=== PATIENT | female | born 1955 | race Caucasian/White ===

== ENCOUNTER 2016-12-11 06:13 | Day surgery (SDC) | payer MEDICARE, MEDICAID ==
[~2016-12-11 06:13] MED LIST: Buffered Lidocaine 1% SYR 3ML* 3 ML/SYR SYRINGE INTRADERM ONE; Sodium Citrate/Citric Acid* 15 ML UDC ONE; Sodium Citrate/Citric Acid* 15 ML UDC PO ONE; ceFAZolin 2 GM PREMIX (*) 2 GM/50 ML BAG IVPB ONE
[2016-12-11] MEDS ORDERED: Bupivacaine 0.25% SDV* 30 ML ONE (07:14)
[2016-12-11] MEDS ORDERED: Lidocaine 1% INJ* 10 MG/ML 30 ML SDV ONE (07:14)
[2016-12-11] MEDS ORDERED: Lidocaine 1% MPF wEPI 200,000* 30 ML SDV ONE (07:38)
[2016-12-11] MEDS ORDERED: Midazolam* 1 MG/ML 2 ML VIAL (2 MG) ONE (07:39)
[2016-12-11] MEDS ORDERED: Bupivacaine 0.5% W/EPI SDV* 30 ML VIAL ONE (07:39)
[2016-12-11] MEDS ORDERED: fentaNYL* 50 MCG/ML 2 ML VIAL (100 MCG VIAL) ONE (07:39)
[2016-12-11] MEDS ORDERED: Lidocaine 2% PF * 5 ML VIAL ONE (07:57)
[2016-12-11] MEDS ORDERED: Propofol* 10 MG/ML 20 ML BTL IV PUSH ONE (07:57)
[2016-12-11 09:12] VITALS: BP 106/77
--- NOTE | 2016-12-11 13:09 | OP ---
OPERATIVE REPORT: DATE OF OPERATION: 12/11/16 DATE OF : 57 SURGEON: Campbell Patton MD ACCOUNT SERVICE REPRESENTATIVE: MANUEL Mariano ANESTHESIOLOGIST: Michael Huggins DO. ANESTHESIA: Monitored anesthesia care, IV sedation as well as local anesthesia. PRE-OP DIAGNOSIS: Left de Quervain's tenosynovitis. POST-OP DIAGNOSIS: Left de Quervain's tenosynovitis. OPERATIVE PROCEDURE: Open left first dorsal compartment release. ANTIBIOSIS: 2 g Ancef IV. IV FLUIDS: See anesthesia note. TOURNIQUET TIME: 24 minutes, approximately at 250 mmHg. COMPLICATIONS: None. ESTIMATED BLOOD LOSS: Minimal. SPECIMENS: None. IMPLANTS: None. INDICATION: The patient is a 61-year-old woman, who I treated for left knee osteoarthritis and an M CL sprain who then complained of left wrist radial-sided pain, of long duration. Patient is right h and dominant. Patient described a long history of radial-sided pain, multiple years, it increased s omewhat with a fall in September 2016. Patient does not have children or grandchildren that she lifts often, but have a dachshund dog, that she lifts up and every time she lifts up the dog it causes si gnificant radial-sided pain. Of note, the patient is disabled secondary to lower back injury in 2002, treated at the pain clinic. Patient had a thorough examination that differentiated de Quervain's tenosynovitis from basal join t arthritis or intersection syndrome. I treated the patient with a cortisone injection, first dorsa l compartment. This helped the patient entirely, but only temporarily with her pain. I also treate d the patient with a thumb spica wrist splint and with Tylenol antiinflammatory. Patient had receive d similar treatment in the past as well. The patient had positive tenderness to palpation over the first dorsal compartment, positive Vasu test. X-rays of the wrists were negative for patholo gy. No snuffbox tenderness, basal joint tenderness and the patient's passive range of motion of the left wrist was pain free. Patient opted for surgical management. DESCRIPTION OF PROCEDURE: Preoperative written consent. Operative extremity was marked in the preo perative holding. Benefits, risks, and potential complications of procedure were discussed in madiha alvarez. Patient was taken back to the operating room, remained on stretcher. Patient was sedated with I V sedation. Hand table was applied. A mini timeout was performed. A local anesthetic, 9 cc of 1:1 ratio of lidocaine and Marcaine with epinephrine was injected in the area of the incision as well a s a superficial radial nerve block. Patient had a tourniquet placed over the left upper arm. Left upper extremity was prepped and draped. Surgical timeout was performed. Esmarch was applied and to urniquet was elevated 250 mmHg. Surgeon was sitting in the axilla of the arm. Surgical incision wa s made in the skin, transverse, 3 cm long, 1 cm proximal to the distal tip of the radial styloid, ce ntered over the first dorsal compartment as confirmed by patient's moving of thumb. Incision was ca rried just through skin. Scissor dissection was used with spreading technique to go from the skin t o the first dorsal compartment. Care was made to not injure any branches of the superficial radial nerve, which instead were spread. There is a small vessel bleeder that was ablated with bipolar lexx ctrocautery. First dorsal compartment was visualized. Proximally, mid point from volar to dorsal, slightly more dorsal, it was incised using a #15 blade followed by scissors from most proximal to mo st distal. There was an APL as well as EPB tendons present. There was also an accessory Zancolli s lip of the APL, which was in a separate compartment that was released separately. No additional com partments were visualized. When the patient moved her thumb and wrist, the tendons were stable in t he compartment. Irrigation. Closure of the subcutaneous layer with deep buried simple stitches usi ng Vicryl 3-0 suture. Closure of the skin with horizontal mattress stitches using nylon 4-0 suture. Xeroform, 4x4's, sterile Webril, Coban. Tourniquet was dropped. The patient was awakened, lighte mumtaz of sedation and brought to PACU. DISPOSITION: The patient is already on an aggressive narcotic pain medication regimen and will take that pain medication as needed. No oral antibiotics needed for home nor DVT prophylaxis. The laya ent will follow up with me in approximately 10 days in clinic. Wound care instructions provided. [id number]/[facility] #: [id number]
== END 2016-12-11 09:09 | disposition home or self-care (01) ==
LOC: OR 06:13
PROVIDERS: ATTEND Orthopaedic Surgery
PROC: 0LN60ZZ Release Left Lower Arm and Wrist Tendon, Open Approach (ICD-10-PCS; principal; 2016-12-11 07:30)
DX: M65.4 Radial styloid tenosynovitis [de Quervain] (principal)
CPT/HCPCS: A9270-GY; J0690; J2001; J2250; J2704; J3010

== ENCOUNTER 2017-06-15 13:36 | Emergency (ER) | payer MEDICARE ==
[2017-06-15] MEDS ORDERED: Aspirin Low Dose CHEW TAB* 81 MG PO ONE (14:14)
[2017-06-15 15:09] LABS: Hematocrit 38 % (35-47); Hemoglobin 12.6 g/dl (12.0-16.0); Mean Corpuscular HGB Conc 33 g/dl (31-36); Mean Corpuscular Hemoglobin 29 pg (27-31); Mean Corpuscular Volume 87 fL (80-97); Mean Platelet Volume 9 um3 (7.4-10.4); Red Blood Count 4.37 10^6/ul (4.0-5.4); Red Cell Distribution Width 14 % (10.5-15); White Blood Count 8.2 10^3/ul (3.5-10.8)
--- NOTE | 2017-06-15 15:13 | RAD ---
INDICATION: Chest pain COMPARISON: Chest x-ray dated December 11, 2015 TECHNIQUE: PA and lateral views of the chest were obtained. FINDINGS: The heart and mediastinum are normal in size and contour. The lungs are grossly clear. There is no evidence of large pleural effusion. Partially visualizes a cervical spine plain screw fixator. Degenerative changes of the thoracic spine include loss of intervertebral disc height and mild anterior marginal osteophyte formation. There is no radiographic evidence of free air beneath the diaphragm IMPRESSION: No radiographic evidence of acute cardiopulmonary disease.
[2017-06-15 15:34] LABS: BUN/Creatinine Ratio 10.8 (8-20); Calcium 9.7 mg/dL (8.6-10.3); EGFR African American 53.7 (>60); EGFR Non-African American 41.8 (>60); Globulin 3.6 g/dL (2-4); Potassium 3.9 mmol/L (3.5-5.0); Total Bilirubin 0.7 mg/dL (0.2-1.0); Total Protein 7.6 g/dL (6.4-8.9)
[2017-06-15] MEDS ORDERED: NS 0.9% 1000 ML* 1,000 ML IV ONE (15:59)
[2017-06-15] MEDS ORDERED: Morphine INJ* 4 MG/ML 1 ML CARPUJECT IV ONE (16:09)
[2017-06-15] MEDS ORDERED: Iodixanol* (CONTRAST) 320 MG/ML 100 ML SDV IV ONE (16:15)
--- NOTE | 2017-06-15 17:48 | RAD ---
INDICATION: Chest pain. COMPARISON: Comparison is made with a prior CT angiogram of the chest from December 11, 2015. TECHNIQUE: A CT angiogram of the chest was performed with intravenous following intravenous injection of 84 ml of is a PICC 320 nonionic contrast. Contiguous axial sections were obtained from the lung apices through the lung bases. Images were reconstructed in the coronal and sagittal planes. FINDINGS: There is relatively homogeneous opacification of the pulmonary arteries. No intraluminal filling defect or pulmonary embolism is seen. The heart is within normal limits in size. No pericardial effusion is present. There are coronary artery calcifications. The thoracic aorta is normal in caliber and demonstrates homogeneous contrast opacification. No significant enlarged mediastinal or hilar lymph nodes are seen. There is mild dependent bilateral lower lobe subsegmental atelectasis. There is a small nodular density present in the region of the superior segment of the left lower lobe measuring 4 mm in size possibly representing atelectasis although nonspecific. The lungs are otherwise clear. No pleural effusion is seen. Images of the upper abdomen demonstrate cholelithiasis. No significant focal osseous abnormality is seen. IMPRESSION: 1. NO EVIDENCE FOR PULMONARY EMBOLISM. 2. CORONARY ARTERY CALCIFICATIONS. 3. SMALL LEFT LOWER LOBE PULMONARY NODULE. RECOMMEND A FOLLOW-UP NONCONTRAST CT OF THE CHEST IN 6 MONTHS TIME. 4. CHOLELITHIASIS.
--- NOTE | 2017-06-15 19:17 | ED ---
Tom Varela Rebecca, scribed for Mainor Cohn MD on 06/15/17 at 1556 . HPI Chest Pain - HPI Summary HPI Summary: Pt is a 61 y/o F who presents to ED c/o midsternal CP. Pain began today at noon and s currently severe, ranked 8/10. Pain radiates into the LUE and she took 4 ASA in the waiting room of [facility] ED. Sx aggravated and alleviated by nothing. Additionally c/o SOB, chills, lightheadedness, dizziness and palpitations. Denies nausea, diaphoresis, fever, cough, calf pain and edema. Prior similar episode of pain with the cause being related to the musculature. Notes an episode of lightheadedness 3 days ago which cause the pt to suffer a mechanical fall and hit her head on a coffee table, inducing LOC. - History of Current Complaint Chief Complaint: EDChestPainROMI Time Seen by Provider: 06/15/17 15:48 Hx Obtained From: Patient Onset/Duration: Started Hours Ago, Still Present Time of Onset: 12:00 Current Severity: Severe Pain Intensity: 8 Pain Scale Used: 0-10 Numeric Chest Pain Location: Mid Sternal Chest Pain Radiates: Yes Chest Pain Radiates To:: Arm - LUE Aggravating Factor(s): Nothing Alleviating Factor(s): Nothing Associated Signs and Symptoms: Positive: Dizziness, Shortness of Breath, Chills , Lightheadedness, Palpitations. Negative: Fever, Diaphoresis, Nausea, Cough, Calf Pain/Swelling - Allergy/Home Medications Allergies/Adverse Reactions: Allergies Allergy/AdvReac Type Severity Reaction Status Date / Time No Known Allergies Allergy Verified 02/10/17 10:17 PMH/Surg Hx/FS Hx/Imm Hx Endocrine/Hematology History: Reports: Hx Anticoagulant Therapy - FOR HX OF DVT Denies: Hx Diabetes, Hx Thyroid Disease Cardiovascular History: Reports: Hx Angina, Hx Deep Vein Thrombosis, Hx Hypertension, Other Cardiovascular Problems/Disorders - "WEAK"- SEES DR. SMITH- LAST SEEN-09/2016 Denies: Hx Congestive Heart Failure, Hx Pacemaker/ICD Respiratory History: Reports: Hx Chronic Obstructive Pulmonary Disease (COPD), Hx Sleep Apnea, Other Respiratory Problems/Disorders - USES O2 AT HS Denies: Hx Asthma GI History: Denies: Hx Ulcer History: Denies: Hx Renal Disease Musculoskeletal History: Reports: Hx Arthritis - KNEES, LOWER BACK, Hx Back Problems, Hx Osteoporosis Denies: Hx Rheumatoid Arthritis Sensory History: Reports: Hx Contacts or Glasses - READING Denies: Hx Hearing Aid Opthamlomology History: Reports: Hx Contacts or Glasses - READING Neurological History: Reports: Other Neuro Impairments/Disorders - 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 ACDF C5-6 IN 2004;. C6 VERTEBRECTOMY W/ C5-C7 STRUT GRAFT FUSION IN 2004;. ACDF C4-5 IN 2006;. ACDF C3-4 IN 2007;. CRANIOTOMY (FOR AVM) IN JANUARY 2009 (THIS WAS CLEARED IN 2009 FOR MRI CSP - SEE PREVIOUS SCREENING IN PACS);. REMOVAL OF FLAP FEBRUARY 2009;. CRANIOPLASTY IN AUG 2009;. REMOVAL OF INFECTED FLAP NOVEMBER 2009 Hx Anesthesia Reactions: No Infectious Disease History: No Infectious Disease History: Reports: Hx of Known/Suspected MRSA Denies: Hx Clostridium Difficile, Hx Hepatitis, Hx Human Immunodeficiency Virus (HIV), Hx Shingles, Hx Tuberculosis, Traveled Outside the [place] in Last 30 Days - Family History Known Family History: Positive: Cardiac Disease, Hypertension - Social History Alcohol Use: None Alcohol Amount: 1 glass of wine about 1X/month Substance Use Type: Reports: None Substance Use Comment - Amount & Last Used: fentanyl and oxycodone Smoking Status (MU): Former Smoker Type: Cigarettes Amount Used/How Often: 1 PPD X 25 YEARS Length of Time of Smoking/Using Tobacco: 29 years Have You Smoked in the Last Year: No Review of Systems Positive: Chills. Negative: Fever, Skin Diaphoresis Positive: Palpitations, Chest Pain Positive: Shortness Of Breath. Negative: Cough Negative: Nausea Positive: Other - NEGATIVE: calf pain. Negative: Edema Neurological: Other - Lightheadedness, dizziness All Other Systems Reviewed And Are Negative: Yes Physical Exam Triage Information Reviewed: Yes Vital Signs On Initial Exam: Initial Vitals Temp Pulse Resp BP Pulse Ox 96 F 107 20 112/80 97 06/15/17 13:37 06/15/17 13:37 06/15/17 13:37 06/15/17 13:37 06/15/17 13:37 Vital Signs Reviewed: Yes Appearance: Positive: Well-Appearing, No Pain Distress Skin: Positive: Warm, Skin Color Reflects Adequate Perfusion Head/Face: Positive: Normal Head/Face Inspection ENT: Positive: Normal ENT inspection Neck: Positive: Supple, Nontender Respiratory/Lung Sounds: Positive: Clear to Auscultation, Breath Sounds Present , Other - the patient is very tender to palpation of the left upper anterior chest and she jumps when palpated in this area. It reproduces her chest pain very very clearly. Cardiovascular: Positive: RRR. Negative: Murmur Abdomen Description: Positive: Nontender Musculoskeletal: Positive: Other - chest wall tenderness Neurological: Positive: Sensory/Motor Intact, Alert, Oriented to Person Place, Time, CN Intact II-III Psychiatric: Positive: Normal - [place] Coma Scale Best Eye Response: 4 - Spontaneous Best Motor Response: 6 - Obeys Commands Best Verbal Response: 5 - Oriented Diagnostics - Vital Signs Vital Signs Temp Pulse Resp BP Pulse Ox 06/15/17 15:20 98.3 F 80 20 105/66 90 06/15/17 13:37 96 F 107 20 112/80 97 - Laboratory Lab Results: Lab Results 06/15/17 06/15/17 06/15/17 Range/Units 14:56 14:56 14:56 WBC 8.2 (3.5-10.8) 10^3/ul RBC 4.37 (4.0-5.4) 10^6/ul Hgb 12.6 (12.0-16.0) g/dl Hct 38 (35-47) % MCV 87 (80-97) fL MCH 29 (27-31) pg MCHC 33 (31-36) g/dl RDW 14 (10.5-15) % Plt Count 320 (150-450) 10^3/ul MPV 9 (7.4-10.4) um3 Neut % (Auto) 69.2 (38-83) % Lymph % (Auto) 21.2 L (25-47) % Bradford % (Auto) 6.0 (1-9) % Eos % (Auto) 2.3 (0-6) % Baso % (Auto) 1.3 (0-2) % Absolute Neuts (auto) 5.7 (1.5-7.7) 10^3/ul Absolute Lymphs (auto) 1.7 (1.0-4.8) 10^3/ul Absolute Monos (auto) 0.5 (0-0.8) 10^3/ul Absolute Eos (auto) 0.2 (0-0.6) 10^3/ul Absolute Basos (auto) 0.1 (0-0.2) 10^3/ul Absolute Nucleated RBC 0 10^3/ul Nucleated RBC % 0.1 D-Dimer, Quantitative (Less Than 230) ng/mL Sodium 135 (133-145) mmol/L Potassium 3.9 (3.5-5.0) mmol/L Chloride 101 (101-111) mmol/L Carbon Dioxide 27 (22-32) mmol/L Anion Gap 7 (2-11) mmol/L BUN 14 (6-24) mg/dL Creatinine 1.30 H (0.51-0.95) mg/dL Est GFR ( Amer) 53.7 (>60) Est GFR (Non-Af Amer) 41.8 (>60) BUN/Creatinine Ratio 10.8 (8-20) Glucose 94 (70-100) mg/dL Lactic Acid (0.5-2.0) mmol/L Calcium 9.7 (8.6-10.3) mg/dL Total Bilirubin 0.70 (0.2-1.0) mg/dL AST 22 (13-39) U/L ALT 16 (7-52) U/L Alkaline Phosphatase 117 H (34-104) U/L Troponin I 0.00 (<0.04) ng/mL B-Natriuretic Peptide 31 ( - 100) pg/mL Total Protein 7.6 (6.4-8.9) g/dL Albumin 4.0 (3.2-5.2) g/dL Globulin 3.6 (2-4) g/dL Albumin/Globulin Ratio 1.1 (1-3) 06/15/17 06/15/17 Range/Units 14:56 14:56 WBC (3.5-10.8) 10^3/ul RBC (4.0-5.4) 10^6/ul Hgb (12.0-16.0) g/dl Hct (35-47) % MCV (80-97) fL MCH (27-31) pg MCHC (31-36) g/dl RDW (10.5-15) % Plt Count (150-450) 10^3/ul MPV (7.4-10.4) um3 Neut % (Auto) (38-83) % Lymph % (Auto) (25-47) % Bradford % (Auto) (1-9) % Eos % (Auto) (0-6) % Baso % (Auto) (0-2) % Absolute Neuts (auto) (1.5-7.7) 10^3/ul Absolute Lymphs (auto) (1.0-4.8) 10^3/ul Absolute Monos (auto) (0-0.8) 10^3/ul Absolute Eos (auto) (0-0.6) 10^3/ul Absolute Basos (auto) (0-0.2) 10^3/ul Absolute Nucleated RBC 10^3/ul Nucleated RBC % D-Dimer, Quantitative 897 H (Less Than 230) ng/mL Sodium (133-145) mmol/L Potassium (3.5-5.0) mmol/L Chloride (101-111) mmol/L Carbon Dioxide (22-32) mmol/L Anion Gap (2-11) mmol/L BUN (6-24) mg/dL Creatinine (0.51-0.95) mg/dL Est GFR ( Amer) (>60) Est GFR (Non-Af Amer) (>60) BUN/Creatinine Ratio (8-20) Glucose (70-100) mg/dL Lactic Acid 0.8 (0.5-2.0) mmol/L Calcium (8.6-10.3) mg/dL Total Bilirubin (0.2-1.0) mg/dL AST (13-39) U/L ALT (7-52) U/L Alkaline Phosphatase (34-104) U/L Troponin I (<0.04) ng/mL B-Natriuretic Peptide ( - 100) pg/mL Total Protein (6.4-8.9) g/dL Albumin (3.2-5.2) g/dL Globulin (2-4) g/dL Albumin/Globulin Ratio (1-3) Result Diagrams: 06/15/17 14:56 06/15/17 14:56 Lab Statement: Any lab studies that have been ordered have been reviewed, and results considered in the medical decision making process. - Radiology CXR Xray Interpretation: No Acute Changes - No radiographic evidence of acute cardiopulmonary disease. ED physician reviewed radiology report and agrees. Radiology Interpretation Completed By: Radiologist - CT Chest/Thorax CTA CT Interpretation: Positive (See Comments) - 1. NO EVIDENCE FOR PULMONARY EMBOLISM. 2. CORONARY ARTERY CALCIFICATIONS. 3. SMALL LEFT LOWER LOBE PULMONARY NODULE. RECOMMEND A FOLLOW-UP NONCONTRAST CT OF THE CHEST IN 6 MONTHS TIME. 4. CHOLELITHIASIS. ED physician reviewed radiology report and agrees. CT Interpretation Completed By: Radiologist - EKG 1341 Cardiac Rate: NL - 76 bpm EKG Rhythm: Sinus Rhythm ST Segment: Non-Specific - T ave abnormalities in the anterior leads Re-Evaluation - Re-Evaluation First Eval Re-Evaluation Time: 18:02 Change: Improved Comment: Pt is feeling much more comfortable. Chest Pain Course/Dx - Course Course Of Treatment: 61 yr old with very clear reproducible chest pain. Neg troponin times two and neg ct chest. Has had a stress test in the past several months that was neg, and heart cath in 2010 with no significant CAD. DC home, FU with PMD. EKG not different than prior tracings - Diagnoses Provider Diagnoses: Chest wall pain Discharge - Discharge Plan Condition: Good Disposition: HOME Patient Education Materials: Chest Wall Pain (ED) Referrals: Janes Michele MD [Primary Care Provider] - 1 Day The documentation as recorded by the Tom borja Rebecca accurately reflects the service I personally performed and the decisions made by , Mainor Cohn MD.
[2017-06-15 19:18] VITALS: BP 98/63
== END 2017-06-15 19:35 | disposition home or self-care (01) ==
LOC: ED 13:36
DX: R07.89 Other chest pain (principal); R68.83 Chills (without fever); R00.2 Palpitations; R06.02 Shortness of breath
CPT/HCPCS: 36415; 71020; 71275; 80053; 83605; 83880; 84484; 85025; 85379; 93005; 99284; A9270-GY; J2270; Q9967

== ENCOUNTER 2017-08-04 09:45 | Emergency (ER) | payer MEDICARE, OTHER ==
[2017-08-04 10:13] VITALS: BP 121/83
--- NOTE | 2017-08-04 10:25 | UC ---
Hand/Wrist HPI - HPI Summary HPI Summary: Pt presents after a fall this morning. She was walking down a slight incline and lost her footing - landed on her left side and left dorsal hand. Did not hit her head. Had immediate hand pain and swelling soon after. She came right to and is currently icing her hand. - History Of Current Complaint Chief Complaint: UCUpperExtremity Stated Complaint: HAND INJURY Time Seen by Provider: 08/04/17 10:25 Hx Obtained From: Patient Onset/Duration: Sudden Onset Severity Initially: Moderate Severity Currently: Moderate Pain Intensity: 8 Pain Scale Used: 0-10 Numeric Character Of Pain: Sharp, Aching, Throbbing, Stiffness Aggravating Factor(s): Movement, Flexion, Extension Associated Signs And Symptoms: Positive: Swelling, Bruising - Allergies/Home Medications Allergies/Adverse Reactions: Allergies Allergy/AdvReac Type Severity Reaction Status Date / Time No Known Allergies Allergy Verified 02/10/17 10:17 PMH/Surg Hx/FS Hx/Imm Hx Previously Healthy: Yes Cardiovascular History: Cardiac Disease, Hypertension Other History Of: Anticoagulant Therapy - FOR HX OF DVT - Surgical History Surgical History: Yes Surgery Procedure, Year, and Place: L4-L5 DECOMPRESSIVE LAMINCETOMY FOLLOWED BY PEDICLE SCREW FIXATION AND FUSION IN 2003;. ACDF C5-6 IN 2004;. C6 VERTEBRECTOMY W/ C5-C7 STRUT GRAFT FUSION IN 2004;. ACDF C4-5 IN 2006;. ACDF C3-4 IN 2007;. CRANIOTOMY (FOR AVM) IN JANUARY 2009 (THIS WAS CLEARED IN 2009 FOR MRI CSP - SEE PREVIOUS SCREENING IN PACS);. REMOVAL OF FLAP FEBRUARY 2009;. CRANIOPLASTY IN AUG 2009;. REMOVAL OF INFECTED FLAP NOVEMBER 2009 - Family History Known Family History: Positive: Cardiac Disease, Hypertension - Social History Alcohol Use: None Alcohol Amount: 1 glass of wine about 1X/month Substance Use Type: None Substance Use Comment - Amount & Last Used: fentanyl and oxycodone Smoking Status (MU): Former Smoker Type: Cigarettes Amount Used/How Often: 1 PPD X 25 YEARS Length of Time of Smoking/Using Tobacco: 29 years Have You Smoked in the Last Year: No When Did the Patient Quit Smoking/Using Tobacco: 08/20/2013 - Immunization History Most Recent Influenza Vaccination: Not this season Most Recent Tetanus Shot: unknown Most Recent Pneumonia Vaccination: Never had Review of Systems Constitutional: Negative Skin: Bruising - Left hand Respiratory: Negative Cardiovascular: Negative Musculoskeletal: Decreased ROM - Left hand, Edema - Left hand Neurological: Negative Psychological: Negative All Other Systems Reviewed And Are Negative: Yes Physical Exam Triage Information Reviewed: Yes Appearance: Well-Nourished, Pain Distress Vital Signs: Initial Vital Signs Temp 97.2 F 08/04/17 10:08 Pulse 86 08/04/17 10:08 Resp 18 08/04/17 10:08 BP 121/83 08/04/17 10:08 Pulse Ox 99 08/04/17 10:08 Vital Signs Reviewed: Yes Respiratory: Positive: Chest non-tender, Lungs clear, Normal breath sounds, No respiratory distress, No accessory muscle use Cardiovascular: Positive: RRR, No Murmur, Pulses Normal Musculoskeletal: Positive: Strength Limited @ - Left hand due to pain 2/5, ROM Limited @ - 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 No snuffbox tenderness. Left wrist: FROM NTTP Neurological: Positive: Alert, Other: - Sensations intact left hand. Psychological: Positive: Age Appropriate Behavior Skin: Negative: rashes Hand/Wrist Course/Dx - Course Course Of Treatment: XR negative today. NATALIA wrap hand for comfort and added protection. Ibuprofen for pain. - Differential Dx/Diagnosis Differential Diagnosis/HQI/PQRI: Contusion, Dislocation, Fracture, Sprain, Strain Provider Diagnoses: Left hand contusion. Fall Discharge - Discharge Plan Condition: Stable Disposition: HOME Patient Education Materials: Contusion in Adults (ED) Referrals: Janes Michele MD [Primary Care Provider] - Additional Instructions: 1) Ibuprofen 400mg every 6 hours as needed for pain 2) NATALIA wrap for comfort and protection If you develop a fever, SOB, chest pain, new or worsening symptoms - please call your PCP or go to the ED.
--- NOTE | 2017-08-04 11:45 | RAD ---
INDICATION: Pain at the third metacarpal phalangeal joint after a fall COMPARISON: [facility] TECHNIQUE: 4 views of the left hand were obtained. FINDINGS: The adequately corticated bones are in normal alignment. No significant focal osseous abnormality or fracture is seen. Joint spaces appear maintained. IMPRESSION: Normal left hand radiograph. If the patient's symptoms persist, follow-up imaging is recommended.
== END 2017-08-04 12:07 | disposition home or self-care (01) ==
LOC: UCEAST 09:45
DX: Z72.89 Other problems related to lifestyle (principal); Z87.891 Personal history of nicotine dependence; S60.222A Contusion of left hand, initial encounter; W17.89XA Other fall from one level to another, initial encounter; Y93.01 Activity, walking, marching and hiking; Y92.9 Unspecified place or not applicable; Y99.9 Unspecified external cause status
CPT/HCPCS: 99212; G0463

== ENCOUNTER 2019-08-10 14:19 | Observation (INO) | payer MEDICARE, OTHER ==
--- NOTE | 2019-08-10 14:36 | ED ---
Shortness of Breath - HPI Summary HPI Summary: This patient is a 64 year old F presenting to [facility] with a chief complaint of an constant irregular heartbeat since one week ago. Pt was scheduled for lower back surgery. She was getting prepped for the surgery, when they sent her here for an irregular heart rate. The patient rates the pain 0/10 in severity. Symptoms aggravated by nothing. Symptoms alleviated by nothing. Patient reports SOB, dizziness, lightheadedness, cough, left calf swelling and pain. Pt denies any fever, chills, erythema of eyes, sore throat, CP, abdominal pain, N/V, dysuria, hematuria, myalgia, edema, rash. She has not travelled for longer than an hour. Pt had a blood clot in her lung previously. Pt does not have HLD or diabetes. - History of Current Complaint Chief Complaint: EDShortnessOfBreath Time Seen by Provider: 08/10/19 14:23 Hx Obtained From: Patient Onset/Duration: Sudden Onset, Lasting Weeks - 1, Still Present Current Severity: Mild Dyspnea At: Rest Aggravating Factors: Nothing Alleviating Factors: Nothing Associated Signs & Symptoms: Cough (Nonproductive) - Allergy/Home Medications Allergies/Adverse Reactions: Allergies Allergy/AdvReac Type Severity Reaction Status Date / Time No Known Allergies Allergy Verified 02/10/17 10:17 Home Medications: Home Medications Ca/D3/Mag Ox/Zinc/Regulator Assembler/Constantine/Bor [Calcium 600-D3 Plus Caplet] 1 tab PO DAILY 08/10 [History Confirmed 08/10/19] Clotrimazole 1% CREAM* [Clotrimazole 1%*] 1 applic TOPICAL BID PRN 08/10/19 [ History Confirmed 08/10/19] Cyclobenzaprine TAB* [Flexeril 10 MG TAB*] 10 mg PO TID PRN 08/10/19 [History Confirmed 08/10/19] DULoxetine DR CAP* [Cymbalta CAP*] 60 mg PO DAILY 08/10/19 [History Confirmed ] Gabapentin CAP(*) [Neurontin 300 CAP(*)] 300 mg PO BEDTIME 08/10/19 [History Confirmed 08/10/19] Melatonin 10 mg PO BEDTIME 08/10/19 [History Confirmed 08/10/19] traZODone TAB* [Desyrel TAB*] 50 - 100 mg PO BEDTIME 08/10/19 [History Confirmed 08/10/19] PMH/Surg Hx/FS Hx/Imm Hx Previously Healthy: Yes Endocrine/Hematology History: Reports: Hx Anticoagulant Therapy - FOR HX OF DVT Denies: Hx Diabetes, Hx Thyroid Disease Cardiovascular History: Reports: Hx Angina, Hx Deep Vein Thrombosis, Hx Hypertension, Other Cardiovascular Problems/Disorders - "WEAK"- SEES DR. SMITH- LAST SEEN-09/2016 Denies: Hx Congestive Heart Failure, Hx Pacemaker/ICD Respiratory History: Reports: Hx Chronic Obstructive Pulmonary Disease (COPD), Hx Sleep Apnea, Other Respiratory Problems/Disorders - USES O2 AT HS Denies: Hx Asthma GI History: Denies: Hx Ulcer History: Denies: Hx Renal Disease Musculoskeletal History: Reports: Hx Arthritis - KNEES, LOWER BACK, Hx Back Problems, Hx Osteoporosis Denies: Hx Rheumatoid Arthritis Sensory History: Reports: Hx Contacts or Glasses - READING Denies: Hx Hearing Aid Opthamlomology History: Reports: Hx Contacts or Glasses - READING Neurological History: Reports: Other Neuro Impairments/Disorders - 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 ANTERIOR CERVICAL DISC FUSION C5-6 IN 2004; C4-C5 2006 :C3-C4 2008. C6 VERTEBRECTOMY W/ C5-C7 STRUT GRAFT FUSION IN 2004;. ALL SPINE SURGERIES AT [facility] WITH DR SANTIAGO. CRANIOTOMY (FOR AVM) IN JANUARY 2009 (THIS WAS CLEARED IN 2009 FOR MRI CSP - SEE PREVIOUS SCREENING IN PACS) ;. REMOVAL OF FLAP FEBRUARY 2009;. CRANIOPLASTY IN AUG 2009;. REMOVAL OF INFECTED FLAP NOVEMBER 2009 Hx Anesthesia Reactions: No Infectious Disease History: No Infectious Disease History: Reports: Hx of Known/Suspected MRSA Denies: Hx Clostridium Difficile, Hx Hepatitis, Hx Human Immunodeficiency Virus (HIV), Hx Shingles, Hx Tuberculosis, Traveled Outside the [place] in Last 30 Days - Family History Known Family History: Positive: Cardiac Disease, Hypertension - Social History Alcohol Use: None Alcohol Amount: 1 glass of wine about 1X/month Substance Use Type: Reports: None Substance Use Comment - Amount & Last Used: fentanyl and oxycodone Smoking Status (MU): Former Smoker Type: Cigarettes Amount Used/How Often: 1 PPD X 25 YEARS Length of Time of Smoking/Using Tobacco: 29 years Have You Smoked in the Last Year: No Review of Systems Negative: Fever, Chills Negative: Erythema Negative: Sore Throat Cardiovascular: Other - positive - irregular heart rate Negative: Chest Pain Positive: Shortness Of Breath, Cough Negative: Abdominal Pain, Vomiting, Nausea Negative: dysuria, hematuria Musculoskeletal: Other - positive - left calf swelling and pain Negative: Myalgia, Edema Negative: Rash Neurological: Other - positive - dizziness, lightheadedness All Other Systems Reviewed And Are Negative: Yes Physical Exam - Summary Physical Exam Summary: Constitutional: Well-developed, Well-nourished, Alert. (-) Distressed Skin: Warm, Dry HENT: Normocephalic; Atraumatic Eyes: Conjunctiva normal Neck: Musculoskeletal ROM normal neck. (-) JVD, (-) Stridor, (-) Tracheal deviation Cardio: Rhythm regular, rate normal, Heart sounds normal; Intact distal pulses; The pedal pulses are 2+ and symmetric. Radial pulses are 2+ and symmetric. (-) Murmur Pulmonary/Chest wall: Effort normal. (-) Respiratory distress, (-) Wheezes, (-) Rales Abd: Soft, (-) tenderness, (-) Distension, (-) Guarding, (-) Rebound Musculoskeletal: (-) Edema Lymph: (-) Cervical adenopathy Neuro: Alert, Oriented x3 Psych: Mood and affect Normal Triage Information Reviewed: Yes Vital Signs On Initial Exam: Initial Vitals Temp Pulse Resp BP Pulse Ox 97.8 F 113 19 146/99 92 08/10/19 14:26 08/10/19 14:26 08/10/19 14:26 08/10/19 14:26 08/10/19 14:26 Vital Signs Reviewed: Yes Procedures - Sedation Patient Received Moderate/Deep Sedation with Procedure: No Diagnostics - Vital Signs Vital Signs Temp Pulse Resp BP Pulse Ox 08/10/19 14:26 97.8 F 113 19 146/99 92 - Laboratory Result Diagrams: 08/10/19 14:34 08/10/19 14:34 Lab Statement: Any lab studies that have been ordered have been reviewed, and results considered in the medical decision making process. - Radiology Chest X-ray Radiology Interpretation Completed By: Radiologist Summary of Radiographic Findings: Chest X-ray IMPRESSION: NO ACTIVE CARDIOPULMONARY DISEASE IS NOTED. Reviewed by Dr. Sigala. Venous Doppler Study Radiology Interpretation Completed By: Radiologist Summary of Radiographic Findings: Venous Doppler Study IMPRESSION: NO EVIDENCE OF DEEP VENOUS THROMBOSIS IS IDENTIFIED. Reviewed by Dr. Sigala. - CT Chest/Thorax CTA CT Interpretation Completed By: Radiologist Summary of CT Findings: Chest/Thorax CTA IMPRESSION: No pulmonary embolus is noted. Small 4 mm nodule pleural-based in the periphery of the left lower lobe. No evidence of aortic dissection. Cholelithiasis is noted. Reviewed by Dr. Sigala. - EKG 15:33 Cardiac Rate: Tachycardia - 108 BPM EKG Rhythm: Sinus Tachycardia ST Segment: Normal Ectopy: None Summary of EKG Findings: EKG at 15:21 shows 108 BPM with sinus tachycardia, no STEMI. Reviewed and interpreted by Dr. Sigala. Re-Evaluation - Re-Evaluation First Eval Re-Evaluation Time: 16:59 Change: Unchanged Comment: At 16:59, patient HR is 100 BPM, 100% oxygen saturation. Patient is feeling unchanged. Course/Dx - Course Course Of Treatment: This patient is a 64 year old F presenting to [facility] with a chief complaint of an constant irregular heartbeat since one week ago. Pt was scheduled for lower back surgery. She was getting prepped for the surgery, when they sent her here for an irregular heart rate. The patient rates the pain 0/10 in severity. Symptoms aggravated by nothing. Symptoms alleviated by nothing. Patient reports SOB, dizziness, lightheadedness, cough, left calf swelling and pain. Pt denies any fever, chills, erythema of eyes, sore throat, CP, abdominal pain, N/V, dysuria, hematuria, myalgia, edema, rash. She has not travelled for longer than an hour. Pt had a blood clot in her lung previously. Pt does not have HLD or diabetes. Physical exam shows unremarkable findings. In the ED course, patient was given albuterol 1 neb INH, aspirin 324 mg PO, iodixanol 92 ml IV, and NTG 0.4 mg SL. Laboratory abnormal findings: D-dimer 456, creatinine 1.15., glucose 103, lactic acid 2.2, alkaline phosphatase 128. Venous Doppler Study IMPRESSION: NO EVIDENCE OF DEEP VENOUS THROMBOSIS IS IDENTIFIED. Chest X-ray IMPRESSION: NO ACTIVE CARDIOPULMONARY DISEASE IS NOTED. Chest/Thorax CTA IMPRESSION: No pulmonary embolus is noted. Small 4 mm nodule pleural-based in the periphery of the left lower lobe. No evidence of aortic dissection. Cholelithiasis is noted. At 16:59, patient HR is 100 BPM, 100% oxygen saturation. Patient is feeling unchanged. At 17:55, Dr. Mery Green agrees to admit the patient to [facility] with a diagnosis of chest pain, hypoxemia, and dyspnea. Patient will be admitted to [facility] with a diagnosis of chest pain, hypoxemia, and dyspnea. - Diagnoses Provider Diagnoses: Chest pain, Hypoxemia, Dyspnea - Physician Notifications Discussed Care of Patient With: Mery Green - At 17:55, Dr. Mery Green agrees to admit the patient to [facility] with a diagnosis of chest pain, hypoxemia, and dyspnea. Time Discussed With Above Provider: 17:55 Instructed by Provider To: Admit As Observation Discharge ED - Sign-Out/Discharge Documenting (check all that apply): Patient Departure - Admit - Discharge Plan Condition: Stable Disposition: ADMITTED TO [facility] - Attestation Statements Document Initiated by Scribe: Yes Documenting Scribe: Paige Espinal Provider For Whom Heriberto is Documenting (Include Credential): Dr. Emery Sigala MD Scribe Attestation: Donavan Varela Susan Amquy, scribed for Dr. Emery Sigala MD on 08/10/19 at 1921. Status of Scribe Document: Ready
[2019-08-10 14:56] LABS: ABS Eosinophils 0.1 10^3/ul (0-0.6); ABS Lymphocytes 1.4 10^3/ul (1.0-4.8); ABS Monocytes 0.5 10^3/ul (0-0.8); ABS Neutrophils 4.2 10^3/ul (1.5-7.7); Eosinophil % 2.1 %; Hematocrit 38 % (35-47); Hemoglobin 12.9 g/dL (12.0-16.0); Mean Corpuscular HGB Conc 34 g/dL (31-36); Mean Corpuscular Hemoglobin 30 pg (27-31); Mean Corpuscular Volume 88 fL (80-97); Mean Platelet Volume 8.7 fL (7.4-10.4); Nucleated Red Blood Cells % 0.1; Platelet Count 287 10^3/uL (150-450); Red Cell Distribution Width 15 % (10-15); White Blood Count 6.3 10^3/uL (3.5-10.8)
[2019-08-10 15:03] LABS: INR 1.03 (0.82-1.09)
[2019-08-10 15:23] LABS: T4, Total 10.74 mcg/dL (6.09-12.23)
--- OUTSIDE RECORDS SUMMARY | 2019-08-10 15:23 | XMS REPORT | Continuity of Care Document ---
:1955 External Reference #:[id number] Author Name Juan Jose Alvarez MD (transmitted by agent of provider Nargis Carrillo ) Address [address] [place] [address] Care Team Providers Name Role Phone Janes Michele MD - Internal Care Team Information Administrative Officer Medicine Problems Active Problems Provider Date Electrocardiogram abnormal Joselito Ross M.D. Onset: 06/26/2011 Dyspnea Joselito Ross M.D. Onset: 06/26/2011 Pulmonary embolism Joselito Ross M.D. Onset: 06/26/2011 Morbid obesity Joselito Ross M.D. Onset: 06/26/2011 Restrictive cardiomyopathy secondary to Joselito Ross M.D. Onset: granulomas Chest pain Joselito Ross M.D. Onset: 06/30/2011 Benign essential hypertension Joselito Ross M.D. Onset: 07/13/2011 Coronary arteriosclerosis Joselito Ross M.D. Onset: 07/13/2011 Mitral valve disorder Joselito Ross M.D. Onset: 02/19/2012 Paroxysmal supraventricular tachycardia Paige Kaufman N.P. Onset: 2011 Premature beats Joselito Ross M.D. Onset: 06/28/2012 Spinal stenosis of lumbar region Kwadwo Alford M.D. Onset: 07/04/2013 Lumbar post-laminectomy syndrome Kwadwo Alford M.D. Onset: 07/04/2013 Chronic pain syndrome Kwadwo Alford M.D. Onset: 10/06/2013 Arthrodesis Status Postsurgical Kwadwo Alford M.D. Onset: 10/06/2013 Malaise and fatigue Joselito Ross M.D. Onset: 02/16/2014 Palpitations Joselito Ross M.D. Onset: 02/16/2014 Cardiomyopathy, unspecified Joselito Ross M.D. Onset: 06/18/2015 Disturbance in sleep behavior Olivia Erwin MD Onset: 09/24/2015 Ex-smoker Olivia Erwin MD Onset: 09/24/2015 Hypoxemia Olivia Erwin MD Onset: 09/24/2015 Obesity Olivia Erwin MD Onset: 09/24/2015 Obstructive sleep apnea syndrome Olivia Erwin MD Onset: 11/01/2015 Sprain of unspecified site of right Elvin Lyn M.D. Onset: 03/10/2016 knee, subsequent encounter Social History Type Date Description Comments Sex Unknown Tobacco Use Start: Unknown End: Former Cigarette Smoker Unknown Smoking Status Reviewed: 04/19/19 Former Cigarette Smoker ETOH Use Occasionally consumes 1 glass of wine alcohol weekly Tobacco Use Start: Unknown End: Patient is a former quit 2012 Unknown smoker Recreational Drug Use Denies Drug Use Exercise Type/Frequency Does not exercise Allergies, Adverse Reactions, Alerts Description No Known Drug Allergies Medications Active Medications SIG Qnty Indications Ordering Date Provider Carvedilol 1 pill by mouth 180tabs Joselito Gordon 07/11/2012 12.5mg Tablets twice per day ( Clark Ross 10-12 hours apart) Calicum daily Unknown 1500mg Tablets Cymbalta 1 po qd 90caps Unknown 60mg Caps DR Part Trazodone HCL 1 by mouth Unknown 150mg Tablets every night at bedtime Docusate Sodium 1 by mouth Unknown 100mg twice a day or Capsules as needed Cyclobenzaprine HCL take 1 tab by Unknown 10mg mouth 2-3 times Tablets a day as needed Acidophilus Probiotic daily Unknown 10mg Capsules Gabapentin 1 by mouth qhs Unknown 300mg Capsules Medications Administered in Office Medication SIG Qnty Indications Ordering Provider Date Depomedrol 40MG Campbell Patton MD 01/14/2017 Injection Dexamethasone Sodium Campbell Patton MD 10/26/2016 Phosphate, 1 MG Injection Technetium TC 99M Tetrofosmin, Ica Nuclear Schedule 10/09/2016 Per Unit Dose Up To 40 Millicuries Injection Inj, Regadenoson, 0.1 MG Kunal Sow M.D. 10/08/2016 Injection Technetium TC 99M Tetrofosmin, Kunal Sow M.D. 10/08/2016 Per Unit Dose Up To 40 Millicuries Injection Depomedrol 40MG Campbell Patton MD 08/25/2016 Injection Immunizations Description No Information Available Vital Signs Date Vital Result Comment 04/19/2019 2:36pm Height 67 inches 5'7" Weight 244.00 lb Heart Rate 84 /min BP Systolic Sitting 128 mmHg Rue BP Diastolic Sitting 84 mmHg Rue Respiratory Rate 16 /min Body Temperature 98.1 F Pain Level 9 BMI (Body Mass Index) 38.2 kg/m2 08/24/2017 9:56am Height 67 inches 5'7" Weight 222.00 lb with shoes Heart Rate 76 /min BP Systolic Sitting 110 mmHg LA reg cuff BP Diastolic Sitting 82 mmHg LA reg cuff BMI (Body Mass Index) 34.8 kg/m2 Ejection Fraction 40%-45% echo 03/04/17 Results Description No Information Available Procedures Date Code Description Status 06/20/2009 02811850 Mammogram Completed 01/19/2008 299188043 Bone Mineral Density Test Completed 08/20/2007 45364072 Colonoscopy Completed Medical Devices Description No Information Available Encounters Type Date Location Provider Dx Diagnosis Office Visit 04/19/2019 [facility] M51.36 Other intervertebral 2:[facility] Al[facility] MD disc degeneration, lumbar region M43.16 Spondylolisthesis, lumbar region M47.896 Other spondylosis, lumbar region Z98.1 Arthrodesis status M51.36 Other intervertebral disc degeneration, lumbar region Assessments Date Code Description Provider 04/19/2019 M51.36 Other intervertebral disc degeneration, Juan Jose Alvarez MD lumbar region 04/19/2019 M43.16 Spondylolisthesis, lumbar region Juan Jose Alvarez MD 04/19/2019 M47.896 Other spondylosis, lumbar region Juan Jose Alvarez MD 04/19/2019 Z98.1 Arthrodesis status Juan Jose Alvarez MD 04/19/2019 M51.36 Other intervertebral disc degeneration, Juan Jose Alvarez MD lumbar region Plan of Treatment No Information Available Functional Status Description No Information Available Mental Status Description No Information Available Referrals Description No Information Available
[2019-08-10 15:28] LABS: ALT 17 U/L (7-52); AST 20 U/L (13-39); Albumin 3.9 g/dL (3.2-5.2); Albumin/Globulin Ratio 1.1 (1-3); Alkaline Phosphatase 128 U/L (34-104); Anion Gap 8 mmol/L (2-11); BUN/Creatinine Ratio 13.9 (8-20); Blood Urea Nitrogen 16 mg/dL (6-24); CO2 Carbon Dioxide 25 mmol/L (22-32); Calcium 9.4 mg/dL (8.6-10.3); Chloride 107 mmol/L (101-111); EGFR African American 57.7 (>60); EGFR Non-African American 47.7 (>60); Globulin 3.5 g/dL (2-4); Glucose 103 mg/dL (70-100); Magnesium 1.9 mg/dL (1.9-2.7); Potassium 3.7 mmol/L (3.5-5.0); Sodium 140 mmol/L (135-145); Total Protein 7.4 g/dL (6.4-8.9)
[2019-08-10 15:29] LABS: TSH (Thyroid Stimulating Horm) 2.16 mcIU/mL (0.34-5.60)
[2019-08-10] MEDS ORDERED: Iodixanol* (CONTRAST) 320 MG/ML 100 ML SDV IV ONE (16:08)
[2019-08-10] MEDS ORDERED: Aspirin 81 mg CHEW TAB* 81 MG TAB.CHEW PO ONE (16:59)
[2019-08-10] MEDS ORDERED: Albuterol/Ipratropium NEB.SOL* Albuterol 2.5 MG/Ipratropium 0.5 MG 3 ML INH ONE (17:00)
[2019-08-10] MEDS ORDERED: NS 0.9% 1000 ML** 1,000 ML IV SCH (17:45)
[2019-08-10] MEDS ORDERED: Acetaminophen TAB* 325 MG PO PRN (17:45)
[2019-08-10] MEDS ORDERED: Cyclobenzaprine TAB* 10 MG PO PRN (17:48)
[2019-08-10 17:55] LABS: C Reactive Protein 16.87 mg/L (<8.01)
--- NOTE | 2019-08-10 18:34 | HP ---
HISTORY AND PHYSICAL: ADDENDUM: Please note that this patient's lactic acid was elevated at 2.2. The patient is not septic during my evaluation. Her tachycardia is likely due to dehydration and her lactic acid is likely elevated due to mild dehydration. Therefore, I am not going to continue repeating and checking the patient's lactic acid, but start her on gentle intravenous fluids in consideration of her decreased ejection fraction in the past. [id number]/CPS #: [id number] MTDD
[2019-08-10] MEDS: Nitroglycerin TAB 0.4 MG* 0.4 MG TAB SL ONE ×2 (18:39→18:46)
[2019-08-10] MEDS ORDERED: Nitro 2% OINT* (Nitroglycerin) 1 INCH/PAK PAK TOPICAL ONE (18:51)
[2019-08-10] MEDS ORDERED: Nitro 2% OINT* (Nitroglycerin) 1 INCH/PAK PAK ONE (18:52)
--- NOTE | 2019-08-10 19:07 | HP ---
ADDENDUM NOW INCLUDED ON THIS REPORT CC: Dr. Michele; Dr. Ross; Dr. Alvarez * HISTORY AND PHYSICAL: DATE OF ADMISSION: 08/10/19 PRIMARY CARE PROVIDER: Dr. Michele. NEUROSURGEON: Dr. Alvarez. TRAVEL REGISTERED NURSE ONCOLOGY: Dr. Ross. CHIEF COMPLAINT: Shortness of breath. HISTORY OF PRESENT ILLNESS: Quiana Smith is a 64-year-old morbidly obese female with history of chronic shortness of breath and exacerbations thereof that happened in the past who presented to the hospital complaining of dyspnea on exertion for the past 1 week. The patient stated that over the past 6 months she did gain approximately 40 pounds. Her bilateral lower extremities are always swollen and they were so recently. She came to Dr. Alvarez' office today for preoperative evaluation and she was noted to be tachycardic and weak and she was brought into the ED for evaluation. She stated that today she had several episodes of profuse diarrhea without abdominal pain or nausea and vomiting. When in the ED, she was noted to be mildly dehydrated and tachycardic. Her CT angiogram of the chest was negative for PE. She is going to be placed on overnight observation. I suspect the patient is dehydrated, but I also suspect that she may have symptoms of dyspnea on exertion that are due to her decreasing cardiac function or coronary artery disease. PAST MEDICAL HISTORY: 1. Cardiomyopathy with EF of 40% in the past. Negative cardiac stress test in 2014 for similar presentation of palpitations and shortness of breath. 2. History of chronic back pain with multiple back surgeries that include: A. Lumbar fusion in 2003. B. Anterior cervical diskectomy with fusion of C5 to C7 in 2004. C. C6 vertebrectomy and graft fusion in March 2005. D. Anterior cervical diskectomy and fusion and plate at C4-C5 level in 2006. E. Anterior cervical diskectomy and fusion in March 2008. 3. History of craniectomy in 2008 for AVM at [facility] with 3 subsequent operations for removal of infected bone flap with cranioplasty and removal of cranioplasty complicated with MRSA infection. 4. Depression. 5. DVT and PE in 2006. 6. History of mitral valve insufficiency. 7. Morbid obesity. 8. Obstructive sleep apnea, on CPAP. 9. cervical myelopathy. 10. History of frequent UTIs. 11. Hypertension. 12. History of chronic pain. CURRENT MEDICATIONS: Include: 1. Gabapentin 300 mg at bedtime. 2. Calcium with vitamin D 800 units daily. 3. Duloxetine 60 mg daily. 4. Imodium on a p.r.n. basis. 5. Coreg 12.5 mg b.i.d. 6. Trazodone 100 mg at bedtime. ALLERGIES: No known drug allergies. FAMILY HISTORY: Positive for mother who had dementia and coronary artery disease and at the age of 92 secondary to dementia. Father who of complication of coronary artery bypass grafting in his early 80s due to "blood clot." SOCIAL HISTORY: The patient has history of smoking. She smoked when she was 19 years old and she quit smoking in 2012. She has history of a pack and a half smoking during that time. She denies any alcohol or drug use. Her healthcare proxy is her son, Venkat Huggins, with a number of [phone]. REVIEW OF SYSTEMS: Please see history of present illness. Positive for shortness of breath with exertion for the past 1 week. No problems with sleeping, but the patient uses CPAP. Positive for dyspnea on exertion, but no chest pain. Positive for dry cough. This dyspnea is not positional. The patient denies any chest pain. Positive for bilateral lower extremity edema that had been worse, but it is better when she has her legs elevated and when she gets up in the morning. Positive for weight gain of approximately 40 pounds that is not intentional. All the remaining 12 systems were reviewed with the patient and were otherwise negative. Please also note that the patient is being now evaluated perioperatively for lumbar spine surgery with Dr. Alvarez at the beginning of August 2019. Please also note that the patient has not seen Dr. Ross for approximately couple of years now. She was in [place] for a year and a half. Her significant other and she moved back to [place] within the past couple of months. PHYSICAL EXAMINATION GENERAL: The patient is a pleasant 64-year-old female who is in no acute distress. Alert, awake, and oriented x3. VITAL SIGNS: Blood pressure of 130/87, heart rate of 103 and regular, respiratory rate 14, oxygen saturation 96% on room air, temperature of 97.8. HEENT: Head: Atraumatic, normocephalic. Eyes: Pupils are equal, reactive to light and accommodation. Oropharynx is clear. Mucosa moist. NECK: Supple. No JVD. No bruits bilaterally. RESPIRATORY: Clear to auscultation bilaterally. CARDIOVASCULAR: Regular rate and rhythm. No murmur. ABDOMEN: Soft, nontender. Bowel sounds are present in all 4 quadrants. EXTREMITIES: There is +1.5 pitting edema bilaterally. Pulses are +2 bilaterally. No clubbing or cyanosis. No visible venous stasis changes of bilateral lower extremities with no evidence of open wounds. NEUROLOGIC: Cranial nerves II through XII grossly intact. Motor strength is 5/ 5 bilaterally. PSYCHIATRIC: The patient is alert and oriented x3 with no evidence of anxiety or depression. DIAGNOSTIC STUDIES/LAB DATA: Laboratory Data: White blood cell count of 6.0, hemoglobin 12.9, hematocrit of 38, and platelets of 187. Sodium of 140, potassium 3.7, chloride 107, carbon dioxide 25, BUN 16, creatinine 1.15. Liver function tests unremarkable, apart from elevation of alkaline phosphatase of 128; which is chronic. Lactic acid of 2.2. Serial troponin of 16. Brain natriuretic peptide is pending at the time of dictation. CT angiogram of the chest obtained today shows "no PE is noted. A small 4 mm nodule, pleural based, in the periphery of the left lower lobe. No evidence of aortic dissection." Venous Doppler study, impression: "No evidence of DVTs identified." The patient's EKG showed sinus tachycardia with heart rate of 108 beats per minute with no significant ST changes noted. ASSESSMENT AND PLAN: 1. Dyspnea on exertion for approximately 1 week with weight gain. It is possible that the patient has symptoms of coronary artery disease versus congestive heart failure. For that, the patient is going to be observed on telemetry monitored bed with followup troponins. I will obtain a transthoracic echocardiogram and stress test in the morning. That will also be valuable for this patient who needs preoperative evaluation for her surgery in August. 2. In regards to the patient's tachycardia, I suspect the patient now is dehydrated, although I suspect before that she had symptoms of congestive heart failure. She is going to be placed on gentle intravenous hydration. We will check the patient's weight on a daily basis. Her slight increase in creatinine is also likely due to dehydration. 3. For DVT prophylaxis, the patient is going to be placed on heparin subcutaneously. 4. For venous stasis changes, I will ask nurses to Alexander wrap the patient's bilateral lower extremities. 5. The patient's code status is full. Her surrogate is her son. TIME SPENT: Approximately 65 minutes were spent on the admission of this patient. More than half that time was spent [id number] with the patient during the interview and physical exam. ADDENDUM: Please note that this patient's lactic acid was elevated at 2.2. The patient is not septic during my evaluation. Her tachycardia is likely due to dehydration and her lactic acid is likely elevated due to mild dehydration. Therefore, I am not going to continue repeating and checking the patient's lactic acid, but start her on gentle intravenous fluids in consideration of her decreased ejection fraction in the past. [id number] #: [id number] #: [id number] KYRIE
[2019-08-10] MEDS: Carvedilol TAB* 6.25 MG PO SCH (20:07)
[2019-08-10] MEDS ORDERED: traZODone TAB* 100 MG PO SCH (21:00)
[2019-08-10] MEDS ORDERED: Gabapentin CAP(*) 300 MG PO SCH (21:00)
[2019-08-10] MEDS ORDERED: Melatonin 3 MG TAB PO SCH (21:00)
[2019-08-10] MEDS: Heparin VIAL(*) 5000 UNITS/ML VIAL (FIVE THOUSAND) SUBCUT SCH (23:00)
[2019-08-11] MEDS ORDERED: Clotrimazole 1% CREAM* 30 GM TOPICAL PRN (01:55)
[2019-08-11] MEDS ORDERED: Clotrimazole 1% VAGINAL CREAM* 45 GM TOPICAL PRN (01:59)
[2019-08-11 06:09] LABS: ABS Eosinophils 0.2 10^3/ul (0-0.6); ABS Lymphocytes 1.7 10^3/ul (1.0-4.8); ABS Monocytes 0.4 10^3/ul (0-0.8); ABS Neutrophils 2.6 10^3/ul (1.5-7.7); Eosinophil % 3.3 %; Hematocrit 34 % (35-47); Hemoglobin 11.5 g/dL (12.0-16.0); Lymphocyte % 35.1 %; Mean Corpuscular HGB Conc 34 g/dL (31-36); Mean Corpuscular Hemoglobin 30 pg (27-31); Mean Corpuscular Volume 89 fL (80-97); Mean Platelet Volume 8.8 fL (7.4-10.4); Platelet Count 238 10^3/uL (150-450); Red Blood Count 3.78 10^6 /uL (3.70-4.87); Red Cell Distribution Width 14 % (10-15); White Blood Count 4.9 10^3/uL (3.5-10.8)
[2019-08-11] MEDS: Heparin VIAL(*) 5000 UNITS/ML VIAL (FIVE THOUSAND) SUBCUT SCH ×2 (06:27→14:21)
[2019-08-11 06:44] LABS: BUN/Creatinine Ratio 12.3 (8-20); Calcium 8.4 mg/dL (8.6-10.3); EGFR African American 63.4 (>60); EGFR Non-African American 52.4 (>60); Potassium 3.9 mmol/L (3.5-5.0)
[2019-08-11] MEDS ORDERED: Perflutren Lipid Microsphere* 3 ML VIAL ONE (08:17)
[2019-08-11 08:57] VITALS: BP 107/77
[2019-08-11] MEDS ORDERED: DULoxetine DR CAP* 60 MG CAP.DR PO SCH (09:00)
[2019-08-11] MEDS ORDERED: Influenza VAC *QUAD* 2019-20* 0.5 ML SYRINGE IM ONE (09:00)
[2019-08-11] MEDS: Carvedilol TAB* 6.25 MG PO SCH (09:15)
[2019-08-11] MEDS ORDERED: Regadenoson* 0.4 MG/5 ML SYRINGE ONE (11:35)
--- NOTE | 2019-08-11 11:37 | ECHO ---
*[facility]* [place] [address] Fax #: [phone] Transthoracic Echocardiogram Patient: Quiana Smith : 1955 Study Date: 08/11/2019 Age: 64 Gender: F HR: 95 bpm Height: 65 in /165.1 cm BSA: 2.34 m^2 Weight: 249 lb /113.2 kg BMI: 41.5 kg/m^2 *[employer] Technician: * Debi Dangelo RDCS RN *Referring Physician: * Mery Green *Reading Physician: * Yakov Simpson MD Indications: Congestive Heart Failure. History: PMH: Cardiomyopathy. Lower extremity edema. Chronic SOB. DVT/PE. Risk factors: Former tobacco use. Hypertension. Morbidly obese. Conclusions Summary: - Left ventricle: The cavity size is normal. Wall thickness is mildly increased. Systolic function is mildly to moderately reduced. The estimated ejection fraction is 40%, - Right ventricle: The cavity size is normal. Systolic function is low normal. - Left atrium: The atrium is normal in size. - Ascending aorta: The ascending aorta is mildly dilated - Pulmonary arteries: Systolic pressure can not be accurately estimated. - No significant valvular abnormalities noted. Recommendations: Compared to prior study from 09/2017, no clinically significant changes noted. Study data: Transthoracic echocardiogram. Procedure: Transthoracic echocardiography was performed. Image quality was fair. The study was technically limited due to body habitus and smoking history. Intravenous Definity 3 ml was administered by Eloise Dangelo RN, RDCS to enhance imaging. Complete 2D, spectral Doppler, and color flow Doppler. Location: Bedside. Patient status: Inpatient. Patient room number: 449-02. Rhythm: Normal sinus rhythm. Findings Left ventricle: The cavity size is normal. Wall thickness is mildly increased. Systolic function is mildly to moderately reduced. The estimated ejection fraction is 35-40%, appears closer to 40% Mild diffuse hypokinesis. Left ventricular diastolic function parameters are indeterminate. Right ventricle: The cavity size is normal. Systolic function is low normal. Left atrium: The atrium is normal in size. Right atrium: The atrium is normal in size. Mitral valve: The leaflets are mildly thickened. There is no evidence of stenosis. There is trace regurgitation. Aortic valve: The valve is trileaflet. The leaflets are mildly thickened. There is no evidence of stenosis. There is trace regurgitation. Tricuspid valve: The valve is structurally normal. There is no evidence of stenosis. There is trace regurgitation. Pulmonic valve: The valve is structurally normal. There is no evidence of stenosis. There is no significant regurgitation. Aorta: Aortic root: The aortic root is mildly dilated at 3.6 cm. Ascending aorta: The ascending aorta is mildly dilated Aortic arch: The aortic arch is not dilated. Pericardium: There is no significant pericardial effusion. Pulmonary arteries: The main pulmonary artery is normal-sized. Systolic pressure can not be accurately estimated. Systemic veins: Inferior vena cava: Not visualized. Measurements Left ventricle Value Ref Right atrium Value Ref ANNABELLA, LAX 4.7 cm 3.8 - 5.2 ML dim, ES, A4C 3.6 cm 2.6 - 4.4 ESD, LAX (H) 4.2 cm 2.2 - 3.5 SI dim, ES, A4C 4.4 cm 3.4 - 5.3 FS, LAX (L) 12 % 27 - 45 Estimated RAP 8 mm Hg --------- PW, ED (H) 1.1 cm 0.6 - 0.9 IVS/PW, ED 1.01 Aortic valve Value Ref E', lat hayley, TDI (L) 9.2 cm/sec >=10.0 Hayley diam, ED 2.3 cm ---- ----- E/e', lat hayley, 13 Peak v, S 1.13 m/sec ------- -- TDI VTI, S 23.0 cm --------- E', med hayley, TDI (L) 5.1 cm/sec >=7.0 Mean grad, S 3.0 mm Hg ---- ----- E/e', med hayley, 24 Peak grad, S 5.0 mm Hg ------- -- TDI LVOT/AV, VTI ratio 0.71 --------- E', avg, TDI 7.2 cm/sec E/e', avg, TDI (H) 17 <=14 Mitral valve Value Ref Peak E 1.2 m/sec --------- LVOT Value Ref Peak grad, D 5.8 mm Hg --------- Peak leticia, S 0.87 m/sec VTI, S 16.4 cm Pulmonic valve Value Ref Mean grad, S 2 mm Hg Peak v, S 0.84 m/sec --------- Peak grad, S 3.0 mm Hg --------- Ventricular septum Value Ref IVS, ED (H) 1.1 cm 0.6 - 0.9 Aortic root Value Ref Root diam 3.6 cm <4.4 Right ventricle Value Ref AW thickness, ED (H) 0.8 cm 0.1 - 0.5 Ascending aorta Value Ref ANNABELLA, LAX 3.0 cm AAo AP diam, S 4.0 cm --------- ANNABELLA minor ax, 3.1 cm 1.9 - 3.5 A4C mid Aortic arch Value Ref Arch diam 2.6 cm --------- Left atrium Value Ref AP dim, ES 3.20 cm 2.70 - Decending aorta Value Ref 3.80 Suzy peak leticia 0.51 m/sec --------- ML dim, A4C 3.8 cm SI dim, A4C 5.2 cm Vol/bsa, ES, 1-p 25 ml/m^2 11 - 40 A4C Vol/bsa, ES, A/L 23 ml/m^2 16 - 34 Legend: (L) and (H) lauren values outside specified reference range. Prepared and electronically signed by Yakov Simpson MD 08/11/2019 11:36
[2019-08-11] MEDS ORDERED: Furosemide IV* 10 MG/ML 2 ML VIAL (20 MG) IV ONE (14:11)
--- NOTE | 2019-08-11 21:46 | DS ---
CC: [facility]; Dr. Joselito Ross * DISCHARGE SUMMARY: DATE OF ADMISSION: 08/10/19 DATE OF DISCHARGE: 08/11/19 PRIMARY CARE PHYSICIAN: None. ATTENDING PHYSICIAN: Dr. Mery Green.* (DIICTATED BY JOE TIJERINA NP) PRIMARY DIAGNOSIS: 1. Mild acute on chronic systolic congestive heart failure. SECONDARY DIAGNOSES: 1. Chronic back pain. 2. Depression. 3. History of venous thromboembolism. STUDIES WHILE IN THE HOSPITAL: 1. Chest x-rays on 08/10/19 reads as no active cardiopulmonary disease. 2. EKG on 08/10/19 shows sinus tachycardia with a rate of 108. Flattened T- waves in III and aVF, which was consistent with previous EKG. No ST elevation or depression. 3. Chest thorax CTA on 08/10/19 reads as no pulmonary embolus is noted. Small 4 mm nodule pleural based in the periphery of the left lower lobe. No evidence of aortic dissection. Cholelithiasis was noted. 4. Left lower extremity venous Doppler study on 08/10/19 reads as no evidence of deep vein thrombosis. 5. Transthoracic echocardiogram on 08/11/19 reads as the left ventricular cavity size is normal. Wall thickness is mildly increased. Systolic function is mildly to moderately reduced. The estimated ejection fraction is 40%. The right ventricular cavity size is normal. Systolic function is normal. The left atrium is normal in size. The ascending aorta is mildly dilated. Systolic pressure in the pulmonary arteries cannot be accurately estimated. No significant valvular abnormalities noted. Compared to the prior study from September 2017, no clinically significant changes noted. 6. Nuclear cardiac stress test on 08/11/19 reads as no fixed or reversible perfusion defect is identified. Assessment is low risk. HISTORY OF PRESENT ILLNESS AND HOSPITAL COURSE: Ms. Smith is a 64-year-old female with a past medical history of cardiomyopathy of unknown etiology, chronic back pain with multiple back surgeries, craniotomy, depression, DVT/PE, morbid obesity, obstructive sleep apnea, and hypertension, who presented to the emergency room on 08/10/19 with complaints of shortness of breath. Please see the history and physical by Dr. Green for complete summary of the events leading up to this hospitalization. In short, the patient does have a history of some chronic shortness of breath, though over the past week noted worsening dyspnea on exertion. She reported a 40-pound weight gain over the last 6 months. She is scheduled for surgery with Dr. Alvarez in the near future and had an appointment with him yesterday. At that point, he sent her to the emergency room for evaluation. In the emergency room, she was noted to be mildly dehydrated and tachycardiac. She had imaging as noted above. Because of her history of cardiomyopathy, it was felt as though a stress test was warranted and so the patient was admitted by the hospitalist service. The patient had an uneventful night with no significant abnormalities noted on telemetry. She did not experience any chest pain. Lab work this morning was noted to be normal. Lactic acid on admission was noted to be 2.2. This was secondary to dehydration and resolved with IV fluids. There were 3 negative troponins of 0.00 and BNP of 34. She had an echo and stress test today with results noted above. Stress test was noted to be negative. It was unlikely that the dyspnea on exertion is secondary to her coronary artery disease, but more likely represent a mild CHF exacerbation. The patient's ejection fraction was noted to be stable from 2018 though she has not been on any diuretics and has not followed up with a rock lather. She does feel significantly better this morning and is agreeable to starting daily diuretics. She offers no complaints and would like to return home. She was alert and oriented x4 and has no neurological deficits. Heart has a regular rate and rhythm with no murmurs, rubs or gallops. Lungs are clear to auscultation without rhonchi, wheezes or rubs. There is +1 to +2 pitting edema in the bilateral lower extremities. Ms. Smith is stable for discharge today. Most recent vitals are as follows: Temperature 97.7, heart rate 99, respiratory rate 16, oxygen saturation 99%, blood pressure 107/77. DISCHARGE MEDICATIONS: New medications: 1. Furosemide 20 mg p.o. daily. Continued medications: 1. Calcium 600 plus D 1 tablet p.o. daily. 2. Carvedilol 12.5 mg p.o. b.i.d. 3. Clotrimazole 1% one application topically b.i.d. p.r.n. itching. 4. Flexeril 10 mg p.o. t.i.d. p.r.n. muscle spasm. 5. Duloxetine 50 mg p.o. daily. 6. Gabapentin 300 mg p.o. at bedtime. 7. Melatonin 10 mg p.o. at bedtime. 8. Trazodone 50 to 100 mg p.o. at bedtime. DISCHARGE PLAN: Ms. Smith will be discharged home. ACTIVITY: Will be as tolerated. DIET: Heart healthy. Medications are unchanged except for the addition of furosemide. She has been given her first dose here in the hospital. I have strongly recommended that she follow up with her rock lather, Dr. Ross, whom she has not seen since early last year. She is agreeable to this. She also recently moved back to the [facility] and so does not have a primary care physician and is agreeable to following up with [facility]. I have advised her that she should see a provider there ideally within the next 4 to 7 days. She should return to the emergency room or nearest hospital for any worsening symptoms, shortness of breath, lightheadedness, dizziness, chest discomfort, high fevers, chills, night sweats, loss of consciousness, or any other worrisome signs or symptoms. DISCHARGE CONDITION: Stable. DISCHARGE DISPOSITION: Home. This is a summarized report of a complex medical history and hospital stay. For further details, please see the entire medical record. TIME SPENT: Approximately 45 minutes were spent on this discharge. JOE TIJERINA, JOHNATHAN [id number]/CPS #: [id number] KYRIE
== END 2019-08-11 15:10 | disposition home or self-care (01) ==
LOC: ED 14:19 → MEDTELE 17:45
PROVIDERS: ADMIT Internal Medicine; ATTEND Internal Medicine
DX: I50.23 Acute on chronic systolic (congestive) heart failure (principal); R05 Cough; I10 Essential (primary) hypertension; J44.9 Chronic obstructive pulmonary disease, unspecified; F41.9 Anxiety disorder, unspecified; F32.9 Major depressive disorder, single episode, unspecified; R06.02 Shortness of breath; Z86.14 Personal history of Methicillin resistant Staphylococcus aureus infection; R07.9 Chest pain, unspecified; R94.31 Abnormal electrocardiogram [ECG] [EKG]; Z86.718 Personal history of other venous thrombosis and embolism; Z87.891 Personal history of nicotine dependence; Z79.01 Long term (current) use of anticoagulants; Z79.899 Other long term (current) drug therapy
CPT/HCPCS: 36415; 71045; 71275; 78452; 80048; 80053; 83605; 83735; 83880; 84436; 84443; 84484; 85025; 85379; 85610; 86140; 87641; 90471; 90686; 93005; 93017; 93306; 96372; 96374; 99285; A9270-GY; A9502; C8929; G0008; G0378; J1644; J1940; J2785; Q9967

== ENCOUNTER 2019-08-23 11:48 | Inpatient (IN) | payer MEDICARE, OTHER ==
[2019-08-23] MEDS ORDERED: NS 0.9% 1000 ML** 1,000 ML IV ONE (11:59)
[2019-08-23] MEDS ORDERED: Ondansetron INJ* 2 MG/ML VIAL IV ONE (11:59)
--- NOTE | 2019-08-23 12:05 | ED ---
Abdominal Pain/Female - HPI Summary HPI Summary: The patient is a 64 y/o F arriving by ambulance to [facility] with a chief complaint of abdominal pain and chest pain onset this morning at 0530. She reports that the pains woke up her up and have persisted. In the ambulance, she was administered Nitroglycerin, Aspirin, and Zofran, which helped to relieve the diffuse chest pain. She is now nauseous and still experiencing diffuse abdominal pain. She rates her pain 5/10 in severity. PMHx: angina, DVT, HTN, COPD, sleep apnea, arthritis, laminectomy, anxiety, depression, MRSA. FHx: cardiac disease, HTN. Former smoker, rare EtOH, no substance use. Medications reviewed. Allergies noted. - History of Current Complaint Stated Complaint: CHEST PAIN/GENERAL ILLNESS PER EMS Hx Obtained From: Patient Onset/Duration: Sudden Onset, Lasting Hours - since 0530, Still Present Timing: Hours Severity Initially: Severe Severity Currently: Moderate Pain Intensity: 5 Pain Scale Used: 0-10 Numeric Location: Diffuse Radiates: No Character: Sharp Aggravating Factor(s): Nothing Alleviating Factor(s): Nothing Associated Signs and Symptoms: Positive: Chest Pain - diffuse, Nausea Allergies/Adverse Reactions: Allergies Allergy/AdvReac Type Severity Reaction Status Date / Time No Known Allergies Allergy Verified 08/24/19 01:06 Home Medications: Home Medications ARIPiprazole TAB* [Abilify TAB*] 5 mg PO DAILY 08/23/19 [History Confirmed 02/05] Calcium Carbonate/Vitamin D3 [Calcium 500-Vit D3 400 Chew Tb] 1 each PO DAILY [History Confirmed 08/24/19] Spironolactone/HCTZ 25-25 MG* [Aldactazide 25-25*] 0.5 tab PO DAILY 08/23/19 [ History Confirmed 08/24/19] PMH/Surg Hx/FS Hx/Imm Hx Endocrine/Hematology History: Reports: Hx Anticoagulant Therapy - FOR HX OF DVT Denies: Hx Diabetes, Hx Thyroid Disease Cardiovascular History: Reports: Hx Angina, Hx Deep Vein Thrombosis, Hx Hypertension, Other Cardiovascular Problems/Disorders - "WEAK"- SEES DR. SMITH- LAST SEEN-09/2016 Denies: Hx Congestive Heart Failure, Hx Hypercholesterolemia, Hx Pacemaker/ ICD Respiratory History: Reports: Hx Chronic Obstructive Pulmonary Disease (COPD), Hx Sleep Apnea, Other Respiratory Problems/Disorders - USES O2 AT HS Denies: Hx Asthma GI History: Denies: Hx Ulcer History: Denies: Hx Renal Disease Musculoskeletal History: Reports: Hx Arthritis - KNEES, LOWER BACK, Hx Back Problems, Hx Osteoporosis Denies: Hx Rheumatoid Arthritis Sensory History: Reports: Hx Contacts or Glasses - READING Denies: Hx Hearing Aid Opthamlomology History: Reports: Hx Contacts or Glasses - READING Neurological History: Reports: Other Neuro Impairments/Disorders - 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 ANTERIOR CERVICAL DISC FUSION C5-6 IN 2004; C4-C5 2006 :C3-C4 2008. C6 VERTEBRECTOMY W/ C5-C7 STRUT GRAFT FUSION IN 2004;. ALL SPINE SURGERIES AT [facility] [place] WITH DR SANTIAGO. CRANIOTOMY (FOR AVM) IN JANUARY 2009 (THIS WAS CLEARED IN 2009 FOR MRI CSP - SEE PREVIOUS SCREENING IN PACS) ;. REMOVAL OF FLAP FEBRUARY 2009;. CRANIOPLASTY IN AUG 2009;. REMOVAL OF INFECTED FLAP NOVEMBER 2009 Hx Anesthesia Reactions: No Infectious Disease History: Reports: Hx of Known/Suspected MRSA Denies: Hx Clostridium Difficile, Hx Hepatitis, Hx Human Immunodeficiency Virus (HIV), Hx Shingles, Hx Tuberculosis - Family History Known Family History: Positive: Cardiac Disease, Hypertension - Social History Alcohol Use: Rare Alcohol Amount: 1 glass of wine about 1X/month Hx Substance Use: No Substance Use Type: Reports: None Hx Tobacco Use: Yes Smoking Status (MU): Former Smoker Type: Cigarettes Amount Used/How Often: 1 PPD X 25 YEARS Length of Time of Smoking/Using Tobacco: 29 years Have You Smoked in the Last Year: No Review of Systems Positive: Chest Pain - diffuse (resolved) Positive: Abdominal Pain - diffuse, Nausea All Other Systems Reviewed And Are Negative: Yes Physical Exam - Summary Physical Exam Summary: VITAL SIGNS: Reviewed. GENERAL: Patient is a well-developed and obese elderly female who is lying comfortable in the stretcher. Patient is not in any acute respiratory distress. HEAD AND FACE: No signs of trauma. No ecchymosis, hematomas or skull depressions. No sinus tenderness. EYES: PERRLA, EOMI x 2, No injected conjunctiva, no nystagmus. EARS: Hearing grossly intact. Ear canals and tympanic membranes are within normal limits. MOUTH: Oropharynx within normal limits. NECK: Supple, trachea is midline, no adenopathy, no JVD, no carotid bruit, no c- spine tenderness, neck with full ROM. CHEST: Symmetric, no tenderness at palpation. LUNGS: Clear to auscultation bilaterally. No wheezing or crackles. CVS: Regular rate and rhythm, S1 and S2 present, no murmurs or gallops appreciated. ABDOMEN: Soft, diffuse abdominal tenderness. No signs of distention. No rebound , no guarding, and no masses palpated. Bowel sounds are normal. EXTREMITIES: FROM in all major joints, no edema, no cyanosis or clubbing. NEURO: Alert and oriented x 3. No acute neurological deficits. Speech is normal and follows commands. SKIN: Dry and warm. Triage Information Reviewed: Yes Vital Signs Reviewed: Yes Procedures - Sedation Patient Received Moderate/Deep Sedation with Procedure: No Diagnostics - Laboratory Result Diagrams: 08/25/19 06:23 08/25/19 06:23 Lab Statement: Any lab studies that have been ordered have been reviewed, and results considered in the medical decision making process. - Radiology Chest X-Ray Radiology Interpretation Completed By: Radiologist Summary of Radiographic Findings: Impression: No acute cardiopulmonary process by radiograph. ED physician has reviewed this report. - CT Abdomen Pelvic CT CT Interpretation Completed By: Radiologist Summary of CT Findings: Impression: 1. Acute appendicitis. There is a small amount of local extraluminal gas at the base of the appendix consistent with perforation. There is no loculated fluid collection to suggest abscess. 2. Cholelithiasis. 3. Fatty infiltration of the liver. 4. Preliminary findings were discussed with dr. Gamez at approximately 3:08 pm on August 23, 2019. ED physician has reviewed this report. - EKG 1345 Cardiac Rate: NL - 95 BPM EKG Rhythm: Sinus Rhythm EKG Comparison: No Significant Change - Similar to previous EKG taken on . Summary of EKG Findings: EKG at 1345 reveals normal sinus rhythm at 95 BPM. T wave inversions in V2 and V3. No ST elevations. ED physician has reviewed and interpreted this EKG. Abdominal Pain Fem Course/Dx - Course Course Of Treatment: The patient is a 64 y/o F arriving by ambulance to [facility] with a chief complaint of abdominal pain and chest pain onset this morning at 0530. She reports that the pain woke her up and has persisted. In the ambulance , she was administered Nitroglycerin, Aspirin, and Zofran, which helped to relieve the diffuse chest pain. She is now nauseous and still experiencing diffuse abdominal pain. She rates her pain 5/10 in severity. PMHx: angina, DVT, HTN, COPD, sleep apnea, arthritis, laminectomy, anxiety, depression, MRSA. FHx: cardiac disease, HTN. Former smoker, rare EtOH, no substance use. Medications reviewed. Allergies noted. Blood test results without any significant abnormality except for the WBCs of 11.7, carbon dioxide of 21, anion gap of 12, BUN of 14, creatinine of 1.04, glucose of 117, magnesium of 1.7, and CRP of 20.07. Urinalysis is negative for UTI. Chest x-ray impression: No acute cardiopulmonary process. Abdominal and pelvic CT Impression: 1. Acute appendicitis. There is a small amount of local extraluminal gas at the base of the appendix consistent with perforation. There is no loculated fluid collection to suggest abscess. 2. Cholelithiasis. 3. Fatty infiltration of the liver. Patient was given Zofran, ZOsyn and IV fluids. At this time, I discussed my physical exam and findings with Dr. Alcazar who came and examined the patient, and he accepted the patient for admission. - Diagnoses Differential Diagnosis: Positive: Appendicitis, Bowel Obstruction, Constipation , Diverticulitis, Pancreatitis, Urinary Tract Infection Provider Diagnoses: Acute appendicitis - Provider Notifications Discussed Care Of Patient With: Arsenio Alcazar - surgery Time Discussed With Above Provider: 16:00 Instructed by Provider To: Other - I discussed the patient's case with Qing, who is the OR nurse for Dr. Alcazar. She states that Dr. Alcazar will come see the patient in the ED. He accepts the patient for admission. Discharge ED - Sign-Out/Discharge Documenting (check all that apply): Patient Departure - Patient accepted for admission to OR by Dr. Alcazar. - Discharge Plan Condition: Stable Disposition: ADMITTED TO [facility] - Billing Disposition and Condition Condition: STABLE Disposition: Admitted to [facility] - Attestation Statements Document Initiated by Maxibsarbjit: Yes Documenting Scribe: Shanta Saleem Provider For Whom Heriberto is Documenting (Include Credential): Dr. Mainor Trinidad MD Scribe Attestation: Shanta Varela, scribed for Dr. Mainor Trinidad MD on 08/25/19 at 0753. Scribe Documentation Reviewed: Yes Provider Attestation: The documentation as recorded by the Shanta borja accurately reflects the service I personally performed and the decisions made by me, Dr. Mainor Trinidad MD Status of Scribe Document: Viewed
[2019-08-23 12:48] LABS: ABS Lymphocytes 0.7 10^3/ul (1.0-4.8); ABS Monocytes 0.3 10^3/ul (0-0.8); ABS Neutrophils 10.7 10^3/ul (1.5-7.7); Eosinophil % 0.1 %; Hematocrit 39 % (35-47); Lymphocyte % 5.9 %; Mean Corpuscular HGB Conc 33 g/dL (31-36); Mean Corpuscular Hemoglobin 30 pg (27-31); Mean Corpuscular Volume 89 fL (80-97); Mean Platelet Volume 8.5 fL (7.4-10.4); Platelet Count 304 10^3/uL (150-450); Red Blood Count 4.41 10^6 /uL (3.70-4.87); Red Cell Distribution Width 15 % (10-15); White Blood Count 11.7 10^3/uL (3.5-10.8)
[2019-08-23 12:58] LABS: Activated Partial Thrombo Time 31.7 seconds (26.0-38.0); INR 1.02 (0.82-1.09)
[2019-08-23 13:09] LABS: Albumin 4.2 g/dL (3.2-5.2); Albumin/Globulin Ratio 1.3 (1-3); BUN/Creatinine Ratio 13.5 (8-20); C Reactive Protein 20.07 mg/L (<8.01); Calcium 9.5 mg/dL (8.6-10.3); EGFR African American 64.8 (>60); EGFR Non-African American 53.5 (>60); Globulin 3.2 g/dL (2-4); Magnesium 1.7 mg/dL (1.9-2.7); Potassium 3.8 mmol/L (3.5-5.0); Total Bilirubin 0.7 mg/dL (0.2-1.0); Total Protein 7.4 g/dL (6.4-8.9)
[2019-08-23] MEDS ORDERED: Iodixanol* (CONTRAST) 320 MG/ML 100 ML SDV IV ONE (14:04)
[2019-08-23 15:00] LABS: Urine Appearance Cloudy; Urine Bilirubin Negative (Negative); Urine Blood 1+ (Negative); Urine Color Yellow; Urine Glucose Negative (Negative); Urine Ketones 1+ (Negative); Urine Nitrite Negative (Negative); Urine Protein Negative (Negative); Urine Specific Gravity 1.009 (1.010-1.030); Urine Urobilinogen Negative (Negative)
[2019-08-23] MEDS ORDERED: Piperacillin/Tazobac ADVAN(*) 3.375 GM in NS 0.9% 100 ML* 100 ML IVPB ONE (15:11)
[2019-08-23 15:15] LABS: Urine Bacteria Absent (Absent); Urine Red Blood Cell 3+(>10/hpf) (Absent); Urine Squamous Epithelial Cell Present (Absent); Urine White Blood Cell 3+(>20/hpf) (Absent)
[2019-08-23] MEDS ORDERED: HYDROmorphone INJ* 0.5 MG/0.5 ML SYRINGE IV SLOW PU PRN (16:55)
[2019-08-23] MEDS: NS 0.9% 1000 ML** 1,000 ML IV SCH (17:55)
[2019-08-23] MEDS: Acetaminophen TAB* 325 MG PO PRN ×2 (18:06→22:48)
[2019-08-23] MEDS ORDERED: Magnesium Sulfate 2 GM IV* 2 GM/50 ML BAG IVPB ONE (19:01)
[2019-08-23] MEDS ORDERED: Metoprolol Tartrate IV* 1 MG/ML 5 ML VIAL IV PRN ×2 (19:15→21:08)
--- NOTE | 2019-08-23 19:37 | HP ---
CC: [facility]; Dr. Alvarez; Dr. Ross * ADMISSION HISTORY AND PHYSICAL: DATE OF ADMISSION: 08/23/19 REPORTING PROVIDER: Dr. Trinidad from the emergency room. REASON FOR ADMISSION: Acute appendicitis with right lower quadrant abdominal pain. HISTORY OF PRESENT ILLNESS: Ms. Quiana Smith is a 64-year-old woman who presented to the emergency room after she was woken suddenly about 5 o'clock this morning with generalized abdominal pain. This became more progressively severe and localized in the right lower quadrant. She has some nausea without significant vomiting. She had no diarrhea. While being seen in the emergency room, she was noted to be afebrile. There was slight elevation in her heart rate in the 90s to low 100 with a blood pressure of 143/99. Laboratory workup included a white blood cell count of 11,000 with a hemoglobin of 13. Electrolytes were within normal limits; however, she did have a carbon dioxide of 21. BUN and creatinine were 14 and 1.04, which is her baseline. Lactic acid of 1.9. C-reactive protein was 20. Due to the severity of her abdominal discomfort, she underwent a CT scan of the abdomen and pelvis. I did review these images. This showed findings of acute appendicitis with a thickened indurated appendix with periappendiceal inflammation with a small amount of extraluminal gas at the base in the mesoappendix. Appendix was dilated about 0.8 cm. There was no evidence of loculated fluid to suggest abscess. Cholelithiasis was also noted. Surgical consultation from the emergency room was obtained. Of note, the patient was recently admitted several weeks here to the hospital with shortness of breath. She underwent extensive cardiopulmonary evaluation. She had a venous Doppler study, which was unremarkable. A chest/thorax CTA showed no evidence of pulmonary embolism. She has a history of congestive heart failure and had a nuclear medicine scan that showed no fixed or reversible perfusion defect and an assessment of that was that of low risk. She had a transthoracic echocardiogram, showed a normal left ventricular cavity size with ejection fraction of approximately 40%. The right ventricle was normal with systolic function in the right ventricle low to normal. This showed no significant change from the study done in September of 2017. The patient is being admitted to the surgical service with initiation of IV antibiotics and plan for laparoscopic appendectomy. Hospitalist consult has been obtained as well. PAST MEDICAL HISTORY: 1. Cardiomyopathy with ejection fraction of 40%. Negative cardiac stress test as per above. 2. History of chronic back pain with multiple back surgeries. PAST SURGICAL HISTORY: 1. Lumbar fusion in 2003. 2. Anterior cervical diskectomy with fusion of C5-C7 in 2004. 3. C6 vertebrectomy with graft fusion in 2004. 4. Anterior cervical diskectomy and fusion. 5. History of craniotomy in [address] at [facility] with subsequent removal and revision. 6. Depression. 7. History of DVT and PE in 2006. MEDICATIONS: Include: 1. Melatonin. 2. Spironolactone/HCTZ 25/25, 0.5 tabs daily. 3. Trazodone 50 mg at bedtime p.r.n. 4. Carvedilol 12.5 mg b.i.d. 5. Abilify 5 mg daily. 6. Lasix 20 mg daily. 7. Cymbalta 30 mg daily. ALLERGIES: She has no known drug allergies. SOCIAL HISTORY: She lives alone. She does not use tobacco or alcohol. She quit smoking in 2011. REVIEW OF SYSTEMS: Otherwise per above. PHYSICAL EXAMINATION GENERAL: She is an obese woman who appears to be in no apparent distress. She is awake, alert, and conversive. She appears to have a dry cough. VITAL SIGNS: She is afebrile, pulse rate 98, blood pressure 142/99. LUNGS: Clear to auscultation with normal respiratory effort. HEART: Regular rate and rhythm without murmurs, rubs, or gallops. ABDOMEN: Soft, but nondistended. No prior surgical incisions. I appreciate no hernias. She had diminished bowel sounds throughout. She has tenderness with rebound and guarding in the right lower quadrant with some voluntary guarding. She has no generalized peritoneal irritation. EXTREMITIES: Show no cyanosis or edema. IMPRESSION: 1. Acute appendicitis of a rather sudden onset with possible concern for a small perforation into the mesoappendix area with extraluminal air. No evidence of abscess or other acute findings on the CT scan. 2. Congestive history of cardiomyopathy as per above with recent negative workup. Of note, the patient has been scheduled with back surgery by Dr. Alvarez later this month. Has undergone the recent evaluation and is felt an acceptable candidate. 3. History of deep venous thrombosis. 4. Chronic low back and neck discomfort with surgeries as per above. PLAN/RECOMMENDATIONS: 1. The patient will be admitted to the surgical service and started on IV antibiotics. The plan will be for laparoscopic appendectomy. 2. Medical consultation has been obtained. I reviewed her care with Dr. Clement Manjarrez, the hospitalist here in the emergency room. He felt that she is an acceptable candidate for surgery and is optimized. They will see her in formal consultation this evening. 3. She will be started on IV Zosyn and IV fluids and kept n.p.o. 4. Plan: Laparoscopic appendectomy. 5. Procedure was discussed with the patient and her son, and the risks of, but not limited to, bleeding, infection, intraabdominal abscess formation, injury to peritoneal and retroperitoneal structures, possibility of an open procedure, possibility of abscess, and the risks of anesthesia in light of a cardiac history, and blood clots were all explained. [id number]/CPS #: [id number] MTDD
[2019-08-23] MEDS: Piperacillin/Tazobactam VIAL*) 3.375 GM in NS 0.9% 100 ML* 100 ML IVPB SCH (20:45)
[2019-08-23] MEDS: Carvedilol TAB* 6.25 MG PO SCH (20:45)
[2019-08-23] MEDS ORDERED: Metoprolol Tartrate IV* 1 MG/ML 5 ML VIAL IV ONE (20:47)
--- NOTE | 2019-08-23 22:34 | CONS ---
CONSULTATION REPORT: DATE OF CONSULT: 08/23/19 REQUESTING PROVIDER: Dr. Arsenio Alcazar. REASON FOR CONSULT: Comanagement of chronic medical conditions. HISTORY OF PRESENT ILLNESS: Quiana Smith is a 64-year-old white female with past medical history significant for restrictive cardiomyopathy with EF of 40%, HEENA, CPAP, chronic back pain, paroxysmal SVT, history of DVT and PE and history of AVM, status post craniectomy in the past, who presented with right lower quadrant abdominal pain to the emergency department today. She has mild leukocytosis and has since developed a fever of 100.4 degrees Fahrenheit. She has been found to have an acute appendicitis with perforation. She is planned to go to surgery this evening with Dr. Alcazar and hospitalists have been asked to evaluate the patient in consultation for management of her chronic medical conditions. At the time of evaluation, the patient is on surgical floor. She was resting and wakes easily. She feels her pain is much more well controlled, though still present. She tells me she does not have chills, but does feel "the room is warm." She has trace nausea, but it has greatly improved since she has been in the hospital. She has not vomited yet today. She did not have hemoptysis leading up to her hospital admission. She denies dizziness, lightheadedness, chest pain, difficulty breathing. She states that she sometimes gets short of breath when walking and this is her baseline today. PAST MEDICAL HISTORY: 1. Restrictive cardiomyopathy with EF 40%. 2. AVM, status post craniectomy. 3. Depression. 4. DVT and PE in 2006. 5. Mitral valve insufficiency. 6. HEENA, on CPAP. 7. Hypertension. 8. UTIs. 9. Chronic back pain. 10. Cervical myelopathy. 11. History of paroxysmal SVT. PAST SURGICAL HISTORY: 1. Multiple back surgeries including lumbar fusion, multiple cervical diskectomies, C6 vertebrectomy and graft fusion. 2. Cranioplasty due to complications of infection after craniectomy for her AVM. 2. Carpal tunnel release. HOME MEDICATIONS: 1. Melatonin 10 mg p.o. at bedtime p.r.n. 2. Calcium with vitamin D tablet 1 tab p.o. daily. 3. Spironolactone 25 mg/hydrochlorothiazide 25 mg, half a tablet p.o. daily. 4. Trazodone 50 to 100 mg p.o. at bedtime p.r.n. insomnia. 5. Carvedilol 12.5 mg p.o. b.i.d. 6. Abilify 5 mg p.o. daily. 7. Furosemide 20 mg p.o. daily. 8. Cymbalta 30 mg p.o. daily. ALLERGIES: No known drug allergies. FAMILY HISTORY: Parents with coronary artery disease. SOCIAL HISTORY: The patient is a former smoker. She lives alone. She does not currently use tobacco or alcohol. She quit smoking in 2011. PHYSICAL EXAM: General: Obese white female, lying in hospital bed, appearing comfortable, in no acute distress. Eyes: PERRL. Sclerae anicteric. ENT: Mucous membranes moist. Lungs: Clear to auscultation throughout. Cardio: Tachycardiac rate approximately 120 beats per minute, rhythm appears regular. No appreciable murmurs, rubs, or gallops. Abdomen: Tenderness to palpation in the right lower quadrant. Otherwise, abdomen is nondistended. Extremities: Trace non-pitting edema pedally bilaterally. No cyanosis or clubbing. Neuro: The patient is alert and oriented x3. No focal deficits. Able to move all extremities. No tremors. Awakens easily from sleep to voice. DIAGNOSTIC STUDIES/LAB DATA: CT abdomen and pelvis: Acute appendicitis with small amount of local extraluminal gas with perforation. No loculated fluid collection. Chest x-ray: No acute cardiopulmonary process by radiograph. EKG: From 13:45 p.m. today. Normal sinus rhythm, rate 95 beats per minute. There is some T-wave inversion in V1 through V3 and this is overall consistent with previous EKG. EKG performed at 20:29 p.m. with atrial fibrillation with rate of 146 beats per minute, no ST depressions or elevations, T-waves in anterior leads remain inverted as previously mentioned. Significant labs: White blood cells count 11.7, creatinine 1.04, magnesium 1.7 , alk phos 136. ASSESSMENT AND PLAN: Quiana Smith is a 64-year-old white female with a past medical history significant for cardiomyopathy with an EF of 40%; obstructive sleep apnea, on CPAP; depression; chronic pain; deep vein thrombosis ; pulmonary embolus, who presents to the emergency department for abdominal pain and found to have appendicitis with perforation. She is planned to go to the OR today for appendectomy and hospital medicine has been consulted for medical comanagement. 1. Tachycardia. The patient has been tachycardiac and it does appear that she is in atrial fibrillation. She does have a history of paroxysmal supraventricular tachycardia. Most recent blood pressure was 118/65. I am going to increase the rate of her fluids, as I believe a component of this is related to her source of infection and I will give 1 dose of IV metoprolol 5 mg. We will continue to monitor this. I am going to be cautious with fluids given her restrictive cardiomyopathy. 2. Restrictive cardiomyopathy. Continue the patient's home Lasix, carvedilol, spironolactone, hydrochlorothiazide. Her carvedilol, spironolactone and hydrochlorothiazide should be held if she has hypotension related to sepsis. 3. Depression. Continue Abilify and duloxetine. 4. Chronic back pain. The patient should continue duloxetine. 5. Obstructive sleep apnea. I have ordered CPAP from hospital today. 6. Hypertension. The patient is on hydrochlorothiazide. We will continue this as well as Carvedilol. I believe this patient is medically optimized. Obviously the source of infection is contributing to her tachycardia and it will be in the patient's best interest to indeed proceed with surgery at this time and we will continue to monitor her for any heart failure decompensation or ensuing arrhythmias. I have ordered the patient to be on telemetry. Thank you for allowing to participate in the care of this patient. We will follow during this admission. DISPOSITION: Per general surgery team. MANUEL HALL [id number]/[facility] #: [id number] KYRIE
[2019-08-24] MEDS ORDERED: Metoprolol Tartrate IV* 1 MG/ML 5 ML VIAL IV PRN (00:19)
[2019-08-24] MEDS ORDERED: Etomidate* 2 MG/ML 10 ML VIAL ONE (00:42)
[2019-08-24] MEDS ORDERED: Rocuronium* 10 MG/ML VIAL ONE ×2 (00:42→03:31)
[2019-08-24] MEDS ORDERED: fentaNYL* 50 MCG/ML 2 ML VIAL (100 MCG VIAL) ONE (00:43)
[2019-08-24] MEDS ORDERED: Midazolam* 1 MG/ML 2 ML VIAL (2 MG) ONE (00:43)
[2019-08-24] MEDS ORDERED: Naloxone* 0.4 MG/ML 1 ML VIAL IV PRN (00:53)
[2019-08-24] MEDS ORDERED: Acetaminophen TAB* 325 MG PO PRN (00:53)
[2019-08-24] MEDS ORDERED: fentaNYL* 50 MCG/ML 2 ML VIAL (100 MCG VIAL) IV PRN (00:53)
[2019-08-24] MEDS ORDERED: DiMENhydriNATE IV* 50 MG/ML VIAL IV PUSH PRN (00:53)
[2019-08-24] MEDS ORDERED: oxyCODONE TAB* 5 MG TAB PO PRN (00:53)
[2019-08-24] MEDS ORDERED: Phenylephrine 10 MG/ML VIAL* 1 ML VIAL ONE (01:14)
[2019-08-24] MEDS ORDERED: Bupivacaine 0.25% EPI 200,000* 30 ML SDV ONE (01:47)
[2019-08-24] MEDS ORDERED: Succinylcholine* 20 MG/ML 10 ML VIAL ONE (01:56)
[2019-08-24] MEDS ORDERED: Metoclopramide IV* 5 MG/ML 2 ML VIAL ONE (03:21)
[2019-08-24] MEDS ORDERED: Dexamethasone IV* 4 MG/ML 1 ML (4 MG) ONE (03:21)
[2019-08-24] MEDS ORDERED: Ondansetron INJ* 2 MG/ML VIAL ONE (03:21)
[2019-08-24] MEDS ORDERED: Ketorolac INJ* 30 MG/ML 1 ML VIAL ONE (03:21)
[2019-08-24] MEDS: Piperacillin/Tazobactam VIAL*) 3.375 GM in NS 0.9% 100 ML* 100 ML IVPB SCH ×3 (04:00→19:57)
[2019-08-24] MEDS ORDERED: Sugammadex * 500 MG/5 ML VIAL IV PUSH ONE (04:16)
--- NOTE | 2019-08-24 04:43 | OP ---
Operative Report - Blank - Operative Report Date of Operation: 08/24/19 Note: OPERATIVE REPORT Pre-op: Acute appendicitis Post-Op: Acute gangrenous appendicitis with perforation,localized peritonitis Procedure:Laparoscopic appendectomy Surgeon: MD Inge Asst: none Anes: general with local , Dr. Albert IVF:1 liter of crystalloid EBL:min Specimen: Appendix Drain: #10 SANDY drain Wound: 4 To PACU
--- NOTE | 2019-08-24 08:16 | OP ---
DATE OF OPERATION: 08/24/19 - ROOM #349 DATE OF : 57 SURGEON: Arsenio Alcazar MD CODING MANAGER: None. ANESTHESIOLOGIST: Dr. Albert ANESTHESIA: General with local PRE-OP DIAGNOSIS: Acute appendicitis. POST-OP DIAGNOSIS: Acute gangrenous perforated appendicitis with localized peritonitis. OPERATIVE PROCEDURE: Laparoscopic appendectomy. ESTIMATED BLOOD LOSS: Minimal. IV FLUIDS: 1 L of crystalloid. SPECIMENS: Appendix. DRAINS: #10 SANDY drain. COMPLICATIONS: None. FINDINGS: The patient had perforated gangrenous appendicitis near the base of the appendix with several fecaliths that were exposed. There was purulent peritonitis in the right lower quadrant and pelvis. The cecum and terminal ileum appeared to be unremarkable. DESCRIPTION OF PROCEDURE: Written informed consent was obtained, the abdomen was marked with indelible ink, and preoperative antibiotics were administered. The patient was taken to the operating room, placed in the supine position. Sequential compression devices were placed in the lower extremity. Warming blanket was applied. General anesthesia was administered and a Arellano catheter was inserted. The abdomen was prepped and draped in the usual sterile fashion. Time-out verification was completed. Initially, a small transverse incision was made just above the umbilicus. The peritoneal cavity was entered under direct vision and a 12 mm blunt port was inserted and the abdomen was insufflated to 15 mmHg. Under direct vision, a 5 mm port was placed in the left lower abdominal wall and a second 5 mm port was placed in the suprapubic position. Upon visualizing the right lower quadrant, the cecum was visible that was unremarkable. However, there was purulent peritonitis with small bowel quite adherent to the cecum and lateral abdominal wall with a fibrinous exudate with purulent fluid in the pelvis as well. The patient placed in Trendelenburg, able to break up the fibrinous adhesions between the loops of terminal ileum to the cecum. There was identified an appendix, which in mid and proximal portion was gangrenous with obvious drainage of feculent material and a large appendicolith had exposed from the lumen of the appendix. There were significant number of peritoneal attachments laterally and the appendix traversed laterally and somewhat alarmed and then more superiorly, which was quite adherent due to the significant amount of inflammation of the fat and peritoneum. Once I was able to identify the anatomy, the appendix was delivered up into view after dividing the lateral peritoneal attachment sharply and dividing the mesoappendix of the cecum. I was able to dissect beyond proximally from the perforation and several fecaliths were identified and I grasped them and brought them out through the 12 mm port and no fecaliths were left behind intraabdominally. With care, I was able to dissect the proximal 2 to 3 cm of appendix, which were more viable and the cecum was viable and thus I then proceeded to pass an Endo- RIGOBERTO 45 mm purple load stapler to divide the appendix at the base with good result. The appendix was removed in an EndoCatch bag through the umbilicus. I did oversaw the suture line with 2 separate 2-0 Lembert silk sutures using laparoscopic technique to invert the staple line. I then irrigated the right lower quadrant and pelvis with 2 to 3 L of saline. A #10 SANDY drain was placed in the right lower quadrant extending down into the pelvis and brought out through a separate stab wound to the right lower abdominal wall. This was sutured to the skin with several 3-0 Prolene suture. All ports removed under direct vision of the camera. The umbilical fascia was closed with an interrupted 0 Vicryl suture. The skin at all 3 incisions was approximated with subcuticular 4-0 Vicryl suture. Steri-Strips were applied. The patient tolerated the procedure well and was taken to the recovery room in stable condition. [id number]/[facility] #: [id number] KYRIE
[2019-08-24] MEDS ORDERED: NS 0.9% 500 ML* 500 ML IV ONE (08:46)
[2019-08-24] MEDS ORDERED: Spironolactone/HCTZ 25-25 MG* 1 TAB PO SCH (09:00)
[2019-08-24] MEDS: Carvedilol TAB* 6.25 MG PO SCH ×2 (09:03→21:45)
[2019-08-24 09:13] LABS: ABS Lymphocytes 0.7 10^3/ul (1.0-4.8); ABS Monocytes 0.4 10^3/ul (0-0.8); ABS Neutrophils 15.6 10^3/ul (1.5-7.7); Hematocrit 34 % (35-47); Hemoglobin 11.4 g/dL (12.0-16.0); Lymphocyte % 3.9 %; Mean Corpuscular HGB Conc 34 g/dL (31-36); Mean Corpuscular Hemoglobin 30 pg (27-31); Mean Corpuscular Volume 88 fL (80-97); Mean Platelet Volume 8.5 fL (7.4-10.4); Platelet Count 250 10^3/uL (150-450); Red Blood Count 3.78 10^6 /uL (3.70-4.87); Red Cell Distribution Width 15 % (10-15); White Blood Count 16.7 10^3/uL (3.5-10.8)
[2019-08-24 09:25] LABS: BUN/Creatinine Ratio 13.6 (8-20); Calcium 8.1 mg/dL (8.6-10.3); EGFR African American 49.2 (>60); EGFR Non-African American 40.6 (>60); Magnesium 2.4 mg/dL (1.9-2.7)
[2019-08-24] MEDS: Furosemide TAB* 20 MG PO SCH (09:45)
[2019-08-24] MEDS: ARIPiprazole TAB* 5 MG PO SCH (09:50)
[2019-08-24] MEDS: DULoxetine DR CAP* 30 MG CAP.DR PO SCH (09:50)
--- NOTE | 2019-08-24 10:44 | PN ---
Progress Note - Progress Note Date of Service: 08/24/19 SOAP: Subjective: Feels much better this AM, incisional pain controlled No CP or SOB Objective: Temp Pulse Resp BP Pulse Ox 97.5 F 88 16 104/60 94 08/24/19 10:33 08/24/19 10:33 08/24/19 10:33 08/24/19 10:33 08/24/19 10:33 Intake & Output 08/22/19 08/23/19 08/24/19 08/25/19 06:59 06:59 06:59 06:59 Intake Total 1039.1 500 Output Total 500 40 Balance 539.1 460 Weight 239 lb 13.807 oz Intake: IV Fluids 1039.1 ABX - PIPERACILLIN 98.1 NS (0.9%) 141 lr 800 IVPB 500 NS (0.9%) 500 Oral 0 Output: SANDY #1 150 40 Urine 200 Arellano 150 PEX: Comfortable-awake and alert Lungs clear with decreased breath sounds at the bases. Cor irregular Abd is soft and slightly distended. Decreased bowel sounds. Incisions CDI. SANDY with serosanguinous fluid in bulb. Laboratory Results - last 24 hr 08/23/19 08/23/19 08/23/19 12:39 12:39 12:39 WBC 11.7 H RBC 4.41 Hgb 13.0 Hct 39 MCV 89 MCH 30 MCHC 33 RDW 15 Plt Count 304 MPV 8.5 Neut % (Auto) 90.8 Lymph % (Auto) 5.9 [place] % (Auto) 2.9 Eos % (Auto) 0.1 Baso % (Auto) 0.3 Absolute Neuts (auto) 10.7 H Absolute Lymphs (auto) 0.7 L Absolute Monos (auto) 0.3 Absolute Eos (auto) 0.0 Absolute Basos (auto) 0.0 Absolute Nucleated RBC 0.0 Nucleated RBC % 0.0 INR (Anticoag Therapy) APTT Sodium 138 Potassium 3.8 Chloride 105 Carbon Dioxide 21 L Anion Gap 12 H BUN 14 Creatinine 1.04 H Est GFR ( Amer) 64.8 Est GFR (Non-Af Amer) 53.5 BUN/Creatinine Ratio 13.5 Glucose 117 H Lactic Acid 1.9 Calcium 9.5 Magnesium 1.7 L Total Bilirubin 0.70 AST 19 ALT 17 Alkaline Phosphatase 136 H Troponin I 0.00 C-Reactive Protein 20.07 H B-Natriuretic Peptide Total Protein 7.4 Albumin 4.2 Globulin 3.2 Albumin/Globulin Ratio 1.3 Lipase 18 Urine Color Urine Appearance Urine pH Ur Specific [place] Urine Protein Urine Ketones Urine Blood Urine Nitrate Urine Bilirubin Urine Urobilinogen Ur Leukocyte Esterase Urine WBC (Auto) Urine RBC (Auto) Ur Squamous Epith Cells Urine Bacteria Urine Glucose 08/23/19 08/23/19 08/23/19 12:39 12:39 14:34 WBC RBC Hgb Hct MCV MCH MCHC RDW Plt Count MPV Neut % (Auto) Lymph % (Auto) [place] % (Auto) Eos % (Auto) Baso % (Auto) Absolute Neuts (auto) Absolute Lymphs (auto) Absolute Monos (auto) Absolute Eos (auto) Absolute Basos (auto) Absolute Nucleated RBC Nucleated RBC % INR (Anticoag Therapy) 1.02 APTT 31.7 Sodium Potassium Chloride Carbon Dioxide Anion Gap BUN Creatinine Est GFR ( Amer) Est GFR (Non-Af Amer) BUN/Creatinine Ratio Glucose Lactic Acid Calcium Magnesium Total Bilirubin AST ALT Alkaline Phosphatase Troponin I C-Reactive Protein B-Natriuretic Peptide 45 Total Protein Albumin Globulin Albumin/Globulin Ratio Lipase Urine Color Yellow Urine Appearance Cloudy Urine pH 7.0 Ur Specific [place] 1.009 L Urine Protein Negative Urine Ketones 1+ A Urine Blood 1+ A Urine Nitrate Negative Urine Bilirubin Negative Urine Urobilinogen Negative Ur Leukocyte Esterase 3+ A Urine WBC (Auto) 3+(>20/hpf) A Urine RBC (Auto) 3+(>10/hpf) A Ur Squamous Epith Cells Present A Urine Bacteria Absent Urine Glucose Negative 08/24/19 08/24/19 08:53 08:53 WBC 16.7 H RBC 3.78 Hgb 11.4 L Hct 34 L MCV 88 MCH 30 MCHC 34 RDW 15 Plt Count 250 MPV 8.5 Neut % (Auto) 93.4 Lymph % (Auto) 3.9 [place] % (Auto) 2.6 Eos % (Auto) 0.0 Baso % (Auto) 0.1 Absolute Neuts (auto) 15.6 H Absolute Lymphs (auto) 0.7 L Absolute Monos (auto) 0.4 Absolute Eos (auto) 0.0 Absolute Basos (auto) 0.0 Absolute Nucleated RBC 0.0 Nucleated RBC % 0.0 INR (Anticoag Therapy) APTT Sodium 138 Potassium 4.0 Chloride 110 Carbon Dioxide 22 Anion Gap 6 BUN 18 Creatinine 1.32 H Est GFR ( Amer) 49.2 Est GFR (Non-Af Amer) 40.6 BUN/Creatinine Ratio 13.6 Glucose 128 H Lactic Acid Calcium 8.1 L Magnesium 2.4 Total Bilirubin AST ALT Alkaline Phosphatase Troponin I C-Reactive Protein B-Natriuretic Peptide Total Protein Albumin Globulin Albumin/Globulin Ratio Lipase Urine Color Urine Appearance Urine pH Ur Specific [place] Urine Protein Urine Ketones Urine Blood Urine Nitrate Urine Bilirubin Urine Urobilinogen Ur Leukocyte Esterase Urine WBC (Auto) Urine RBC (Auto) Ur Squamous Epith Cells Urine Bacteria Urine Glucose Assessment: S/P lap appy for perforated appendicitis with localized peritonitis Sepsis Afib CHF Plan: IV abx IV fluids-give small bolus, appears hypovolemic Increase activity Pulmonary toilet Follow heart rate Medical consult Arellano to monitor urine output Recheck labs in AM PPI/Subq heparin
[2019-08-24] MEDS: Famotidine IV* 10 MG/ML 2 ML (20 mg) IV SLOW PU SCH ×2 (11:37→21:44)
[2019-08-24] MEDS: Heparin VIAL(*) 5000 UNITS/ML VIAL (FIVE THOUSAND) SUBCUT SCH ×2 (14:03→21:45)
[2019-08-24] MEDS ORDERED: NS 0.9% 1000 ML** 1,000 ML IV ONE (15:15)
--- NOTE | 2019-08-24 18:18 | PN ---
Subjective Date of Service: 08/24/19 Interval History: Ms. Smith states n/v is resolved. She has abd pain with movement only; pain is in RLQ. Last BM was Mon. She is on sips of clears currently, and is tolerating this well. She has decreased urine output. She has no other complaints today. Objective Active Medications: Acetaminophen (Tylenol Tab*) 650 mg PO Q4H PRN PRN Reason: TEMPERATURE > 100.4 Last Admin: 08/23/19 22:48 Dose: 650 mg Aripiprazole (Abilify Tab*) 5 mg PO DAILY [facility] Last Admin: 08/24/19 09:50 Dose: 5 mg Carvedilol (Coreg Tab*) 12.5 mg PO BID [facility] Duloxetine HCl (Cymbalta Cap*) 30 mg PO DAILY [facility] Last Admin: 08/24/19 09:50 Dose: 30 mg Famotidine (Pepcid Iv*) 20 mg IV SLOW PU BID [facility] Last Admin: 08/24/19 11:37 Dose: 20 mg Furosemide (Lasix Tab*) 20 mg PO DAILY [facility] Last Admin: 08/24/19 09:45 Dose: Not Given HCTZ/Spironolactone (Aldactazide 25-25*) 0.5 tab PO DAILY [facility] Last Admin: 08/24/19 09:03 Dose: Not Given Heparin Sodium (Porcine) (Heparin Vial(*)) 5,000 units SUBCUT Q8HR [facility] Last Admin: 08/24/19 14:03 Dose: 5,000 units Hydromorphone HCl (Dilaudid Inj*) 0.5 mg IV SLOW PU Q1H PRN PRN Reason: PAIN - SEVERE Last Admin: 08/23/19 18:05 Dose: 0.5 mg Sodium Chloride (Ns 0.9% 1000 Ml) 1,000 mls @ 75 mls/hr IV PER RATE [facility] Last Admin: 08/23/19 17:55 Dose: 75 mls/hr Piperacillin Sod/Tazobactam (Sod 3.375 gm/ Sodium Chloride) 100 mls @ 25 mls/ hr IVPB Q8H [facility] Last Admin: 08/24/19 12:14 Dose: 25 mls/hr Metoprolol Tartrate (Lopressor Iv*) 5 mg IV ONCE PRN PRN Reason: tachycardia HR >120 Last Admin: 08/23/19 21:28 Dose: 5 mg Metoprolol Tartrate (Lopressor Iv*) 5 mg IV Q4H PRN PRN Reason: HEART RATE GREATER THAN:130 Vital Signs: Temp Pulse Resp BP Pulse Ox 98.0 F 91 14 102/57 93 08/24/19 15:00 08/24/19 15:00 08/24/19 15:00 08/24/19 15:00 08/24/19 15:00 Oxygen Devices in Use Now: None Appearance: Ms. Smith is an obese middle-aged white female who is laying in bed with HOB elevated. She appears somewhat groggy, but in no acute distress. Eyes: No Scleral Icterus, PERRLA Ears/Nose/Mouth/Throat: NL Teeth, Lips, Gums, Clear Oropharnyx, Mucous Membranes Moist Neck: NL Appearance and Movements; NL JVP, Trachea Midline Respiratory: Symmetrical Chest Expansion and Respiratory Effort, Clear to Auscultation Cardiovascular: NL Sounds; No Murmurs; No JVD, RRR, No Edema Abdominal: - - Mild abd distention. TTP at RLQ. SANDY in place with bloody serosang fluid in bulb. Steristrips in place to 3 altagracia umbilical surgical sites without drainage noted. Extremities: No Edema, No Clubbing, Cyanosis Neurological: Alert and Oriented x 3 Result Diagrams: 08/24/19 08:53 08/24/19 08:53 Microbiology and Other Data: Microbiology 08/23/19 14:34 Urine Culture - Final Urine No Growth (<1,000 CFU/mL) Assess/Plan/Problems-Billing Assessment: 64 PMHx CM with EF 40%, h/o DVT/PE, HTN, HEENA on CPAP, h/o SVT presents with appendicitis with perforation. - Patient Problems (1) Appendicitis Comment: -s/p appendectomy for appendicitis with localized peritonitis -management per surgical team (2) Decreased urine output Comment: -decreased UOP -gao in place -trial 500 cc fluid bolus and monitor output (3) Tachycardia Comment: -rate is controlled at this time -continue tele -continue home carvedilol -prn metoprolol (4) Restrictive cardiomyopathy Comment: -EF 40% -carvedilol with hold parameters -continue furosemide -monitor for fluid overload (5) Hypertension Comment: -SBP 100's -carvedilol with hold parameters -continue furosemide (6) Chronic pain Comment: -duloxetine (7) Depression Comment: -duloxetine, aripirazole (8) HEENA (obstructive sleep apnea) Comment: -hospital CPAP at night/while sleeping (9) DVT prophylaxis Comment: -per surgery -recommend chemoprophylaxis d/t h/o DVT/PE (10) Full code status Status and Disposition: Inpatient. Discharge per surgery.
[2019-08-24] MEDS: NS 0.9% 1000 ML** 1,000 ML IV SCH (20:02)
[2019-08-24] MEDS: Acetaminophen TAB* 325 MG PO PRN (21:59)
[2019-08-25] MEDS: Ketorolac INJ* 15 MG/ML 1 ML VIAL IV PUSH SCH ×4 (01:03→17:51)
[2019-08-25] MEDS: Piperacillin/Tazobactam VIAL*) 3.375 GM in NS 0.9% 100 ML* 100 ML IVPB SCH ×3 (04:06→20:13)
[2019-08-25] MEDS: Heparin VIAL(*) 5000 UNITS/ML VIAL (FIVE THOUSAND) SUBCUT SCH ×3 (06:30→21:33)
[2019-08-25 06:35] LABS: ABS Lymphocytes 1.1 10^3/ul (1.0-4.8); ABS Monocytes 0.5 10^3/ul (0-0.8); ABS Neutrophils 11.3 10^3/ul (1.5-7.7); Eosinophil % 0.1 %; Hematocrit 28 % (35-47); Hemoglobin 9.5 g/dL (12.0-16.0); Lymphocyte % 8.5 %; Mean Corpuscular HGB Conc 34 g/dL (31-36); Mean Corpuscular Hemoglobin 30 pg (27-31); Mean Corpuscular Volume 90 fL (80-97); Mean Platelet Volume 8.1 fL (7.4-10.4); Platelet Count 199 10^3/uL (150-450); Red Blood Count 3.16 10^6 /uL (3.70-4.87); Red Cell Distribution Width 15 % (10-15); White Blood Count 12.9 10^3/uL (3.5-10.8)
[2019-08-25 06:53] LABS: Albumin/Globulin Ratio 1.1 (1-3); BUN/Creatinine Ratio 18.5 (8-20); Calcium 7.8 mg/dL (8.6-10.3); EGFR Non-African American 51.2 (>60); Globulin 2.7 g/dL (2-4); Magnesium 2.4 mg/dL (1.9-2.7); Potassium 3.7 mmol/L (3.5-5.0); Total Bilirubin 0.6 mg/dL (0.2-1.0); Total Protein 5.7 g/dL (6.4-8.9)
[2019-08-25] MEDS: DULoxetine DR CAP* 30 MG CAP.DR PO SCH (08:38)
[2019-08-25] MEDS: Carvedilol TAB* 6.25 MG PO SCH ×2 (08:38→21:33)
[2019-08-25] MEDS: Famotidine IV* 10 MG/ML 2 ML (20 mg) IV SLOW PU SCH ×2 (08:38→21:33)
[2019-08-25] MEDS: Furosemide TAB* 20 MG PO SCH (08:38)
[2019-08-25] MEDS: ARIPiprazole TAB* 5 MG PO SCH (08:38)
[2019-08-25] MEDS: NS 0.9% 1000 ML** 1,000 ML IV SCH (08:43)
--- NOTE | 2019-08-25 15:42 | PN ---
Progress Note - Progress Note Date of Service: 08/25/19 SOAP: Subjective: Feels much better Incisional pain minimal Tolerating liquids and would like more to eat Had several loose BM's this morning Ambulating in halls Objective: Temp Pulse Resp BP Pulse Ox 97.9 F 82 16 112/67 93 08/25/19 12:02 08/25/19 12:02 08/25/19 12:02 08/25/19 12:02 08/25/19 12:02 Intake & Output 08/23/19 08/24/19 08/25/19 08/26/19 06:59 06:59 06:59 06:59 Intake Total 1039.1 2550 1425 Output Total 500 640 220 Balance 539.1 1910 1205 Weight 239 lb 13.807 oz Intake: IV Fluids 1039.1 1570 ABX - PIPERACILLIN 98.1 215 NS (0.9%) 141 1355 lr 800 IVPB 500 1425 ABX - PIPERACILLIN 150 NS (0.9%) 500 1275 Oral 0 480 0 Output: SANDY #1 150 90 20 Urine 200 Gao 150 550 200 Other: Date of Last Bowel 08/25/19 Movement # Bowel Movements 1 1 Estimated Stool Amount Large Large PEX: Comfortable Lungs are clear Abd is soft and slightly distended. Few bowel sounds present. Incision CDI. SANDY with small amount of serous fluid in bulb Ext mild edema Laboratory Results - last 24 hr 08/25/19 08/25/19 08/25/19 06:23 06:23 06:23 WBC 12.9 H RBC 3.16 L Hgb 9.5 L Hct 28 L MCV 90 MCH 30 MCHC 34 RDW 15 Plt Count 199 MPV 8.1 Neut % (Auto) 87.6 Lymph % (Auto) 8.5 Kershaw % (Auto) 3.7 Eos % (Auto) 0.1 Baso % (Auto) 0.1 Absolute Neuts (auto) 11.3 H Absolute Lymphs (auto) 1.1 Absolute Monos (auto) 0.5 Absolute Eos (auto) 0.0 Absolute Basos (auto) 0.0 Absolute Nucleated RBC 0.0 Nucleated RBC % 0.0 Sodium 139 Potassium 3.7 Chloride 112 H Carbon Dioxide 23 Anion Gap 4 BUN 20 Creatinine 1.08 H Est GFR ( Amer) 62.0 Est GFR (Non-Af Amer) 51.2 BUN/Creatinine Ratio 18.5 Glucose 95 Lactic Acid 0.7 Calcium 7.8 L Magnesium 2.4 Total Bilirubin 0.60 AST 11 L ALT 10 Alkaline Phosphatase 90 Total Protein 5.7 L Albumin 3.0 L Globulin 2.7 Albumin/Globulin Ratio 1.1 Assessment: POD#2 s/p lap appy for acute perforated appendicitis AFIB Cardiomyopathy Plan: Advance diet-fulls D/C gao IV abx Increase activity H2 jalyn, subq heparin D/C next 24-48 hours on oral antibiotics if OK with medicine-most likely will be able to remove drain on discharge All discussed with patient SACMA to cover for me until 08/28
[2019-08-26] MEDS: Ketorolac INJ* 15 MG/ML 1 ML VIAL IV PUSH SCH ×3 (00:09→12:45)
[2019-08-26] MEDS: Piperacillin/Tazobactam VIAL*) 3.375 GM in NS 0.9% 100 ML* 100 ML IVPB SCH ×2 (03:58→12:45)
[2019-08-26] MEDS: Heparin VIAL(*) 5000 UNITS/ML VIAL (FIVE THOUSAND) SUBCUT SCH (05:43)
[2019-08-26 06:21] LABS: ABS Eosinophils 0.1 10^3/ul (0-0.6); ABS Lymphocytes 1.3 10^3/ul (1.0-4.8); ABS Monocytes 0.4 10^3/ul (0-0.8); ABS Neutrophils 4.7 10^3/ul (1.5-7.7); Eosinophil % 1.1 %; Hematocrit 27 % (35-47); Hemoglobin 9.2 g/dL (12.0-16.0); Lymphocyte % 19.6 %; Mean Corpuscular HGB Conc 34 g/dL (31-36); Mean Corpuscular Hemoglobin 30 pg (27-31); Mean Corpuscular Volume 89 fL (80-97); Mean Platelet Volume 8.4 fL (7.4-10.4); Platelet Count 196 10^3/uL (150-450); Red Blood Count 3.04 10^6 /uL (3.70-4.87); Red Cell Distribution Width 15 % (10-15); White Blood Count 6.5 10^3/uL (3.5-10.8)
[2019-08-26 06:38] LABS: BUN/Creatinine Ratio 19.6 (8-20); Calcium 7.9 mg/dL (8.6-10.3); EGFR African American 62.7 (>60); EGFR Non-African American 51.8 (>60); Magnesium 2.3 mg/dL (1.9-2.7); Potassium 3.5 mmol/L (3.5-5.0)
[2019-08-26] MEDS: Carvedilol TAB* 6.25 MG PO SCH (09:52)
[2019-08-26] MEDS: ARIPiprazole TAB* 5 MG PO SCH (09:52)
[2019-08-26] MEDS: DULoxetine DR CAP* 30 MG CAP.DR PO SCH (09:52)
[2019-08-26] MEDS: Furosemide TAB* 20 MG PO SCH (09:52)
[2019-08-26] MEDS: Famotidine IV* 10 MG/ML 2 ML (20 mg) IV SLOW PU SCH (09:53)
--- NOTE | 2019-08-26 10:11 | PN ---
Progress Note - Progress Note Date of Service: 08/26/19 SOAP: Subjective: Pt seen and examined. Feeling well . NO complaints. wants to go home Objective: Temp Pulse Resp BP Pulse Ox 97.7 F 79 20 140/77 94 08/26/19 08:39 08/26/19 08:39 08/26/19 08:39 08/26/19 08:39 08/26/19 08:39 Intake & Output 08/25/19 08/26/19 08/26/19 22:59 06:59 14:59 Intake Total 673 1105 300 Output Total 25 5 Balance 648 1100 300 a and o x3, nad lungs clear abdo: soft/ ND/ NT, obese SANDY serous - removed today ext wnl Path reviewed Assessment: POD 2 lap cassidy, MONI stable Plan: d/c home on 1 week abx f/u in office
[2019-08-26 12:55] VITALS: BP 127/74
--- NOTE | 2019-09-04 11:48 | DS ---
CC: Dr. Michele * DISCHARGE SUMMARY: DATE OF ADMISSION: 08/24/19 DATE OF DISCHARGE: 08/26/19 PRINCIPAL DIAGNOSES: 1. Acute appendicitis with perforation and peritonitis. 2. Sepsis. SECONDARY DIAGNOSES: 1. Chronic low back discomfort. 2. Cardiomyopathy. 3. History of deep vein thrombosis and pulmonary embolism. 4. History of depression. CONDITION ON DISCHARGE: Good. DISPOSITION: To home. MEDICATIONS ON DISCHARGE: Include: 1. Amoxicillin 875 mg p.o. b.i.d. for 10 days. 2. Percocet 5/325 one p.o. q.4 hours p.r.n. for severe pain. 3. Carvedilol 12.5 mg b.i.d. 4. Trazodone 50 mg at bedtime. 5. Melatonin 10 mg p.r.n. FOLLOWUP: Visiting nurses were arranged for followup care. The drain had been removed on discharge. Followup in the surgical office in 7 to 10 days was also to be made for surgical care. Wound instruction and postoperative care instruction sheets were given. HISTORY OF PRESENT ILLNESS/HOSPITAL COURSE: Ms. Quiana Smith is a 64-year- old woman with a history of restrictive cardiomyopathy with ejection fraction of 40%, chronic back pain, and history of paroxysmal SVT who presented to the emergency room with abdominal discomfort and noted to have a mild leukocytosis and fever. She underwent a CT scan of the abdomen and pelvis, which showed findings consistent with acute appendicitis. She was seen in medical consultation and felt to be an acceptable candidate for surgery. She was started on broad-spectrum IV antibiotics. On the day of admission, she underwent a laparoscopic appendectomy for acute gangrenous perforated appendicitis with localized peritonitis. A Darrell-Hopson drain was placed at surgery. Postoperatively, she required some intravenous fluids for blood pressure maintenance and maintained on IV antibiotics. Over the course of the next several days, her sepsis resolved. Her condition improved and her bilious resolved. Her diet was started as tolerated. She was maintained on IV antibiotics. SANDY drain had minimal output and it was discontinued on postoperative day #4. On postop day #4, she was ambulating. She had normal GI function, tolerating oral liquids, and her pain was adequately controlled with oral analgesia and she was discharged home. [id number]/[facility] #: [id number] [facility]
== END 2019-08-26 13:50 | disposition home or self-care (01) | DRG 853 ==
LOC: ED 11:48 → SSU 16:56 → OBSVTOIN 08-24 11:00
PROVIDERS: ADMIT Surgery; ATTEND Surgery
PROC: 0DTJ4ZZ Resection of Appendix, Percutaneous Endoscopic Approach (ICD-10-PCS; principal; 2019-08-24)
PROC: 5A09357 Assistance with Respiratory Ventilation, Less than 24 Consecutive Hours, Continuous Positive Airway Pressure (ICD-10-PCS; 2019-08-25)
DX: A41.9 Sepsis, unspecified organism (principal); K35.32 Acute appendicitis with perforation, localized peritonitis, and gangrene, without abscess; I42.5 Other restrictive cardiomyopathy; J44.9 Chronic obstructive pulmonary disease, unspecified; F41.9 Anxiety disorder, unspecified; F32.9 Major depressive disorder, single episode, unspecified; M81.0 Age-related osteoporosis without current pathological fracture; K80.20 Calculus of gallbladder without cholecystitis without obstruction; K76.0 Fatty (change of) liver, not elsewhere classified; E66.9 Obesity, unspecified; I11.0 Hypertensive heart disease with heart failure; M17.0 Bilateral primary osteoarthritis of knee; I50.9 Heart failure, unspecified; G47.33 Obstructive sleep apnea (adult) (pediatric); G89.29 Other chronic pain; I48.91 Unspecified atrial fibrillation; I25.10 Atherosclerotic heart disease of native coronary artery without angina pectoris; M54.9 Dorsalgia, unspecified; Z86.14 Personal history of Methicillin resistant Staphylococcus aureus infection; Z87.891 Personal history of nicotine dependence; Z72.89 Other problems related to lifestyle; Z86.718 Personal history of other venous thrombosis and embolism; Z98.1 Arthrodesis status; Z86.711 Personal history of pulmonary embolism; Z99.89 Dependence on other enabling machines and devices; Z68.39 Body mass index [BMI] 39.0-39.9, adult
CPT/HCPCS: 36415; 71045; 74177; 80048; 80053; 81003; 81015; 83605; 83690; 83735; 83880; 84484; 85025; 85610; 85730; 86140; 87086; 88304; 93005; 94660; 96374; 96375; 99284; A9270-GY; C1776; G0378; J0330; J1100; J1170; J1644; J1885; J2250; J2405; J2543; J2765; J3010; J3475; J3490; Q9967

== ENCOUNTER 2019-10-25 17:05 | Inpatient (IN) | payer MEDICARE, OTHER ==
--- OUTSIDE RECORDS SUMMARY | 2019-10-25 17:22 | XMS REPORT | Continuity of Care Document ---
:1955 External Reference #:[id number] Author Name Arsenio Alcazar MD (transmitted by agent of provider Houston Reyes) Address [address] [place] [address] [address] [place] [address] Care Team Providers Name Role Phone Ilan Lowe MD - Hospitalist Care Team Information Manager Technical Support [phone] Problems Active Problems Provider Date Electrocardiogram abnormal Joselito Ross M.D. Onset: 06/26/2011 Dyspnea Joselito Ross M.D. Onset: 06/26/2011 Pulmonary embolism Joselito Ross M.D. Onset: 06/26/2011 Morbid obesity Joselito Ross M.D. Onset: 06/26/2011 Restrictive cardiomyopathy secondary to Joselito Ross M.D. Onset: granulomas Chest pain Joselito Ross M.D. Onset: 06/30/2011 Benign essential hypertension Joseilto Ross M.D. Onset: 07/13/2011 Coronary arteriosclerosis Joselito Ross M.D. Onset: 07/13/2011 Mitral valve disorder Joselito Ross M.D. Onset: 02/19/2012 Paroxysmal supraventricular tachycardia Paige Kaufman N.P. Onset: 2011 Premature beats Joselito Ross M.D. Onset: 06/28/2012 Spinal stenosis of lumbar region wKadwo Alford M.D. Onset: 07/04/2013 Lumbar post-laminectomy syndrome [...] Former Cigarette Smoker Unknown Smoking Status Reviewed: 09/08/19 Former Cigarette Smoker ETOH Use Occasionally consumes 1 glass of wine alcohol weekly Tobacco Use Start: Unknown End: Patient is a former quit 2012 Unknown smoker Recreational Drug Use Denies Drug Use Exercise Type/Frequency Does not exercise Allergies, Adverse Reactions, Alerts Description No Known Drug Allergies Medications Active Medications SIG Qnty Indications Ordering Provider Date Clotrimazole Twice Daily Unknown 08/10/2019 Anti-Fungal 1% Cream Duloxetine HCL Every Day Unknown 08/10/[address] Thang Melatonin Bedtime Unknown 08/10/2019 5mg Capsules Tlso Brace When out of bed M48.062 [facility]assilios 08/07/2019 , after surgery MD Kim Tlso Brace When out of bed [facility]os 08/07/2019 , after surgery MD Kim Carvedilol 1 pill by mouth 180tabs Ilan Lowe MD 07/11/2012 12.5mg twice per day ( Tablets 10-12 hours apart) Calicum daily Unknown 1500mg Tablets Cymbalta 1 by mouth every 90caps Ilan Lowe MD 60mg Caps DR day Part Trazodone HCL 1 by mouth every 30tabs Ilan Lowe MD 150mg night at bedtime Tablets Docusate Sodium 1 by mouth twice Unknown 100mg a day or as Capsules needed Acidophilus Probiotic daily Unknown 10mg Capsules Gabapentin 1 by mouth every 30caps Ilan Lowe MD 300mg night at bedtime Capsules Amoxicillin/Clavulana take one tablet Unknown te Potassium q12 hours for 10 875-125mg days Tablets Medications Administered in Office Medication SIG Qnty [...] Available Vital Signs Date Vital Result Comment 09/08/2019 9:31am Height 65 inches 5'5" Weight 248.00 lb Heart Rate 72 /min BP Systolic Sitting 108 mmHg BP Diastolic Sitting 70 mmHg Respiratory Rate 16 /min Body Temperature 97.3 F BMI (Body Mass Index) 41.3 kg/m2 08/28/2019 4:10pm Height 67 inches 5'7" Weight 248.00 lb Heart Rate 83 /min BP Systolic 124 mmHg BP Diastolic 78 mmHg Body Temperature 99.1 F O2 % BldC Oximetry 96 % BMI (Body Mass Index) 38.8 kg/m2 Results Test Acquired Date Facility Test Result H/L Range Note CBC Auto 09/04/2019 [facility] White Blood 8.8 10^3/uL Normal 3.5-10.[address] Count [place], [place] [id number] [phone] Red Blood Count 4.29 10^6/uL Normal 3.70-4.87 Hemoglobin 12.7 g/dL Normal 12.0-16.0 Hematocrit 38 % Normal 35-47 Mean Corpuscular Volume 89 fL Normal 80-97 Mean Corpuscular Hemoglobin 30 pg Normal 27-31 Mean Corpuscular HGB Conc 33 g/dL Normal 31-36 Red Cell Distribution Width 14 % Normal 10-15 Platelet Count 338 10^3/uL Normal 150-450 Mean Platelet Volume 9.1 fL Normal 7.4-10.4 Abs Neutrophils 6.5 10^3/uL Normal 1.5-7.7 Abs Lymphocytes 1.6 10^3/uL Normal 1.0-4.8 Abs Monocytes 0.5 10^3/uL Normal 0-0.8 Abs Eosinophils 0.1 10^3/uL Normal 0-0.6 Abs Basophils 0.0 10^3/uL Normal 0-0.2 Abs Nucleated RBC 0.0 10^3/uL Granulocyte % 74.0 % Lymphocyte % 18.8 % Monocyte % 5.2 % Eosinophil % 1.4 % Basophil % 0.6 % Nucleated Red Blood Cells % 0.0 Laboratory test 09/04/2019 [facility] C Reactive 8.95 mg/L High <8.[address] [place] [address] [phone] Surgical 08/24/2019 [facility] Surgical SEE RESULT [address] [place] [address] [phone] PDFReport SEE IMAGE 1 SEE RESULT BELOW Name: QUIANA SMITH : [address]: Arsenio Alcazar MD Acct: [id number] Unit: [id number] AGE: 64 Location: [facility] [place] 349-01 Re08/24/19 SEX: F Status: ADM IN SPEC: [id number] MICKIE: 08/24/190330 [facility] DR: Arsenio Alcazar MD REQ: [id number] RECD: 08/24/19 STATUS: SOUT _ ORDERED: LEVEL 3 FINAL DIAGNOSIS Appendix, appendectomy: -- Acute appendicitis and altagracia-appendicitis. PRE-OPERATIVE DIAGNOSIS Appendicitis GROSS DESCRIPTION The specimen is received in formalin labeled, Appendix, and consists of a 6.6 cm appendix with a small amount of attached mesoappendix. The external diameter ranges from 0.5 cm in the distal tip to 1.0 cm in the mid specimen. There is a shaggy transmural perforation, 1.8 cm from the proximal margin. The remaining serosa is predominantly shaggy patel-peralta with multiple adhesions, adherent soft tissue and a small amount of fibropurulent exudate. The intact lumen measures up to 0.4 cm and contains hemorrhagic debris and fecal material. The mucosa is dusky patel-red with focal necrosis and hemorrhage and the wall thickness averages 0.1 cm. Larriman sections, one cassette. Signed by and Reported on: Leisa Goode MD 08/25/19 1558 END OF REPORT DEPARTMENT OF PATHOLOGY, [address] [place] [address] Nima Rivera M.D. Director [facility] # [id number] Procedures Date Code Description Status 08/24/2019 15452 Laparoscopy, Surgical, Appendectomy Completed 08/23/2019 64175 EKG, Interpretation Only Completed 08/11/2019 92170 ECHO Transthorasic Realtime 2D W Doppler & Color Flow Completed Hosp 08/11/2019 15510 Treadmill Interp/Report Only Completed 08/11/2019 21592 Stress Test Supervsn W/Out I/R Completed 06/20/2009 78078251 Mammogram Completed 01/19/2008 938019740 Bone Mineral Density Test Completed 08/20/2007 93332484 Colonoscopy Completed Medical Devices Description No Information Available Encounters Type Date Location Provider Dx Diagnosis Office Visit 08/[facility] Arsenio Gordon K35.32 Acute appendicitis 7:00a Of [place] Alcazar MD with perf and loc peritonitis, w/o abscs Office Visit 08/11/2019 [facility] Isabelle Mcdonough NP I50.23 Acute on chronic 11:27a Assoc,pc systolic Hospitalists (congestive) heart failure Office Visit 08/10/2019 [facility] Mery Norma, R06.00 Dyspnea, 11:27a Assoc,pc M.D. unspecified Hospitalists R00.0 Tachycardia, unspecified Office Visit 06/22/2019 [facility] M48.062 Spinal stenosis, 3:00p Services Of [place] Alvarez MD lumbar region with neurogenic claudication M47.12 Other spondylosis with myelopathy, cervical region M47.896 Other spondylosis, lumbar region M47.26 Other spondylosis with radiculopathy, lumbar region M48.062 Spinal stenosis, lumbar region with neurogenic claudication Office 04/19/2019 [facility] M51.36 Other Visit 2:30p [facility] Alvarez MD intervertebral disc degeneration, lumbar region M43.16 Spondylolisthesis, lumbar region M47.896 Other spondylosis, lumbar region Z98.1 Arthrodesis status M51.36 Other intervertebral disc degeneration, lumbar region Assessments Date Code Description Provider 09/08/2019 K35.32 Acute appendicitis with perforation Arsenio Alcazar MD and localized peritonitis, without abscess 08/28/2019 K35.32 Acute appendicitis with perforation Ilan Lowe MD and localized peritonitis, without abscess 08/28/2019 R06.02 Shortness of breath Ilan Lowe MD 08/28/2019 G47.33 Obstructive sleep apnea (adult) Ilan Lowe MD (pediatric) 08/28/2019 I42.9 Cardiomyopathy, unspecified Ilan Lowe MD 08/28/2019 R68.83 Chills (without fever) Ilan Lowe MD 08/26/2019 K35.32 Acute appendicitis with perforation Yakov Marcos MD, FACS and localized peritonitis, without abscess 08/25/2019 K35.32 Acute appendicitis with perforation Arsenio Alcazar MD and localized peritonitis, without abscess 08/24/2019 R34 Anuria and oliguria MANUEL Brewer 08/24/2019 K35.32 Acute appendicitis with perforation Arsenio Alcazar MD and localized peritonitis, without abscess 08/24/2019 I42.5 Other restrictive cardiomyopathy MANUEL Brewer 08/24/2019 K35.32 Acute appendicitis with perforation Arsenio Alcazar MD and localized peritonitis, without abscess 08/24/2019 I10 Essential (primary) hypertension MANUEL Brewer 08/24/2019 G47.33 Obstructive sleep apnea (adult) MANUEL Brewer (pediatric) 08/24/2019 G89.29 Other chronic pain MANUEL Brewer 08/23/2019 R94.31 Abnormal electrocardiogram [ECG] Félix Obrien M.D., FAC, [EKG] [facility] 08/23/2019 R00.0 Tachycardia, unspecified SIMONE QuijanoC 08/23/2019 K35.32 Acute appendicitis with perforation Arsenio Alcazar MD and localized peritonitis, without abscess 08/23/2019 I42.5 Other restrictive cardiomyopathy SIMONE QuijanoC 08/23/2019 I10 Essential (primary) hypertension MANUEL Quijano-C 08/23/2019 M54.9 Dorsalgia, unspecified Adele Carmine'edis, PA-C 08/23/2019 G47.33 Obstructive sleep apnea (adult) SIMONE QuijanoC (pediatric) 08/23/2019 F32.9 Major depressive disorder, single Adele GIANNI Yarbrough episode, unspecified 08/11/2019 I50.23 Acute on chronic systolic Isabelle Ceasar, EM[employer] SERVICE [employer]ER (congestive) heart failure 08/11/2019 R07.9 Chest pain, unspecified Nato Gonzalez MD, [facility], FSCAI 08/11/2019 I50.9 Heart failure, unspecified Yakov Simpson, DO [facility] 08/10/2019 R06.00 Dyspnea, unspecified Mery Green M.D. 08/10/2019 R00.0 Tachycardia, unspecified Mery Green M.D. 08/04/2019 M48.062 Spinal stenosis, lumbar region with Juan Jose Alvarez MD neurogenic claudication 06/22/2019 M48.062 Spinal stenosis, lumbar region with Juan Jose Alvarez MD neurogenic claudication 06/22/2019 M47.12 Other spondylosis with myelopathy, Juan Jose Alvarez MD cervical region 06/22/2019 M47.896 Other spondylosis, lumbar region Juan Jose Alvarez MD 06/22/2019 M47.26 Other spondylosis with radiculopathy, Juan Jose Alvarez MD lumbar region 06/22/2019 M48.062 Spinal stenosis, lumbar region with Juan Jose Alvarez MD neurogenic claudication 04/19/2019 M51.36 Other intervertebral disc Juan Jose Alvarez MD degeneration, lumbar region 04/19/2019 M43.16 Spondylolisthesis, lumbar region Juan Jose Alvarez MD 04/19/2019 M47.896 Other spondylosis, lumbar region Juan Jose Alvarez MD 04/19/2019 Z98.1 Arthrodesis status Juan Jose Alvarez MD 04/19/2019 M51.36 Other intervertebral disc Juan Jose Alvarez MD degeneration, lumbar region Plan of Treatment Future Appointment(s):12/08/2019 10:30 am - Juan [facility] Alvarez MD [facility]10/11/2019 11:30 am - Juan Jose Alvarez MD at [facility]09/15/2019 2:00 pm - Juan Jose Alvarez MD at [facility]09/08/2019 - Arsenio Alcazar MDK35.32 Acute appendicitis with perforation and localized peritonitis, without abscessFollow up:None needed Functional Status Description No Information Available Mental Status Description No Information Available Referrals Refer to Reason for Referral Status Appt Date Olivia Erwin MD HEENA on CPAP, PFTs (SOB with 40 pack years) Sent [address] [place] [id number] [phone]
--- OUTSIDE RECORDS SUMMARY | 2019-10-25 17:22 | XMS REPORT ---
:1955 Author Organization [facility] Care Team Providers Name Role Phone Unavailable Unavailable Unavailable Problems This patient has no known problems. Allergies, Adverse Reactions, Alerts Allergy Allergy Status Severity Reaction(s) Onset Inactive Treating Comments Name Type Date Date Clinician Uncoded Unknown Active Unknown Reaction 2019-08 Interface free-text Unknown -05 allergy Medications Ordered Filled Start Stop Current Ordering Indication Dosage Frequency Signature Comments Components Medication Medication Date Date Medication? Clinician (SIG) Name Name carvedilol carvedilol No Unknown Unknown Unknown 6.25 mg 6.25 mg 2-27 tablet tablet melatonin 5 melatonin 5 2018-09 Yes Unknown Unknown Unknown mg capsule mg capsule 10-10 Duloxetine Duloxetine 2018-09 Yes Unknown Unknown Unknown Dr Alcocer* Dr Alcocer* 10-10 Procedures This patient has no known procedures. Results This patient has no known results.
--- OUTSIDE RECORDS SUMMARY | 2019-10-25 17:22 | XMS REPORT | Continuity of Care Document ---
:1955 External Reference #:[id number] Author Name Juan Jose Alvarez MD (transmitted by agent of provider Shantelle Lloyd ) Address [address] [place] [address] Care Team Providers Name Role Phone Ilan Lowe MD - Hospitalist Care Team Information Veneer Repairer Machine [phone] Problems Active Problems Provider Date Electrocardiogram abnormal [...] Former Cigarette Smoker Unknown Smoking Status Reviewed: 10/11/19 Former Cigarette Smoker ETOH Use Occasionally consumes [...] Lowe MD 300mg night at bedtime Capsules Medications Administered in Office Medication SIG [...] Available Vital Signs Date Vital Result Comment 10/11/2019 11:42am Height 65 inches 5'5" Weight 249.00 lb Heart Rate 64 /min Pain Level 10 BMI (Body Mass Index) 41.4 kg/m2 09/08/2019 9:31am Height 65 inches 5'5" Weight 248.00 lb Heart Rate 72 /min BP Systolic Sitting 108 mmHg BP Diastolic Sitting 70 mmHg Respiratory Rate 16 /min Body Temperature 97.3 F BMI (Body Mass Index) 41.3 kg/m2 Results Test Acquired Date Facility Test Result H/L Range Note CBC Auto 09/04/2019 [facility] White Blood 8.8 10^3/uL Normal 3.5-10.[address] [place] [address] [phone] Red Blood Count 4.29 10^6/uL Normal 3.70-4.87 [...] Blood Cells % 0.0 Laboratory test 09/04/2019 [facility] C Reactive 8.95 mg/L High <8.[address] [place] [address] [phone] Surgical 08/24/2019 [facility] Surgical SEE RESULT [address] [place] [address] [phone] PDFReport SEE IMAGE 1 SEE RESULT BELOW Name: QUIANA SMITH : [address]: Arsenio Alcazar MD Acct: [id number] Unit: [id number] AGE: 64 Location: [place] [address] Re08/24/19 SEX: F Status: ADM IN SPEC: [id number] MICKIE: 08/24/190330 SUBM DR: Arsenio Alcazar MD REQ: [id number] RECD: 08/24/19 STATUS: SOUT _ ORDERED: LEVEL [...] and the wall thickness averages 0.1 cm. Square Cutter sections, one cassette. Signed by and Reported on: Leisa Goode MD 08/25/19 1558 END OF REPORT DEPARTMENT OF PATHOLOGY, [address] [place] [address] Nima Rivera M.D. Director [facility] # [id number] Procedures Date Code Description Status 08/24/2019 68445 Laparoscopy, Surgical, Appendectomy Completed 08/23/2019 30571 EKG, Interpretation Only Completed 08/11/2019 62259 ECHO Transthorasic Realtime 2D W Doppler & Color Flow Completed Hosp 08/11/2019 09465 Treadmill Interp/Report Only Completed 08/11/2019 20975 Stress Test Supervsn W/Out I/R Completed 06/20/2009 36910226 Mammogram Completed 01/19/2008 612715882 Bone Mineral Density Test Completed 08/20/2007 32627699 Colonoscopy Completed Medical Devices Description No Information Available Encounters Type Date Location Provider Dx Diagnosis Office Visit 08/24/2019 [facility] Sally R34 Anuria and 11:11a Assoc,pc Hospitalists MANUEL Mayer oliguria I42.5 Other restrictive cardiomyopathy I10 Essential (primary) hypertension G47.33 Obstructive sleep apnea (adult) (pediatric) G89.29 Other chronic pain Office Visit 08/23/2019 [facility] Arsenio S. K35.32 Acute 7:00a [facility] Alcazar MD appendicitis with perf and loc peritonitis, w/o abscs Office Visit 08/23/2019 [facility] Adele R00.0 Tachycardia, 11:11a Assoc,pc GIANNI Yarbrough unspecified Hospitalists I42.5 Other restrictive cardiomyopathy I10 Essential (primary) hypertension M54.9 Dorsalgia, unspecified G47.33 Obstructive sleep apnea (adult) (pediatric) F32.9 Major depressive disorder, single episode, unspecified Office Visit 08/11/2019 [facility] Isabelle Ceasar, I50.23 Acute on chronic 11:27a Assoc,pc INVESTIGATOR CASH SHORTAGE systolic Hospitalists (congestive) heart failure Office Visit 08/10/2019 [facility] Mery Green, R06.00 Dyspnea, 11:27a Assoc,pc M.DKenya unspecified Hospitalists R00.0 Tachycardia, unspecified Office Visit [...] lumbar region Assessments Date Code Description Provider 10/11/2019 M48.062 Spinal stenosis, lumbar region with Juan Jose Alvarez MD neurogenic claudication 10/11/2019 M51.36 Other intervertebral disc Juan Jose Alvarez MD degeneration, lumbar region 09/08/2019 K35.32 Acute appendicitis with perforation Arsenio Alcazar MD and localized peritonitis, without abscess 08/28/2019 K35.32 Acute appendicitis with perforation Ilan Lowe MD and localized peritonitis, without abscess 08/28/2019 R06.02 Shortness of breath Ilan Lwoe MD 08/28/2019 G47.33 Obstructive sleep apnea (adult) [...] R94.31 Abnormal electrocardiogram [ECG] Félix Obrien M.D., FACC, [EKG] FASNC 08/23/2019 R00.0 Tachycardia, unspecified Adele Yarbrough PA-C 08/23/2019 K35.32 Acute appendicitis with perforation Arsenio Alcazar MD and localized peritonitis, without abscess 08/23/2019 I42.5 Other restrictive cardiomyopathy Adele Yarbrough PA-C 08/23/2019 I10 Essential (primary) hypertension Adele Yarbrough PA-C 08/23/2019 M54.9 Dorsalgia, unspecified Adele Yarbrough PA-C 08/23/2019 G47.33 Obstructive sleep apnea (adult) Adele Yarbrough PA-C (pediatric) 08/23/2019 F32.9 Major depressive disorder, single Adele Yarbrough PA-C episode, unspecified 08/11/2019 I50.23 Acute on chronic systolic Isabelle Ceasar, INVESTIGATOR CASH SHORTAGE (congestive) heart failure 08/11/2019 R07.9 Chest pain, unspecified Nato Gonzalez MD, FAC, FSCAI 08/11/2019 I50.9 Heart failure, unspecified Yakov Simpson, FACC 08/10/2019 R06.00 Dyspnea, unspecified Mery Green M.D. [...] degeneration, lumbar region Plan of Treatment Future Appointment(s):11/13/2019 11:00 am - Olivia Erwin MD [facility]10/11/2019 - Juan Jose Alvarez MDM48.062 Spinal stenosis, lumbar region with neurogenic claudicationFollow up:RV one week, one month, three months postop. Please obtain operative report from previous lumbar surgery. Please obtain clearance from Dr Alcazar prior to surgery.M51.36 Other intervertebral disc degeneration, lumbar region Functional Status Description No Information Available Mental Status Description No Information Available Referrals Refer to Reason for Referral Status Appt Date Olivia Erwin MD HEENA on CPAP, PFTs (SOB with 40 pack years) Sent [address] [place] [phone]
--- OUTSIDE RECORDS SUMMARY | 2019-10-25 17:22 | XMS REPORT | Continuity of Care Document ---
:1955 External Reference #:[id number] Author Name Ilan Lowe MD (transmitted by agent of provider Marina Willingham) Address [address] [place] [id number] Care Team Providers Name Role Phone Ilan Lowe MD - Hospitalist Care Team Information Configuration Consultant [phone] Problems Active Problems Provider Date Electrocardiogram abnormal [...] Former Cigarette Smoker Unknown Smoking Status Reviewed: 08/28/19 Former Cigarette Smoker ETOH Use Occasionally consumes [...] Every Day Unknown 08/10/[address] Part Melatonin Bedtime Unknown 08/10/2019 5mg Capsules Tlso [...] Lowe MD 300mg night at bedtime Capsules Oxycodone-Acetaminoph 1 tabs by mouth Unknown en every 4-6 hours 5-325mg Tablets as needed for pain Amoxicillin/Clavulana take one tablet Unknown te Potassium q12 hours for 10 875-125mg days Tablets Medications Administered in Office Medication SIG Qnty Indications Ordering Provider Date Depomedrol 40MG Campbell Patton MD 01/14/2017 Injection Dexamethasone Sodium Campbell Patton MD 10/26/2016 Phosphate, 1 MG Injection Technetium TC 99M Tetrofosmin, [facility] Nuclear Schedule 10/09/2016 Per Unit Dose Up To 40 Millicuries Injection Inj, Regadenoson, 0.1 MG Kunal Sow M.D. 10/08/2016 Injection Technetium TC 99M Tetrofosmin, Kunal Sow M.D. 10/08/2016 Per Unit Dose Up To 40 Millicuries Injection Depomedrol 40MG Campbell Patton MD 08/25/2016 Injection Immunizations Description No Information Available Vital Signs Date Vital Result Comment 08/28/2019 4:10pm Height 67 inches 5'7" Weight 248.00 lb Heart Rate 83 /min BP Systolic 124 mmHg BP Diastolic 78 mmHg Body Temperature 99.1 F O2 % BldC Oximetry 96 % BMI (Body Mass Index) 38.8 kg/m2 04/19/2019 2:36pm Height 67 inches 5'7" Weight 244.00 lb Heart Rate 84 /min BP Systolic Sitting 128 mmHg Rue BP Diastolic Sitting 84 mmHg Rue Respiratory Rate 16 /min Body Temperature 98.1 F Pain Level 9 BMI (Body Mass Index) 38.2 kg/m2 Results Test Acquired Date Facility Test Result H/L Range Note Surgical 08/24/2019 [facility] Surgical SEE RESULT [address] [place] [address] [phone] PDFReport SEE IMAGE 1 SEE RESULT BELOW Name: QUIANA SMITH : [address]: Arsenio Alcazar MD Acct: [id number] Unit: [id number] AGE: 64 Location: [place] [address] Re08/24/19 SEX: F Status: ADM IN SPEC: [id number] MICKIE: 08/24/[address]: Arsenio Alcazar MD REQ: [id number] RECD: 08/24/19 STATUS: SOUT _ ORDERED: LEVEL [...] and the wall thickness averages 0.1 cm. Photo Mask Inspector sections, one cassette. Signed by and Reported on: Leisa Goode MD 08/25/19 1558 END OF REPORT DEPARTMENT OF PATHOLOGY, [address] [place] [address] Nima Rivera M.D. Director [facility] # [id number] Procedures Date Code Description Status 08/11/2019 75801 ECHO Transthorasic Realtime 2D W Doppler & Color Flow Completed Hosp 08/11/2019 42583 Treadmill Interp/Report Only Completed 08/11/2019 16645 Stress Test Supervsn W/Out I/R Completed 06/20/2009 85697344 Mammogram Completed 01/19/2008 905462388 Bone Mineral Density Test Completed 08/20/2007 76292697 Colonoscopy Completed Medical Devices Description No Information Available Encounters Type Date Location Provider Dx Diagnosis Office Visit 08/11/2019 [facility] Isabelle Mcdonough NP I50.23 Acute on chronic 11:27a daylin Carlson systolic Hospitalists (congestive) heart failure Office Visit 08/10/2019 [facility] Mery Norma, R06.00 Dyspnea, 11:27a daylin Carlson M.D. unspecified Hospitalists R00.0 Tachycardia, unspecified Office [...] lumbar region Assessments Date Code Description Provider 08/28/2019 K35.32 Acute appendicitis with perforation Ilan Lowe MD and localized peritonitis, without abscess 08/28/2019 R06.02 Shortness of breath Ilan Lowe MD 08/28/2019 G47.33 Obstructive sleep apnea (adult) Ilan Lowe MD (pediatric) 08/28/2019 I42.9 Cardiomyopathy, unspecified Ilan Lowe MD 08/28/2019 R68.83 Chills (without fever) Ilan Lowe MD 08/11/2019 I50.23 Acute on chronic systolic Isabelle Ceasar, SHIFT LEADER (congestive) heart failure 08/11/2019 R07.9 Chest pain, unspecified Nato Gonzalez MD, FACC, [facility] 08/11/2019 I50.9 Heart failure, unspecified Yakov Simpson, [...] Alvarez MD 06/22/2019 M47.26 Other spondylosis with Juan Jose Alvarez MD radiculopathy, lumbar region 06/22/2019 M48.062 Spinal stenosis, lumbar [...] degeneration, lumbar region Plan of Treatment Future Appointment(s):09/06/2019 1:30 pm - Arsenio Alcazar MD at [facility]12/08/2019 10:30 am - Juan Jose Alvarez MD at [facility]10/11/2019 11:30 am - Juan Jose Alvarez MD at [facility]09/15/2019 2:00 pm - Juan Jose Alvarez MD at [facility]08/28/2019 - Ilan Lowe MDK35.32 Acute appendicitis with perforation and localized peritonitis, without qmatqeuB91.02 Shortness of breathNew Orders:PFTW/Spirometry Vol Pre/Post Bronchdilat Dlco Complete, Ordered : 08/28/19Comments:Will get pulmonary function tests to rule out COPD given your long smoking history (former).Referral:Olivia Erwin MD, Pulmonary IfgmufpqK50.33 Obstructive sleep apnea (adult) (pediatric)I42.9 Cardiomyopathy, ujbtfkuwgblS61.83 Chills (without fever)Comments:Get the labs either Wednesday or next Wednesday. Follow-up with Dr. Alcazar next week. If develop feversor abdominal pain please call our office. Functional Status Description No Information Available Mental Status Description No Information Available Referrals Refer to Dr Reason for Referral Status Appt Date Olivia Erwin MD HEENA on CPAP, PFTs (SOB with 40 pack years) Created [address] [place] [phone]
--- OUTSIDE RECORDS SUMMARY | 2019-10-25 17:22 | XMS REPORT ---
:1955 Author Organization [facility] Care Team Providers Name Role Phone Unavailable Unavailable Unavailable Problems Condition Condition Condition Status Onset Resolution Last Treating Comments Name Details Category Date Date Treatment Clinician Date Unspecified Unspecified Diagnosis Active 2018-09 Jacklyn appendiciti appendiciti 2-06 Wendela s s Allergies, Adverse Reactions, Alerts Allergy Allergy Status [...] Unknown Unknown Unknown mg capsule mg capsule - Duloxetine Duloxetine 2018-09 Yes Unknown Unknown Unknown Dr Alcocer* Dr Alcocer* 10-10 Procedures This patient has no known procedures. Results This patient has no known results.
--- OUTSIDE RECORDS SUMMARY | 2019-10-25 17:22 | XMS REPORT ---
:1955 Author Organization [facility] Care Team Providers Name Role Phone Unavailable [...]
--- NOTE | 2019-10-25 21:48 | ED ---
Back Pain - HPI Summary HPI Summary: 64-year-old female presents with increasing back pain for the past 4 days. She states increasing numbness and tingling to her legs for past 3 days. She also states that she's had some numbness in her anal region for the past 3 days. She have a bowel movement three days ago. She denies any urinary symptoms. no loss of bowel or bladder. She states she is scheduled for spine surgery in a couple weeks. States having increasing difficulty walking. has history of htn and cardiomegaly. has history of neuropathy at baseline. - History of Current Complaint Chief Complaint: EDGeneral Stated Complaint: NUMBNESS IN LT LEG PER PT Time Seen by Provider: 10/25/19 21:33 Pain Intensity: 0 - Allergies/Home Medications Allergies/Adverse Reactions: Allergies Allergy/AdvReac Type Severity Reaction Status Date / Time No Known Allergies Allergy Verified 10/25/19 17:12 PMH/Surg Hx/FS Hx/Imm Hx Endocrine/Hematology History: Reports: Hx Anticoagulant Therapy - FOR HX OF DVT Denies: Hx Diabetes, Hx Thyroid Disease Cardiovascular History: Reports: Hx Angina, Hx Deep Vein Thrombosis, Hx Hypertension, Other Cardiovascular Problems/Disorders - "WEAK"- SEES DR. SMITH- LAST SEEN-09/2016 Denies: Hx Congestive Heart Failure, Hx Hypercholesterolemia, Hx Pacemaker/ ICD Respiratory History: Reports: Hx Chronic Obstructive Pulmonary Disease (COPD), Hx Sleep Apnea, Other Respiratory Problems/Disorders - USES O2 AT HS Denies: Hx Asthma GI History: Denies: Hx Ulcer History: Denies: Hx Renal Disease Musculoskeletal History: Reports: Hx Arthritis - KNEES, LOWER BACK, Hx Back Problems, Hx Osteoporosis Denies: Hx Rheumatoid Arthritis Sensory History: Reports: Hx Contacts or Glasses - READING Denies: Hx Hearing Aid Opthamlomology History: Reports: Hx Contacts or Glasses - READING Neurological History: Reports: Other Neuro Impairments/Disorders - 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 ANTERIOR CERVICAL DISC FUSION C5-6 IN 2004; C4-C5 2007 :C3-C4 2008. C6 VERTEBRECTOMY W/ C5-C7 STRUT GRAFT FUSION IN 2004;. [place] [facility] [place]ANIOTOMY (FOR AVM) IN JANUARY 2009 (THIS WAS CLEARED IN 2009 FOR MRI CSP - SEE PREVIOUS SCREENING IN PACS) ;. REMOVAL OF FLAP FEBRUARY 2009;. CRANIOPLASTY IN AUG 2009;. REMOVAL OF INFECTED FLAP NOVEMBER 2009 Hx Anesthesia Reactions: No Infectious Disease History: No Infectious Disease History: Reports: Hx of Known/Suspected MRSA Denies: Hx Clostridium Difficile, Hx Hepatitis, Hx Human Immunodeficiency Virus (HIV), Hx Shingles, Hx Tuberculosis, Traveled Outside the [place] in Last 30 Days - Family History Known Family History: Positive: Cardiac Disease, Hypertension - Social History Alcohol Use: Rare Alcohol Amount: 1 glass of wine about 1X/month Hx Substance Use: No Substance Use Type: Reports: None Substance Use Comment - Amount & Last Used: fentanyl and oxycodone Hx Tobacco Use: Yes Smoking Status (MU): Former Smoker Type: Cigarettes Amount Used/How Often: 1 PPD X 25 YEARS Length of Time of Smoking/Using Tobacco: 29 years Have You Smoked in the Last Year: No Review of Systems Negative: Fever Negative: Chest Pain Negative: Shortness Of Breath Positive: Myalgia - back pain Positive: Weakness, Paresthesia, Numbness All Other Systems Reviewed And Are Negative: Yes Physical Exam Triage Information Reviewed: Yes Vital Signs On Initial Exam: Initial Vitals Temp Pulse Resp BP Pulse Ox 97.3 F 99 16 102/77 94 10/25/19 17:09 10/25/19 17:09 10/25/19 17:09 10/25/19 17:09 10/25/19 17:09 Vital Signs Reviewed: Yes Appearance: Positive: Well-Appearing Skin: Positive: Warm, Dry Head/Face: Positive: Normal Head/Face Inspection Eyes: Positive: Normal, Conjunctiva Clear ENT: Positive: Pharynx normal Respiratory/Lung Sounds: Positive: Clear to Auscultation, Breath Sounds Present Cardiovascular: Positive: Normal, RRR Abdomen Description: Positive: Nontender, Soft, Other: - no sensation rectal exam, decreased rectal tone Bowel Sounds: Positive: Present Musculoskeletal: Positive: Other - tenderness lower back Neurological: Positive: Sensory/Motor Intact - legs, Abnormal Reflex @ - patella not intact, Babinski Bilateral - normal Psychiatric: Positive: Normal Procedures - Sedation Patient Received Moderate/Deep Sedation with Procedure: No Diagnostics - Vital Signs Vital Signs Temp Pulse Resp BP Pulse Ox 10/25/19 19:09 98.1 F 87 17 106/72 92 10/25/19 17:09 97.3 F 99 16 102/77 94 - Laboratory Result Diagrams: 10/25/19 22:30 10/25/19 22:30 Lab Statement: Any lab studies that have been ordered have been reviewed, and results considered in the medical decision making process. - CT lumbar CT Interpretation Completed By: Radiologist Summary of CT Findings: IMPRESSION: 1. Moderate multilevel lumbar spondylopathy post L4-L5 discectomy and posterior fusion with unchanged moderate L3-L4 canal stenosis and relatively unchanged likely compression of the bilateral L2-L4 nerve roots. 2. Bosniak type I renal cyst. No followup indicated. Re-Evaluation - Re-Evaluation First Eval Re-Evaluation Time: 01:35 Comment: pain manageable per patient Back Pain Course/Dx - Course Course Of Treatment: 64-year-old female presents with increasing back pain for the past 4 days. She states increasing numbness and tingling to her legs for past 3 days. She also states that she's had some numbness in her anal region for the past 3 days. She have a bowel movement three days ago. She denies any urinary symptoms. no loss of bowel or bladder. She states she is scheduled for spine surgery in a couple weeks. States having increasing difficulty walking. has history of htn and cardiomegaly. On exam sensation grossly intact. Tenderness of lower back. Normal Babinskis. unable to get patella reflex. no sensation of the rectum on exam and has decreased rectal tone but is still present. Discussed with Dr. huang. We'll get an MRI. MRI shows no cauda equina. no urinary retention on post void. discussed with dr huang and due to decrease in rectal sensation suggests admission for reevulation and potential further mri of thoracic spine. discussed with dr abreu who agrees to admit. - Diagnoses Differential Diagnosis/HQI/PQRI: Positive: Cauda Equina Syndrome, Compressive Cord Syndrome, Herniated Disc Provider Diagnoses: Back pain, Leg paresthesia Discharge ED - Sign-Out/Discharge Documenting (check all that apply): Patient Departure - Discharge Plan Condition: Stable Disposition: ADMITTED TO [facility] Referrals: Ilan Lowe MD [Primary Care Provider] - - Billing Disposition and Condition Condition: STABLE Disposition: Admitted to [facility]
[2019-10-25 22:35] LABS: ABS Eosinophils 0.1 10^3/ul (0-0.6); ABS Lymphocytes 1.8 10^3/ul (1.0-4.8); ABS Monocytes 0.4 10^3/ul (0-0.8); ABS Neutrophils 3.4 10^3/ul (1.5-7.7); Eosinophil % 2.2 %; Hematocrit 37 % (35-47); Hemoglobin 12.4 g/dL (12.0-16.0); Lymphocyte % 30.7 %; Mean Corpuscular HGB Conc 34 g/dL (31-36); Mean Corpuscular Hemoglobin 30 pg (27-31); Mean Corpuscular Volume 88 fL (80-97); Mean Platelet Volume 8.2 fL (7.4-10.4); Platelet Count 269 10^3/uL (150-450); Red Blood Count 4.22 10^6 /uL (3.70-4.87); Red Cell Distribution Width 14 % (10-15); White Blood Count 5.8 10^3/uL (3.5-10.8)
[2019-10-25 22:52] LABS: Albumin 3.8 g/dL (3.2-5.2); Albumin/Globulin Ratio 1.2 (1-3); BUN/Creatinine Ratio 13.9 (8-20); C Reactive Protein 9.44 mg/L (<8.01); Calcium 8.7 mg/dL (8.6-10.3); EGFR African American 57.7 (>60); EGFR Non-African American 47.7 (>60); Globulin 3.2 g/dL (2-4); Potassium 4.1 mmol/L (3.5-5.0); Total Bilirubin 0.4 mg/dL (0.2-1.0)
[2019-10-26 00:29] LABS: INR 0.95 (0.82-1.09)
--- NOTE | 2019-10-26 01:15 | CONS ---
CONSULTATION REPORT: DATE OF CONSULT: 10/25/19 HISTORY OF PRESENT ILLNESS: The patient is a very pleasant 64-year-old, right- handed female who has a history of embolization for AVM in [place]. She had cranioplasty on 07/23/11 and history of L4-5 decompression laminectomy with pedicle screw fixation and fusion on 01/29/[address] Alford. The patient had returned to our office with complaint of worsening of right hip pain and back pain. The patient had MRI findings consistent with postoperative changes at L4- 5 with severe stenosis of the L3-4 and extensive degenerative disease. The patient was found to be a candidate for an extensive arthrodesis. The patient' s surgical intervention was postponed because the patient had been diagnosed with acute appendicitis and peritonitis and underwent surgery by Dr. Alcazar on 08/24/19. The patient recovered from the procedure well and she was scheduled for the extension of her lumbar arthrodesis after recovering from her recent abdominal surgery. The patient has history of total of [address] Alford in the past. The patient, at baseline, has difficulty with ambulation with significant weakness in both lower extremities, right worse than the left and numbness and tingling in both feet. The patient called our office and reported that she had weakness in both lower extremities with decreased sensation in both lower extremities and loss of sensation at the anal area over the last 2 days. For this reason, she was advised to come to the emergency room, requested to see the patient by the emergency room team because of the patient's above complaints. The patient reports that she has back pain without recent exacerbation. She denies any fevers. She reports she does have weakness in both lower extremities with decreased sensation in both lower extremities in a nondermatomal distribution. She also denies any urinary or GI incontinence and she reports that the perianal sensation was intact with the exception of decreased sensation into the anal canal while she is having a bowel movement. 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 She has been on disability because of back problems since 2002. She is single, lives alone, and has 2 children. 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 PAST SURGICAL HISTORY: Craniotomy for left frontal arteriovenous malformation; lumbar decompression and fusion in 2003 on L4-5; arthrodesis; cervical disk procedures in 2005, 2006, and 2007; carpal tunnel release; appendectomy. MEDICATIONS: The patient's home medications according to our office records are : 1. Clotrimazole. 2. Duloxetine. 3. Melatonin. 4. Carvedilol. 5. Calcium. 6. Cymbalta. 7. Trazodone. 8. Docusate. 9. Gabapentin. ALLERGIES: No known drug allergies. FAMILY HISTORY: History of coronary artery disease in father. SOCIAL HISTORY: Tobacco, negative. The patient quit smoking in 2012. Alcohol , occasionally, 1 glass of wine per week. Recreational drug use, negative. PHYSICAL EXAM: The patient is not in acute distress. She is awake, alert, oriented x3. Her pupils are equal and reactive. Cranial nerves II through XII are grossly intact. Motor: 4-5/5 in all extremities with the exception of the right hip flexion, there is 3-4/5 and this is her baseline. No pronator drift. Sensory is grossly intact to light touch with the exception of decreased sensation bellow thigh level in both LEs which is increased compared with the baseline decreased sensation at the right L5-S1 distribution, . Deep tendon reflexes +1 bilaterally. No clonus, no Babinski. Riley's positive bilaterally. The patient has negative straight leg raising test in the supine position. The patient has no tenderness to palpation in the cervical, thoracic , or lumbar spine. She has free range of motion of the cervical spine as expected from the previous surgery. Previous lumbar wound is soft, clean and dry, healed very well. ASSESSMENT: The patient is a very pleasant 64-year-old right-handed female with history of L4-5 lumbar decompression and fusion by Dr. Alford on 01/29/04 with adjacent level disease with stenosis at L3-4 with history of cervical myelopathy with extensive surgical history with recent complaints of weakness of both lower extremities with decreased sensation and loss of sensation in the anal canal. PLAN: The patient at this point has been evaluated in the emergency room. The patient had a rectal exam that, according to the emergency room PA, revealed that the patient has decreased rectal tone but present. The patient was examined in the MRI suite. The patient is scheduled for an MRI of her lumbar spine. We recommend to obtain plain x-rays of her lumbar spine as well as CT scan of the lumbar spine and obtain postvoid residual. The patient may be admitted for observation with n.p.o. status and review imaging as well as results of postvoid residual and finalize the plan. Thank you very much for allowing us to participate in the care of this patient. Please do not hesitate to contact our office in case you have any further questions or concerns regarding the care of this patient. [id number]/CPS #: [id number] KYRIE
[2019-10-26 01:30] LABS: Urine Appearance Cloudy; Urine Bilirubin Negative (Negative); Urine Blood Negative (Negative); Urine Color Yellow; Urine Glucose 1+(50 mg/dL) (Negative); Urine Ketones Trace (Negative); Urine Nitrite Negative (Negative); Urine Protein Negative (Negative); Urine Specific Gravity 1.023 (1.010-1.030); Urine Urobilinogen Negative (Negative)
[2019-10-26 01:31] LABS: Urine Bacteria Absent (Absent); Urine Red Blood Cell Absent (Absent); Urine Squamous Epithelial Cell Present (Absent); Urine White Blood Cell 3+(>20/hpf) (Absent)
[2019-10-26] MEDS ORDERED: Acetaminophen TAB* 325 MG PO PRN (02:18)
[2019-10-26 02:40] LABS: Activated Partial Thrombo Time 32.1 seconds (26.0-38.0)
[2019-10-26 03:03] LABS: TSH (Thyroid Stimulating Horm) 2.01 mcIU/mL (0.34-5.60)
--- NOTE | 2019-10-26 04:05 | HP ---
CC: Dr. Lowe; Dr. Alvarez * HISTORY AND PHYSICAL: DATE OF ADMISSION: 10/26/19 PRIMARY CARE PROVIDER: Dr. Lowe. ATTENDING PHYSICIAN WHILE IN THE HOSPITAL: Dr. Deepa Vargas * (report dictated by Arun Concepcion NP). CONSULTING NEUROSURGEON: Dr. Alvarez. CHIEF COMPLAINT: 1. Numbness and tingling. 2. Back pain. 3. Decreased anal sensation. HISTORY OF PRESENTING ILLNESS: Ms. Smith is a 64-year-old female patient with a well-documented history of back problems and neck problems. She has had multiple surgeries to her neck and lumbar spine, who has been following with Dr. Alvarez and was scheduled for a spinal surgery this past August but unfortunately had come down with acute appendicitis that was complicated with perforation and sepsis. Unfortunately, the surgery was canceled. Today, she called Dr. Alvarez' office stating that she noted an onset about 4 days ago of numbness starting in the right hip and noted the numbness and tingling going down the leg bilaterally, worse on the right than on the left. She noted that she was having low back pain as well that would radiate over to the right hip and down. She states that what was concerning is that she had a bowel movement 4 days ago and noted that she had decreased sensation in the anal area. The patient was concerned because things were not getting better. She denied any bowel or bladder incontinence and denied saddle paresthesia. She called Dr. Alvarez' office today to inform him what was going on and she was directed to the ER for further evaluation. She says that both legs feel weaker. She says that the right does feel worse than the left and she denies having any weakness in the upper extremities or any numbness or tingling in the upper extremities at this point. She also does state that she has a history of neuropathy of unclear etiology. She states that she just was not feeling any better, the pain was getting worse and came in for evaluation. She denies any recent illness. Denies having any chest pain. Denies any shortness of breath. Denies having any abdominal pain. There has been no reports of nausea or vomiting. No recent fevers or URI-type symptoms. Due to the progression of her numbness and tingling and the pain, we were asked to evaluate for admission. She has been seen by Dr. Alvarez in the ER. PAST MEDICAL HISTORY: 1. Significant for restrictive cardiomyopathy, last known EF around 40%. 2. AVM. 3. Depression. 4. DVT. 5. PE. 6. Mitral valve insufficiency. 7. HEENA, on CPAP. 8. Hypertension. 9. UTI. 10. Chronic back pain. 11. Cervical myelopathy. 12. SVT. PAST SURGICAL HISTORY: 1. She has had a craniotomy. 2. Cranioplasty. 3. Lumbar fusion. 4. Cervical diskectomies. 5. Carpal tunnel release. 6. Most recently appendectomy. HOME MEDICATIONS: These were confirmed with the patient include: 1. Carvedilol 12.5 mg p.o. twice a day. 2. Trazodone 50 to 100 mg at bedtime as needed. 3. Spironolactone/hydrochlorothiazide half a tablet p.o. daily. 4. Melatonin 10 mg at bedtime as needed. 5. Lasix 20 mg daily. 6. Cymbalta 30 mg daily. 7. Calcium carbonate with vitamin D3 one tablet daily. ALLERGIES: To medications include no known drug allergies. FAMILY HISTORY: Her mother had CAD. She also had dementia. Father had a history of heart disease and a blood clot. SOCIAL HISTORY: She is a former smoker. She does not drink alcohol. Surrogate decision maker is her son. REVIEW OF SYSTEMS: There is no documented fever. She denied having any significant weight change. There is no double vision. She denied having any ear discharge. There is no rhinorrhea. No sore throat. No thyroid enlargement. Again, denies having any chest pain. No orthopnea. No nocturnal dyspnea. There is no abdominal pain. No nausea, no vomiting, no dysuria, no frequency, no seizure, no loss of consciousness. No pruritus and no skin lesions. Review of 14 systems completed. All others are negative. PHYSICAL EXAMINATION GENERAL: At this time, Ms. Smith is a 64-year-old female patient. She is sitting in the ED stretcher. She does not appear to be in any acute distress. VITAL SIGNS: Blood pressure 130/83, pulse 75, respirations 16, O2 sat 96%, temperature 98.1. HEENT: Head: Atraumatic, normocephalic. Eyes: EOMs are intact. Sclerae anicteric and not pale. Throat: Oral mucosa appears to be moist. No oropharyngeal erythema. NECK: Supple. LUNGS: Clear to auscultation bilaterally. There are no wheezes, rales, or rhonchi. HEART: Heart sounds S1, S2. Regular rate and rhythm. No murmurs, rubs, or gallops. ABDOMEN: Soft. It is flat, nontender. Bowel sounds are present. EXTREMITIES: She had 5/5 strength in the upper extremities distally and proximally. Lower extremities, she did have some give way strength to the right hip flexor due to pain. She had 5/5 with knee flexion and extension, 5/5 with plantar flexion. The right hip was about 4/5 to the right hip flexor. NEUROLOGICAL: She is awake, alert, and oriented x3. Cranial nerves II through XII are intact. Speech is clear. Tongue midline. No facial drooping. She had loss of vibration to the great toes bilaterally. Loss of proprioception. Pinprick was decreased to the right leg in a stocking glove distribution up to her thigh. This was similar to her left leg with the exception the sensation is gained in the left leg just above the knee in again a stocking glove distribution, nondermatomal at this point. She had a negative straight-leg raise test at this point. She had negative Babinski's noted, no clonus was noted or myoclonus in addition of this. Her reflexes were absent at the patella bilaterally. SKIN: Grossly intact. DIAGNOSTIC STUDIES/LAB DATA: Labs today revealed WBC of 5.8, RBC of 4.22, hemoglobin 12.4, hematocrit 37, platelet count of 269,000. INR was 0.95. Sodium was 138, potassium was 4.1, chloride of 104, bicarbonate 28, BUN 16, creatinine 1.15, glucose 96, AST 23, ALT 18, alkaline phosphatase 127, CRP 9.4, albumin 3.8. Urine showed trace ketones, 1+ leukocyte esterase, 3+ wbc, absent bacteria, 1+ glucose. She had imaging in the ED starting out with the lumbar spine which showed, impression: Moderate multilevel lumbar spondylopathy post L4-5 diskectomy and posterior fusion was unchanged. Moderate L3-4 canal stenosis relatively unchanged, likely compression of the bilateral L2 through 4 nerve roots. Bosniak type 1 renal cyst. No followup indicated. She had a lumbar spine CT which showed, impression: No lumbar spine traumatic abnormalities. Moderate multilevel lumbar spondylopathy including unchanged moderate L3-4 canal stenosis and likely compression of the bilateral L2 through 4 nerve roots. Old medical records were reviewed. ASSESSMENT AND PLAN: Ms. Smith is a 64-year-old female patient, coming into the ED today with complaints of worsening of back pain and having numbness and tingling, worse on the right leg that is downward ascending that has been going on for the last 4 days. In addition to this, she is having decreased anal sensation. She will be admitted under observation status for: 1. Back pain with now new onset worsening numbness and tingling in the right leg versus the left leg and decreased anal sensation. At this point, Neurosurgery has evaluated the patient. They will be following her tomorrow. The plan would be to continue with pain management. I ordered some physical therapy. At this point, we may want to consider thoracic and lumbar spine MRI, and possibly an MRI of the brain. I did get B12 and TSH as well. I think also it will be beneficial to get neurology input as well given her description and the fact that it is not ascending upwards from the leg, so I think Guillain- [place] syndrome is less likely, but we will certainly continue to monitor. Again , she does have significant pain which will not fit with the Guillain-[place] syndrome picture. Again, for now, continue supportive care for her back pain We will get Neurosurgery involved and Neurology. 2. Cardiomyopathy. Continue meds as described. 3. History of arteriovenous malformation. At this point, again not an active issue. Continue to follow. 4. Depression. Continue with supportive care. 5. History of deep vein thrombosis and pulmonary embolism. She will be on heparin subcu for prophylaxis purposes. 6. Obstructive sleep apnea. Ordered CPAP. 7. Hypertension. Continue meds as prescribed. 8. History of chronic back pain and cervical myelopathy. Again, Dr. Alvarez has been consulted. 9. DVT prophylaxis: She is high risk. She will be placed on heparin subcu. 10. Code status: Full code. 11. Fluids, electrolytes, and nutrition: She will have a heart healthy diet. TIME SPENT: On the admission is 60 minutes, greater than half the time spent face- to-face with the patient obtaining my history and physical, other half time spent going over the plan of care with the patient and implementing my plan of care. I did discuss the plan of care with my attending Dr. Vargas, she is in agreement. ARUN CONCEPCION NP [id number]/CPS #: [id number] MTDLiana
[2019-10-26] MEDS ORDERED: Heparin VIAL(*) 5000 UNITS/ML VIAL (FIVE THOUSAND) SUBCUT SCH (06:00)
[2019-10-26] MEDS: HYDROcodone/ACETAMIN 5-325 MG* 1 TAB PO PRN (06:15)
[2019-10-26 06:29] LABS: ABS Eosinophils 0.1 10^3/ul (0-0.6); ABS Lymphocytes 1.9 10^3/ul (1.0-4.8); ABS Monocytes 0.4 10^3/ul (0-0.8); ABS Neutrophils 3.3 10^3/ul (1.5-7.7); Eosinophil % 2.1 %; Hematocrit 35 % (35-47); Hemoglobin 11.9 g/dL (12.0-16.0); Lymphocyte % 32.6 %; Mean Corpuscular HGB Conc 34 g/dL (31-36); Mean Corpuscular Hemoglobin 30 pg (27-31); Mean Corpuscular Volume 88 fL (80-97); Mean Platelet Volume 8.3 fL (7.4-10.4); Platelet Count 242 10^3/uL (150-450); Red Blood Count 3.95 10^6 /uL (3.70-4.87); Red Cell Distribution Width 14 % (10-15); White Blood Count 5.8 10^3/uL (3.5-10.8)
[2019-10-26 06:33] LABS: INR 1.04 (0.82-1.09)
[2019-10-26 06:44] LABS: BUN/Creatinine Ratio 13.7 (8-20); Calcium 8.6 mg/dL (8.6-10.3); EGFR African American 66.2 (>60); EGFR Non-African American 54.7 (>60); Potassium 3.8 mmol/L (3.5-5.0)
--- NOTE | 2019-10-26 10:30 | PN ---
Subjective Date of Service: 10/26/19 Interval History: Patient still had right lower leg weakness, numbness, decreased anal sensation and muscle tone. Talked to Dr. Alvarez, he has a plan to do urgent lumbar spine surgery today in view of her anal symptoms. Patient had no complains other than symptoms listed above, no chest pain, no SOB , no light headedness. She is able to walk short distances as her baseline, restricted movement due to her back and neck problems. She has history of restrictive cardiomyopathy with EF 40% in Jul, for which she is on diuretics. She has no swelling, SOB, orthopnea now. She had her stress test recently before her appendectomy in Aug 16 which is also negative. She had her appendectomy uneventfully in Aug. She also had history of DVT and PE in 2003, no more recurrence, currently not on anticoagulant. She has no calf pain, asymptomatic leg swelling, SOB, tachycardia now. Her blood pressure is well controlled since admission. She has no acute infection of concern. Objective Active Medications: Acetaminophen (Tylenol Tab*) 650 mg PO Q6H PRN PRN Reason: FEVER/PAIN Hydrocodone Bitart/Acetaminophen (Clements 5-325 Tab*) 1 tab PO Q4H PRN PRN Reason: PAIN - MODERATE Last Admin: 10/26/19 06:15 Dose: 1 tab Carvedilol (Coreg Tab*) 12.5 mg PO BID DICK Duloxetine HCl (Cymbalta Cap*) 30 mg PO DAILY DICK Enoxaparin Sodium (Lovenox(*)) 40 mg SUBCUT BEDTIME DICK Furosemide (Lasix Tab*) 20 mg PO DAILY DICK Hydrochlorothiazide (Hydrodiuril Tab*) 12.5 mg PO DAILY DICK Lidocaine (Lidoderm 5% Patch*) 1 patch TRANSDERM DAILY DICK Melatonin (Melatonin) 9 mg PO BEDTIME PRN PRN Reason: SLEEP Ondansetron HCl (Zofran Inj*) 4 mg IV Q6H PRN PRN Reason: NAUSEA Pharmacy Profile Note (Lidocaine Patch Remove*) 1 note N/A 2100 DICK Spironolactone (Aldactone Tab*) 12.5 mg PO DAILY DICK Vital Signs - 8 hr 10/26/19 10/26/19 10/26/19 03:13 03:15 03:20 Temperature 97.9 F Pulse Rate 72 75 Respiratory 17 16 Rate Blood Pressure 115/75 (mmHg) O2 Sat by Pulse 95 93 Oximetry 10/26/19 10/26/19 10/26/19 03:21 03:32 03:51 Temperature 97.9 F Pulse Rate 76 74 75 Respiratory 17 Rate Blood Pressure 115/75 (mmHg) O2 Sat by Pulse 94 Oximetry 10/26/19 10/26/19 10/26/19 04:00 04:21 04:51 Temperature Pulse Rate 73 72 74 Respiratory Rate Blood Pressure (mmHg) O2 Sat by Pulse 90 Oximetry 10/26/19 10/26/19 10/26/19 05:00 05:21 06:02 Temperature 98.2 F Pulse Rate 75 82 73 Respiratory 20 Rate Blood Pressure 122/80 (mmHg) O2 Sat by Pulse 96 Oximetry 10/26/19 06:15 Temperature Pulse Rate Respiratory 16 Rate Blood Pressure (mmHg) O2 Sat by Pulse Oximetry Oxygen Devices in Use Now: None Exam: Appearance: age appropriate appearance, alert and interactive, NAD, able to lie flat Ears/Nose/Mouth/Throat: Clear Oropharnyx, Mucous Membranes Moist Respiratory: Symmetrical Chest Expansion and Respiratory Effort, clear lung on auscultation Cardiovascular: NL Sounds; No Murmurs; No JVD, RRR Abdominal: NL Sounds; No Tenderness; No Distention, No Hepatosplenomegaly Extremities: No Edema, no cyanosis Neurological: Alert and Oriented x 3 right hip flexion 4, otherwise normal Sensation: decreased in L4-S1 distribution Result Diagrams: 10/26/19 06:13 10/26/19 06:13 Assess/Plan/Problems-Billing Assessment: Quiana Smith is a 64 y/o female with history of restrictive cardiomyopathy with EF 40%, distant DVT and PE history, hypertension, cervical myelopathy, chronic back pain s/p lumbar decompression and fusion surgery, presented with right leg weakness and numbness with anal function impairment, concerning for conus Equina due to spinal spondylosis and stenosis. - Patient Problems (1) Pre-operative cardiovascular examination Current Visit: Yes Status: Acute Code(s): Z01.810 - ENCOUNTER FOR PREPROCEDURAL CARDIOVASCULAR EXAMINATION SNOMED Code(s): 823578983 Comment: - Patient is going to have a lumbar spine surgery which is urgent today - Patient currently has no cardiovasculars symptoms, no recent history of any cardiovascular events. She does have restrictive cardiomyopathy with EF 40%, it was well managed, stable from her last echo, also her stress test in Nov is also normal. She just had appendectomy under [place] in Dec noneventfully which is reassuring. Her EKG since admission is normal, lab normal. - According to NSQIP surgical risk calculator, her risk of getting serious complication is slightly above average at 3.8%, risk of cardiac complcication is 0.2% which again slightly above average. (detailed sheet placed in chart) - we will serve her Coreg morning dose and keep her NPO. Will continue to optimize her medically perioperative periods. - She needs to have EKG done today - She can go ahead for her spine surgery today (2) Hypertension Current Visit: No Status: Acute Code(s): I10 - ESSENTIAL (PRIMARY) HYPERTENSION SNOMED Code(s): 13373915 Comment: -BP well controlled -continue to watch (3) Restrictive cardiomyopathy Current Visit: No Status: Acute Code(s): I42.5 - OTHER RESTRICTIVE CARDIOMYOPATHY SNOMED Code(s): 561298208 Comment: -EF 40%, no valve abnormality -carvedilol today -hold off diuretics since she is fasting for surgery, watch fluid status (4) HEENA (obstructive sleep apnea) Current Visit: No Status: Acute Code(s): G47.33 - OBSTRUCTIVE SLEEP APNEA ( ADULT) (PEDIATRIC) SNOMED Code(s): 63309725 Comment: -hospital CPAP at night/while sleeping (5) Depression Current Visit: No Status: Acute Code(s): F32.9 - MAJOR DEPRESSIVE DISORDER, SINGLE EPISODE, UNSPECIFIED SNOMED Code(s): 65093986 Comment: Continue dulextetine after surgery (6) Full code status Current Visit: No Status: Acute Code(s): Z78.9 - OTHER SPECIFIED HEALTH STATUS SNOMED Code(s): 380186190 Status and Disposition: Inpatient Medicine. Attestation Documenting Resident: Anitra Kearns Supervising Physician: Es Bailey Attestation: This service has been performed in part by a resident under the direction of a teaching physician.I, Es Bailey, performed the service, or was physically present during the critical, or gaines portions of the service, furnished by the resident. I participated in the management of the patient.
[2019-10-26] MEDS: Carvedilol TAB* 6.25 MG PO SCH ×2 (10:40→23:17)
[2019-10-26] MEDS: Furosemide TAB* 20 MG PO SCH (10:54)
[2019-10-26] MEDS: DULoxetine DR CAP* 30 MG CAP.DR PO SCH (10:54)
[2019-10-26] MEDS: Hydrochlorothiazide TAB* 25 MG PO SCH (10:55)
[2019-10-26] MEDS: Spironolactone TAB* 25 MG PO SCH (10:55)
[2019-10-26] MEDS: Lidocaine PATCH 5%* 1 PATCH TRANSDERM SCH (10:55)
[2019-10-26] MEDS ORDERED: Bupivacaine 0.5% W/EPI SDV* 10 ML VIAL INJ ONE (14:55)
[2019-10-26] MEDS ORDERED: Bacitracin INJECTION* 50,000 UNITS ONE ×2 (14:55→23:58)
[2019-10-26] MEDS ORDERED: ceFAZolin 2 GM PREMIX in ORs 2 GM/50 ML BAG ONE ×2 (15:06→21:13)
--- NOTE | 2019-10-26 15:22 | PN ---
Progress Note - Progress Note Date of Service: 10/26/19 Note: Patient was seen earlier today. No events ON. NPO AAOx3 BOB, CN II-XII grossly intact Motor 4-5/5 UEs, 4- 4/5 LEs except HF 3- 4-/5 Sensory grossly intact to light touch except bilateral LEs bellow groin level. DTR +1 bilaterally UEs, trace LEs Rectal exam was repeated: perineal sensation present, decreased rectal tone, patient not able to do voluntary constriction. MRI L spine reveals postop changes at L4-5, with L3-4 stenosis, L2-3 stenosis, spondylolisthesis and multilevel DDD CT lumbar spine with similar finding, No fracture MRI T spine: no cord compression Patient is 64 yof with partial cauda equina severe axial back pain and Right more than left radiculopathy of LEs. Discussed treatment options and possible prognosis. Patient was offered the option of emergency surgical intervention for decompression and arthrodesis. After explaining in details indications, expectations, limitations and possible complications, with complications including but not limited to bleeding, infection, risk of injury to adjacent structures, coma, paralysis, , stroke , blindness, cancer, instability, adjacent level disease, pseudoarthrosis, hardware malfunction, misplacement, need for additional procedures, spinal fluid leak, loss of bladder or bowel control, anesthesia risks, need for tracheostomy, gastrostomy, prolonged ICU stay, prolonged rehabilitation and hospitalization, patient and her son were agreeable to proceed with surgery and IC was obtained. Patient understood that her condition may not improve and in fact may get worse after surgery and that she may need additional procedures in the future. She understood that operative plan may be modified according to intraoperative findings and conditions, and that the procedure may be done in more than one stages. She also understood that she may require prolonged hospitalization, ICU stay, need for tracheostomy and gastrostomy. Will proceed with surgical intervention. IM team kindly provided medical clearance. Appreciate IM care. Marko Alvarez MD
[2019-10-26] MEDS ORDERED: Midazolam* 1 MG/ML 5 ML VIAL (5 MG) ONE (15:50)
[2019-10-26] MEDS ORDERED: fentaNYL* 50 MCG/ML 2 ML VIAL (100 MCG VIAL) ONE ×3 (16:58→19:38)
[2019-10-26] MEDS ORDERED: KETAMINE HCL* 50 MG/ML 10 ML VIAL ONE (17:18)
[2019-10-26] MEDS ORDERED: fentaNYL* 50 MCG/ML 5 ML VIAL (250 MCG VIAL) ONE (17:43)
[2019-10-26] MEDS ORDERED: Rocuronium* 10 MG/ML VIAL ONE ×2 (17:53→19:04)
[2019-10-26] MEDS ORDERED: Propofol* 1,000 MG/100 ML BTL ONE ×2 (18:30→21:11)
[2019-10-26] MEDS ORDERED: Succinylcholine* 20 MG/ML 10 ML VIAL ONE (18:38)
[2019-10-26] MEDS ORDERED: Dexamethasone IV* 4 MG/ML 1 ML (4 MG) ONE (18:38)
[2019-10-26] MEDS ORDERED: Propofol* 10 MG/ML 20 ML BTL ONE ×3 (18:38→22:36)
[2019-10-26] MEDS ORDERED: Lidocaine 2% PF * 5 ML VIAL ONE (18:38)
[2019-10-26] MEDS ORDERED: Ondansetron INJ* 2 MG/ML VIAL ONE (18:39)
[2019-10-26] MEDS ORDERED: Enoxaparin(*) 40 MG/0.4 ML SYR SUBCUT SCH (21:00)
[2019-10-26] MEDS: Lidocaine Patch REMOVE* 1 NOTE MISC SCH (23:18)
[2019-10-26 23:28] LABS: Hematocrit 33 % (35-47); Hemoglobin 11.2 g/dL (12.0-16.0)
[2019-10-26] MEDS ORDERED: Gelfoam 12-7 ADSORBABL SPONGE* 1 EA SPONGE ONE (23:32)
[2019-10-26] MEDS ORDERED: Gelfoam Sponge SIZE 100* SPONGE ONE (23:32)
[2019-10-26] MEDS ORDERED: Thrombin 5,000 UNITS* 1 APPLIC KIT - topical use - TOPICAL ONE (23:32)
[2019-10-27] MEDS ORDERED: Propofol* 10 MG/ML 20 ML BTL ONE ×3 (00:16→04:14)
[2019-10-27] MEDS ORDERED: fentaNYL* 50 MCG/ML 2 ML VIAL (100 MCG VIAL) ONE (00:24)
[2019-10-27] MEDS ORDERED: ceFAZolin 2 GM PREMIX in ORs 2 GM/50 ML BAG ONE (01:14)
[2019-10-27] MEDS ORDERED: Propofol* 500 MG/50 ML BTL ONE (01:17)
[2019-10-27] MEDS ORDERED: Bacitracin INJECTION* 50,000 UNITS ONE (02:32)
[2019-10-27] MEDS: HYDROmorphone INJ1* 1 MG/ML SYRINGE IV PRN ×2 (05:00→05:59)
[2019-10-27] MEDS ORDERED: HYDROmorphone INJ1* 1 MG/ML SYRINGE ONE (05:03)
[2019-10-27] MEDS ORDERED: Acetaminophen IV 1GM/100ML * 1,000 MG/100 ML VIAL IVPB ONE (05:06)
[2019-10-27] MEDS ORDERED: Naloxone* 0.4 MG/ML 1 ML VIAL IV PRN (05:06)
[2019-10-27] MEDS ORDERED: DiMENhydriNATE IV* 50 MG/ML VIAL IV PUSH PRN (05:06)
[2019-10-27] MEDS ORDERED: Acetaminophen IV 1GM/100ML * 100 ML ONE (05:08)
[2019-10-27] MEDS ORDERED: HYDROmorphone INJ1* 1 MG/ML SYRINGE IV PRN (08:07)
[2019-10-27] MEDS ORDERED: NS 0.9% 1000 ML** 1,000 ML IV SCH ×2 (08:15→13:00)
[2019-10-27] MEDS: Polyethylene Glycol 3350* 17 GM PACKET PO SCH (09:44)
[2019-10-27] MEDS: Lidocaine PATCH 5%* 1 PATCH TRANSDERM SCH (09:44)
[2019-10-27 10:13] LABS: ABS Lymphocytes 0.8 10^3/ul (1.0-4.8); ABS Monocytes 0.7 10^3/ul (0-0.8); ABS Neutrophils 12.8 10^3/ul (1.5-7.7); Hematocrit 33 % (35-47); Hemoglobin 10.8 g/dL (12.0-16.0); Lymphocyte % 5.3 %; Mean Corpuscular HGB Conc 33 g/dL (31-36); Mean Corpuscular Hemoglobin 29 pg (27-31); Mean Corpuscular Volume 88 fL (80-97); Mean Platelet Volume 8.4 fL (7.4-10.4); Platelet Count 253 10^3/uL (150-450); Red Blood Count 3.69 10^6 /uL (3.70-4.87); Red Cell Distribution Width 14 % (10-15); White Blood Count 14.3 10^3/uL (3.5-10.8)
[2019-10-27 10:33] LABS: BUN/Creatinine Ratio 9.7 (8-20); Calcium 8.1 mg/dL (8.6-10.3); EGFR African American 65.5 (>60); EGFR Non-African American 54.1 (>60); Potassium 4.3 mmol/L (3.5-5.0)
[2019-10-27] MEDS: Hydrochlorothiazide TAB* 25 MG PO SCH (11:15)
[2019-10-27] MEDS: Carvedilol TAB* 6.25 MG PO SCH ×2 (11:16→21:01)
[2019-10-27] MEDS: Furosemide TAB* 20 MG PO SCH (11:16)
[2019-10-27] MEDS: Spironolactone TAB* 25 MG PO SCH (11:16)
[2019-10-27] MEDS: DULoxetine DR CAP* 30 MG CAP.DR PO SCH (11:16)
[2019-10-27] MEDS ORDERED: NS 0.9% 500 ML* 500 ML IV ONE (12:51)
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
[2019-10-27] MEDS: Acetaminophen IV 1GM/100ML * 100 ML IVPB SCH ×2 (13:18→21:50)
[2019-10-27] MEDS ORDERED: ceFAZolin 1 GM ADVAN(*) 1 GM ADDV.VIAL IVPB SCH (14:00)
[2019-10-27] MEDS: ceFAZolin 1 GM* X 3 DOSES POST-OP Q8H (AddVan) IVPB SCH ×4 (14:52→22:41)
[2019-10-27] MEDS: Albumin Human 5%* 12.5 GM/250 ML BTL IV SCH ×2 (16:59→17:29)
[2019-10-27] MEDS ORDERED: Norepinephrine 16MCG/ML IVPRE* 4,000 MCG/250 ML BAG IV SCH (18:00)
[2019-10-27] MEDS: Lidocaine Patch REMOVE* 1 NOTE MISC SCH (21:01)
[2019-10-27] MEDS: Famotidine IV* 10 MG/ML 2 ML (20 mg) IV SLOW PU SCH (21:49)
--- NOTE | 2019-10-28 00:01 | PN ---
Progress Note - Progress Note Date of Service: 10/27/19 SOAP: Subjective: []No events during the day. Patient tolerated procedure well. Had episode of MARS that resolved after restarting IV fluids and holding LD drainage. Feels much better after surgery. Preop LE weakness and paresthesias resolved. Perineal sensation is intact per patient. She reports that she feels that she has voluntary control of anal sphincter. Objective: []VSS, Afebtile. Wound s,c,d SANDY drain, LD drain in place, output noted. AAOx3 BOB, CN II-XII grossly intact, Motor 5/5 all extremities Sensory grossly intact to light touch. Assessment: [] 64 yo f POD#0 L2-5 arthrodesis with L2-3 TLIF , revision of previous instrumented fusion, L 2-3, L3-4 decompression, durotomy repair. Plan: []Monitor VS, Neurochecks Maintain SBP< 140 Advance diet as tolerated Would recommend nutrition consult. Flat bed rest Monitor drain output. Restart LD at 5 cc per hour. Appreciate ICU, IM care. Marko Alvarez MD
--- NOTE | 2019-10-28 00:07 | OP ---
OPERATIVE REPORT: DATE OF OPERATION: 10/27/19 DATE OF : 57 SURGEON: Juan Jose Alvarez MD ANESTHESIA: General. PRE-OP DIAGNOSES: 1. Partial cauda equina. 2. Degenerative disk disease. 3. Spondylolisthesis at L3-4, L2-3 with stenosis at L3-4 and L2-3 adjacent level disease. POST-OP DIAGNOSES: 1. Partial cauda equina. 2. Degenerative disk disease. 3. Spondylolisthesis at L3-4, L2-3 with stenosis at L3-4 and L2-3 adjacent level disease. OPERATIVE PROCEDURE: The patient underwent posterolateral arthrodesis L2 through L5 with placement of right L2-3 TLIF with decompressive laminectomies L2 -3 and L3-4. Revision of previous instrumentation at L4 and L5 with placement of bilateral pedicle screws L3-L2 with use of DBX, locally harvested bone graft , repair of incidental durotomy, placement of lumbar drain with intraoperative navigation and intraoperative monitoring. ESTIMATED BLOOD LOSS: 300 cc. COMPLICATIONS: None. SUMMARY: The patient is a very pleasant 64-year-old female with a history of multiple spine surgeries. She had multiple cervical spine operations and she had a previous lumbar decompression and fusion with TLIF at L4-5. The patient presented to our office with adjacent level disease at L3-4 and was scheduled for surgical intervention. The patient was diagnosed with peritonitis and underwent appendectomy by Dr. Alcazar and surgery was postponed while waiting for rescheduling the surgery and recovering from her abdominal surgery. The patient presented to the emergency room with complaints of perianal sensation loss and loss of control of anal sphincter. The patient had repeat imaging that confirmed significant stenosis of L3-4 and to lesser degree at L2-3 with spondylolisthesis and severe degenerative disk disease. She was offered the option of surgical intervention. After explaining the expectations, limitations , and possible complications of the procedure to the patient and her son with complications including but not limited to bleeding, infection, risk of injury to adjacent structures,coma, paralysis, , need for additional procedure, anesthesia risk, stroke, blindness, cancer, instability, hardware failure, adjacent level disease, pseudoarthrosis, proximal and distal junctional kyphosis , heart failure, need for additional procedures, loss of bladder or bowel control, spinal fluid leak, development of postoperative hematoma, need for prolonged ICU stay, prolonged hospitalization, prolonged rehabilitation, need for tracheostomy and gastrotomy, anesthesia risks, the patient was agreeable to proceed with surgery and informed consent was obtained. The patient understood that her condition may not improve but in fact may get worse after surgery and that she may need to have additional procedures in the future. She also understood that operative plan may be modified according to intraoperative findings and conditions and that the procedure may be abandoned or done in more than 1 stages. She also understood that she may require prolonged ICU stay, prolonged hospitalization, and placement of a lumbar drain. DESCRIPTION OF PROCEDURE: The patient was brought to the operating room and was placed under general anesthesia by the anesthesia team. She was carefully positioned prone on the Darrell table and all bony prominences were meticulously padded. Her skin was prepped and draped in the standard fashion. After appropriate surgical pause and patient identification, the previous midline incision was identified and extended cephalad. After surgical incision was made with a #10 surgical blade, the skin and incision was infiltrated with local anesthetic. The incision was advanced through the subcutaneous tissue with Bovie cautery and self-retaining retractors were introduced to the field. Dorsal fascia was divided on both sides of midline with Bovie cautery and the paraspinal musculature was elevated into the subperiosteal fascia. Of note, a significant amount of scar tissue was encountered in the previous surgical site. The exposure was extended laterally to the transverse processes of L2-L3 , previous fusion bone mass and instrumentation of L4 and L5 were identified. The previous pedicle screws were then removed after removing the nuts and the rods as well as the connectors with removal of the screw shaft. With the same trajectories, Medtronic Solera pedicle screws were inserted at L4 and L5. Then , attention was brought to secure a navigation star in the S1 spinous process and intraoperative O-arm imaging was obtained. This confirmed excellent placement of the screws at L4 and L5 and the patient's imaging data were transferred to the navigation platform. Under stereotactic navigation, the pedicles of L3 and L2 were cannulated and pedicle screws were inserted in both levels. Attention was then brought to perform a ipsilateral contralateral laminectomy at L2-L3 with medial facetectomy and resection of the pars. This was performed with high-speed drill and Kerrison punches. The theca sac was found to be under significant compression. The thecal sac and the nerve root were gently retracted medially and after incising the annulus fibrosus with #15 surgical blade. After performing a small posterior osteotomy with high-speed drill, the disk preparation was performed followed by insertion of L2-3 PEEK interbody cage from expandable Elevate cage from [employer]. Prior to insertion of the cage, locally harvested bone graft of the laminectomy part as well as DBX was inserted into the space and the same graft mixture was inserted into the PEEK interbody cage. Then, attention was brought to perform a laminectomy at L3-4. Significant amount of ankylosis as well as severe stenosis with significant angulation of the thecal sac was encountered as expected from preoperative imaging and the history of a previous surgical intervention. Incidental durotomy was identified during the decompression phase of the procedure. This was easily identified and repaired primarily with 4-0 Nurolon sutures. Upon further exposure, it was noted that the dura was extremely thin and a second durotomy site was identified. Due to laterality of the position of the durotomy as well as the extremely thin substance of the thecal sac possibly related to her previous surgical intervention and the tension of the thecal sac and patient's age, primary closure was not possible. It was elected to repair the durotomy site with DuraGen graft and Tisseel. This was performed without difficulty in a watertight fashion. Then, attention was brought to obtain an O-arm imaging in order to confirm the accurate placement of all hardware. O-arm imaging was obtained and confirmed excellent placement of all hardware. Then, 2 cobalt chrome rods were contoured and placed in the incision in order to secure the screw heads with the screw head caps. On the left, lateral connectors were used for the L5 and L4 pedicle screws as the previous pedicle screw insertion site was extremely lateral while the orientation of the pedicles of L3 and L2 with a much more horizontal angle would not allow for a very lateral starting point. On the right side, lateral connector was used for the L4 pedicle screw. Then high-speed drill was used to decorticate all bony surfaces including the transverse processes of L2 and L3 and locally harvested bone graft mixed with DBX and was placed in order to perform a posterolateral arthrodesis between L2 through L5. Then, the self- retaining retractors were removed as well as the navigation star and the wound was copiously irrigated and after confirmation of meticulous hemostasis and meticulous inspection, a Valeriy drain was placed in the epidural space. Because of presence of the incidental durotomy, it was elected to insert a lumbar drain at approximately the L2-3 disk space and the distal part of the lumbar drain was tunneled through a separate stab wound incision. The wound was then closed by layers with interrupted 0-Vicryl sutures for the dorsal fascia while a second layer of closure with continuous running #1 Vicryl suture was performed. Then after copious irrigation and meticulous hemostasis confirmation and meticulous inspection, the subcutaneous tissue was approximated with interrupted 0-Vicryl sutures and 2-0 Vicryl sutures, while the skin was approximated with #1 Prolene sutures in a running interrupted fashion. At the end of the procedure, all counts were reported to be correct and the patient remained hemodynamically stable throughout the case. Intraoperative monitoring was stable throughout the case and the patient was then turned supine, was extubated, and was transferred to the Recovery in excellent condition. [id number] #: [id number] MTDD
[2019-10-28] MEDS ORDERED: Norepinephrine 16MCG/ML IVPRE* 4,000 MCG/250 ML BAG IV SCH (02:10)
[2019-10-28] MEDS: ceFAZolin 1 GM* X 3 DOSES POST-OP Q8H (AddVan) IVPB SCH ×2 (06:09)
[2019-10-28] MEDS: Polyethylene Glycol 3350* 17 GM PACKET PO SCH (08:41)
[2019-10-28] MEDS: Lidocaine PATCH 5%* 1 PATCH TRANSDERM SCH (08:41)
[2019-10-28] MEDS: Spironolactone TAB* 25 MG PO SCH (09:11)
[2019-10-28] MEDS: DULoxetine DR CAP* 30 MG CAP.DR PO SCH (09:11)
[2019-10-28] MEDS: Carvedilol TAB* 6.25 MG PO SCH ×2 (09:11→21:46)
[2019-10-28] MEDS: Famotidine IV* 10 MG/ML 2 ML (20 mg) IV SLOW PU SCH ×2 (09:12→21:49)
[2019-10-28] MEDS: Hydrochlorothiazide TAB* 25 MG PO SCH (09:12)
[2019-10-28] MEDS ORDERED: Digoxin IV* 0.5 MG/2 ML AMP (0.25 MG/ML) IV SLOW PU STA (10:04)
[2019-10-28] MEDS ORDERED: Acetaminophen IV 1GM/100ML * 100 ML IVPB ONE ×2 (10:07→19:22)
[2019-10-28] MEDS ORDERED: Albumin Human 5%* 25 GM/500 ML BTL IV ONE (10:30)
[2019-10-28] MEDS: NS 0.9% 1000 ML** 1,000 ML IV SCH (10:52)
[2019-10-28] MEDS ORDERED: Lidocaine 1% INJ* 10 MG/ML 30 ML SDV ONE (12:14)
--- NOTE | 2019-10-28 12:47 | PN ---
Progress Note - Progress Note Date of Service: 10/28/19 SOAP: Subjective: []No events ON. One episode of MARS resolved. Feels well. Incision pain very well controlled. Has voluntary control of anal sphincter. Perineal sensation intact. Arellano. Objective: []VSS, Afebtile. Wound s,c,d Valeriy drain, LD drain in place, output noted. Under sterile technique and local anesthesia Valeriy drain was removed.Surgical pause and patient identification was performed. Catheter appeared to be intact. O silk suture placed. No complications. Patient tolerated procedure well. AAOx3 BOB, CN II-XII grossly intact, Motor 5/5 all extremities Sensory grossly intact to light touch. Assessment: []64 yo f POD#1 L2-5 arthrodesis with L2-3 TLIF , revision of previous instrumented fusion, L 2-3, L3-4 decompression, durotomy repair. Plan: []Monitor VS, Neurochecks Maintain SBP< 140 Advance diet as tolerated Nutrition consult. Flat bed rest Monitor drain output. Restart LD at 10 cc per hour. Start SQ heparin in am. Appreciate ICU, IM care. Marko Alvarez MD
[2019-10-28] MEDS: Digoxin IV* 0.5 MG/2 ML AMP (0.25 MG/ML) IV SLOW PU SCH ×2 (13:37→17:53)
[2019-10-28] MEDS: Docusate CAP* 100 MG PO SCH ×2 (13:37→21:46)
--- NOTE | 2019-10-28 15:30 | PN ---
Progress Note - Progress Note Date of Service: 10/28/19 Note: Progress Note -- Critical Care 24 hour events/significant events: - Levo able to be weaned off but BP continues to be slightly soft - MARS seems improved - There was a rhythm change to afib in the 130's. Loaded and started on digoxin ROS: negative except for pertinent positives mentioned above Tele: afib with RVR Vitals: Vital Signs 10/27/19 10/27/19 10/27/19 15:31 15:32 15:37 Temperature Pulse Rate 112 115 114 Respiratory 16 5 14 Rate Blood Pressure 79/48 68/54 82/57 (mmHg) O2 Sat by Pulse 95 94 93 Oximetry 10/27/19 10/27/19 10/27/19 15:41 15:46 15:47 Temperature 98.7 F Pulse Rate 113 114 Respiratory 18 16 Rate Blood Pressure 69/59 67/46 (mmHg) O2 Sat by Pulse 93 93 Oximetry 10/27/19 10/27/19 10/27/19 15:54 16:00 16:15 Temperature Pulse Rate 110 113 110 Respiratory 4 18 6 Rate Blood Pressure 75/51 75/49 81/54 (mmHg) O2 Sat by Pulse 90 96 97 Oximetry 10/27/19 10/27/19 10/27/19 16:30 16:37 16:45 Temperature Pulse Rate 108 106 105 Respiratory 4 3 4 Rate Blood Pressure 67/48 80/48 72/48 (mmHg) O2 Sat by Pulse 97 94 94 Oximetry 10/27/19 10/27/19 10/27/19 17:00 17:15 17:30 Temperature Pulse Rate 104 106 102 Respiratory 7 4 7 Rate Blood Pressure 67/49 77/51 66/50 (mmHg) O2 Sat by Pulse 95 96 95 Oximetry 10/27/19 10/27/19 10/27/19 17:45 18:00 18:15 Temperature Pulse Rate 101 98 72 Respiratory 13 14 6 Rate Blood Pressure 75/45 79/59 115/60 (mmHg) O2 Sat by Pulse 95 95 100 Oximetry 10/27/19 10/27/19 10/27/19 18:30 18:45 19:00 Temperature 99.1 F Pulse Rate 74 84 95 Respiratory 18 16 15 Rate Blood Pressure 107/62 111/70 (mmHg) O2 Sat by Pulse 99 99 99 Oximetry 10/27/19 10/27/19 10/27/19 19:01 19:16 19:30 Temperature Pulse Rate 96 79 83 Respiratory 15 15 Rate Blood Pressure 81/53 121/63 121/67 (mmHg) O2 Sat by Pulse 100 99 98 Oximetry 10/27/19 10/27/19 10/27/19 19:45 20:00 20:15 Temperature Pulse Rate 121 89 87 Respiratory 15 Rate Blood Pressure 121/65 107/78 122/76 (mmHg) O2 Sat by Pulse 97 97 99 Oximetry 10/27/19 10/27/19 10/27/19 20:23 20:30 20:45 Temperature 99.1 F Pulse Rate 90 94 Respiratory Rate Blood Pressure 105/71 130/63 (mmHg) O2 Sat by Pulse 97 98 Oximetry 10/27/19 10/27/19 10/27/19 21:00 21:16 21:30 Temperature Pulse Rate 102 98 77 Respiratory 19 15 Rate Blood Pressure 131/69 112/100 115/80 (mmHg) O2 Sat by Pulse 99 100 100 Oximetry 10/27/19 10/27/19 10/27/19 21:45 22:00 22:15 Temperature Pulse Rate 90 83 82 Respiratory 12 12 16 Rate Blood Pressure 106/70 110/67 118/66 (mmHg) O2 Sat by Pulse 100 100 99 Oximetry 10/27/19 10/27/19 10/27/19 22:30 22:45 23:00 Temperature 99.0 F Pulse Rate 84 91 90 Respiratory 13 10 16 Rate Blood Pressure 111/60 122/66 125/82 (mmHg) O2 Sat by Pulse 96 94 95 Oximetry 10/27/19 10/27/19 10/27/19 23:15 23:31 23:45 Temperature Pulse Rate 92 101 87 Respiratory 23 14 Rate Blood Pressure 119/74 120/63 129/68 (mmHg) O2 Sat by Pulse 97 94 97 Oximetry 10/28/19 10/28/19 10/28/19 00:00 00:15 00:30 Temperature 99.0 F Pulse Rate 85 88 90 Respiratory 12 14 Rate Blood Pressure 123/77 104/82 120/73 (mmHg) O2 Sat by Pulse 97 96 97 Oximetry 10/28/19 10/28/19 10/28/19 00:45 01:00 01:15 Temperature Pulse Rate 92 87 83 Respiratory 12 13 Rate Blood Pressure 114/63 129/70 117/61 (mmHg) O2 Sat by Pulse 97 96 95 Oximetry 10/28/19 10/28/19 10/28/19 01:30 01:45 02:00 Temperature Pulse Rate 93 83 76 Respiratory 21 16 16 Rate Blood Pressure 116/87 119/67 120/63 (mmHg) O2 Sat by Pulse 99 99 99 Oximetry 10/28/19 10/28/19 10/28/19 02:15 02:30 02:45 Temperature Pulse Rate 88 80 91 Respiratory 17 17 18 Rate Blood Pressure 95/62 106/56 102/61 (mmHg) O2 Sat by Pulse 99 99 99 Oximetry 10/28/19 10/28/19 10/28/19 03:00 03:15 03:30 Temperature 98.1 F Pulse Rate 79 86 88 Respiratory 15 16 16 Rate Blood Pressure 116/58 87/58 110/60 (mmHg) O2 Sat by Pulse 100 98 99 Oximetry 10/28/19 10/28/19 10/28/19 03:45 04:00 04:15 Temperature 98.1 F Pulse Rate 77 85 78 Respiratory 17 17 15 Rate Blood Pressure 106/60 118/61 121/62 (mmHg) O2 Sat by Pulse 99 99 99 Oximetry 10/28/19 10/28/19 10/28/19 04:31 04:45 05:00 Temperature Pulse Rate 84 88 80 Respiratory 18 17 18 Rate Blood Pressure 108/67 116/56 117/62 (mmHg) O2 Sat by Pulse 98 98 98 Oximetry 10/28/19 10/28/19 10/28/19 05:15 05:30 05:45 Temperature Pulse Rate 87 86 96 Respiratory 11 18 18 Rate Blood Pressure 115/56 109/57 109/59 (mmHg) O2 Sat by Pulse 98 98 98 Oximetry 10/28/19 10/28/19 10/28/19 06:00 06:15 06:30 Temperature Pulse Rate 82 88 105 Respiratory 14 15 20 Rate Blood Pressure 102/59 98/58 107/55 (mmHg) O2 Sat by Pulse 98 90 92 Oximetry 10/28/19 10/28/19 10/28/19 06:45 07:00 08:00 Temperature 99 F Pulse Rate 89 89 91 Respiratory 19 21 16 Rate Blood Pressure 117/60 (mmHg) O2 Sat by Pulse 90 97 96 Oximetry 10/28/19 10/28/19 10/28/19 08:01 09:00 09:01 Temperature Pulse Rate 87 84 78 Respiratory 17 13 17 Rate Blood Pressure 103/49 104/57 (mmHg) O2 Sat by Pulse 97 97 96 Oximetry 10/28/19 10/28/19 10/28/19 10:00 10:01 10:28 Temperature Pulse Rate 140 122 145 Respiratory 15 24 Rate Blood Pressure 80/61 (mmHg) O2 Sat by Pulse 97 97 Oximetry 10/28/19 10/28/19 10/28/19 10:36 10:57 11:00 Temperature Pulse Rate 123 121 125 Respiratory 18 22 24 Rate Blood Pressure 100/56 100/56 (mmHg) O2 Sat by Pulse 95 94 Oximetry 10/28/19 10/28/19 10/28/19 11:01 12:00 12:51 Temperature 97.8 F Pulse Rate 139 126 76 Respiratory 20 15 16 Rate Blood Pressure 119/60 88/68 89/44 (mmHg) O2 Sat by Pulse 93 93 92 Oximetry 10/28/19 10/28/19 10/28/19 13:00 13:37 14:00 Temperature Pulse Rate 79 81 80 Respiratory 12 19 Rate Blood Pressure 99/45 (mmHg) O2 Sat by Pulse 92 91 Oximetry 10/28/19 10/28/19 10/28/19 14:01 14:27 14:29 Temperature Pulse Rate 79 78 77 Respiratory 14 10 0 Rate Blood Pressure 87/45 69/56 84/47 (mmHg) O2 Sat by Pulse 91 91 90 Oximetry 10/28/19 10/28/19 14:30 15:00 Temperature Pulse Rate 76 76 Respiratory 15 19 Rate Blood Pressure 103/57 117/63 (mmHg) O2 Sat by Pulse 90 92 Oximetry Intake and Output Last 24 Hours 10/26/19 10/27/19 10/28/19 10/29/19 06:59 06:59 06:59 06:59 Intake Total 4800 3452 642 Output Total 1850 2988 1790 Balance 2950 464 -1148 Weight 242 lb 14.4 oz 235 lb 7.259 oz Intake: IV Fluids 4800 2645 107 ABX - CEFTRIAXONE 70 LR 4800 NS (0.9%) 2575 107 IVPB 220 ABX - CEFTRIAXONE 120 Acetaminophen 100 Medicated IV 187 505 Levophed 187 albumin 505 Oral 0 400 30 Output: SANDY #1 358 25 Cranial Drain 20 Urine 250 Gao 1600 2220 1730 Estimated Blood Loss 250 Other 160 15 Other: Estimated Void Medium Date of Last Bowel unknown Movement # Bowel Movements 0 Other Amount Description Lumbar drain Lumbar drain # Voids 1 O2: NC Infusions: KVO Medications: Hydrocodone Bitart/Acetaminophen ([place] 5-325 Tab*) 1 tab PO Q4H PRN PRN Reason: PAIN - MODERATE Last Admin: 10/26/19 06:15 Dose: 1 tab Carvedilol (Coreg Tab*) 12.5 mg PO BID [facility] Last Admin: 10/28/19 09:11 Dose: 12.5 mg Digoxin (Digoxin Iv*) 0.25 mg IV SLOW PU Q4HR [facility] Stop: 10/28/19 18:01 Last Admin: 10/28/19 13:37 Dose: 0.25 mg Digoxin (Lanoxin Tab*) 0.125 mg PO 1700 [facility] Docusate Sodium (Colace Cap*) 100 mg PO BID [facility] Last Admin: 10/28/19 13:37 Dose: 100 mg Duloxetine HCl (Cymbalta Cap*) 30 mg PO DAILY [facility] Last Admin: 10/28/19 09:11 Dose: 30 mg Famotidine (Pepcid Iv*) 20 mg IV SLOW PU BID [facility] Last Admin: 10/28/19 09:12 Dose: 20 mg Hydrochlorothiazide (Hydrodiuril Tab*) 12.5 mg PO DAILY [facility] Last Admin: 10/28/19 09:12 Dose: 12.5 mg Hydromorphone HCl (Dilaudid Inj1s*) 1 mg IV Q3H PRN PRN Reason: PAIN - SEVERE Last Admin: 10/27/19 12:25 Dose: 1 mg Sodium Chloride (Ns 0.9% 1000 Ml) 1,000 mls @ 25 mls/hr IV PER RATE [facility] Last Admin: 10/28/19 10:52 Dose: 25 mls/hr Norepinephrine Bitartrate (Levophed 16 Mcg/Ml Premix*) 4,000 mcg in 250 mls @ 18.75 mls/hr IV PER RATE [facility]; Protocol Lidocaine (Lidoderm 5% Patch*) 1 patch TRANSDERM DAILY [facility] Last Admin: 10/28/19 08:41 Dose: Not Given Melatonin (Melatonin) 9 mg PO BEDTIME PRN PRN Reason: SLEEP Ondansetron HCl (Zofran Inj*) 4 mg IV Q6H PRN PRN Reason: NAUSEA Pharmacy Profile Note (Lidocaine Patch Remove*) 1 note N/A 2100 [facility] Last Admin: 10/27/19 21:01 Dose: Not Given Polyethylene Glycol/Electrolytes (Miralax (17 Gm Dose Jovani)) 17 gm PO DAILY [facility] Last Admin: 10/28/19 08:41 Dose: Not Given Spironolactone (Aldactone Tab*) 12.5 mg PO DAILY [facility] Last Admin: 10/28/19 09:11 Dose: 12.5 mg Physical Exam: Constitutional: sleeping but arouses easily, no distress, no diaphoresis Head: normocephalic, atraumatic Eyes: no pallor, no icterus ENT: moist mucous membranes Neck: soft, supple CVS: irregular rate, S1S2, no obvious murmur Chest/Resp: bilateral air entry, no rhales, no wheeze, no rhonchi, no acc muscle use Abdomen/GI: obese, soft, nontender, nondistended, BS+ Ext/Msk: warm, pulses+, no edema Skin: intact, warm, surgical dressing intact Neuro: sleeping but arouses easily, alert, orientedx3, moving all extremities, no gross focal deficit. Strength 5/5 all extremities, sensation intact to all extremities. Psych: normal affect Labs: Laboratory Results - last 24 hr 10/26/19 00:08 Crossmatch See Detail Imaging: CT lumbar spine 10/25: moderate multilevel lumbar spondylopathy including unchanged moderate L3-L4 Thoracic spine MRI 10/26: degenerative disc disease and osteoarthritis EKG 10/26: sinus rhythm, qtc 471 Assessment: 64F with known medical history of restrictive cardiomyopathy with EF 40%, distant DVT/PE history, HTN, cervical myelopathy, chronic back pain s/p lumbar decompression/fusion, presented on 10/26/19 with right leg weakness, numbness, bowel dysfunction, decreased anal sensation, and back pain, concerning for cauda equina syndrome. S/p Decompression and arthrodesis L2-L5 with TLIF and durotomy. - Partial cauda syndrome - Post op hypotension - Restrictive cardiomyopathy - Afib RVR Plan: Neuro- - POD 1, Neurosurgery primary. SANDY has been removed - Continue lumbar drain and drain per neurosurgery's recommendations - Continue neuro checks -Delirium prec; avoid BDZ CVS- - Post op hypotension: resolving. BP slightly soft this AM but has improved with 5% albumin 25G x 1 dose - Afib with RVR: new onset. Loaded and started on digoxin. HR has improved significantly -Maintain MAP>65 Resp- -Wean Fio2 to keep sat>92% -Aspiration prec, Pulmonary Toilet, IS ID- - No active issues - Tmax <38.5 GI- -Nutrition: regular diet. nutrition consult for poor appetite -GI prophylaxis: famotidine Renal- -strict I/O, replete to keep K>4, Mg>2 -gao while on strict bedrest Heme- - No active issues. Will check CBC in AM Endo-Maintain BG<200, insulin protocol as needed Musculsk- pressure ulcer prophylaxis. Bedrest. Wounds- none Nutrition- regular diet DVT prophylaxis: SCds GI prophylaxis: famotidine Gao Catheter: continue while on strict bedrest Disposition: Patient requires Critical Care/ICU for lumbar drain management, hypotension, afib with rvr Patient clinical status: critical Code Status: full Total Critical Care time is 30minutes
[2019-10-28] MEDS: Lidocaine Patch REMOVE* 1 NOTE MISC SCH (21:50)
[2019-10-29 05:33] LABS: ABS Lymphocytes 0.9 10^3/ul (1.0-4.8); ABS Monocytes 0.7 10^3/ul (0-0.8); ABS Neutrophils 8.5 10^3/ul (1.5-7.7); Eosinophil % 0.2 %; Hematocrit 25 % (35-47); Hemoglobin 8.5 g/dL (12.0-16.0); Lymphocyte % 8.8 %; Mean Corpuscular HGB Conc 34 g/dL (31-36); Mean Corpuscular Hemoglobin 30 pg (27-31); Mean Corpuscular Volume 89 fL (80-97); Mean Platelet Volume 8.3 fL (7.4-10.4); Platelet Count 180 10^3/uL (150-450); Red Blood Count 2.82 10^6 /uL (3.70-4.87); Red Cell Distribution Width 14 % (10-15); White Blood Count 10.2 10^3/uL (3.5-10.8)
[2019-10-29] MEDS: DULoxetine DR CAP* 30 MG CAP.DR PO SCH (09:23)
[2019-10-29] MEDS: Hydrochlorothiazide TAB* 25 MG PO SCH (09:23)
[2019-10-29] MEDS: Carvedilol TAB* 6.25 MG PO SCH ×2 (09:24→20:45)
[2019-10-29] MEDS: Spironolactone TAB* 25 MG PO SCH (09:24)
[2019-10-29] MEDS: Famotidine IV* 10 MG/ML 2 ML (20 mg) IV SLOW PU SCH ×2 (09:24→20:45)
[2019-10-29] MEDS: Docusate CAP* 100 MG PO SCH ×2 (09:24→20:45)
[2019-10-29] MEDS: Lidocaine PATCH 5%* 1 PATCH TRANSDERM SCH (09:30)
[2019-10-29] MEDS: Polyethylene Glycol 3350* 17 GM PACKET PO SCH (09:30)
[2019-10-29] MEDS: HYDROcodone/ACETAMIN 5-325 MG* 1 TAB PO PRN ×2 (10:10→20:45)
--- NOTE | 2019-10-29 11:02 | PN ---
Progress Note - Progress Note Date of Service: 10/29/19 Note: Progress Note -- Critical Care 24 hour events/significant events: - Denies MARS - BP has remained stable - Patient offers no complaints ROS: negative except for pertinent positives mentioned above Tele: afib controlled rate Vitals: Vital Signs 10/28/19 10/28/19 10/28/19 11:01 12:00 12:51 Temperature 97.8 F Pulse Rate 139 126 76 Respiratory 20 15 16 Rate Blood Pressure 119/60 88/68 89/44 (mmHg) O2 Sat by Pulse 93 93 92 Oximetry 10/28/19 10/28/19 10/28/19 13:00 13:37 14:00 Temperature Pulse Rate 79 81 80 Respiratory 12 19 Rate Blood Pressure 99/45 (mmHg) O2 Sat by Pulse 92 91 Oximetry 10/28/19 10/28/19 10/28/19 14:01 14:27 14:29 Temperature Pulse Rate 79 78 77 Respiratory 14 10 0 Rate Blood Pressure 87/45 69/56 84/47 (mmHg) O2 Sat by Pulse 91 91 90 Oximetry 10/28/19 10/28/19 10/28/19 14:30 15:00 16:00 Temperature 98.2 F Pulse Rate 76 76 82 Respiratory 15 19 13 Rate Blood Pressure 103/57 117/63 (mmHg) O2 Sat by Pulse 90 92 91 Oximetry 10/28/19 10/28/19 10/28/19 16:01 17:00 17:01 Temperature Pulse Rate 83 91 79 Respiratory 10 8 14 Rate Blood Pressure 121/58 124/66 (mmHg) O2 Sat by Pulse 92 92 94 Oximetry 10/28/19 10/28/19 10/28/19 17:53 17:57 18:00 Temperature Pulse Rate 89 79 Respiratory 20 20 Rate Blood Pressure (mmHg) O2 Sat by Pulse 96 Oximetry 10/28/19 10/28/19 10/28/19 18:01 19:00 19:01 Temperature Pulse Rate 79 80 79 Respiratory 16 19 21 Rate Blood Pressure 112/62 129/60 (mmHg) O2 Sat by Pulse 96 95 94 Oximetry 10/28/19 10/28/19 10/28/19 20:00 20:01 20:18 Temperature 100.0 F Pulse Rate 79 80 Respiratory 12 16 Rate Blood Pressure 116/68 (mmHg) O2 Sat by Pulse 88 92 Oximetry 10/28/19 10/28/19 10/28/19 21:00 21:01 22:00 Temperature Pulse Rate 78 78 80 Respiratory 18 10 29 Rate Blood Pressure 127/64 (mmHg) O2 Sat by Pulse 90 92 93 Oximetry 10/28/19 10/28/19 10/28/19 22:01 23:00 23:01 Temperature Pulse Rate 78 72 71 Respiratory 16 18 18 Rate Blood Pressure 110/61 134/66 (mmHg) O2 Sat by Pulse 91 96 96 Oximetry 10/28/19 10/29/19 10/29/19 23:25 00:00 00:01 Temperature Pulse Rate 70 73 71 Respiratory 18 17 15 Rate Blood Pressure 126/68 (mmHg) O2 Sat by Pulse 97 96 96 Oximetry 10/29/19 10/29/19 10/29/19 00:26 00:28 01:00 Temperature 98.9 F Pulse Rate 76 Respiratory 16 18 Rate Blood Pressure (mmHg) O2 Sat by Pulse 91 Oximetry 10/29/19 10/29/19 10/29/19 01:01 02:00 02:01 Temperature Pulse Rate 75 72 75 Respiratory 17 12 22 Rate Blood Pressure 94/64 141/76 (mmHg) O2 Sat by Pulse 93 97 98 Oximetry 10/29/19 10/29/19 10/29/19 02:30 03:00 03:01 Temperature Pulse Rate 75 75 Respiratory 13 20 17 Rate Blood Pressure 121/80 (mmHg) O2 Sat by Pulse 93 93 Oximetry 10/29/19 10/29/19 10/29/19 03:18 04:00 04:01 Temperature Pulse Rate 70 75 Respiratory 20 16 14 Rate Blood Pressure 142/71 (mmHg) O2 Sat by Pulse 95 95 Oximetry 10/29/19 10/29/19 10/29/19 04:16 04:44 04:56 Temperature 97.6 F Pulse Rate Respiratory 12 Rate Blood Pressure (mmHg) O2 Sat by Pulse 95 Oximetry 10/29/19 10/29/19 10/29/19 05:00 05:01 05:26 Temperature Pulse Rate 71 70 Respiratory 15 17 16 Rate Blood Pressure 137/76 (mmHg) O2 Sat by Pulse 93 94 Oximetry 10/29/19 10/29/19 10/29/19 06:00 06:01 06:33 Temperature Pulse Rate 72 72 Respiratory 20 18 18 Rate Blood Pressure 131/66 (mmHg) O2 Sat by Pulse 94 94 Oximetry 10/29/19 10/29/19 10/29/19 07:00 07:01 07:02 Temperature Pulse Rate 71 70 71 Respiratory 13 17 19 Rate Blood Pressure 139/77 139/77 (mmHg) O2 Sat by Pulse 94 94 93 Oximetry 10/29/19 10/29/19 10/29/19 07:53 08:00 08:01 Temperature 98.2 F Pulse Rate 67 67 Respiratory 16 16 Rate Blood Pressure 144/83 (mmHg) O2 Sat by Pulse 95 94 Oximetry 10/29/19 10/29/19 10/29/19 09:00 09:01 10:00 Temperature Pulse Rate 68 72 Respiratory 20 21 16 Rate Blood Pressure 126/68 (mmHg) O2 Sat by Pulse 96 94 Oximetry 10/29/19 10:01 Temperature Pulse Rate 70 Respiratory 18 Rate Blood Pressure 134/70 (mmHg) O2 Sat by Pulse 95 Oximetry Intake and Output Last 24 Hours 10/27/19 10/28/19 10/29/19 10/30/19 06:59 06:59 06:59 06:59 Intake Total 4800 3452 2669 Output Total 1850 2988 5477 231 Balance 2950 464 -2808 -231 Weight 235 lb 7.259 oz 234 lb 12.677 oz Intake: IV Fluids 4800 2645 1697 ABX - CEFTRIAXONE 70 Acetaminophen 200 LR 4800 NS (0.9%) 2575 1497 IVPB 220 ABX - CEFTRIAXONE 120 Acetaminophen 100 Medicated IV 187 505 Levophed 187 albumin 505 Oral 0 400 467 Output: SANDY #1 358 25 Cranial Drain 127 21 Urine 250 Gao 1600 2220 5055 210 Estimated Blood Loss 250 250 Other 160 20 Other: Estimated Void Medium Date of Last Bowel unknown 10/27/19 Movement # Bowel Movements 0 2 Other Amount Description Lumbar drain Lumbar drain # Voids 1 O2: RA Infusions: NS @ 25 Medications: Hydrocodone Bitart/Acetaminophen ([place] 5-325 Tab*) 1 tab PO Q4H PRN PRN Reason: PAIN - MODERATE Last Admin: 10/29/19 10:10 Dose: 1 tab Carvedilol (Coreg Tab*) 12.5 mg PO BID DICK Last Admin: 10/29/19 09:24 Dose: 12.5 mg Digoxin (Lanoxin Tab*) 0.125 mg PO 1700 DICK Docusate Sodium (Colace Cap*) 100 mg PO BID [facility] Last Admin: 10/29/19 09:24 Dose: 100 mg Duloxetine HCl (Cymbalta Cap*) 30 mg PO DAILY [facility] Last Admin: 10/29/19 09:23 Dose: 30 mg Famotidine (Pepcid Iv*) 20 mg IV SLOW PU BID [facility] Last Admin: 10/29/19 09:24 Dose: 20 mg Hydrochlorothiazide (Hydrodiuril Tab*) 12.5 mg PO DAILY [facility] Last Admin: 10/29/19 09:23 Dose: 12.5 mg Hydromorphone HCl (Dilaudid Inj1s*) 1 mg IV Q3H PRN PRN Reason: PAIN - SEVERE Last Admin: 10/27/19 12:25 Dose: 1 mg Sodium Chloride (Ns 0.9% 1000 Ml) 1,000 mls @ 25 mls/hr IV PER RATE [facility] Last Admin: 10/28/19 10:52 Dose: 25 mls/hr Lidocaine (Lidoderm 5% Patch*) 1 patch TRANSDERM DAILY [facility] Last Admin: 10/29/19 09:30 Dose: 1 patch Melatonin (Melatonin) 9 mg PO BEDTIME PRN PRN Reason: SLEEP Ondansetron HCl (Zofran Inj*) 4 mg IV Q6H PRN PRN Reason: NAUSEA Pharmacy Profile Note (Lidocaine Patch Remove*) 1 note N/A 2100 [facility] Last Admin: 10/28/19 21:50 Dose: Not Given Polyethylene Glycol/Electrolytes (Miralax (17 Gm Dose Jovani)) 17 gm PO DAILY [facility] Last Admin: 10/29/19 09:30 Dose: Not Given Spironolactone (Aldactone Tab*) 12.5 mg PO DAILY [facility] Last Admin: 10/29/19 09:24 Dose: 12.5 mg Physical Exam: Constitutional: sleeping but arouses easily, no distress, no diaphoresis Head: normocephalic, atraumatic Eyes: no pallor, no icterus ENT: moist mucous membranes Neck: soft, supple CVS: irregular rate, S1S2, no obvious murmur Chest/Resp: bilateral air entry, diminished in bases Abdomen/GI: obese, soft, nontender, nondistended, BS+ Ext/Msk: warm, pulses+, no edema Skin: intact, warm, surgical dressing intact Neuro: sleeping but arouses easily, alert, orientedx3, moving all extremities, no gross focal deficit. Strength 5/5 all extremities, sensation intact to all extremities. Psych: normal affect Labs: Laboratory Results - last 24 hr 10/29/19 05:21 WBC 10.2 RBC 2.82 L Hgb 8.5 L Hct 25 L MCV 89 MCH 30 MCHC 34 RDW 14 Plt Count 180 MPV 8.3 Neut % (Auto) 83.5 Lymph % (Auto) 8.8 Graves % (Auto) 7.1 Eos % (Auto) 0.2 Baso % (Auto) 0.4 Absolute Neuts (auto) 8.5 H Absolute Lymphs (auto) 0.9 L Absolute Monos (auto) 0.7 Absolute Eos (auto) 0.0 Absolute Basos (auto) 0.0 Absolute Nucleated RBC 0.0 Nucleated RBC % 0.0 Imaging: CT lumbar spine 10/25: moderate multilevel lumbar spondylopathy including unchanged moderate L3-L4 Thoracic spine MRI 10/26: degenerative disc disease and osteoarthritis EKG 10/26: sinus rhythm, qtc 471 Assessment: 64F with known medical history of restrictive cardiomyopathy with EF 40%, distant DVT/PE history, HTN, cervical myelopathy, chronic back pain s/p lumbar decompression/fusion, presented on 10/26/19 with right leg weakness, numbness, bowel dysfunction, decreased anal sensation, and back pain, concerning for cauda equina syndrome. S/p Decompression and arthrodesis L2-L5 with TLIF and durotomy. - Partial cauda syndrome - Restrictive cardiomyopathy - Afib Plan: Neuro- - POD 2, Neurosurgery primary. - Continue lumbar drain and drain per neurosurgery's recommendations - Continue neuro checks -Delirium prec; avoid BDZ CVS- - BP has been WNL - Afib: new onset. Appears controlled on digoxin -Maintain MAP>65 Resp- -Wean Fio2 to keep sat>92% -Aspiration prec, Pulmonary Toilet, IS ID- - No active issues - Goal temp <38.5 GI- -Nutrition: regular diet. nutrition consult for poor appetite -GI prophylaxis: famotidine Renal- -strict I/O, replete to keep K>4, Mg>2 -gao while on strict bedrest - Net negative 2.8L Heme- - No active issues. - Hgb slowly trending down but is asymptomatic. Will continue to monitor Endo-Maintain BG<200, insulin protocol as needed Musculsk- pressure ulcer prophylaxis. Bedrest. Wounds- none Nutrition- regular diet DVT prophylaxis: SCds GI prophylaxis: famotidine Gao Catheter: continue while on strict bedrest Disposition: Patient requires Critical Care/ICU for lumbar drain management Patient clinical status: stable Code Status: full Total Critical Care time is 30 minutes
--- NOTE | 2019-10-29 17:32 | PN ---
Progress Note - Progress Note Date of Service: 10/29/19 SOAP: Subjective: []No events ON. One episode of MARS resolved after decreasing LD output to 7 cc per hour. Feels well. Tolerates PO well, Arellano. Objective: []VSS, Afebtile. Wound s,c,d LD drain in place, output noted. AAOx3 BOB, CN II-XII grossly intact, Motor 5/5 all extremities Sensory grossly intact to light touch. Assessment: []64 yo f POD#2 L2-5 arthrodesis with L2-3 TLIF , revision of previous instrumented fusion, L 2-3, L3-4 decompression, durotomy repair. Plan: [] Monitor VS, Neurochecks Maintain SBP< 140 Advance diet as tolerated Nutrition consult. Flat bed rest Monitor drain output. Restart LD at 10 cc per hour. Will continue to adjust rate to optimize CSF drainage. Start SQ heparin in am. Appreciate ICU, IM care. Marko Alvarez MD
[2019-10-29] MEDS: Digoxin TAB* 0.125 MG PO SCH (17:40)
[2019-10-29] MEDS: Lidocaine Patch REMOVE* 1 NOTE MISC SCH (21:14)
[2019-10-30] MEDS: Carvedilol TAB* 6.25 MG PO SCH ×2 (09:31→21:44)
[2019-10-30] MEDS: DULoxetine DR CAP* 30 MG CAP.DR PO SCH (09:31)
[2019-10-30] MEDS: Docusate CAP* 100 MG PO SCH ×2 (09:31→21:44)
[2019-10-30] MEDS: Heparin VIAL(*) 5000 UNITS/ML VIAL (FIVE THOUSAND) SUBCUT SCH ×3 (09:32→21:44)
[2019-10-30] MEDS: Lidocaine PATCH 5%* 1 PATCH TRANSDERM SCH (09:32)
[2019-10-30] MEDS: Famotidine IV* 10 MG/ML 2 ML (20 mg) IV SLOW PU SCH ×2 (09:32→21:44)
[2019-10-30] MEDS: Spironolactone TAB* 25 MG PO SCH (09:33)
[2019-10-30] MEDS: Hydrochlorothiazide TAB* 25 MG PO SCH (09:34)
[2019-10-30] MEDS: Polyethylene Glycol 3350* 17 GM PACKET PO SCH (09:36)
--- NOTE | 2019-10-30 10:00 | PN ---
Progress Note - Progress Note Date of Service: 10/30/19 Note: Progress Note -- Critical Care 24 hour events/significant events: - Denies MARS - BP has remained stable - Patient offers no complaints - Started subq heparin this AM ROS: negative except for pertinent positives mentioned above Tele: afib controlled rate Vitals: Vital Signs 10/29/19 10/29/19 10/29/19 13:00 13:01 14:00 Temperature Pulse Rate 66 65 70 Respiratory 15 19 19 Rate Blood Pressure 121/60 (mmHg) O2 Sat by Pulse 94 93 92 Oximetry 10/29/19 10/29/19 10/29/19 14:01 15:00 15:01 Temperature Pulse Rate 72 68 68 Respiratory 19 19 20 Rate Blood Pressure 94/61 110/62 (mmHg) O2 Sat by Pulse 91 98 97 Oximetry 10/29/19 10/29/19 10/29/19 16:00 16:01 17:00 Temperature 97.4 F Pulse Rate 69 69 69 Respiratory 19 22 17 Rate Blood Pressure 105/63 (mmHg) O2 Sat by Pulse 98 98 95 Oximetry 10/29/19 10/29/19 10/29/19 17:01 17:40 18:00 Temperature Pulse Rate 69 67 71 Respiratory 16 14 Rate Blood Pressure 122/65 (mmHg) O2 Sat by Pulse 94 96 Oximetry 10/29/19 10/29/19 10/29/19 18:01 19:00 19:01 Temperature Pulse Rate 70 69 70 Respiratory 18 20 16 Rate Blood Pressure 117/60 125/62 (mmHg) O2 Sat by Pulse 96 96 96 Oximetry 10/29/19 10/29/19 10/29/19 20:00 20:01 21:00 Temperature 97.0 F Pulse Rate 70 73 71 Respiratory 20 19 17 Rate Blood Pressure 122/64 (mmHg) O2 Sat by Pulse 95 95 92 Oximetry 10/29/19 10/29/19 10/29/19 21:01 22:00 22:01 Temperature Pulse Rate 75 78 78 Respiratory 17 28 32 Rate Blood Pressure 120/76 119/59 (mmHg) O2 Sat by Pulse 92 90 90 Oximetry 10/29/19 10/29/19 10/29/19 23:00 23:01 23:12 Temperature Pulse Rate 75 75 75 Respiratory 19 20 20 Rate Blood Pressure 98/62 (mmHg) O2 Sat by Pulse 92 92 92 Oximetry 10/30/19 10/30/19 10/30/19 00:00 01:00 02:00 Temperature 98.1 F Pulse Rate 74 71 67 Respiratory 31 32 21 Rate Blood Pressure 103/57 111/68 112/64 (mmHg) O2 Sat by Pulse 93 92 93 Oximetry 10/30/19 10/30/19 10/30/19 03:00 03:01 04:00 Temperature Pulse Rate 85 75 66 Respiratory 23 25 21 Rate Blood Pressure 117/68 (mmHg) O2 Sat by Pulse 89 90 92 Oximetry 10/30/19 10/30/19 10/30/19 04:01 05:00 05:01 Temperature Pulse Rate 68 69 69 Respiratory 19 27 24 Rate Blood Pressure 110/61 113/67 (mmHg) O2 Sat by Pulse 91 92 92 Oximetry 10/30/19 10/30/19 10/30/19 06:00 06:01 06:22 Temperature Pulse Rate 69 69 Respiratory 24 17 Rate Blood Pressure 126/66 (mmHg) O2 Sat by Pulse 92 92 92 Oximetry 10/30/19 10/30/19 10/30/19 07:00 07:01 07:11 Temperature 99.3 F Pulse Rate 75 71 Respiratory 15 15 Rate Blood Pressure 111/68 (mmHg) O2 Sat by Pulse 96 91 Oximetry 10/30/19 10/30/19 10/30/19 08:00 08:01 08:40 Temperature 100.6 F Pulse Rate 67 68 Respiratory 15 16 Rate Blood Pressure 144/66 (mmHg) O2 Sat by Pulse 92 91 Oximetry 10/30/19 10/30/19 10/30/19 09:00 09:07 10:00 Temperature Pulse Rate 67 67 69 Respiratory 17 14 17 Rate Blood Pressure 118/65 (mmHg) O2 Sat by Pulse 94 94 93 Oximetry 10/30/19 10/30/19 10/30/19 10:02 11:00 11:01 Temperature Pulse Rate 71 68 67 Respiratory 17 16 20 Rate Blood Pressure 111/51 119/50 (mmHg) O2 Sat by Pulse 94 95 94 Oximetry 10/30/19 10/30/19 12:00 12:01 Temperature Pulse Rate 68 68 Respiratory 20 20 Rate Blood Pressure 105/72 (mmHg) O2 Sat by Pulse 94 91 Oximetry Intake and Output Last 24 Hours 10/28/19 10/29/19 10/30/19 10/31/19 06:59 06:59 06:59 06:59 Intake Total 3452 2669 593 125 Output Total 2988 5477 2473 630 Balance 464 -2127 -3190 -412 Weight 235 lb 7.259 oz 234 lb 12.677 oz Intake: IV Fluids 2645 1697 593 ABX - CEFTRIAXONE 70 Acetaminophen 200 NS (0.9%) 2575 1497 593 IVPB 220 ABX - CEFTRIAXONE 120 Acetaminophen 100 Medicated IV 187 505 Levophed 187 albumin 505 Oral 400 467 0 125 Output: SANDY #1 358 25 Cranial Drain 127 173 35 Urine 250 Gao 2220 5055 2300 595 Estimated Blood Loss 250 Other 160 20 Other: Date of Last Bowel 10/27/19 Movement # Bowel Movements 2 Other Amount Description Lumbar drain Lumbar drain O2: RA Infusions: NS @ 25 Medications: Hydrocodone Bitart/Acetaminophen ([place] 5-325 Tab*) 1 tab PO Q4H PRN PRN Reason: PAIN - MODERATE Last Admin: 10/29/19 20:45 Dose: 1 tab Carvedilol (Coreg Tab*) 12.5 mg PO BID [facility] Last Admin: 10/30/19 09:31 Dose: 12.5 mg Digoxin (Lanoxin Tab*) 0.125 mg PO 1700 [facility] Last Admin: 10/29/19 17:40 Dose: 0.125 mg Docusate Sodium (Colace Cap*) 100 mg PO BID [facility] Last Admin: 10/30/19 09:31 Dose: 100 mg Duloxetine HCl (Cymbalta Cap*) 30 mg PO DAILY [facility] Last Admin: 10/30/19 09:31 Dose: 30 mg Famotidine (Pepcid Iv*) 20 mg IV SLOW PU BID [facility] Last Admin: 10/30/19 09:32 Dose: 20 mg Heparin Sodium (Porcine) (Heparin Vial(*)) 5,000 units SUBCUT Q8HR [facility] Last Admin: 10/30/19 09:32 Dose: 5,000 units Hydrochlorothiazide (Hydrodiuril Tab*) 12.5 mg PO DAILY [facility] Last Admin: 10/30/19 09:34 Dose: 12.5 mg Hydromorphone HCl (Dilaudid Inj1s*) 1 mg IV Q3H PRN PRN Reason: PAIN - SEVERE Last Admin: 10/27/19 12:25 Dose: 1 mg Sodium Chloride (Ns 0.9% 1000 Ml) 1,000 mls @ 25 mls/hr IV PER RATE [facility] Last Admin: 10/28/19 10:52 Dose: 25 mls/hr Lidocaine (Lidoderm 5% Patch*) 1 patch TRANSDERM DAILY [facility] Last Admin: 10/30/19 09:32 Dose: 1 patch Melatonin (Melatonin) 9 mg PO BEDTIME PRN PRN Reason: SLEEP Ondansetron HCl (Zofran Inj*) 4 mg IV Q6H PRN PRN Reason: NAUSEA Pharmacy Profile Note (Lidocaine Patch Remove*) 1 note N/A 2100 [facility] Last Admin: 10/29/19 21:14 Dose: 1 note Polyethylene Glycol/Electrolytes (Miralax (17 Gm Dose Joavni)) 17 gm PO DAILY [facility] Last Admin: 10/30/19 09:36 Dose: Not Given Spironolactone (Aldactone Tab*) 12.5 mg PO DAILY [facility] Last Admin: 10/30/19 09:33 Dose: 12.5 mg Physical Exam: Constitutional: awake, alert, oriented x 3, no distress, no diaphoresis Head: normocephalic, atraumatic Eyes: no pallor, no icterus ENT: moist mucous membranes Neck: soft, supple CVS: irregular rate, S1S2, no obvious murmur Chest/Resp: bilateral air entry, diminished in bases Abdomen/GI: obese, soft, nontender, nondistended, BS+ Ext/Msk: warm, pulses+, no edema Skin: intact, warm, surgical dressing intact Neuro: awake, alert, oriented x3. Moving all extremities, no gross focal deficit. Strength 5/5 all extremities, sensation intact to all extremities. Psych: flat affect Labs: NA Imaging: CT lumbar spine 10/25: moderate multilevel lumbar spondylopathy including unchanged moderate L3-L4 Thoracic spine MRI 10/26: degenerative disc disease and osteoarthritis EKG 10/26: sinus rhythm, qtc 471 Assessment: 64F with known medical history of restrictive cardiomyopathy with EF 40%, depression, distant DVT/PE history, HTN, cervical myelopathy, chronic back pain s/p lumbar decompression/fusion, presented on 10/26/19 with right leg weakness, numbness, bowel dysfunction, decreased anal sensation, and back pain, concerning for cauda equina syndrome. S/p L2-5 arthrodesis with L2-3 TLIF , revision of previous instrumented fusion, L 2-3, L3-4 decompression, durotomy repair - Partial cauda syndrome - Restrictive cardiomyopathy - Afib Plan: Neuro- - POD 3, Neurosurgery primary. - Continue lumbar drain and drain per neurosurgery's recommendations - Continue neuro checks -Delirium prec; avoid BDZ CVS- - BP has been WNL - Afib: new onset. Appears controlled on digoxin -Maintain MAP>65 Resp- -Wean Fio2 to keep sat>92% -Aspiration prec, Pulmonary Toilet, IS ID- - No active issues - Goal temp <38.5 GI- -Nutrition: regular diet. nutrition consult for poor appetite, encourage ensure -GI prophylaxis: famotidine Renal- -strict I/O, replete to keep K>4, Mg>2 -gao while on strict bedrest - Net negative 1.8L Heme- - No active issues. - Started subq heparin this AM for DVT prophylaxis Endo-Maintain BG<200, insulin protocol as needed Musculsk- pressure ulcer prophylaxis. Bedrest. Wounds- none Nutrition- regular diet DVT prophylaxis: SCds, subq heparin GI prophylaxis: famotidine Gao Catheter: continue while on strict bedrest Disposition: Patient requires Critical Care/ICU for lumbar drain management Patient clinical status: stable Code Status: full Total Critical Care time is 30 minutes
[2019-10-30] MEDS: Digoxin TAB* 0.125 MG PO SCH (17:39)
--- NOTE | 2019-10-30 20:27 | PN ---
Progress Note - Progress Note Date of Service: 10/30/19 SOAP: Subjective: []No events ON. LD output to 7 cc per hour. Feels well. Tolerates PO well, Arellano. Objective: []VSS, Afebtile. Wound s,c,d LD drain in place, output noted. AAOx3 BOB, CN II-XII grossly intact, Motor 5/5 all extremities Sensory grossly intact to light touch. Assessment: []64 yo f POD#4 L2-5 arthrodesis with L2-3 TLIF , revision of previous instrumented fusion, L 2-3, L3-4 decompression, durotomy repair. Plan: []Monitor VS, Neurochecks Maintain SBP< 140 Advance diet as tolerated Nutrition consult. Flat bed rest Monitor drain output. Restart LD at 10 cc per hour. On SQ heparin . Appreciate ICU, IM care. Marko Alvarez MD
[2019-10-30] MEDS: HYDROcodone/ACETAMIN 5-325 MG* 1 TAB PO PRN (21:44)
[2019-10-30] MEDS: Lidocaine Patch REMOVE* 1 NOTE MISC SCH (21:45)
[2019-10-31] MEDS: NS 0.9% 1000 ML** 1,000 ML IV SCH (04:55)
[2019-10-31] MEDS: Heparin VIAL(*) 5000 UNITS/ML VIAL (FIVE THOUSAND) SUBCUT SCH ×3 (05:21→20:56)
[2019-10-31] MEDS: Docusate CAP* 100 MG PO SCH (09:40)
[2019-10-31] MEDS: Spironolactone TAB* 25 MG PO SCH (09:40)
[2019-10-31] MEDS: Famotidine IV* 10 MG/ML 2 ML (20 mg) IV SLOW PU SCH ×2 (09:40→20:47)
[2019-10-31] MEDS: Carvedilol TAB* 6.25 MG PO SCH ×2 (09:40→20:47)
[2019-10-31] MEDS: Lidocaine PATCH 5%* 1 PATCH TRANSDERM SCH (09:40)
[2019-10-31] MEDS: Polyethylene Glycol 3350* 17 GM PACKET PO SCH (09:41)
[2019-10-31] MEDS: Hydrochlorothiazide TAB* 25 MG PO SCH (09:41)
[2019-10-31] MEDS: DULoxetine DR CAP* 30 MG CAP.DR PO SCH (09:41)
[2019-10-31 10:16] LABS: ABS Basophils 0.1 10^3/ul (0-0.2); ABS Eosinophils 0.1 10^3/ul (0-0.6); ABS Lymphocytes 0.8 10^3/ul (1.0-4.8); ABS Monocytes 0.8 10^3/ul (0-0.8); ABS Neutrophils 9.8 10^3/ul (1.5-7.7); Eosinophil % 0.5 %; Hematocrit 28 % (35-47); Hemoglobin 9.6 g/dL (12.0-16.0); Lymphocyte % 7.3 %; Mean Corpuscular HGB Conc 34 g/dL (31-36); Mean Corpuscular Hemoglobin 30 pg (27-31); Mean Corpuscular Volume 87 fL (80-97); Mean Platelet Volume 8.3 fL (7.4-10.4); Platelet Count 309 10^3/uL (150-450); Red Blood Count 3.25 10^6 /uL (3.70-4.87); Red Cell Distribution Width 14 % (10-15); White Blood Count 11.6 10^3/uL (3.5-10.8)
[2019-10-31 10:32] LABS: BUN/Creatinine Ratio 17.1 (8-20); Calcium 8.3 mg/dL (8.6-10.3); EGFR African American 85.2 (>60); EGFR Non-African American 70.4 (>60)
[2019-10-31 10:50] LABS: Potassium 3.4 mmol/L (3.5-5.0)
[2019-10-31] MEDS ORDERED: Potassium Chlor TAB* 20 MEQ TAB.ER PO ONE (11:03)
[2019-10-31] MEDS: Ondansetron INJ* 2 MG/ML VIAL IV PRN (12:56)
--- NOTE | 2019-10-31 13:38 | PN ---
<Risa Quintana - Last Filed: 10/31/19 13:30> Progress Note - Progress Note Date of Service: 10/31/19 Note: Progress Note -- Critical Care 24 hour events/significant events: - Denies MARS - BP has remained stable - Patient offers no complaints - Started subq heparin this AM ROS: negative except for pertinent positives mentioned above Tele: afib controlled rate Vitals: Vital Signs 10/29/19 10/29/19 10/29/19 13:00 13:01 14:00 Temperature Pulse Rate 66 65 70 Respiratory 15 19 19 Rate Blood Pressure 121/60 (mmHg) O2 Sat by Pulse 94 93 92 Oximetry 10/29/19 10/29/19 10/29/19 14:01 15:00 15:01 Temperature Pulse Rate 72 68 68 Respiratory 19 19 20 Rate Blood Pressure 94/61 110/62 (mmHg) O2 Sat by Pulse 91 98 97 Oximetry 10/29/19 10/29/19 10/29/19 16:00 16:01 17:00 Temperature 97.4 F Pulse Rate 69 69 69 Respiratory 19 22 17 Rate Blood Pressure 105/63 (mmHg) O2 Sat by Pulse 98 98 95 Oximetry 10/29/19 10/29/19 10/29/19 17:01 17:40 18:00 Temperature Pulse Rate 69 67 71 Respiratory 16 14 Rate Blood Pressure 122/65 (mmHg) O2 Sat by Pulse 94 96 Oximetry 10/29/19 10/29/19 10/29/19 18:01 19:00 19:01 Temperature Pulse Rate 70 69 70 Respiratory 18 20 16 Rate Blood Pressure 117/60 125/62 (mmHg) O2 Sat by Pulse 96 96 96 Oximetry 10/29/19 10/29/19 10/29/19 20:00 20:01 21:00 Temperature 97.0 F Pulse Rate 70 73 71 Respiratory 20 19 17 Rate Blood Pressure 122/64 (mmHg) O2 Sat by Pulse 95 95 92 Oximetry 10/29/19 10/29/19 10/29/19 21:01 22:00 22:01 Temperature Pulse Rate 75 78 78 Respiratory 17 28 32 Rate Blood Pressure 120/76 119/59 (mmHg) O2 Sat by Pulse 92 90 90 Oximetry 10/29/19 10/29/19 10/29/19 23:00 23:01 23:12 Temperature Pulse Rate 75 75 75 Respiratory 19 20 20 Rate Blood Pressure 98/62 (mmHg) O2 Sat by Pulse 92 92 92 Oximetry 10/30/19 10/30/19 10/30/19 00:00 01:00 02:00 Temperature 98.1 F Pulse Rate 74 71 67 Respiratory 31 32 21 Rate Blood Pressure 103/57 111/68 112/64 (mmHg) O2 Sat by Pulse 93 92 93 Oximetry 10/30/19 10/30/19 10/30/19 03:00 03:01 04:00 Temperature Pulse Rate 85 75 66 Respiratory 23 25 21 Rate Blood Pressure 117/68 (mmHg) O2 Sat by Pulse 89 90 92 Oximetry 10/30/19 10/30/19 10/30/19 04:01 05:00 05:01 Temperature Pulse Rate 68 69 69 Respiratory 19 27 24 Rate Blood Pressure 110/61 113/67 (mmHg) O2 Sat by Pulse 91 92 92 Oximetry 10/30/19 10/30/19 10/30/19 06:00 06:01 06:22 Temperature Pulse Rate 69 69 Respiratory 24 17 Rate Blood Pressure 126/66 (mmHg) O2 Sat by Pulse 92 92 92 Oximetry 10/30/19 10/30/19 10/30/19 07:00 07:01 07:11 Temperature 99.3 F Pulse Rate 75 71 Respiratory 15 15 Rate Blood Pressure 111/68 (mmHg) O2 Sat by Pulse 96 91 Oximetry 10/30/19 10/30/19 10/30/19 08:00 08:01 08:40 Temperature 100.6 F Pulse Rate 67 68 Respiratory 15 16 Rate Blood Pressure 144/66 (mmHg) O2 Sat by Pulse 92 91 Oximetry 10/30/19 10/30/19 10/30/19 09:00 09:07 10:00 Temperature Pulse Rate 67 67 69 Respiratory 17 14 17 Rate Blood Pressure 118/65 (mmHg) O2 Sat by Pulse 94 94 93 Oximetry 10/30/19 10/30/19 10/30/19 10:02 11:00 11:01 Temperature Pulse Rate 71 68 67 Respiratory 17 16 20 Rate Blood Pressure 111/51 119/50 (mmHg) O2 Sat by Pulse 94 95 94 Oximetry 10/30/19 10/30/19 12:00 12:01 Temperature Pulse Rate 68 68 Respiratory 20 20 Rate Blood Pressure 105/72 (mmHg) O2 Sat by Pulse 94 91 Oximetry Intake and Output Last 24 Hours 10/28/19 10/29/19 10/30/19 10/31/19 06:59 06:59 06:59 06:59 Intake Total 3452 2669 593 125 Output Total 2988 5477 2473 630 Balance 524 -7817 -7940 -505 Weight 235 lb 7.259 oz 234 lb 12.677 oz Intake: IV Fluids 2645 1697 593 ABX - CEFTRIAXONE 70 Acetaminophen 200 NS (0.9%) 2575 1497 593 IVPB 220 ABX - CEFTRIAXONE 120 Acetaminophen 100 Medicated IV 187 505 Levophed 187 albumin 505 Oral 400 467 0 125 Output: SANDY #1 358 25 Cranial Drain 127 173 35 Urine 250 Gao 2220 5055 2300 595 Estimated Blood Loss 250 Other 160 20 Other: Date of Last Bowel 10/27/19 Movement # Bowel Movements 2 Other Amount Description Lumbar drain Lumbar drain O2: RA Infusions: NS @ 25 Medications: Hydrocodone Bitart/Acetaminophen ([place] 5-325 Tab*) 1 tab PO Q4H PRN PRN Reason: PAIN - MODERATE Last Admin: 10/29/19 20:45 Dose: 1 tab Carvedilol (Coreg Tab*) 12.5 mg PO BID [facility] Last Admin: 10/30/19 09:31 Dose: 12.5 mg Digoxin (Lanoxin Tab*) 0.125 mg PO 1700 [facility] Last Admin: 10/29/19 17:40 Dose: 0.125 mg Docusate Sodium (Colace Cap*) 100 mg PO BID [facility] Last Admin: 10/30/19 09:31 Dose: 100 mg Duloxetine HCl (Cymbalta Cap*) 30 mg PO DAILY [facility] Last Admin: 10/30/19 09:31 Dose: 30 mg Famotidine (Pepcid Iv*) 20 mg IV SLOW PU BID [facility] Last Admin: 10/30/19 09:32 Dose: 20 mg Heparin Sodium (Porcine) (Heparin Vial(*)) 5,000 units SUBCUT Q8HR [facility] Last Admin: 10/30/19 09:32 Dose: 5,000 units Hydrochlorothiazide (Hydrodiuril Tab*) 12.5 mg PO DAILY [facility] Last Admin: 10/30/19 09:34 Dose: 12.5 mg Hydromorphone HCl (Dilaudid Inj1s*) 1 mg IV Q3H PRN PRN Reason: PAIN - SEVERE Last Admin: 10/27/19 12:25 Dose: 1 mg Sodium Chloride (Ns 0.9% 1000 Ml) 1,000 mls @ 25 mls/hr IV PER RATE [facility] Last Admin: 10/28/19 10:52 Dose: 25 mls/hr Lidocaine (Lidoderm 5% Patch*) 1 patch TRANSDERM DAILY [facility] Last Admin: 10/30/19 09:32 Dose: 1 patch Melatonin (Melatonin) 9 mg PO BEDTIME PRN PRN Reason: SLEEP Ondansetron HCl (Zofran Inj*) 4 mg IV Q6H PRN PRN Reason: NAUSEA Pharmacy Profile Note (Lidocaine Patch Remove*) 1 note N/A 2100 [facility] Last Admin: 10/29/19 21:14 Dose: 1 note Polyethylene Glycol/Electrolytes (Miralax (17 Gm Dose Jvoani)) 17 gm PO DAILY [facility] Last Admin: 10/30/19 09:36 Dose: Not Given Spironolactone (Aldactone Tab*) 12.5 mg PO DAILY [facility] Last Admin: 10/30/19 09:33 Dose: 12.5 mg Physical Exam: Constitutional: awake, alert, oriented x 3, mild distress, states shes in pain. Head: normocephalic, atraumatic Eyes: no pallor, no icterus ENT: moist mucous membranes Neck: soft, supple CVS: irregular rate, S1S2, no obvious murmur Chest/Resp: bilateral air entry, diminished in bases Abdomen/GI: obese, soft, nontender, nondistended, BS+ Ext/Msk: warm, pulses+, no edema Skin: intact, warm, surgical dressing intact Neuro: awake, alert, oriented x3. Moving all extremities, no gross focal deficit. Strength 5/5 all extremities, sensation intact to all extremities. Psych: flat affect Labs: Laboratory Results - last 24 hr 10/31/19 10/31/19 10:05 10:05 WBC 11.6 H RBC 3.25 L Hgb 9.6 L Hct 28 L MCV 87 MCH 30 MCHC 34 RDW 14 Plt Count 309 MPV 8.3 Neut % (Auto) 84.7 Lymph % (Auto) 7.3 [place] % (Auto) 7.0 Eos % (Auto) 0.5 Baso % (Auto) 0.5 Absolute Neuts (auto) 9.8 H Absolute Lymphs (auto) 0.8 L Absolute Monos (auto) 0.8 Absolute Eos (auto) 0.1 Absolute Basos (auto) 0.1 Absolute Nucleated RBC 0.0 Nucleated RBC % 0.0 Sodium 134 L Potassium 3.4 L Chloride 101 Carbon Dioxide 26 Anion Gap 7 BUN 14 Creatinine 0.82 Est GFR ( Amer) 85.2 Est GFR (Non-Af Amer) 70.4 BUN/Creatinine Ratio 17.1 Glucose 118 H Calcium 8.3 L Imaging: CT lumbar spine 10/25: moderate multilevel lumbar spondylopathy including unchanged moderate L3-L4 Thoracic spine MRI 10/26: degenerative disc disease and osteoarthritis EKG 10/26: sinus rhythm, qtc 471 Assessment: 64F with known medical history of restrictive cardiomyopathy with EF 40%, depression, distant DVT/PE history, HTN, cervical myelopathy, chronic back pain s/p lumbar decompression/fusion, presented on 10/26/19 with right leg weakness, numbness, bowel dysfunction, decreased anal sensation, and back pain, concerning for cauda equina syndrome. S/p L2-5 arthrodesis with L2-3 TLIF , revision of previous instrumented fusion, L 2-3, L3-4 decompression, durotomy repair - Partial cauda syndrome - Restrictive cardiomyopathy - Afib Plan: Neuro- - POD 4, Neurosurgery primary. - Continue lumbar drain and drain per neurosurgery's recommendations - Continue neuro checks -Delirium prec; avoid BDZ CVS- - BP has been WNL - Afib: new onset. Appears controlled on digoxin -Maintain MAP>65 Resp- -Wean Fio2 to keep sat>92% -Aspiration prec, Pulmonary Toilet, IS ID- - No active issues - Goal temp <38.5 GI- -Nutrition: regular diet. nutrition consult for poor appetite, encourage ensure clears -GI prophylaxis: famotidine Renal- -strict I/O, replete to keep K>4, Mg>2 -gao while on strict bedrest - Net negative 1.3L Heme- - No active issues. - Continue subq heparin this AM for DVT prophylaxis Endo-Maintain BG<200, insulin protocol as needed Musculsk- pressure ulcer prophylaxis. Bedrest. Wounds- none Nutrition- regular diet DVT prophylaxis: SCds, subq heparin GI prophylaxis: famotidine Gao Catheter: continue while on strict bedrest Disposition: Patient requires Critical Care/ICU for lumbar drain management Patient clinical status: stable Code Status: full <SlyFernando trinidad - Last Filed: 10/31/19 14:34> Progress Note - Progress Note Note: I saw and examined the patient. I agree with the findings and care plan as described above in JOHNATHAN Quintana's note. HI
[2019-10-31] MEDS: Digoxin TAB* 0.125 MG PO SCH (18:22)
[2019-10-31] MEDS: Lidocaine Patch REMOVE* 1 NOTE MISC SCH (20:47)
[2019-10-31] MEDS: Gabapentin CAP(*) 300 MG PO SCH (20:47)
[2019-10-31] MEDS: HYDROcodone/ACETAMIN 5-325 MG* 1 TAB PO PRN (20:56)
--- NOTE | 2019-10-31 21:49 | PN ---
Progress Note - Progress Note Date of Service: 10/31/19 SOAP: Subjective: []No events ON. LD output to 10 cc per hour. Feels well. Tolerates PO well, Arellano. No MARS. Objective: [] ]VSS, Afebtile. Wound s,c,d LD drain in place, output noted. AAOx3 BOB, CN II-XII grossly intact, Motor 5/5 all extremities Sensory grossly intact to light touch. Assessment: []64 yo f POD#5 L2-5 arthrodesis with L2-3 TLIF , revision of previous instrumented fusion, L 2-3, L3-4 decompression, durotomy repair. Plan: [] Monitor VS, Neurochecks Maintain SBP< 140 Diet as tolerated Nutrition consult. Flat bed rest Monitor drain output. Continue LD at 10 cc per hour. On SQ heparin . Appreciate ICU, IM care. Marko Alvarez MD
[2019-11-01] MEDS: Heparin VIAL(*) 5000 UNITS/ML VIAL (FIVE THOUSAND) SUBCUT SCH ×3 (05:05→22:12)
[2019-11-01 05:08] LABS: Hematocrit 27 % (35-47); Hemoglobin 9.4 g/dL (12.0-16.0); Mean Corpuscular HGB Conc 34 g/dL (31-36); Mean Corpuscular Hemoglobin 30 pg (27-31); Mean Corpuscular Volume 87 fL (80-97); Mean Platelet Volume 7.8 fL (7.4-10.4); Platelet Count 346 10^3/uL (150-450); Red Blood Count 3.13 10^6 /uL (3.70-4.87); Red Cell Distribution Width 14 % (10-15); White Blood Count 20.5 10^3/uL (3.5-10.8)
[2019-11-01 05:27] LABS: BUN/Creatinine Ratio 15.2 (8-20); Calcium 8.2 mg/dL (8.6-10.3); EGFR African American 74.6 (>60); EGFR Non-African American 61.7 (>60)
[2019-11-01 05:56] LABS: Potassium 4.4 mmol/L (3.5-5.0)
[2019-11-01] MEDS: Lidocaine PATCH 5%* 1 PATCH TRANSDERM SCH (08:41)
[2019-11-01] MEDS: Spironolactone TAB* 25 MG PO SCH (08:41)
[2019-11-01] MEDS: Psyllium PAK PO SCH (08:41)
[2019-11-01] MEDS: DULoxetine DR CAP* 30 MG CAP.DR PO SCH (08:42)
[2019-11-01] MEDS: HYDROcodone/ACETAMIN 5-325 MG* 1 TAB PO PRN ×2 (08:42→22:12)
[2019-11-01] MEDS: Famotidine IV* 10 MG/ML 2 ML (20 mg) IV SLOW PU SCH ×2 (08:42→22:12)
[2019-11-01] MEDS: Carvedilol TAB* 6.25 MG PO SCH ×2 (08:42→22:12)
[2019-11-01] MEDS: Ondansetron INJ* 2 MG/ML VIAL IV PRN (09:06)
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
[2019-11-01] MEDS: acetaZOLAMIDE TAB* 250 MG PO SCH ×2 (11:37→22:12)
[2019-11-01] MEDS: Hydrochlorothiazide TAB* 25 MG PO SCH (11:38)
[2019-11-01] MEDS: Digoxin TAB* 0.125 MG PO SCH (17:43)
--- NOTE | 2019-11-01 20:17 | PN ---
Progress Note - Progress Note Date of Service: 11/01/19 SOAP: Subjective: []No events ON. LD output to 7 cc per hour. Feels well. Tolerates PO well, Arellano removed because of increase in WBC. No MARS. Objective: []VSS, Afebtile. Wound s,c,d, Dressing changed LD drain in place, output noted. AAOx3 BOB, CN II-XII grossly intact, Motor 5/5 all extremities Sensory grossly intact to light touch. No neck stiffness. Assessment: []64 yo f POD#6 L2-5 arthrodesis with L2-3 TLIF , revision of previous instrumented fusion, L 2-3, L3-4 decompression, durotomy repair. Plan: [] Monitor VS, Neurochecks Maintain SBP< 140 Diet as tolerated Nutrition consult. Flat bed rest Monitor drain output. Continue LD at 7 cc per hour. Change to 5 cc in am and possible clamp later in the day. On SQ heparin . Appreciate ICU, IM care. Marko Alvarez MD
[2019-11-01] MEDS: Gabapentin CAP(*) 300 MG PO SCH (22:12)
[2019-11-01] MEDS: Lidocaine Patch REMOVE* 1 NOTE MISC SCH (22:13)
[2019-11-01] MEDS ORDERED: NS 0.9% 1000 ML** 1,000 ML IV ONE (23:21)
[2019-11-01 23:55] LABS: Hematocrit 30 % (35-47); Hemoglobin 9.7 g/dL (12.0-16.0); Mean Corpuscular HGB Conc 33 g/dL (31-36); Mean Corpuscular Hemoglobin 29 pg (27-31); Mean Corpuscular Volume 89 fL (80-97); Mean Platelet Volume 8.3 fL (7.4-10.4); Platelet Count 426 10^3/uL (150-450); Red Blood Count 3.35 10^6 /uL (3.70-4.87); Red Cell Distribution Width 14 % (10-15); White Blood Count 26.2 10^3/uL (3.5-10.8)
[2019-11-02 00:11] LABS: Albumin 3.1 g/dL (3.2-5.2); Albumin/Globulin Ratio 0.8 (1-3); Calcium 8.8 mg/dL (8.6-10.3); EGFR Non-African American 52.9 (>60); Globulin 3.7 g/dL (2-4); Potassium 3.5 mmol/L (3.5-5.0); Total Bilirubin 0.7 mg/dL (0.2-1.0); Total Protein 6.8 g/dL (6.4-8.9)
[2019-11-02 00:22] LABS: ABS Lymphocytes 1.1 10^3/ul (1.0-4.8); ABS Neutrophils 23.1 10^3/ul (1.5-7.7); Eosinophil % 0.1 %
[2019-11-02 00:37] LABS: Urine Appearance Clear; Urine Bilirubin Negative (Negative); Urine Blood Negative (Negative); Urine Color Yellow; Urine Glucose Negative (Negative); Urine Ketones Trace (Negative); Urine Nitrite Negative (Negative); Urine Protein 1+(30 mg/dL) (Negative); Urine Urobilinogen Positive (Negative)
[2019-11-02 00:40] LABS: Urine Bacteria 1+ (Absent); Urine Red Blood Cell Absent (Absent); Urine Squamous Epithelial Cell Present (Absent); Urine White Blood Cell Trace(0-5/hpf) (Absent)
[2019-11-02] MEDS ORDERED: NS 0.9% 1000 ML/HR X 1 BAG (TOTAL 1000 ML) IV ONE (02:45)
[2019-11-02] MEDS ORDERED: Zosyn per Pharmacy* NOTE FOLLOW UP SCH (03:00)
[2019-11-02] MEDS ORDERED: Vancomycin per Pharmacy* NOTE FOLLOW UP SCH (03:00)
[2019-11-02] MEDS: Norepinephrine 16MCG/ML IVPRE* 4,000 MCG/250 ML BAG IV SCH ×2 (03:01→11:43)
[2019-11-02] MEDS ORDERED: Piperacillin/Tazobac ADVAN(*) 3.375 GM in NS 0.9% 100 ML* 100 ML IVPB ONE (03:30)
[2019-11-02] MEDS ORDERED: Vancomycin(*) 1,500 MG in NS 0.9% 250 ML* 250 ML IVPB ONE (04:00)
[2019-11-02] MEDS: Heparin VIAL(*) 5000 UNITS/ML VIAL (FIVE THOUSAND) SUBCUT SCH ×3 (05:01→21:53)
[2019-11-02] MEDS: ZOSYN 3.375 GM Q8H per EXTENDED INFUSION IVPB SCH ×4 (08:35→17:35)
[2019-11-02] MEDS: Carvedilol TAB* 6.25 MG PO SCH ×2 (08:57→20:25)
[2019-11-02] MEDS: Hydrochlorothiazide TAB* 25 MG PO SCH (08:57)
[2019-11-02] MEDS: Psyllium PAK PO SCH (08:58)
[2019-11-02] MEDS: Spironolactone TAB* 25 MG PO SCH (08:58)
[2019-11-02] MEDS: acetaZOLAMIDE TAB* 250 MG PO SCH ×2 (09:48→20:29)
[2019-11-02] MEDS: DULoxetine DR CAP* 30 MG CAP.DR PO SCH (09:48)
[2019-11-02] MEDS: Lidocaine PATCH 5%* 1 PATCH TRANSDERM SCH (09:49)
[2019-11-02] MEDS: Famotidine IV* 10 MG/ML 2 ML (20 mg) IV SLOW PU SCH ×2 (09:49→20:29)
[2019-11-02] MEDS ORDERED: Lidocaine 1% INJ* 10 MG/ML 30 ML SDV ONE (11:40)
[2019-11-02] MEDS ORDERED: Morphine INJ* 2 MG/ML 1 ML SYRINGE (TWO MG - NEW SYRINGE VERSION) ONE (13:24)
[2019-11-02] MEDS ORDERED: Morphine INJ* 2 MG/ML 1 ML SYRINGE (TWO MG - NEW SYRINGE VERSION) IV ONE (13:25)
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
[2019-11-02] MEDS: Vancomycin(*) 1,250 MG in NS 0.9% 250 ML* 250 ML IVPB SCH ×2 (13:33→23:30)
[2019-11-02] MEDS: Digoxin TAB* 0.125 MG PO SCH (16:48)
[2019-11-02 18:53] LABS: Body Fluid Source Cerebral Spinal
--- NOTE | 2019-11-02 19:05 | PN ---
Progress Note - Progress Note Date of Service: 11/02/19 SOAP: Subjective: []No events ON. LD output to 5 cc per hour in am , then clamped. Tolerated clamping very well. Feels well. Tolerates PO well, Arellano. No MARS. On empiric Abx for increased WBC. Objective: []VSS, Afebtile. Wound s,c,d, Dressing changed LD output noted. CSF sent for labs, clt. After patient identification and under sterile technique and local anesthetic use, LD was removed. Catheter appeared to be intact. 2.0 silk suture placed on wound. Patient tolerated procedure well. AAOx3 BOB, CN II-XII grossly intact, Motor 5/5 all extremities Sensory grossly intact to light touch. No neck stiffness. Assessment: [] 64 yo f POD#7 L2-5 arthrodesis with L2-3 TLIF , revision of previous instrumented fusion, L 2-3, L3-4 decompression, durotomy repair. Plan: []Monitor VS, Neurochecks Diet as tolerated Nutrition consult. Gradual elevation of Head out of bed (10' per h as tolerated) OOB in a chair in am as tolerated. Follow cultures, CSF results On SQ heparin . TLSO brace when OOB. PT DC planning Discussed with patient regarding plan, discussed with patient's son over the phone. Patient and family understand that I will be off this weekend. Appreciate ICU, IM care. Marko Alvarez MD
[2019-11-02] MEDS: Lidocaine Patch REMOVE* 1 NOTE MISC SCH (19:09)
[2019-11-02 19:15] LABS: CSF Glucose 69 mg/dL (40-70)
[2019-11-02 20:20] LABS: Body Fluid Mono 48 %
[2019-11-02] MEDS: Gabapentin CAP(*) 300 MG PO SCH (20:29)
[2019-11-03] MEDS: ZOSYN 3.375 GM Q8H per EXTENDED INFUSION IVPB SCH ×8 (01:18→23:53)
[2019-11-03 03:35] LABS: Hematocrit 28 % (35-47); Hemoglobin 8.9 g/dL (12.0-16.0); Mean Corpuscular HGB Conc 32 g/dL (31-36); Mean Corpuscular Hemoglobin 29 pg (27-31); Mean Corpuscular Volume 90 fL (80-97); Mean Platelet Volume 7.9 fL (7.4-10.4); Platelet Count 451 10^3/uL (150-450); Red Blood Count 3.05 10^6 /uL (3.70-4.87); Red Cell Distribution Width 14 % (10-15); White Blood Count 25.8 10^3/uL (3.5-10.8)
[2019-11-03 03:48] LABS: BUN/Creatinine Ratio 18.5 (8-20); Calcium 7.8 mg/dL (8.6-10.3); EGFR African American 74.6 (>60); EGFR Non-African American 61.7 (>60); Potassium 3.2 mmol/L (3.5-5.0)
[2019-11-03 04:06] LABS: Polychromasia 1+
[2019-11-03 04:07] LABS: Platelet Morphology Large
[2019-11-03 04:08] LABS: ABS Basophils 0.1 10^3/ul (0-0.2); ABS Eosinophils 0.1 10^3/ul (0-0.6); ABS Lymphocytes 1.2 10^3/ul (1.0-4.8); ABS Monocytes 1.8 10^3/ul (0-0.8); ABS Neutrophils 22.7 10^3/ul (1.5-7.7); Eosinophil % 0.5 %; Lymphocyte % 4.5 %
[2019-11-03] MEDS: KCL 20 MEQ/100 ML IVPREMIX* 20 MEQ/100 ML BAG IV SCH ×2 (05:02→08:07)
[2019-11-03] MEDS: Heparin VIAL(*) 5000 UNITS/ML VIAL (FIVE THOUSAND) SUBCUT SCH ×3 (05:02→21:18)
[2019-11-03] MEDS ORDERED: Magnesium Sulfate 1 GM IV* 1 GM/100 ML BAG IV ONE (07:41)
[2019-11-03] MEDS: acetaZOLAMIDE TAB* 250 MG PO SCH (08:20)
[2019-11-03] MEDS: DULoxetine DR CAP* 30 MG CAP.DR PO SCH (08:20)
[2019-11-03] MEDS: Famotidine IV* 10 MG/ML 2 ML (20 mg) IV SLOW PU SCH ×2 (08:22→21:18)
[2019-11-03] MEDS: Lidocaine PATCH 5%* 1 PATCH TRANSDERM SCH (08:26)
[2019-11-03] MEDS: Hydrochlorothiazide TAB* 25 MG PO SCH (09:14)
[2019-11-03] MEDS: Carvedilol TAB* 6.25 MG PO SCH ×2 (09:14→21:18)
[2019-11-03] MEDS: Spironolactone TAB* 25 MG PO SCH (09:14)
[2019-11-03] MEDS: Psyllium PAK PO SCH (09:14)
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
[2019-11-03] MEDS: KCL 10 MEQ/50 ML IVPREMIX* 10 MEQ/50 ML BAG IV SCH ×2 (10:19→11:44)
[2019-11-03] MEDS ORDERED: Vancomycin Trough Check NOTE FOLLOW UP ONE (12:00)
[2019-11-03] MEDS: Vancomycin(*) 1,250 MG in NS 0.9% 250 ML* 250 ML IVPB SCH (12:44)
--- NOTE | 2019-11-03 15:33 | PN ---
Progress Note - Progress Note Date of Service: 11/03/19 SOAP: Subjective: []No events ON. LD discontinued yesterday, Feels well. Tolerates PO well, Arellano. No MARS. On empiric Abx for increased WBC. Objective: []VSS, Afebtile. Wound s,c,d. AAOx3 BOB, CN II-XII grossly intact, Motor 5/5 all extremities Sensory grossly intact to light touch. No neck stiffness. Assessment: []64 yo f POD#8 L2-5 arthrodesis with L2-3 TLIF , revision of previous instrumented fusion, L 2-3, L3-4 decompression, durotomy repair. Plan: [] Monitor VS, Neurochecks Diet as tolerated Nutrition consult. OOB in a chair as tolerated. Follow culture CSF. No growth. No evidence of infection. On SQ heparin . TLSO brace when OOB. PT DC planning Discussed with patient regarding plan. Appreciate ICU, IM care. Marko Alvarez MD
[2019-11-03] MEDS: Digoxin TAB* 0.125 MG PO SCH (16:09)
[2019-11-03] MEDS: HYDROcodone/ACETAMIN 5-325 MG* 1 TAB PO PRN ×2 (17:07→21:18)
[2019-11-03] MEDS: Gabapentin CAP(*) 300 MG PO SCH (21:18)
[2019-11-03] MEDS: Melatonin 3 MG TAB PO PRN (21:18)
[2019-11-03] MEDS: Lidocaine Patch REMOVE* 1 NOTE MISC SCH (21:19)
[2019-11-04] MEDS: HYDROcodone/ACETAMIN 5-325 MG* 1 TAB PO PRN ×2 (04:21→21:32)
[2019-11-04 04:54] LABS: Hematocrit 26 % (35-47); Hemoglobin 8.4 g/dL (12.0-16.0); Mean Corpuscular HGB Conc 33 g/dL (31-36); Mean Corpuscular Hemoglobin 29 pg (27-31); Mean Corpuscular Volume 89 fL (80-97); Platelet Count 471 10^3/uL (150-450); Red Blood Count 2.88 10^6 /uL (3.70-4.87); Red Cell Distribution Width 14 % (10-15); White Blood Count 21.4 10^3/uL (3.5-10.8)
[2019-11-04 05:09] LABS: BUN/Creatinine Ratio 19.8 (8-20); Calcium 7.8 mg/dL (8.6-10.3); EGFR African American 75.5 (>60); EGFR Non-African American 62.4 (>60); Magnesium 2.1 mg/dL (1.9-2.7); Phosphorus 2.3 mg/dL (2.5-5.0)
[2019-11-04] MEDS ORDERED: Potassium Chlor TAB* 20 MEQ TAB.ER PO ONE (05:19)
[2019-11-04] MEDS ORDERED: Potassium Phosphate IV* 15 MMOLE in NS 0.9% 250 ML* 250 ML IVPB ONE (05:19)
[2019-11-04] MEDS: Heparin VIAL(*) 5000 UNITS/ML VIAL (FIVE THOUSAND) SUBCUT SCH ×3 (05:53→21:31)
[2019-11-04 07:15] LABS: ABS Basophils 0.1 10^3/ul (0-0.2); ABS Eosinophils 0.3 10^3/ul (0-0.6); ABS Lymphocytes 1.4 10^3/ul (1.0-4.8); ABS Monocytes 1.1 10^3/ul (0-0.8); ABS Neutrophils 18.5 10^3/ul (1.5-7.7); Eosinophil % 1.3 %; Lymphocyte % 6.7 %
[2019-11-04] MEDS: Carvedilol TAB* 6.25 MG PO SCH ×2 (08:33→21:15)
[2019-11-04] MEDS: ZOSYN 3.375 GM Q8H per EXTENDED INFUSION IVPB SCH ×2 (09:04)
[2019-11-04] MEDS: Famotidine IV* 10 MG/ML 2 ML (20 mg) IV SLOW PU SCH ×2 (09:05→21:31)
[2019-11-04] MEDS: Lidocaine PATCH 5%* 1 PATCH TRANSDERM SCH (09:05)
[2019-11-04] MEDS: DULoxetine DR CAP* 30 MG CAP.DR PO SCH (09:05)
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
[2019-11-04] MEDS ORDERED: KCL 10 MEQ/50 ML IVPREMIX* 10 MEQ/50 ML BAG IV ONE (11:00)
[2019-11-04] MEDS: cefTRIAXone(*) 1 GM in NS 0.9% 50 ML* 50 ML IVPB SCH (11:01)
[2019-11-04] MEDS: Vancomycin CAP* 125 MG CAP PO SCH ×4 (12:19→21:31)
[2019-11-04 15:01] LABS: Calcium 7.9 mg/dL (8.6-10.3); Magnesium 2.1 mg/dL (1.9-2.7); Potassium 3.6 mmol/L (3.5-5.0)
[2019-11-04 15:07] LABS: BUN/Creatinine Ratio 19.5 (8-20); EGFR African American 79.6 (>60); EGFR Non-African American 65.8 (>60)
[2019-11-04] MEDS: Digoxin TAB* 0.125 MG PO SCH (17:37)
[2019-11-04] MEDS: Gabapentin CAP(*) 300 MG PO SCH (21:31)
[2019-11-04] MEDS: Lidocaine Patch REMOVE* 1 NOTE MISC SCH (21:38)
[2019-11-05] MEDS: Heparin VIAL(*) 5000 UNITS/ML VIAL (FIVE THOUSAND) SUBCUT SCH ×3 (05:16→21:49)
[2019-11-05 05:46] LABS: Hematocrit 26 % (35-47); Hemoglobin 8.6 g/dL (12.0-16.0); Mean Corpuscular HGB Conc 33 g/dL (31-36); Mean Corpuscular Hemoglobin 29 pg (27-31); Mean Corpuscular Volume 88 fL (80-97); Mean Platelet Volume 7.7 fL (7.4-10.4); Platelet Count 535 10^3/uL (150-450); Red Blood Count 2.95 10^6 /uL (3.70-4.87); Red Cell Distribution Width 14 % (10-15); White Blood Count 15.2 10^3/uL (3.5-10.8)
[2019-11-05 05:53] LABS: Calcium 8.1 mg/dL (8.6-10.3); Potassium 3.1 mmol/L (3.5-5.0)
[2019-11-05 05:59] LABS: BUN/Creatinine Ratio 19.5 (8-20); EGFR African American 85.2 (>60); EGFR Non-African American 70.4 (>60)
--- NOTE | 2019-11-05 08:33 | PN ---
Subjective Date of Service: 11/05/19 Interval History: Ms. Smith denies pain in the low back, numbness, tingling. She states she has been up to chair. She has a rectal tube in place, and therefore is unaware of number or consistency of bowel movements. She denies abdominal pain, fever. No other complaints today. She is agreeable to discharge to [facility]. Objective Active Medications: Hydrocodone Bitart/Acetaminophen ([place] 5-325 Tab*) 1 tab PO Q4H PRN PRN Reason: PAIN - MODERATE Last Admin: 11/04/19 21:32 Dose: 1 tab Carvedilol (Coreg Tab*) 12.5 mg PO BID [facility] Last Admin: 11/04/19 21:15 Dose: Not Given Digoxin (Lanoxin Tab*) 0.125 mg PO 1700 [facility] Last Admin: 11/04/19 17:37 Dose: 0.125 mg Duloxetine HCl (Cymbalta Cap*) 30 mg PO DAILY [facility] Last Admin: 11/04/19 09:05 Dose: 30 mg Famotidine (Pepcid Iv*) 20 mg IV SLOW PU BID [facility] Last Admin: 11/04/19 21:31 Dose: 20 mg Gabapentin (Neurontin Cap(*)) 300 mg PO BEDTIME [facility] Last Admin: 11/04/19 21:31 Dose: 300 mg Heparin Sodium (Porcine) (Heparin Vial(*)) 5,000 units SUBCUT Q8HR [facility] Last Admin: 11/05/19 05:16 Dose: 5,000 units Heparin Sodium (Porcine) (Heparin Flush Picc/Ml/Cvc(*)) 1 - 3 ml FLUSH 0600, 1800 [facility]; Protocol Last Admin: 11/05/19 05:05 Dose: 2 ml Ceftriaxone Sodium 1 gm/ (Sodium Chloride) 50 mls @ 100 mls/hr IVPB Q24H [facility] Last Admin: 11/04/19 11:01 Dose: 100 mls/hr Lidocaine (Lidoderm 5% Patch*) 1 patch TRANSDERM DAILY [facility] Last Admin: 11/04/19 09:05 Dose: 1 patch Melatonin (Melatonin) 9 mg PO BEDTIME PRN PRN Reason: SLEEP Last Admin: 11/03/19 21:18 Dose: 9 mg Ondansetron HCl (Zofran Inj*) 4 mg IV Q6H PRN PRN Reason: NAUSEA Last Admin: 11/01/19 09:06 Dose: 4 mg Pharmacy Profile Note (Lidocaine Patch Remove*) 1 note N/A 2100 [facility] Last Admin: 11/04/19 21:38 Dose: 1 note Potassium Chloride (Klor Con Er Tab*) 40 meq PO Q2H [facility] Stop: 11/05/19 10:01 Vancomycin HCl (Vancomycin Cap*) 125 mg PO QID [facility] Last Admin: 11/04/19 21:31 Dose: 125 mg Vital Signs: Temp Pulse Resp BP Pulse Ox 98.3 F 82 16 125/60 99 11/05/19 03:12 11/05/19 03:12 11/05/19 03:12 11/05/19 03:12 11/05/19 03:12 Oxygen Devices in Use Now: None Appearance: Ms. Smith is laying on R side sleeping. She wakes easily, appears to be in no acute distress. CPAP in place. Neck: NL Appearance and Movements; NL JVP, Trachea Midline Respiratory: Symmetrical Chest Expansion and Respiratory Effort, Clear to Auscultation Cardiovascular: NL Sounds; No Murmurs; No JVD, RRR, No Edema Abdominal: NL Sounds; No Tenderness; No Distention, No Hepatosplenomegaly, - - Rectal tube in place with liquid stool in bag; gao in place Extremities: No Edema, No Clubbing, Cyanosis Skin: - - CDI dressing in place to lumbar area; no surrounding erythema Neurological: Alert and Oriented x 3 Result Diagrams: 11/05/19 05:12 11/05/19 05:12 Microbiology and Other Data: Microbiology 11/01/19 23:35 Aerobic Blood Culture - Preliminary Blood Venous No Growth Day 3 Anaerobic Blood Culture - Preliminary No Growth Day 3 11/01/19 23:43 Aerobic Blood Culture - Preliminary Blood Venous No Growth Day 3 Anaerobic Blood Culture - Preliminary No Growth Day 3 11/04/19 10:23 Stool Gross Appearance - Final Stool C. difficile DNA Amplification - Final 027 Presumptive NEGATIVE Toxigenic C.diff POSITIVE 11/02/19 18:30 CSF Gram Stain (Tube 3) - Final Cerebral Spinal Fluid CSF Culture - Preliminary No Growth Day 2 11/02/19 00:25 Urine Culture - Final Urine Citrobacter Braakii 10/26/19 01:29 Urine Culture - Final Urine Assess/Plan/Problems-Billing Assessment: Quiana Smith is a 64 y/o female with history of restrictive cardiomyopathy with EF 40%, distant DVT and PE history, hypertension, cervical myelopathy, chronic back pain s/p lumbar decompression and fusion surgery, that presented with right leg weakness, numbness, bowel dysfunction and high concern for cauda equina syndrome who subsequently had decompressive surgery on 10/27/2019. Hospital course complicated by UTI, C. diff, episode of AF, hypotension. - Patient Problems (1) Cauda equina syndrome Comment: -presented with RLE weakness, paresthesias, bowel dysfxn concerning for cauda equina -neurosurgery following; thank you for recommendations -pt is post-op decompression and fusion -drain removed 11/02 -OOB to chair only; awaiting TLSO brace prior to attempts at ambulation -planning for JOSETTE at d/c (2) Urinary tract infection Comment: -UC with citrobacter braakii -received 2d zosyn -narrowed to ceftriaxone; continue antibiotics (day 4) (3) C. difficile diarrhea Comment: -liquid stool noted, C. diff + 11/04 -pt continues to have liquid stool -continue PO vanc -flexiseal in place (4) Acute urinary retention Comment: -gao catheter in place (5) Transient atrial fibrillation Comment: -episode of post-op transient atrial fib -placed on digoxin -continue home carvedilol -continue telemetry -may need AC in outpatient setting after neurosurgery clearance (6) Hypotension Comment: -requiring levophed in ICU -currently, SBP well controlled at 100-120's -holding home furosemide, spironolactone at this time (7) Restrictive cardiomyopathy Comment: -EF 40%, no valve abnormality -continue carvedilolcarvedilol -diuretics on hold as pt recovers from hypotension; currently SBP well controlled (8) HEENA (obstructive sleep apnea) Comment: -hospital CPAP at night/while sleeping (9) DVT prophylaxis Comment: -per neurosurgery: HSQ (10) Full code status Status and Disposition: Inpatient Medicine. Discharge when stable. Plan for JOSETTE.
[2019-11-05] MEDS: Potassium Chlor TAB* 20 MEQ TAB.ER PO SCH ×2 (08:38→10:44)
[2019-11-05] MEDS: DULoxetine DR CAP* 30 MG CAP.DR PO SCH (08:38)
[2019-11-05] MEDS: Vancomycin CAP* 125 MG CAP PO SCH ×4 (08:38→21:49)
[2019-11-05] MEDS: Famotidine IV* 10 MG/ML 2 ML (20 mg) IV SLOW PU SCH ×2 (08:39→21:50)
[2019-11-05] MEDS: Lidocaine PATCH 5%* 1 PATCH TRANSDERM SCH (08:39)
[2019-11-05] MEDS: Carvedilol TAB* 6.25 MG PO SCH ×2 (09:26→21:50)
[2019-11-05] MEDS: cefTRIAXone(*) 1 GM in NS 0.9% 50 ML* 50 ML IVPB SCH (10:44)
[2019-11-05] MEDS: Digoxin TAB* 0.125 MG PO SCH (16:49)
[2019-11-05] MEDS: HYDROcodone/ACETAMIN 5-325 MG* 1 TAB PO PRN (19:56)
[2019-11-05] MEDS: Melatonin 3 MG TAB PO PRN (21:49)
[2019-11-05] MEDS: Gabapentin CAP(*) 300 MG PO SCH (21:50)
[2019-11-05] MEDS: Lidocaine Patch REMOVE* 1 NOTE MISC SCH (21:57)
[2019-11-06] MEDS: Heparin VIAL(*) 5000 UNITS/ML VIAL (FIVE THOUSAND) SUBCUT SCH ×3 (05:53→21:31)
[2019-11-06 06:25] LABS: Hematocrit 25 % (35-47); Hemoglobin 8.4 g/dL (12.0-16.0); Mean Corpuscular HGB Conc 34 g/dL (31-36); Mean Corpuscular Hemoglobin 30 pg (27-31); Mean Corpuscular Volume 87 fL (80-97); Mean Platelet Volume 7.6 fL (7.4-10.4); Platelet Count 489 10^3/uL (150-450); Red Blood Count 2.84 10^6 /uL (3.70-4.87); Red Cell Distribution Width 15 % (10-15)
[2019-11-06 06:46] LABS: BUN/Creatinine Ratio 18.4 (8-20); Calcium 8.1 mg/dL (8.6-10.3); EGFR Non-African American 76.9 (>60); Potassium 3.3 mmol/L (3.5-5.0)
[2019-11-06] MEDS: DULoxetine DR CAP* 30 MG CAP.DR PO SCH (09:35)
[2019-11-06] MEDS: Vancomycin CAP* 125 MG CAP PO SCH ×4 (09:35→21:32)
[2019-11-06] MEDS: HYDROcodone/ACETAMIN 5-325 MG* 1 TAB PO PRN ×3 (09:35→21:31)
[2019-11-06] MEDS: cefTRIAXone(*) 1 GM in NS 0.9% 50 ML* 50 ML IVPB SCH (09:36)
[2019-11-06] MEDS: Lidocaine PATCH 5%* 1 PATCH TRANSDERM SCH (09:36)
[2019-11-06] MEDS: Carvedilol TAB* 6.25 MG PO SCH ×2 (09:36→21:32)
[2019-11-06] MEDS: Famotidine IV* 10 MG/ML 2 ML (20 mg) IV SLOW PU SCH ×2 (09:37→21:30)
--- NOTE | 2019-11-06 10:45 | PN ---
Subjective Date of Service: 11/06/19 Interval History: Reports ongoing diarrhea loose 8-9 times a day. No pain on urination. Objective Active Medications: Hydrocodone Bitart/Acetaminophen ([place] 5-325 Tab*) 1 tab PO Q4H PRN PRN Reason: PAIN - MODERATE Last Admin: 11/06/19 09:35 Dose: 1 tab Carvedilol (Coreg Tab*) 12.5 mg PO BID [facility] Last Admin: 11/06/19 09:36 Dose: 12.5 mg Digoxin (Lanoxin Tab*) 0.125 mg PO 1700 [facility] Last Admin: 11/05/19 16:49 Dose: 0.125 mg Duloxetine HCl (Cymbalta Cap*) 30 mg PO DAILY [facility] Last Admin: 11/06/19 09:35 Dose: 30 mg Famotidine (Pepcid Iv*) 20 mg IV SLOW PU BID [facility] Last Admin: 11/06/19 09:37 Dose: 20 mg Gabapentin (Neurontin Cap(*)) 300 mg PO BEDTIME [facility] Last Admin: 11/05/19 21:50 Dose: 300 mg Heparin Sodium (Porcine) (Heparin Vial(*)) 5,000 units SUBCUT Q8HR [facility] Last Admin: 11/06/19 05:53 Dose: 5,000 units Heparin Sodium (Porcine) (Heparin Flush Picc/Ml/Cvc(*)) 1 - 3 ml FLUSH 0600, 1800 [facility]; Protocol Last Admin: 11/06/19 05:52 Dose: 2 ml Lidocaine (Lidoderm 5% Patch*) 1 patch TRANSDERM DAILY [facility] Last Admin: 11/06/19 09:36 Dose: 1 patch Melatonin (Melatonin) 9 mg PO BEDTIME PRN PRN Reason: SLEEP Last Admin: 11/05/19 21:49 Dose: 9 mg Ondansetron HCl (Zofran Inj*) 4 mg IV Q6H PRN PRN Reason: NAUSEA Last Admin: 11/01/19 09:06 Dose: 4 mg Pharmacy Profile Note (Lidocaine Patch Remove*) 1 note N/A 2100 [facility] Last Admin: 11/05/19 21:57 Dose: 1 note Vancomycin HCl (Vancomycin Cap*) 125 mg PO QID [facility] Last Admin: 11/06/19 09:35 Dose: 125 mg Vital Signs - 8 hr 11/06/19 11/06/19 11/06/19 03:54 05:53 07:48 Temperature 98.2 F 97.4 F Pulse Rate 80 70 Respiratory 17 17 17 Rate Blood Pressure 116/74 110/70 (mmHg) O2 Sat by Pulse 99 97 Oximetry 11/06/19 09:35 Temperature Pulse Rate Respiratory 16 Rate Blood Pressure (mmHg) O2 Sat by Pulse Oximetry Oxygen Devices in Use Now: None Eyes: No Scleral Icterus Ears/Nose/Mouth/Throat: NL Teeth, Lips, Gums Neck: NL Appearance and Movements; NL JVP Respiratory: Symmetrical Chest Expansion and Respiratory Effort Cardiovascular: RRR Abdominal: NL Sounds; No Tenderness; No Distention Neurological: Alert and Oriented x 3, - - Gait not tested Result Diagrams: 11/06/19 05:40 11/06/19 05:40 Microbiology and Other Data: Microbiology 11/01/19 23:35 Aerobic Blood Culture - Preliminary Blood Venous No Growth Day 3 Anaerobic Blood Culture - Preliminary No Growth Day 3 11/01/19 23:43 Aerobic Blood Culture - Preliminary Blood Venous No Growth Day 3 Anaerobic Blood Culture - Preliminary No Growth Day 3 11/04/19 10:23 Stool Gross Appearance - Final Stool C. difficile DNA Amplification - Final 027 Presumptive NEGATIVE Toxigenic C.diff POSITIVE 11/02/19 18:30 CSF Gram Stain (Tube 3) - Final Cerebral Spinal Fluid CSF Culture - Preliminary No Growth Day 2 11/02/19 00:25 Urine Culture - Final Urine Citrobacter Braakii 10/26/19 01:29 Urine Culture - Final Urine Assess/Plan/Problems-Billing Assessment: Quiana Smith is a 64 y/o female with history of restrictive cardiomyopathy with EF 40%, distant DVT and PE history, hypertension, cervical myelopathy, chronic back pain s/p lumbar decompression and fusion surgery, that presented with right leg weakness, numbness, bowel dysfunction and high concern for cauda equina syndrome who subsequently had decompressive surgery on 10/27/2019. Hospital course complicated by UTI, C. diff, episode of AF, hypotension. - Patient Problems (1) Cauda equina syndrome Current Visit: Yes Status: Acute Code(s): G83.4 - CAUDA EQUINA SYNDROME SNOMED Code(s): 562665507 Comment: -presented with RLE weakness, paresthesias, bowel dysfxn concerning for cauda equina -neurosurgery following; thank you for recommendations -pt is post-op decompression and fusion -drain removed 11/02 -OOB to chair only; awaiting TLSO brace prior to attempts at ambulation -planning for JOSETTE at d/c (2) Acute urinary retention Current Visit: Yes Status: Acute Code(s): R33.8 - OTHER RETENTION OF URINE SNOMED Code(s): 643437616 Comment: -gao catheter in place (3) C. difficile diarrhea Current Visit: Yes Status: Acute Code(s): A04.72 - ENTEROCOLITIS D/T CLOSTRIDIUM DIFFICILE, NOT SPCF RECUR SNOMED Code(s): 4078692083600 Comment: -liquid stool noted, C. diff + 11/04 -pt continues to have liquid stool -continue PO vanc -flexiseal in place (4) Hypotension Current Visit: Yes Status: Acute Comment: -requiring levophed in ICU -currently, SBP well controlled at 100-120's -holding home furosemide, spironolactone at this time -Can restart tomorrow (5) Transient atrial fibrillation Current Visit: Yes Status: Acute Code(s): I48.91 - UNSPECIFIED ATRIAL FIBRILLATION SNOMED Code(s): 00286195 Comment: -episode of post-op transient atrial fib -placed on digoxin -continue home carvedilol -continue telemetry -may need AC in outpatient setting after neurosurgery clearance (6) Urinary tract infection Current Visit: Yes Status: Acute Comment: -UC with citrobacter braakii -received 2d zosyn -narrowed to ceftriaxone; continue antibiotics (day 5) total, D/C ceftriaxone today (7) DVT prophylaxis Current Visit: No Status: Acute Code(s): Z29.9 - ENCOUNTER FOR PROPHYLACTIC MEASURES, UNSPECIFIED SNOMED Code(s): 460449378 Comment: -per neurosurgery: HSQ Status and Disposition: Inpatient Medicine. Discharge when stable in likely 2-3 days. Plan for JOSETTE.
[2019-11-06] MEDS: Digoxin TAB* 0.125 MG PO SCH (17:22)
[2019-11-06] MEDS: Melatonin 3 MG TAB PO PRN (21:31)
[2019-11-06] MEDS: Gabapentin CAP(*) 300 MG PO SCH (21:34)
[2019-11-06] MEDS: Lidocaine Patch REMOVE* 1 NOTE MISC SCH (21:46)
[2019-11-07] MEDS: Heparin VIAL(*) 5000 UNITS/ML VIAL (FIVE THOUSAND) SUBCUT SCH ×3 (05:37→22:09)
[2019-11-07 05:59] LABS: Hematocrit 26 % (35-47); Hemoglobin 8.9 g/dL (12.0-16.0); Mean Corpuscular HGB Conc 34 g/dL (31-36); Mean Corpuscular Hemoglobin 30 pg (27-31); Mean Corpuscular Volume 87 fL (80-97); Mean Platelet Volume 7.4 fL (7.4-10.4); Platelet Count 494 10^3/uL (150-450); Red Blood Count 3.02 10^6 /uL (3.70-4.87); Red Cell Distribution Width 14 % (10-15); White Blood Count 13.1 10^3/uL (3.5-10.8)
[2019-11-07 06:14] LABS: Calcium 8.1 mg/dL (8.6-10.3); Potassium 3.3 mmol/L (3.5-5.0)
[2019-11-07 06:20] LABS: BUN/Creatinine Ratio 14.3 (8-20); EGFR African American 91.6 (>60); EGFR Non-African American 75.7 (>60)
[2019-11-07 07:40] LABS: ABS Basophils 0.1 10^3/ul (0-0.2); ABS Eosinophils 0.2 10^3/ul (0-0.6); ABS Lymphocytes 2.1 10^3/ul (1.0-4.8); ABS Monocytes 1.1 10^3/ul (0-0.8); ABS Neutrophils 9.6 10^3/ul (1.5-7.7); Eosinophil % 1.6 %; Lymphocyte % 16.1 %; Nucleated Red Blood Cells % 0.1; Polychromasia 1+
[2019-11-07] MEDS: DULoxetine DR CAP* 30 MG CAP.DR PO SCH (09:15)
[2019-11-07] MEDS: Vancomycin CAP* 125 MG CAP PO SCH ×4 (09:15→19:52)
[2019-11-07] MEDS: HYDROcodone/ACETAMIN 5-325 MG* 1 TAB PO PRN ×2 (09:15→14:17)
[2019-11-07] MEDS: Lidocaine PATCH 5%* 1 PATCH TRANSDERM SCH (09:15)
[2019-11-07] MEDS: Famotidine IV* 10 MG/ML 2 ML (20 mg) IV SLOW PU SCH ×2 (09:15→19:53)
[2019-11-07] MEDS: Carvedilol TAB* 6.25 MG PO SCH ×2 (09:45→19:51)
--- NOTE | 2019-11-07 09:55 | PN ---
Subjective Date of Service: 11/07/19 Interval History: Ongoing diarrhea. Flexiseal in place. Working with PT. Able to do a little more with [facility] Objective Active Medications: Hydrocodone Bitart/Acetaminophen ([place] 5-325 Tab*) 1 tab PO Q4H PRN PRN Reason: PAIN - MODERATE Last Admin: 11/06/19 21:31 Dose: 1 tab Carvedilol (Coreg Tab*) 12.5 mg PO BID [facility] Last Admin: 11/07/19 09:45 Dose: Not Given Digoxin (Lanoxin Tab*) 0.125 mg PO 1700 [facility] Last Admin: 11/06/19 17:22 Dose: 0.125 mg Duloxetine HCl (Cymbalta Cap*) 30 mg PO DAILY [facility] Last Admin: 11/07/19 09:45 Dose: 30 mg Famotidine (Pepcid Iv*) 20 mg IV SLOW PU BID [facility] Last Admin: 11/07/19 09:45 Dose: 20 mg Gabapentin (Neurontin Cap(*)) 300 mg PO BEDTIME [facility] Last Admin: 11/06/19 21:34 Dose: 300 mg Heparin Sodium (Porcine) (Heparin Vial(*)) 5,000 units SUBCUT Q8HR [facility] Last Admin: 11/07/19 05:37 Dose: 5,000 units Heparin Sodium (Porcine) (Heparin Flush Picc/Ml/Cvc(*)) 1 - 3 ml FLUSH 0600, 1800 [facility]; Protocol Last Admin: 11/07/19 05:37 Dose: 2 ml Lidocaine (Lidoderm 5% Patch*) 1 patch TRANSDERM DAILY [facility] Last Admin: 11/07/19 09:45 Dose: 1 patch Melatonin (Melatonin) 9 mg PO BEDTIME PRN PRN Reason: SLEEP Last Admin: 11/06/19 21:31 Dose: 9 mg Ondansetron HCl (Zofran Inj*) 4 mg IV Q6H PRN PRN Reason: NAUSEA Last Admin: 11/01/19 09:06 Dose: 4 mg Pharmacy Profile Note (Lidocaine Patch Remove*) 1 note N/A 2100 [facility] Last Admin: 11/06/19 21:46 Dose: 1 note Potassium Chloride (Klor Con Er Tab*) 20 meq PO BID [facility] Vancomycin HCl (Vancomycin Cap*) 125 mg PO QID [facility] Last Admin: 11/07/19 09:45 Dose: 125 mg Vital Signs - 8 hr 02/18/20 02/18/20 02/18/20 03:44 05:50 07:40 Temperature 99.5 F 97.1 F Pulse Rate 77 79 Respiratory 17 19 17 Rate Blood Pressure 121/68 108/79 (mmHg) O2 Sat by Pulse 97 97 Oximetry Oxygen Devices in Use Now: None Eyes: No Scleral Icterus Ears/Nose/Mouth/Throat: NL Teeth, Lips, Gums Neck: NL Appearance and Movements; NL JVP Respiratory: Symmetrical Chest Expansion and Respiratory Effort Cardiovascular: NL Sounds; No Murmurs; No JVD Abdominal: - - abd distention,no rebounc no guarding Extremities: - - edema Neurological: Alert and Oriented x 3 Result Diagrams: 11/07/19 05:50 11/07/19 05:50 Microbiology and Other Data: Microbiology 11/01/19 23:35 Aerobic Blood Culture - Preliminary Blood Venous No Growth Day 3 Anaerobic Blood Culture - Preliminary No Growth Day 3 11/01/19 23:43 Aerobic Blood Culture - Preliminary Blood Venous No Growth Day 3 Anaerobic Blood Culture - Preliminary No Growth Day 3 11/04/19 10:23 Stool Gross Appearance - Final Stool C. difficile DNA Amplification - Final 027 Presumptive NEGATIVE Toxigenic C.diff POSITIVE 11/02/19 18:30 CSF Gram Stain (Tube 3) - Final Cerebral Spinal Fluid CSF Culture - Preliminary No Growth Day 2 11/02/19 00:25 Urine Culture - Final Urine Citrobacter Braakii 10/26/19 01:29 Urine Culture - Final Urine Assess/Plan/Problems-Billing Assessment: Quiana Smith is a 64 y/o female with history of restrictive cardiomyopathy with EF 40%, distant DVT and PE history, hypertension, cervical myelopathy, chronic back pain s/p lumbar decompression and fusion surgery, that presented with right leg weakness, numbness, bowel dysfunction and high concern for cauda equina syndrome who subsequently had decompressive surgery on 10/27/2019. Hospital course complicated by UTI, C. diff, episode of AF, hypotension. - Patient Problems (1) Cauda equina syndrome Current Visit: Yes Status: Acute Code(s): G83.4 - CAUDA EQUINA SYNDROME SNOMED Code(s): 389525596 Comment: -presented with RLE weakness, paresthesias, bowel dysfxn concerning for cauda equina -neurosurgery following; thank you for recommendations -pt is post-op decompression and fusion -drain removed 11/02 -OOB to chair only; awaiting TLSO brace prior to attempts at ambulation -planning for JOSETTE at d/c (2) Acute urinary retention Current Visit: Yes Status: Acute Code(s): R33.8 - OTHER RETENTION OF URINE SNOMED Code(s): 549206629 Comment: -gao catheter in place (3) C. difficile diarrhea Current Visit: Yes Status: Acute Code(s): A04.72 - ENTEROCOLITIS D/T CLOSTRIDIUM DIFFICILE, NOT SPCF RECUR SNOMED Code(s): 5656791191742 Comment: -liquid stool noted, C. diff + 11/04 -pt continues to have liquid stool -continue PO vanc -flexiseal in place -can likely attempt removing flexiseal tomorrow based on progress (4) Hypotension Current Visit: Yes Status: Acute Comment: -requiring levophed in ICU -currently, SBP well controlled at 100-120's -holding home furosemide, spironolactone at this time -Can restart today (5) Transient atrial fibrillation Current Visit: Yes Status: Acute Code(s): I48.91 - UNSPECIFIED ATRIAL FIBRILLATION SNOMED Code(s): 27652571 Comment: -episode of post-op transient atrial fib -placed on digoxin -continue home carvedilol -continue telemetry -may need AC in outpatient setting after neurosurgery clearance (6) Urinary tract infection Current Visit: Yes Status: Acute Comment: -UC with citrobacter braakii -received 2d zosyn -narrowed to ceftriaxone; continue antibiotics (day 5) total, D/C ceftriaxone yesterday -completed course (7) DVT prophylaxis Current Visit: No Status: Acute Code(s): Z29.9 - ENCOUNTER FOR PROPHYLACTIC MEASURES, UNSPECIFIED SNOMED Code(s): 058255386 Comment: -per neurosurgery: HSQ Status and Disposition: Inpatient Medicine. Discharge when stable in likely 2-3 days. Plan for JOSETTE.
[2019-11-07] MEDS: Potassium Chlor TAB* 20 MEQ TAB.ER PO SCH ×2 (10:26→19:52)
--- NOTE | 2019-11-07 17:00 | PN ---
Progress Note - Progress Note Date of Service: 11/07/19 SOAP: Subjective: []No events ON. On regular floor. Feels well. Tolerates PO well, Arellano. No MARS. Ambulated to door. On Abx for UTI, C Diff. Perineal sensation intact. Patient reports good voluntary control of anal sphincter. Objective: [] VSS, Afebtile. Wound s,c,d. AAOx3 BOB, CN II-XII grossly intact, Motor 5/5 all extremities Sensory grossly intact to light touch. No neck stiffness. Assessment: []64 yo f POD#12 L2-5 arthrodesis with L2-3 TLIF , revision of previous instrumented fusion, L 2-3, L3-4 decompression, durotomy repair. Plan: [] Monitor VS, Neurochecks Diet as tolerated Nutrition consult. OOB in a chair as tolerated. Ambulate with assistance CSF culture: No growth. On SQ heparin . TLSO brace when OOB. PT DC planning L spine XR in am upright in brace. Discussed with patient regarding plan. Appreciate IM care. Marko Alvarez MD
[2019-11-07] MEDS: Digoxin TAB* 0.125 MG PO SCH (17:11)
[2019-11-07] MEDS: Gabapentin CAP(*) 300 MG PO SCH (19:51)
[2019-11-07] MEDS: Lidocaine Patch REMOVE* 1 NOTE MISC SCH (19:53)
[2019-11-08] MEDS: Heparin VIAL(*) 5000 UNITS/ML VIAL (FIVE THOUSAND) SUBCUT SCH ×4 (05:38→21:33)
[2019-11-08 05:48] LABS: Hematocrit 26 % (35-47); Hemoglobin 8.7 g/dL (12.0-16.0); Mean Corpuscular HGB Conc 34 g/dL (31-36); Mean Corpuscular Hemoglobin 30 pg (27-31); Mean Corpuscular Volume 87 fL (80-97); Mean Platelet Volume 7.5 fL (7.4-10.4); Platelet Count 462 10^3/uL (150-450); Red Blood Count 2.93 10^6 /uL (3.70-4.87); Red Cell Distribution Width 15 % (10-15); White Blood Count 10.3 10^3/uL (3.5-10.8)
[2019-11-08 05:59] LABS: Calcium 7.8 mg/dL (8.6-10.3); EGFR African American 91.6 (>60); EGFR Non-African American 75.7 (>60); Potassium 3.4 mmol/L (3.5-5.0)
[2019-11-08 07:05] LABS: ABS Basophils 0.1 10^3/ul (0-0.2); ABS Eosinophils 0.2 10^3/ul (0-0.6); ABS Lymphocytes 1.9 10^3/ul (1.0-4.8); ABS Monocytes 0.8 10^3/ul (0-0.8); ABS Neutrophils 7.3 10^3/ul (1.5-7.7); Eosinophil % 2.2 %; Lymphocyte % 18.4 %
[2019-11-08] MEDS: Famotidine IV* 10 MG/ML 2 ML (20 mg) IV SLOW PU SCH ×2 (08:47→21:33)
[2019-11-08] MEDS: Vancomycin CAP* 125 MG CAP PO SCH ×4 (08:47→21:31)
[2019-11-08] MEDS: DULoxetine DR CAP* 30 MG CAP.DR PO SCH (08:47)
[2019-11-08] MEDS: Carvedilol TAB* 6.25 MG PO SCH ×2 (08:48→21:31)
[2019-11-08] MEDS: Potassium Chlor TAB* 20 MEQ TAB.ER PO SCH ×2 (08:48→21:32)
[2019-11-08] MEDS: Lidocaine PATCH 5%* 1 PATCH TRANSDERM SCH (08:49)
[2019-11-08] MEDS: HYDROcodone/ACETAMIN 5-325 MG* 1 TAB PO PRN (10:09)
--- NOTE | 2019-11-08 13:06 | PN ---
Subjective Date of Service: 11/08/19 Interval History: Doing better. Walking more with TLSO brace.Diarrhea improving Family History: Unchanged from Admission Social History: Unchanged from Admission Past Medical History: Unchanged from Admission Objective Active Medications: Hydrocodone Bitart/Acetaminophen ([place] 5-325 Tab*) 1 tab PO Q4H PRN PRN Reason: PAIN - MODERATE Last Admin: 11/08/19 10:09 Dose: 1 tab Carvedilol (Coreg Tab*) 12.5 mg PO BID [facility] Last Admin: 11/08/19 08:48 Dose: 12.5 mg Digoxin (Lanoxin Tab*) 0.125 mg PO 1700 [facility] Last Admin: 11/07/19 17:11 Dose: 0.125 mg Duloxetine HCl (Cymbalta Cap*) 30 mg PO DAILY [facility] Last Admin: 11/08/19 08:47 Dose: 30 mg Famotidine (Pepcid Iv*) 20 mg IV SLOW PU BID [facility] Last Admin: 11/08/19 08:47 Dose: 20 mg Gabapentin (Neurontin Cap(*)) 300 mg PO BEDTIME [facility] Last Admin: 11/07/19 19:51 Dose: 300 mg Heparin Sodium (Porcine) (Heparin Vial(*)) 5,000 units SUBCUT Q8HR [facility] Last Admin: 11/08/19 05:38 Dose: 5,000 units Heparin Sodium (Porcine) (Heparin Flush Picc/Ml/Cvc(*)) 1 - 3 ml FLUSH 0600, 1800 [facility]; Protocol Last Admin: 11/08/19 05:38 Dose: 2 ml Lidocaine (Lidoderm 5% Patch*) 1 patch TRANSDERM DAILY [facility] Last Admin: 11/08/19 08:49 Dose: 1 patch Melatonin (Melatonin) 9 mg PO BEDTIME PRN PRN Reason: SLEEP Last Admin: 11/06/19 21:31 Dose: 9 mg Ondansetron HCl (Zofran Inj*) 4 mg IV Q6H PRN PRN Reason: NAUSEA Last Admin: 11/01/19 09:06 Dose: 4 mg Pharmacy Profile Note (Lidocaine Patch Remove*) 1 note N/A 2100 [facility] Last Admin: 11/07/19 19:53 Dose: 1 note Potassium Chloride (Klor Con Er Tab*) 20 meq PO BID [facility] Last Admin: 11/08/19 08:48 Dose: 20 meq Vancomycin HCl (Vancomycin Cap*) 125 mg PO QID [facility] Last Admin: 11/08/19 08:47 Dose: 125 mg Vital Signs - 8 hr 11/08/19 11/08/19 11/08/19 07:59 08:00 10:09 Temperature 98.0 F 97.8 F Pulse Rate 85 82 Respiratory 16 18 18 Rate Blood Pressure 113/63 113/63 (mmHg) O2 Sat by Pulse 98 99 Oximetry 11/08/19 11/08/19 11:50 12:58 Temperature 97.3 F Pulse Rate 83 Respiratory 16 18 Rate Blood Pressure 120/66 (mmHg) O2 Sat by Pulse 95 Oximetry Oxygen Devices in Use Now: CPAP Eyes: No Scleral Icterus Neck: NL Appearance and Movements; NL JVP Respiratory: Symmetrical Chest Expansion and Respiratory Effort Cardiovascular: NL Sounds; No Murmurs; No JVD Abdominal: NL Sounds; No Tenderness; No Distention Extremities: - - edema Result Diagrams: 11/08/19 05:30 11/08/19 05:30 Microbiology and Other Data: Microbiology 11/01/19 23:35 Aerobic Blood Culture - Preliminary Blood Venous No Growth Day 3 Anaerobic Blood Culture - Preliminary No Growth Day 3 11/01/19 23:43 Aerobic Blood Culture - Preliminary Blood Venous No Growth Day 3 Anaerobic Blood Culture - Preliminary No Growth Day 3 11/04/19 10:23 Stool Gross Appearance - Final Stool C. difficile DNA Amplification - Final 027 Presumptive NEGATIVE Toxigenic C.diff POSITIVE 11/02/19 18:30 CSF Gram Stain (Tube 3) - Final Cerebral Spinal Fluid CSF Culture - Preliminary No Growth Day 2 11/02/19 00:25 Urine Culture - Final Urine Citrobacter Braakii 10/26/19 01:29 Urine Culture - Final Urine Assess/Plan/Problems-Billing Assessment: Quiana Simth is a 64 y/o female with history of restrictive cardiomyopathy with EF 40%, distant DVT and PE history, hypertension, cervical myelopathy, chronic back pain s/p lumbar decompression and fusion surgery, that presented with right leg weakness, numbness, bowel dysfunction and high concern for cauda equina syndrome who subsequently had decompressive surgery on 10/27/2019. Hospital course complicated by UTI, C. diff, episode of AF, hypotension. - Patient Problems (1) Cauda equina syndrome Current Visit: Yes Status: Acute Code(s): G83.4 - CAUDA EQUINA SYNDROME SNOMED Code(s): 740022589 Comment: -presented with RLE weakness, paresthesias, bowel dysfxn concerning for cauda equina -neurosurgery following; thank you for recommendations -pt is post-op decompression and fusion -drain removed 11/02 -OOB to chair only; awaiting TLSO brace prior to attempts at ambulation -planning for JOSETTE at d/c (2) Acute urinary retention Current Visit: Yes Status: Acute Code(s): R33.8 - OTHER RETENTION OF URINE SNOMED Code(s): 995755640 Comment: -gao catheter in place (3) C. difficile diarrhea Current Visit: Yes Status: Acute Code(s): A04.72 - ENTEROCOLITIS D/T CLOSTRIDIUM DIFFICILE, NOT SPCF RECUR SNOMED Code(s): 8377697439574 Comment: -liquid stool noted, C. diff + 11/04 -pt continues to have liquid stool -continue PO vanc -flexiseal in place -remove flexiseal today -can likely attempt removing flexiseal tomorrow based on progress (4) Hypotension Current Visit: Yes Status: Acute Comment: -requiring levophed in ICU -currently, SBP well controlled at 100-120's -holding home furosemide, spironolactone at this time -Can restart today (5) Transient atrial fibrillation Current Visit: Yes Status: Acute Code(s): I48.91 - UNSPECIFIED ATRIAL FIBRILLATION SNOMED Code(s): 54597921 Comment: -episode of post-op transient atrial fib -placed on digoxin -continue home carvedilol -continue telemetry -may need AC in outpatient setting after neurosurgery clearance (6) Urinary tract infection Current Visit: Yes Status: Acute Comment: -UC with citrobacter braakii -received 2d zosyn -narrowed to ceftriaxone; continue antibiotics (day 5) total, -completed course (7) DVT prophylaxis Current Visit: No Status: Acute Code(s): Z29.9 - ENCOUNTER FOR PROPHYLACTIC MEASURES, UNSPECIFIED SNOMED Code(s): 823071836 Comment: -per neurosurgery: HSQ Status and Disposition: Inpatient Medicine. Discharge when stable in likely 2-3 days. Plan for JOSETTE.
[2019-11-08] MEDS: Furosemide TAB* 20 MG PO SCH (14:46)
[2019-11-08] MEDS: Digoxin TAB* 0.125 MG PO SCH (19:05)
[2019-11-08] MEDS: Gabapentin CAP(*) 300 MG PO SCH (21:31)
[2019-11-08] MEDS: Melatonin 3 MG TAB PO PRN (21:32)
[2019-11-08] MEDS: Lidocaine Patch REMOVE* 1 NOTE MISC SCH (21:34)
[2019-11-09] MEDS: Heparin VIAL(*) 5000 UNITS/ML VIAL (FIVE THOUSAND) SUBCUT SCH ×3 (05:45→20:34)
[2019-11-09] MEDS ORDERED: Alteplase (CATHFLO)* 2 MG VIAL IV ONE (05:50)
[2019-11-09 07:37] LABS: Hematocrit 26 % (35-47); Hemoglobin 8.6 g/dL (12.0-16.0); Mean Corpuscular HGB Conc 34 g/dL (31-36); Mean Corpuscular Hemoglobin 29 pg (27-31); Mean Corpuscular Volume 87 fL (80-97); Mean Platelet Volume 7.8 fL (7.4-10.4); Platelet Count 385 10^3/uL (150-450); Red Blood Count 2.94 10^6 /uL (3.70-4.87); Red Cell Distribution Width 15 % (10-15); White Blood Count 8.2 10^3/uL (3.5-10.8)
[2019-11-09 07:57] LABS: BUN/Creatinine Ratio 10.4 (8-20); EGFR African American 91.6 (>60); EGFR Non-African American 75.7 (>60); Potassium 3.4 mmol/L (3.5-5.0)
[2019-11-09 08:18] LABS: ABS Eosinophils 0.2 10^3/ul (0-0.6); ABS Lymphocytes 1.5 10^3/ul (1.0-4.8); ABS Monocytes 0.7 10^3/ul (0-0.8); ABS Neutrophils 5.8 10^3/ul (1.5-7.7); Eosinophil % 2.1 %; Lymphocyte % 18.7 %
--- NOTE | 2019-11-09 09:29 | PN ---
Subjective Date of Service: 11/09/19 Interval History: Improving slowly everyday.Flexiseal removed. Bladder training ongoing. Family History: Unchanged from Admission Social History: Unchanged from Admission Past Medical History: Unchanged from Admission Objective Active Medications: Hydrocodone Bitart/Acetaminophen ([place] 5-325 Tab*) 1 tab PO Q4H PRN PRN Reason: PAIN - MODERATE Last Admin: 11/08/19 10:09 Dose: 1 tab Carvedilol (Coreg Tab*) 12.5 mg PO BID [facility] Last Admin: 11/08/19 21:31 Dose: 12.5 mg Digoxin (Lanoxin Tab*) 0.125 mg PO 1700 [facility] Last Admin: 11/08/19 19:05 Dose: 0.125 mg Duloxetine HCl (Cymbalta Cap*) 30 mg PO DAILY [facility] Last Admin: 11/08/19 08:47 Dose: 30 mg Famotidine (Pepcid Iv*) 20 mg IV SLOW PU BID [facility] Last Admin: 11/08/19 21:33 Dose: 20 mg Furosemide (Lasix Tab*) 20 mg PO DAILY [facility] Last Admin: 11/08/19 14:46 Dose: 20 mg Gabapentin (Neurontin Cap(*)) 300 mg PO BEDTIME [facility] Last Admin: 11/08/19 21:31 Dose: 300 mg Heparin Sodium (Porcine) (Heparin Vial(*)) 5,000 units SUBCUT Q8HR [facility] Last Admin: 11/09/19 05:45 Dose: 5,000 units Heparin Sodium (Porcine) (Heparin Flush Picc/Ml/Cvc(*)) 1 - 3 ml FLUSH 0600, 1800 [facility]; Protocol Last Admin: 11/09/19 05:45 Dose: 2 ml Lidocaine (Lidoderm 5% Patch*) 1 patch TRANSDERM DAILY [facility] Last Admin: 11/08/19 08:49 Dose: 1 patch Melatonin (Melatonin) 9 mg PO BEDTIME PRN PRN Reason: SLEEP Last Admin: 11/08/19 21:32 Dose: 9 mg Ondansetron HCl (Zofran Inj*) 4 mg IV Q6H PRN PRN Reason: NAUSEA Last Admin: 11/01/19 09:06 Dose: 4 mg Pharmacy Profile Note (Lidocaine Patch Remove*) 1 note N/A 2100 [facility] Last Admin: 11/08/19 21:34 Dose: 1 note Potassium Chloride (Klor Con Er Tab*) 20 meq PO BID [facility] Last Admin: 11/08/19 21:32 Dose: 20 meq Vancomycin HCl (Vancomycin Cap*) 125 mg PO QID [facility] Last Admin: 11/08/19 21:31 Dose: 125 mg Vital Signs - 8 hr 11/09/19 11/09/19 11/09/19 03:41 08:24 08:28 Temperature 97.4 F 97.9 F Pulse Rate 80 82 Respiratory 16 18 Rate Blood Pressure 118/68 110/68 102/68 (mmHg) O2 Sat by Pulse 98 99 Oximetry Oxygen Devices in Use Now: CPAP Eyes: No Scleral Icterus Ears/Nose/Mouth/Throat: NL Teeth, Lips, Gums Neck: NL Appearance and Movements; NL JVP Respiratory: Symmetrical Chest Expansion and Respiratory Effort Cardiovascular: NL Sounds; No Murmurs; No JVD Extremities: No Edema Neurological: Alert and Oriented x 3 Result Diagrams: 11/09/19 07:21 11/09/19 07:21 Microbiology and Other Data: Microbiology 11/01/19 23:35 Aerobic Blood Culture - Preliminary Blood Venous No Growth Day 3 Anaerobic Blood Culture - Preliminary No Growth Day 3 11/01/19 23:43 Aerobic Blood Culture - Preliminary Blood Venous No Growth Day 3 Anaerobic Blood Culture - Preliminary No Growth Day 3 11/04/19 10:23 Stool Gross Appearance - Final Stool C. difficile DNA Amplification - Final 027 Presumptive NEGATIVE Toxigenic C.diff POSITIVE 11/02/19 18:30 CSF Gram Stain (Tube 3) - Final Cerebral Spinal Fluid CSF Culture - Preliminary No Growth Day 2 11/02/19 00:25 Urine Culture - Final Urine Citrobacter Braakii 10/26/19 01:29 Urine Culture - Final Urine Assess/Plan/Problems-Billing Assessment: Quiana Smith is a 64 y/o female with history of restrictive cardiomyopathy with EF 40%, distant DVT and PE history, hypertension, cervical myelopathy, chronic back pain s/p lumbar decompression and fusion surgery, that presented with right leg weakness, numbness, bowel dysfunction and high concern for cauda equina syndrome who subsequently had decompressive surgery on 10/27/2019. Hospital course complicated by UTI, C. diff, episode of AF, hypotension. - Patient Problems (1) Cauda equina syndrome Current Visit: Yes Status: Acute Code(s): G83.4 - CAUDA EQUINA SYNDROME SNOMED Code(s): 434966489 Comment: -presented with RLE weakness, paresthesias, bowel dysfxn concerning for cauda equina -neurosurgery following; thank you for recommendations -pt is post-op decompression and fusion -drain removed 11/02 -OOB to chair only; awaiting TLSO brace prior to attempts at ambulation -planning for JOSETTE at d/c (2) Acute urinary retention Current Visit: Yes Status: Acute Code(s): R33.8 - OTHER RETENTION OF URINE SNOMED Code(s): 524406791 Comment: -gao catheter in place -remove today and evaluate (3) C. difficile diarrhea Current Visit: Yes Status: Acute Code(s): A04.72 - ENTEROCOLITIS D/T CLOSTRIDIUM DIFFICILE, NOT SPCF RECUR SNOMED Code(s): 0826173955050 Comment: -liquid stool noted, C. diff + 11/04 -pt continues to have liquid stool -continue PO vanc -flexiseal in place -removed flexiseal 11/08 (4) Hypotension Current Visit: Yes Status: Acute Comment: -requiring levophed in ICU -currently, SBP well controlled at 100-120's -holding home furosemide, spironolactone at this time -Restarted lasix first. If ok can consider restarting spironolactone if warranted tomorrow (5) Transient atrial fibrillation Current Visit: Yes Status: Acute Code(s): I48.91 - UNSPECIFIED ATRIAL FIBRILLATION SNOMED Code(s): 82891753 Comment: -episode of post-op transient atrial fib -placed on digoxin -continue home carvedilol -continue telemetry -may need AC in outpatient setting after neurosurgery clearance (6) Urinary tract infection Current Visit: Yes Status: Acute Comment: -UC with citrobacter braakii -received 2d zosyn -narrowed to ceftriaxone; continue antibiotics (day 5) total, -completed course (7) DVT prophylaxis Current Visit: No Status: Acute Code(s): Z29.9 - ENCOUNTER FOR PROPHYLACTIC MEASURES, UNSPECIFIED SNOMED Code(s): 664611529 Comment: -per neurosurgery: HSQ Status and Disposition: Inpatient Medicine. Plan for JOSETTE.
[2019-11-09] MEDS: Famotidine IV* 10 MG/ML 2 ML (20 mg) IV SLOW PU SCH ×2 (09:39→20:34)
[2019-11-09] MEDS: DULoxetine DR CAP* 30 MG CAP.DR PO SCH ×2 (09:45→09:58)
[2019-11-09] MEDS: Carvedilol TAB* 6.25 MG PO SCH ×2 (09:45→20:33)
[2019-11-09] MEDS: Lidocaine PATCH 5%* 1 PATCH TRANSDERM SCH (09:45)
[2019-11-09] MEDS: Furosemide TAB* 20 MG PO SCH ×2 (09:46→09:51)
[2019-11-09] MEDS: Potassium Chlor TAB* 20 MEQ TAB.ER PO SCH ×2 (09:46→20:33)
[2019-11-09] MEDS: Vancomycin CAP* 125 MG CAP PO SCH ×4 (09:46→20:33)
[2019-11-09] MEDS: Digoxin TAB* 0.125 MG PO SCH (17:24)
[2019-11-09] MEDS: Lidocaine Patch REMOVE* 1 NOTE MISC SCH (20:36)
[2019-11-09] MEDS ORDERED: Gabapentin CAP(*) 100 MG PO SCH (21:00)
[2019-11-09] MEDS: Melatonin 3 MG TAB PO PRN (23:46)
[2019-11-09] MEDS: HYDROcodone/ACETAMIN 5-325 MG* 1 TAB PO PRN (23:46)
--- NOTE | 2019-11-10 | PN ---
Progress Note - Progress Note Date of Service: 11/09/19 SOAP: Subjective: []No events ON. On regular floor. Feels well. Tolerates PO well, Arellano discontinued today. No MARS. Ambulates. On Abx for UTI, C Diff. Perineal sensation intact. Patient reports good voluntary control of anal sphincter. Objective: []VSS, Afebtile. Wound s,c,d. Dressing changed. AAOx3 BBO, CN II-XII grossly intact, Motor 5/5 all extremities Sensory grossly intact to light touch. No neck stiffness. Assessment: []64 yo f POD#14 L2-5 arthrodesis with L2-3 TLIF , revision of previous instrumented fusion, L 2-3, L3-4 decompression, durotomy repair. Plan: []Monitor VS, Neurochecks Diet as tolerated Nutrition consult. OOB in a chair as tolerated. Ambulate with assistance On SQ heparin . TLSO brace when OOB. L spine XR : good alignment of spine , good placement of hardware. PT DC planning Appreciate IM care. Marko Alvarez MD
[2019-11-10] MEDS: Heparin VIAL(*) 5000 UNITS/ML VIAL (FIVE THOUSAND) SUBCUT SCH (05:42)
[2019-11-10 06:01] LABS: Hematocrit 24 % (35-47); Mean Corpuscular HGB Conc 34 g/dL (31-36); Mean Corpuscular Hemoglobin 30 pg (27-31); Mean Corpuscular Volume 87 fL (80-97); Mean Platelet Volume 7.8 fL (7.4-10.4); Platelet Count 342 10^3/uL (150-450); Red Blood Count 2.69 10^6 /uL (3.70-4.87); Red Cell Distribution Width 15 % (10-15); White Blood Count 6.6 10^3/uL (3.5-10.8)
[2019-11-10 06:21] LABS: BUN/Creatinine Ratio 9.7 (8-20); EGFR Non-African American 81.8 (>60); Potassium 3.2 mmol/L (3.5-5.0)
[2019-11-10 07:47] LABS: ABS Eosinophils 0.2 10^3/ul (0-0.6); ABS Lymphocytes 1.8 10^3/ul (1.0-4.8); ABS Monocytes 0.6 10^3/ul (0-0.8); Eosinophil % 2.4 %; Lymphocyte % 27.5 %
[2019-11-10] MEDS: DULoxetine DR CAP* 30 MG CAP.DR PO SCH (08:44)
[2019-11-10] MEDS: Famotidine IV* 10 MG/ML 2 ML (20 mg) IV SLOW PU SCH (08:44)
[2019-11-10] MEDS: Lidocaine PATCH 5%* 1 PATCH TRANSDERM SCH (08:44)
[2019-11-10] MEDS: Carvedilol TAB* 6.25 MG PO SCH (08:45)
[2019-11-10] MEDS: Potassium Chlor TAB* 20 MEQ TAB.ER PO SCH (08:45)
[2019-11-10] MEDS: Vancomycin CAP* 125 MG CAP PO SCH ×2 (08:45→12:19)
[2019-11-10] MEDS: Furosemide TAB* 20 MG PO SCH (08:45)
[2019-11-10] MEDS ORDERED: Gabapentin CAP(*) 100 MG PO SCH (09:00)
[2019-11-10] MEDS ORDERED: Potassium Chlor TAB* 20 MEQ TAB.ER PO ONE (11:43)
[2019-11-10 11:44] VITALS: BP 110/72
--- NOTE | 2019-11-10 12:51 | DS ---
DATE OF ADMISSION: 10/26/2019. DATE OF DISCHARGE: 11/10/2019. PRIMARY DIAGNOSIS: 1. Cauda equina syndrome. 2. Spondylolisthesis at L3-4 and L2-3 with stenosis at the L3-4 and L2-3 level. 3. C. diff colitis. 4. Transient atrial fibrillation. 5. Urinary tract infection. SECONDARY DIAGNOSES: 1. Restrictive cardiomyopathy with known ejection fraction of 40 percent. 2. AVM. 3. Depression. 4. DVT. 5. PE. 6. Mitral valve insufficiency. 7. Obstructive sleep apnea on CPAP. 8. Hypertension. 9. UTI. 10. Chronic back pain. 11. Cervical myelopathy. 12. SVT. PAST SURGICAL HISTORY: 1. Craniotomy. 2. Cranioplasty. 3. Lumbar fusion. 4. Cervical diskectomy. 5. Carpal tunnel release. 6. Appendectomy. SURGERIES PERFORMED DURING THIS HOSPITAL STAY: The patient is status post posterolateral arthrodesis L2 through L5 with placement of right L2 to L3 TLIF with decompressive laminectomies L2-3 and L3-4 on 10/27/[address] Alvarez. HOSPITAL COURSE: This 64-year-old female with multiple back surgeries, obstructive sleep apnea on CPAP, PE and DVT in the past who is an established patient with Dr. Alvarez who came in to the hospital after she saw Dr. Alvarez in the office complaining of numbness starting in the right hip and tingling down the legs bilaterally, right worse than left, with low back pain. She was also noted to have urinary retention and decreased sensation in the anal area. Please refer to the history and physical dictated by Arun Concepcion on 10/26/2019 for full details. The patient was evaluated by Neurosurgery in the ER. Initially, the patient had a lumbar CT which showed no lumbar spine traumatic abnormalities, moderate multilevel lumbar spondylopathy including unchanged moderate L3-4 canal stenosis and likely compression of bilateral L2 though L4 nerve roots. The patient was supposed to have surgery with Dr. Alvarez initially in August which she had postponed. The patient was admitted to the hospital and underwent a lumbar spine MRI on 10/25/2019 which showed moderate multilevel lumbar spondylopathy post L4-5 diskectomy and posterior fusion with unchanged moderate L3-4 canal stenosis and relatively unchanged likely compression of the bilateral L2 to L4 nerve roots. Also noted to have Bosniak type I renal cyst with no follow-up for this cyst indicated. The patient was seen by Dr. Alvarez and emergency surgical intervention for decompression and arthrodesis was discussed with the patient. The patient was noted to have partial cauda equina severe axial back pain, right more than left radiculopathy of the lower extremities. The patient then underwent surgery on 10/27/2019 which was posterolateral arthrodesis L2 through L5 with placement of right L2-3 TLIF with decompressive laminectomies at L2-3 and L3-4; revision of previous instrumentation at L3-4 with placement of bilateral pedicle screws at L3- L2 with use of DBX, locally harvested bone graft and repair of incidental durotomy, placement of lumbar drain with intraoperative navigation and intraoperative monitoring. The patient was in the ICU after her surgery and initially needed Levophed for blood pressure support. Also was noted to be in transient A-fib with Digoxin and continued on Digoxin. Her Carvedilol was also continued. Hypotension improved through her hospital course and ICU stay. The patient also had a lumbar drain in place. The patient was fitted with a TLSO brace and through her ICU stay with hemodynamic support, the patient was slowly weaned off Levophed. The patient was noted to have a urinary tract infection with Citrobacter. The patient was initially placed on Zosyn and then switched to Ceftriaxone and at this time has completed her five day course of antibiotics. The patient's white count was 21,000. The patent's white count was noted to have significant leukocytosis and sepsis secondary to her infection and this resolved through her ICU stay as well. The patient also was noted to have significant diarrhea and noted to have C. diff and was started on p.o. Vancomycin. The patient had so far completed five days of p.o. Vancomycin and the patient needs five more days of p.o. Vancomycin to complete treatment for her C. diff colitis. The patient has slowly made progress through her complicated hospitalization and was eventually transferred out of the ICU to the floor on 11/04/2019. The patient was followed on the floor and managed medically. The patient had a Flexi-Seal in place and this has been removed and the patient has been able to control her bladder and bowel. The patient also had a Arellano catheter which has been removed. The patient has already completed treatment for her urinary tract infection as reported and the patient needs five more days for her C. diff. The patient was fitted for a TLSO brace has been working with Physical Therapy and making gradual improvements every day. The patient has continued to improve at this time and is able to walk a little bit more with her TLSO brace and needs rehab location. The patient is being discharged today in stable condition for further rehab with a TLSO brace. Vitals and labs are noted to be stable at the time of discharge: Temperature 97.7, pulse 83, respiratory rate 16 , oxygen saturation 97 percent on room air, the patient uses a CPAP at night for her sleep apnea, blood pressure 110/60. LABORATORY DATA: WBC 6.6, hemoglobin 8, hematocrit 24, platelets noted to be 342; sodium 140, potassium 3.2, replaced chloride 111, CO2 23, BUN 6, creatinine 0.7. PHYSICAL EXAMINATION: HEENT: NC/AT. Heart: S1, S2 present. Regular at the time of the exam. Lungs: Clear to auscultation. Abdomen: Soft. Extremities : Noted to have some edema, improving. Neuro: Alert and oriented times three. Gait not tested. TLSO brace in place. MEDICATIONS: 1. Melatonin. 2. Furosemide 20 mg daily. 3. Cymbalta 30 mg daily. 4. Carvedilol 12.5 mg p.o. b.i.d. 5. Calcium with vitamin D. 6. Vancomycin 125 mg p.o. q.i.d., needs it for 5 more days. 7. Potassium Chloride 20 mEq daily. 8. Melatonin at bedtime prn. 9. Lidocaine patch transdermal daily. 10. [place] one tab p.o. q.4 hours prn. 11. Gabapentin 100 mg in the morning and 200 mg at bedtime. 12. Lovenox for DVT prophylaxis 40 mg subcu daily. 13. Digoxin 0.125 mg p.o. daily. DISCHARGE INSTRUCTIONS: 1. Patient to follow-up as an outpatient with Dr. Alvarez in one to two weeks. 2. Patient to complete p.o. Vancomycin for five more days for her C. diff. 3. Please note, the patient has to follow-up with Dr. Alvarez in four weeks as an outpatient. 4. Patient discussed anticoagulation for DVT prophylaxis with Dr. Alvarez. Due to her risk of PE's in the past and patient has tolerated Heparin well in the hospital, will discharge the patient on Lovenox for now. When she is able to walk well, the Lovenox can be stopped per discussion with Neurosurgery. With respect to her atrial fibrillation, I will hold off on aspirin or other anticoagulation at this point as she is high risk for bleeding in her immediate postop period. Will continue her rate control medications and Lovenox for now. The patient can follow- up with Cardiology and her PCP as an outpatient and then decide on further management and anticoagulation. This has been discussed with the patient as well and she is in agreement. 5. With respect to restrictions, the patient cannot lift, cannot bend, cannot drive per discussion with Neurosurgery. The patient can take a shower, but she cannot take a soaking bath. 6. The patient will be discharged to rehab today. DISPOSITION: rehab. CONDITION ON DISCHARGE: Stable. TIME SPENT: Total time spent on discharge is equal to 60 minutes. [id number]/CPS #: [id number] MTDD
== END 2019-11-10 13:00 | DRG 304 ==
LOC: ED 17:05 → OBSVTOIN 10-26 02:13 → MED 10-26 02:13 → ICU 10-27 08:05 → SSU 11-04 11:48
PROVIDERS: ADMIT Nurse Practitioner Family; ATTEND Internal Medicine
PROC: 0SG10AJ Fusion of 2 or more Lumbar Vertebral Joints with Interbody Fusion Device, Posterior Approach, Anterior Column, Open Approach (ICD-10-PCS; principal; 2019-10-27)
PROC: 4A11X4G Monitoring of Peripheral Nervous Electrical Activity, Intraoperative, External Approach (ICD-10-PCS; 2019-10-27)
PROC: 01NB0ZZ Release Lumbar Nerve, Open Approach (ICD-10-PCS; 2019-10-27)
PROC: 00U20KZ Supplement Dura Mater with Nonautologous Tissue Substitute, Open Approach (ICD-10-PCS; 2019-10-27)
PROC: 0QH004Z Insertion of Internal Fixation Device into Lumbar Vertebra, Open Approach (ICD-10-PCS; 2019-10-27)
PROC: 0QP004Z Removal of Internal Fixation Device from Lumbar Vertebra, Open Approach (ICD-10-PCS; 2019-10-27)
DX: M48.061 Spinal stenosis, lumbar region without neurogenic claudication (principal); G83.4 Cauda equina syndrome; I42.5 Other restrictive cardiomyopathy; N39.0 Urinary tract infection, site not specified; A04.72 Enterocolitis due to Clostridium difficile, not specified as recurrent; G97.41 Accidental puncture or laceration of dura during a procedure; Z68.41 Body mass index [BMI] 40.0-44.9, adult; I10 Essential (primary) hypertension; J44.9 Chronic obstructive pulmonary disease, unspecified; M17.0 Bilateral primary osteoarthritis of knee; F41.9 Anxiety disorder, unspecified; F32.9 Major depressive disorder, single episode, unspecified; G89.29 Other chronic pain; G47.33 Obstructive sleep apnea (adult) (pediatric); M43.16 Spondylolisthesis, lumbar region; M40.299 Other kyphosis, site unspecified; I48.91 Unspecified atrial fibrillation; E66.9 Obesity, unspecified; I34.0 Nonrheumatic mitral (valve) insufficiency; R33.9 Retention of urine, unspecified; E87.6 Hypokalemia; I95.81 Postprocedural hypotension; Y83.8 Other surgical procedures as the cause of abnormal reaction of the patient, or of later complication, without mention of misadventure at the time of the procedure; Y92.239 Unspecified place in hospital as the place of occurrence of the external cause; Z98.1 Arthrodesis status; Z86.718 Personal history of other venous thrombosis and embolism; Z87.891 Personal history of nicotine dependence; Z86.711 Personal history of pulmonary embolism
CPT/HCPCS: 36415; 71045; 72100; 72131; 72146; 72148; 76000; 80048; 80053; 80202; 81003; 81015; 82607; 82945; 83605; 83735; 84100; 84157; 84443; 85014; 85018; 85025; 85027; 85610; 85730; 86140; 86850; 86900; 86901; 86922; 87040; 87070; 87077; 87086; 87186; 87205; 87324; 87493; 88300; 89051; 93005; 93970; 94660; 99283; A9270-GY; C1713; C1751; C1776; J0330; J0690; J0696; J1100; J1160; J1170; J1644; J2250; J2270; J2405; J2543; J2704; J2997; J3010; J3370; J3475; J3480; P9045

== ENCOUNTER 2020-01-09 17:02 | Emergency (ER) | payer OTHER ==
--- OUTSIDE RECORDS SUMMARY | 2020-01-09 17:15 | XMS REPORT | Continuity of Care Document ---
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 Onset: 03/10/2016 knee, subsequent encounter Chill Ilan Lowe MD Onset: 08/28/2019 Low back pain Ilan Lowe MD Onset: 08/28/2019 Acute appendicitis with perforation and Ilan Lowe MD Onset: 08/28/2019 localized peritonitis, without abscess Social History Type Date Description Comments Sex Unknown Tobacco Use Start: Unknown End: Former Cigarette Smoker Unknown Smoking Status Reviewed: 11/20/19 Former Cigarette Smoker ETOH Use Occasionally consumes 1 glass of wine alcohol weekly ETOH Use Denies alcohol use Tobacco Use Start: Unknown End: Patient is [...] hours apart) Calicum daily Unknown 1500mg Tablets Trazodone HCL Take 1 Tablet By 30tabs Ilan Lowe MD 150mg Mouth Everyday Tablets AT Bedtime Acidophilus Probiotic daily Unknown 10mg Capsules Gabapentin 1 by mouth every 30caps Ilan Lowe MD 300mg night at bedtime Capsules Medications Administered in Office Medication SIG Qnty Indications Ordering Provider Date Depomedrol 40MG Campbell Patton MD 01/14/2017 Injection Dexamethasone Sodium Campbell Patton MD 10/26/2016 Phosphate, 1 MG Injection Technetium TC 99M Tetrofosmin, [facility] Nuclear Arrival 10/09/2016 Per Unit Dose Up To 40 Millicuries Injection Inj, Regadenoson, 0.1 MG Kunal Sow M.D. 10/08/2016 Injection Technetium TC 99M Tetrofosmin, Kunal Sow M.D. 10/08/2016 Per Unit Dose Up To 40 Millicuries Injection Depomedrol 40MG Campbell Patton MD 08/25/2016 Injection Immunizations Description No Information Available Vital Signs Date Vital Result Comment 11/20/2019 12:04pm Height 65 inches 5'5" Weight 229.00 lb Heart Rate 92 /min BP Systolic 100 mmHg BP Diastolic 80 mmHg Pain Level 0 BMI (Body Mass Index) 38.1 kg/m2 10/11/2019 11:42am Height 65 inches 5'5" Weight 249.00 lb Heart Rate 64 /min Pain Level 10 BMI (Body Mass Index) 41.4 kg/m2 Results Test Acquired Date Facility Test Result H/L Range Note Laboratory test 12/06/2019 [facility] Covid19, Undetected Undetected [address] [place] [address] [phone] Urinalysis 10/26/2019 [facility] Urine Yellow Profile [address] [place] [address] [phone] Urine Appearance Cloudy Urine Specific [place] 1.023 Normal 1.010-1.030 Urine pH 7.0 Normal 5-9 Urine Urobilinogen Negative Negative Urine Ketones Trace Abnormal Negative Urine Protein Negative Negative Urine Leukocytes 1+ Abnormal Negative Urine Blood Negative Negative Urine Nitrite Negative Negative Urine Bilirubin Negative Negative Urine Glucose 1+(50 mg/dL) Abnormal Negative Urine White Blood Cell 3+(>20/hpf) Abnormal Absent Urine Red Blood Cell Absent Absent Urine Bacteria Absent Absent Urine Squamous Epithelial Cell Present Abnormal Absent Urine Culture And 10/26/2019 [facility] Urine SEE RESULT [address] [place] [address] [phone] Inr/Protime 10/26/2019 [facility] Inr 0.95 Normal 0.[address] -1.0 [place] [address] 9 [phone] Type & Screen 10/26/2019 [facility] Patient O Positive [address] [place] [address] [phone] Antibody Screen NEGATIVE Laboratory test 10/26/2019 [facility] Partial 32.1 Normal 26.0 -38.[address] [place] [address] Time PTT [phone] Laboratory test 10/26/2019 [facility] TSH 2.01 Normal 0.34- 5.[address] (Thyroid mcIU/[place] [address] Stim Horm) [phone] Vitamin B12 353 pg/mL Normal 180-914 4 CBC Auto 10/25/2019 [facility] White Blood 5.8 10^3/uL Normal 3.5-10.[address] [place] [address] [phone] Red Blood Count 4.22 10^6/uL Normal 3.70-4.87 Hemoglobin 12.4 g/dL Normal 12.0-16.0 Hematocrit 37 % Normal 35-47 Mean Corpuscular Volume 88 fL Normal 80-97 Mean Corpuscular Hemoglobin 30 pg Normal 27-31 Mean Corpuscular HGB Conc 34 g/dL Normal 31-36 Red Cell Distribution Width 14 % Normal 10-15 Platelet Count 269 10^3/uL Normal 150-450 Mean Platelet Volume 8.2 fL Normal 7.4-10.4 Abs Neutrophils 3.4 10^3/uL Normal 1.5-7.7 Abs Lymphocytes 1.8 10^3/uL Normal 1.0-4.8 Abs Monocytes 0.4 10^3/uL Normal 0-0.8 Abs Eosinophils 0.1 10^3/uL Normal 0-0.6 Abs Basophils 0.0 10^3/uL Normal 0-0.2 Abs Nucleated RBC 0.0 10^3/uL Granulocyte % 59.5 % Lymphocyte % 30.7 % Monocyte % 7.1 % Eosinophil % 2.2 % Basophil % 0.5 % Nucleated Red Blood Cells % 0.0 Comp Metabolic 10/25/2019 [facility] Sodium 138 mmol/L Normal 135-145 Panel [address] [place] [address] [phone] Potassium 4.1 mmol/L Normal 3.5-5.0 Chloride 104 mmol/L Normal 101-111 Co2 Carbon Dioxide 28 mmol/L Normal 22-32 Anion Gap 6 mmol/L Normal 2-11 Glucose 96 mg/dL Normal 70-100 Blood Urea Nitrogen 16 mg/dL Normal 6-24 Creatinine 1.15 mg/dL High 0.51-0.95 BUN/Creatinine Ratio 13.9 Normal 8-20 Calcium 8.7 mg/dL Normal 8.6-10.3 Total Protein 7.0 g/dL Normal 6.4-8.9 Albumin 3.8 g/dL Normal 3.2-5.2 Globulin 3.2 g/dL Normal 2-4 Albumin/Globulin Ratio 1.2 Normal 1-3 Total Bilirubin 0.40 mg/dL Normal 0.2-1.0 Alkaline Phosphatase 127 U/L High 34-104 Alt 18 U/L Normal 7-52 Ast 23 U/L Normal 13-39 Egfr Non- 47.7 >60 Egfr 57.7 >60 5 Laboratory test 10/25/2019 [facility] C Reactive 9.44 mg/L High <8.[address] [place] [address] [phone] Laboratory test 09/04/2019 [facility] C Reactive 8.95 mg/L High <8.[address] [place] [address] [phone] CBC Auto Diff 09/04/2019 [facility] White Blood 8.8 Normal 3.5 -10.[address] Count 10^3/[place] [address] [phone] Red Blood Count 4.29 10^6/uL Normal 3.70-4.87 [...] % Nucleated Red Blood Cells % 0.0 Surgical 08/24/2019 [facility] Surgical SEE RESULT [address] [place] [address] [phone] PDFReport SEE IMAGE 1 SARS-CoV-2 RNA is not detected. ADDITIONAL INFORMATION Testing was performed using the cara SARS-CoV-2 assay ([employer] on the cara 6800 System. Fact sheets for this Emergency Use Authorization (EUA) assay can be found at the following links: For Healthcare Providers: https://www.fda.gov/media/688974/download For Patients: https://www.fda.gov/media/184943/download Test Performed by: [facility] [address] [place] [address] Paving Crew Foreman: Noel Mota M.D. Ph.D.; CLIA# [id number] 2 SEE RESULT BELOW Name: QUIANA SMITH : [address]: Cam Wolf MD Acct: [id number] Unit: [id number] AGE: 64 Location: ICU [id number] Re10/26/19 SEX: F Status: ADM IN SPEC: [id number] MICKIE: 10/26/[address]: Rajat Casas MD REQ: [id number] RECD: 10/26/19 STATUS: COMP OTHR DR: Ilan Alvarez MD _ SOURCE: URINE SPDESC: ORDERED: Urine Culture Procedure Result Reported Site Urine Culture Final 10/28/19- 0945 ML No growth of clinically significant organisms * ML - Main Lab . END OF REPORT DEPARTMENT OF PATHOLOGY, [address] [place] [address] Nima Rivera M.D. Director [facility] # [id number] 3 Standard intensity warfarin therapeutic range: 2.0-3.0 High intensity warfarin therapeutic range: 2.5-3.5 4 Normal Range 180 to 914 Indeterminate Range 145 to 180 Deficient Range <145 5 Because ethnic data is not always readily available, this report includes an eGFR for both -Americans and non- Americans. The National Kidney Disease Education Program (NKDEP) does not endorse the use of the MDRD equation for patients that are not between the ages of 18 and 70, are , have extremes of body size, muscle mass, or nutritional status, or are non- or non-. According to the National Kidney Foundation, irrespective of diagnosis, the stage of the disease is based on the level of kidney function: Stage Description GFR(mL/min/1.73 m(2)) 1 Kidney damage with normal or decreased GFR 90 2 Kidney damage with mild decrease in GFR 60-89 3 Moderate decrease in GFR 30-59 4 Severe decrease in GFR 15-29 5 Kidney failure <15 (or dialysis) 6 SEE RESULT BELOW Name: QUIANA SMITH : [address]: Arsenio Alcazar MD Acct: [id number] Unit: [id number] AGE: 64 Location: [place] [address]- Re08/24/19 SEX: F Status: ADM IN SPEC: [id number] MICKIE: 08/24/19-0330 [facility] [address]: Arsenio Alcazar MD REQ: [id number] RECD: 08/24/190778 STATUS: SOUT _ ORDERED: LEVEL 3 FINAL [...] and the wall thickness averages 0.1 cm. Wood Model Maker sections, one cassette. Signed by and Reported on: Leisa Goode MD 08/25/19 1558 END OF REPORT DEPARTMENT OF PATHOLOGY, [address] [place] [address] Nima Rivera M.D. Director [facility] # [id number] Procedures Date Code Description Status 10/27/2019 40712 Swanson/Facet/Foraminotomy;Ea Addl Segment; Cerv, Thora, Completed Or Lumbar 10/27/2019 75228 Swanson/Facet/Foraminotomy;Vertebral Segment; Lumbar Completed 10/27/2019 45664 Stereotactic Computer-Assisted, Spinal Completed 10/27/2019 14054 Insertion Interbody Biomechanical Device; Each Completed Interspace 10/27/201962701 Post Segmental Instrumentation 3-6 Segments Completed 10/27/2019 72391 Arthrodesis,Combined Posterior Or Posterolateral Tech Completed 10/27/2019 80721 Arthrodsis, Post, Addl Segment Completed 10/27/201941221 Autograft For Spine Surgery (Incls Harvesting The Completed Graft) 10/27/2019 Allograft For Spine Surgery, Morselized Completed 10/26/2019 71183 EKG, Interpretation Only Completed 08/24/2019 87073 Laparoscopy, Surgical, Appendectomy Completed 08/23/2019 40025 EKG, Interpretation Only Completed 08/11/2019 63031 ECHO Transthorasic Realtime 2D W Doppler & Color Flow Completed Hosp 08/11/2019 02102 Treadmill Interp/Report Only Completed 08/11/2019 43481 Stress Test Supervsn W/Out I/R Completed 08/20/2018 77507437 Colonoscopy Completed 06/20/2009 16960573 Mammogram Completed 01/19/2008 750163082 Bone Mineral Density Test Completed Medical Devices Description No Information Available Encounters Type Date Location Provider Dx Diagnosis Office Visit 10/26/2019 [facility] G83.4 Cauda equina 7:00a [facility] Al[facility] MD syndrome M48.061 Spinal stenosis, lumbar region without neurogenic chay M43.16 Spondylolisthesis, lumbar region Office Visit 10/25/2019 11:00p Neurosurgery V[facility]il[facility]oseph G83.4 Cauda equina [facility] Alvarez MD syndrome M48.061 Spinal stenosis, lumbar region without neurogenic chay M43.16 Spondylolisthesis, lumbar region Office Visit 10/11/2019 [facility] M48.062 Spinal stenosis, 11:30a [facility] Alvarez MD lumbar region with neurogenic claudication M51.36 Other intervertebral disc degeneration, lumbar region Office Visit 08/28/2019 4:00p [facility] Lowe MD R68.83 Chills ( without Medicine - Suite fever) R K35.32 Acute appendicitis with perf and loc peritonitis, w/o abscs R06.02 Shortness of breath G47.33 Obstructive sleep apnea (adult) (pediatric) I42.9 Cardiomyopathy, unspecified M54.5 Low back pain Office Visit 08/24/2019 11:11a [facility] Sally Mayer, R34 Anuria and Assoc,pc PA oliguria Hospitalists I42.5 Other restrictive cardiomyopathy I10 Essential (primary) hypertension G47.33 Obstructive sleep apnea (adult) (pediatric) G89.29 Other chronic pain Office Visit 08/23/2019 Surgical Arsenio S. K35.32 Acute 7:00a [facility] Alc[facility] MD appendicitis with perf and loc peritonitis, w/o abscs Office Visit 08/23/2019 [facility] Adele R00.0 Tachycardia, 11:11a Assoc,pc Linnea, PA-C unspecified Hospitalists I42.5 Other restrictive cardiomyopathy I10 Essential (primary) hypertension M54.9 Dorsalgia, unspecified G47.33 Obstructive sleep apnea (adult) (pediatric) F32.9 Major depressive disorder, single episode, unspecified Office Visit 08/11/2019 [facility] Isabelle Ceasar, I50.23 Acute on chronic 11:27a Assoc,pc CIVIL RIGHTS REPRESENTATIVE systolic Hospitalists (congestive) heart failure Office Visit 08/10/2019 [facility] Mery Norma, R06.00 Dyspnea, 11:27a Assoc,pc M.D. unspecified Hospitalists R00.0 Tachycardia, unspecified Office Visit 06/22/2019 [facility] M48.062 Spinal stenosis, 3:00p [facility] Al[facility] MD lumbar region with neurogenic claudication M47.12 Other spondylosis with myelopathy, cervical region M47.896 Other spondylosis, lumbar region M47.26 Other spondylosis with radiculopathy, lumbar region M48.062 Spinal stenosis, lumbar region with neurogenic claudication Assessments Date Code Description Provider 11/20/2019 Z48.89 Encounter for other specified Juan Jose Alvarez MD surgical aftercare 11/20/2019 M48.061 Spinal stenosis, lumbar region Juan Jose Alvarez MD without neurogenic claudication 10/27/2019 G83.4 Cauda equina syndrome Juan Jose Alvarez MD 10/27/2019 M48.061 Spinal stenosis, lumbar region Vassiljoseph Alvarez MD without neurogenic claudication 10/27/2019 M43.16 Spondylolisthesis, lumbar region Juan Jose Alvarez MD 10/26/2019 G83.4 Cauda equina syndrome Juan Jose Alvarez MD 10/26/2019 R94.31 Abnormal electrocardiogram [ECG] Nato Gonzalez MD, FACC, [EKG] FSCAI 10/26/2019 M48.061 Spinal stenosis, lumbar region Vassiljoseph Alvarez MD without neurogenic claudication 10/26/2019 M43.16 Spondylolisthesis, lumbar region Juan Jose Alvarez MD 10/25/2019 G83.4 Cauda equina syndrome Juan Jose Alvarez MD 10/25/2019 M48.061 Spinal stenosis, lumbar region Vassiljoseph Alvarez MD without neurogenic claudication 10/25/2019 M43.16 Spondylolisthesis, lumbar region Vassiljoseph Alvarez MD 10/11/2019 M48.062 Spinal stenosis, lumbar region with Vassiljoseph Alvarez MD neurogenic claudication 10/11/2019 M51.36 Other intervertebral disc Juan Jose Alvarez MD degeneration, lumbar region 09/08/2019 K35.32 Acute appendicitis with perforation Arsenio Alcazar MD and localized peritonitis, without abscess 08/28/2019 R68.83 Chills (without fever) Ilan Lowe MD 08/28/2019 K35.32 Acute appendicitis with perforation Ilan Lwoe MD and localized peritonitis, without abscess 08/28/2019 R06.02 Shortness of breath Ilan Lowe MD 08/28/2019 G47.33 Obstructive sleep apnea (adult) Ilan Lowe MD (pediatric) 08/28/2019 I42.9 Cardiomyopathy, unspecified Ilan Lowe MD 08/28/2019 M54.5 Low back pain Ilan Lowe MD 08/26/2019 K35.32 Acute appendicitis [...] R94.31 Abnormal electrocardiogram [ECG] Félix Obrien M.D., [facility], [EKG] [facility] 08/23/2019 R00.0 Tachycardia, unspecified Adele O'edis, PA-C 08/23/2019 K35.32 Acute appendicitis with perforation Arsenio Alcazar MD and localized peritonitis, without abscess 08/23/2019 I42.5 Other restrictive cardiomyopathy Adele O'edis, PA-C 08/23/2019 I10 Essential (primary) hypertension Adele O'edis, PA-C 08/23/2019 M54.9 Dorsalgia, unspecified Adele O'edis, PA-C 08/23/2019 G47.33 Obstructive sleep apnea (adult) Adele O'edis, PA-C (pediatric) 08/23/2019 F32.9 Major depressive disorder, single Adele O'edis, PA-C episode, unspecified 08/11/2019 I50.23 Acute on chronic systolic Isabelle Ceasar, CIVIL RIGHTS REPRESENTATIVE (congestive) heart failure 08/11/2019 R07.9 Chest pain, unspecified Nato Gonzalez MD, FACC, [facility] 08/11/2019 I50.9 Heart failure, unspecified Yakov Simpson DO [facility] 08/10/2019 R06.00 Dyspnea, unspecified Mery Green M.D. [...] with Juan Jose Alvarez MD neurogenic claudication Plan of Treatment No Information Available Functional Status Description No Information Available Mental Status Description No Information Available Referrals Refer to Reason for Referral Status Appt Date Olivia Erwin MD HEENA on CPAP, PFTs (SOB with 40 pack years) Sent [address] [place] [phone] [phone]
--- OUTSIDE RECORDS SUMMARY | 2020-01-09 17:15 | XMS REPORT ---
:1955 Author Organization [facility] Care Team Providers Name Role Phone Unavailable [...] Date Date Medication? Clinician (SIG) Name Name No Known No Known No None None None Medications Medications For This For This Patient Patient Procedures This patient has no known procedures. Results This patient has no known results.
--- OUTSIDE RECORDS SUMMARY | 2020-01-09 17:15 | XMS REPORT ---
:1955 Author Organization [facility] Care Team Providers Name Role Phone Unavailable [...]
--- OUTSIDE RECORDS SUMMARY | 2020-01-09 17:15 | XMS REPORT | Continuity of Care Document ---
:1955 External Reference #:[id number] Author Name Juan Jose Alvarez MD Address [address] [place] [address] Care Team Providers Name Role Phone Ilan Lowe MD - Hospitalist Care Team Information Clinic Administrator [phone] Jaron Quiñones MD - Hematology Care Team Information Clinic Administrator Problems Active Problems Provider Date Electrocardiogram abnormal [...] Medications SIG Qnty Indications Ordering Date Provider Xarelto Take 1 tab twice a 42tabs Ilan Lowe MD 12/25/2019 15mg day for 21 days. Tablets Xarelto 1 by mouth every 90tabs Ilan Lowe MD 12/25/2019 20mg day. Start to take Tablets After the 15mg twice a day prescription finishes (ie after first 21 day course) Clotrimazole Twice Daily Unknown 08/10/2019 Anti-Fungal 1% Cream Duloxetine HCL Every Day Unknown 08/10/[address] Thang Melatonin Bedtime Unknown 08/10/2019 5mg Capsules Tlso Brace When out of bed , M48.062 [facility] 08/07/2019 after surgery MD Kmi Tlskishore Brace When out of bed , [facility] 08/07/2019 after surgery MD Kim Carvedilol 1 pill by mouth 180tabs Ilan Lowe MD 07/11/2012 12.5mg twice per day ( Tablets 10-12 hours apart) Calicum daily Unknown 1500mg Tablets Trazodone HCL Take 1 Tablet By 30tabs Ilan Lowe MD 150mg Mouth Everyday AT Tablets Bedtime Acidophilus daily Unknown Probiotic 10mg Capsules Gabapentin 1 by mouth every [...] Available Vital Signs Date Vital Result Comment 12/18/2019 12:53pm Height 65 inches 5'5" Heart Rate 63 /min BP Systolic 118 mmHg BP Diastolic 77 mmHg Respiratory Rate 16 /min Body Temperature 97.4 F O2 % BldC Oximetry 99 % 11/20/2019 12:04pm Height 65 inches 5'5" Weight 229.00 lb Heart Rate 92 /min BP Systolic 100 mmHg BP Diastolic 80 mmHg Pain Level 0 BMI (Body Mass Index) 38.1 kg/m2 Results Test Acquired Date Facility Test Result H/L Range Note Laboratory test 12/06/2019 [facility] Covid19, Undetected Undetected [address] [place] [address] [phone] Urinalysis 10/26/2019 [facility] Urine Yellow Profile [address] [place] [address] [phone] Urine Appearance Cloudy Urine Specific [place] 1.023 Normal 1.010-1.030 Urine pH 7.0 Normal [...] Present Abnormal Absent Urine Culture And 10/26/2019 [facility] Urine SEE RESULT [address] [place] [address] [phone] Inr/Protime 10/26/2019 [facility] Inr 0.[address] -1.0 [place] [address] 9 [phone] Type & Screen 10/26/2019 [facility] Patient O Positive [address] [place] [address] [phone] Antibody Screen NEGATIVE Laboratory test 10/26/2019 [facility] Partial 32.1 Normal 26.0 -38.[address] [place] [address] Time PTT [phone] Laboratory test 10/26/2019 [facility] TSH 2.01 Normal 0.34- 5.[address] (Thyroid mcIU/[place] [address] Stim Horm) [phone] Vitamin B12 353 pg/mL Normal 180-914 4 Laboratory test 10/25/2019 [facility] C Reactive 9.44 mg/L High <8.[address] [place] [address] [phone] Comp Metabolic 10/25/2019 [facility] Sodium 138 Normal 135- [address] mmol/L [place], [place] [id number] [phone] Potassium 4.1 mmol/L Normal 3.5-5.0 Chloride 104 [...] Non- 47.7 >60 Egfr 57.7 >60 5 CBC Auto 10/25/2019 [facility] White Blood 5.8 10^3/uL Normal 3.5-10.[address] [place] [address] [phone] Red Blood Count 4.22 10^6/uL Normal 3.70-4.87 [...] % Nucleated Red Blood Cells % 0.0 CBC Auto 09/04/2019 [facility] White Blood 8.8 10^3/uL Normal 3.5-10.[address] [place] [address] [phone] Red Blood Count 4.29 10^6/uL Normal 3.70-4.87 [...] Blood Cells % 0.0 Laboratory test 09/04/2019 [facility] C Reactive 8.95 mg/L High <8.[address] [place] [address] [phone] Surgical 08/24/2019 [facility] Surgical SEE RESULT [address] [place] [address] [phone] PDFReport SEE IMAGE 1 SARS-CoV-2 RNA is not detected. ADDITIONAL INFORMATION Testing was performed using the cara SARS-CoV-2 assay ([employer] on the cara 6800 System. Fact sheets for this Emergency Use Authorization (EUA) assay can be found at the following links: For Healthcare Providers: https://www.fda.gov/media/791084/download For Patients: https://www.fda.gov/media/231028/download Test Performed by: [facility] - [address] [address] [facility] Family Living Professor: Noel Mota M.D. Ph.D.; CLIA# [id number] 2 SEE RESULT BELOW Name: QUIANA SMITH : [address]: Cam Wolf MD Acct: [id number] Unit: [id number] AGE: 64 Location: ICU [id number] Re10/26/19 SEX: F Status: ADM IN SPEC: [id number] MICKIE: 10/26/[address] [facility] [address]: Rajat Casas MD REQ: [id number] RECD: 10/26/19 STATUS: HARJINDER MALONE DR: Ilan Alvarez MD _ SOURCE: URINE SPDESC: ORDERED: Urine Culture Procedure Result Reported Site Urine Culture Final 10/28/19- 0945 ML No growth of clinically significant organisms * ML - Main Lab . END OF REPORT DEPARTMENT OF PATHOLOGY, [address] [place] [address] Nima Rivera M.D. Director [facility] # [id number] 3 Standard intensity warfarin therapeutic range: 2.0-3.0 [...] [address]: Arsenio Alcazar MD Acct: [id number] Unit: [id number] AGE: 64 Location: [place] [address] Re08/24/19 SEX: F Status: ADM IN SPEC: [id number] MICKIE: 08/24/[address] [facility] [address]: Arsenio Alcazar MD REQ: [id number] RECD: 08/24/19 STATUS: SOUT _ ORDERED: LEVEL [...] and the wall thickness averages 0.1 cm. Professor Of Radiology sections, one cassette. Signed by and Reported on: Leisa Goode MD 08/25/19 1558 END OF REPORT DEPARTMENT OF PATHOLOGY, [address] [place] [address] Nima Rivera M.D. Director [facility] # [id number] Procedures Date Code Description Status 10/27/2019 67061 Swanson/Facet/Foraminotomy;Ea Addl Segment; Cerv, Thora, Completed Or Lumbar 10/27/2019 21678 Swanson/Facet/Foraminotomy;Vertebral Segment; Lumbar Completed 10/27/2019 92124 Stereotactic Computer-Assisted, Spinal Completed 10/27/2019 57286 Insertion Interbody Biomechanical Device; Each Completed Interspace 10/27/2019 26360 Post Segmental Instrumentation 3-6 Segments Completed 10/27/2019 87545 Arthrodesis,Combined Posterior Or Posterolateral Tech Completed 10/27/2019 88955 Arthrodsis, Post, Addl Segment Completed 10/27/201937766 Autograft For Spine Surgery (Incls Harvesting The Completed Graft) 10/27/2019 87055 Allograft For Spine Surgery, Morselized Completed 10/26/2019 36287 EKG, Interpretation Only Completed 08/24/2019 75021 Laparoscopy, Surgical, Appendectomy Completed 08/23/2019 95473 EKG, Interpretation Only Completed 08/11/2019 01256 ECHO Transthorasic Realtime 2D W Doppler & Color Flow Completed Hosp 08/11/2019 40377 Treadmill Interp/Report Only Completed 08/11/2019 51905 Stress Test Supervsn W/Out I/R Completed 08/20/2018 [id number] Colonoscopy Completed 06/20/2009 21081444 Mammogram Completed 01/19/2008 692555979 Bone Mineral Density Test Completed Medical Devices Description No Information Available Encounters Type Date Location Provider Dx Diagnosis Office Visit 10/26/2019 [facility] G83.4 [facility] 7:00[facility] Al[facility] MD syndrome M48.061 Spinal stenosis, lumbar region without neurogenic chay M43.16 Spondylolisthesis, lumbar region Office Visit 10/25/2019 11:00p [facility] G83.4 [facility] Al[facility] MD syndrome M48.061 Spinal stenosis, lumbar region without neurogenic chay M43.16 Spondylolisthesis, lumbar region Office Visit 10/11/2019 [facility] [place] M48.062 Spinal stenosis, 11:30a [facility] Al[facility] MD lumbar region with neurogenic claudication M51.36 Other intervertebral disc degeneration, lumbar region Office Visit 08/28/2019 4:00p [facility] Internal Ilan Lowe MD R68.83 Chills ( without Medicine - Suite fever) R K35.32 Acute appendicitis with perf and loc peritonitis, w/o abscs R06.02 Shortness of breath G47.33 Obstructive sleep apnea (adult) (pediatric) I42.9 Cardiomyopathy, unspecified M54.5 Low back pain Office Visit 08/24/2019 11:11a [facility] Sally Mayer, R34 Anuria and Assoc,pc PA oliguria Hospitalists I42.5 Other restrictive cardiomyopathy I10 Essential (primary) hypertension G47.33 Obstructive sleep apnea (adult) (pediatric) G89.29 Other chronic pain Office Visit 08/23/2019 Surgical Arsenio S. 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 systolic Hospitalists (congestive) heart failure Office Visit 08/10/2019 [facility] Mery Green, R06.00 Dyspnea, 11:27a Assoc,pc M.DKenya unspecified Hospitalists R00.0 Tachycardia, unspecified Assessments Date Code Description Provider 01/09/2020 M48.061 Spinal stenosis, lumbar region Juan Jose Alvarez MD without neurogenic claudication 01/09/2020 M51.36 Other intervertebral disc Juan Jose Alvarez MD degeneration, lumbar region 12/18/2019 Z48.89 Encounter for other specified Juan Jose Alvarez MD surgical aftercare 12/18/2019 M48.061 Spinal stenosis, lumbar region Juan Jose Alvarez MD without neurogenic claudication 12/18/2019 G83.4 Cauda equina syndrome Juan Jose Alvarez MD 12/18/2019 M43.16 Spondylolisthesis, lumbar region Juan Jose Alvarez MD 12/18/2019 M48.061 Spinal stenosis, lumbar region Juan Jose Alvarez MD without neurogenic claudication 11/20/2019 Z48.89 Encounter for other specified Juan Jose Alvarez MD surgical aftercare 11/20/2019 M48.061 Spinal stenosis, lumbar region Juan Jose Alvarez MD without neurogenic claudication 10/27/2019 G83.4 Cauda equina syndrome Juan Jose Alvarez MD 10/27/2019 M48.061 Spinal stenosis, lumbar region Juan Jose Alvarez MD without neurogenic claudication 10/27/2019 M43.16 Spondylolisthesis, lumbar region Juan Jose Alvarez MD 10/26/2019 G83.4 Cauda equina syndrome Juan Jose Alvarez MD 10/26/2019 R94.31 Abnormal electrocardiogram [ECG] Nato Gonzaelz MD, FACC, [EKG] FSCAI 10/26/2019 M48.061 Spinal stenosis, lumbar region Juan Jose Alvarez MD without neurogenic claudication 10/26/2019 M43.16 Spondylolisthesis, lumbar region Juan Jose Alvarez MD 10/25/2019 G83.4 Cauda equina syndrome Juan Jose Alvarez MD 10/25/2019 M48.061 Spinal stenosis, lumbar region Juan Jose Alvarez MD without neurogenic claudication 10/25/2019 M43.16 Spondylolisthesis, lumbar region Juan Jose Alvarez MD 10/11/2019 M48.062 Spinal stenosis, lumbar [...] electrocardiogram [ECG] Félix Obrien M.D., FACC, [EKG] [facility] 08/23/2019 R00.0 Tachycardia, unspecified Adele Yarbrough PA-C 08/23/2019 K35.32 Acute appendicitis with perforation Arsenio Alcazar MD and localized peritonitis, without abscess 08/23/2019 I42.5 Other restrictive cardiomyopathy Adele Yarbrough PA-C 08/23/2019 I10 Essential (primary) hypertension SIMONE QuijanoC 08/23/2019 M54.9 Dorsalgia, unspecified SIMONE QuijanoC 08/23/2019 G47.33 Obstructive sleep apnea (adult) Adele Yarbrough PA-C (pediatric) 08/23/2019 F32.9 Major depressive disorder, single Adele Yarbrough PA-C episode, unspecified 08/11/2019 I50.23 Acute on chronic systolic Isabelle Ceasar, DIGESTER OPERATOR (congestive) heart failure 08/11/2019 R07.9 Chest pain, unspecified Nato Gonzalez MD, FAC, FSCAI 08/11/2019 I50.9 Heart failure, unspecified Yakov SKenya Simpson, DO FACC 08/10/2019 R06.00 Dyspnea, unspecified Mery Green M.D. 08/10/2019 R00.0 Tachycardia, unspecified Mery Grene M.D. 08/04/2019 M48.062 Spinal stenosis, lumbar region with Juan Jose Alvarez MD neurogenic claudication Plan of Treatment Future Appointment(s):01/11/2020 9:30 am - Juan Jose Alvraez MD at [facility]01/09/2020 - Juan Jose Alvarez, MDM48.061 Spinal stenosis, lumbar region without neurogenic claudNew Xrays:MRI Lumbar Spine W/Wo , Ordered: 01/09/20CT Spine Lumbar W/O, Ordered: 01/09/20Follow up:RV in 1 week after imaging is done. Please contact Dr Lowe's office regarding RLE DVT follow up today.M51.36 Other intervertebral disc degeneration, lumbar region Functional Status Description No Information Available Mental Status Description No Information Available Referrals Refer to Reason for Referral Status Appt Date Jaron Quiñones MD 2nd DVT. though both possibly provoked by Sent extensive back surgeries. [address] [place] [address] [phone] Olivia Erwin MD HEENA on CPAP, PFTs (SOB with 40 pack years) Sent [address] [place] [address] [phone]
--- OUTSIDE RECORDS SUMMARY | 2020-01-09 17:15 | XMS REPORT ---
:1955 Author Organization [facility] Care Team Providers Name Role Phone Unavailable [...]
--- OUTSIDE RECORDS SUMMARY | 2020-01-09 17:15 | XMS REPORT | Continuity of Care Document ---
:1955 External Reference #:[id number] Author Name [facility] (transmitted by agent of provider Diamond Golden) Address [address] [place] [address] Care Team Providers Name Role Phone Ilan Lowe MD - Hospitalist Care Team Information Power Equipment Technology Instructor [phone] Problems Active Problems Provider Date Electrocardiogram abnormal [...] Olivia Erwin MD Onset: 09/24/2015 Hypoxemia Olivia Ewrin MD Onset: 09/24/2015 Obesity Olivia Erwin MD [...] 1 MG Injection Technetium TC 99M Tetrofosmin, [facility] Nuclear Schedule 10/09/2016 Per Unit Dose Up [...] Date Facility Test Result H/L Range Note Urinalysis Profile 10/26/2019 [facility] Urine Color Yellow [address] [place] [address] [phone] Urine Appearance Cloudy Urine Specific [place] 1.023 Normal 1.010-1.030 Urine pH 7.0 Normal [...] Present Abnormal Absent Urine Culture And 10/26/2019 [facility] Urine SEE RESULT [address] [place] [address] [phone] Inr/Protime 10/26/2019 [facility] Inr 0.95 Normal 0.[address] -1.0 [place] [address] 9 [phone] Type & Screen 10/26/2019 [facility] Patient O Positive [address] [place] [address] [phone] Antibody Screen NEGATIVE Laboratory test 10/26/2019 [facility] Partial 32.1 Normal 26.0 -38.[address] [place] [address] Time PTT [phone] Laboratory test 10/26/2019 [facility] TSH 2.01 Normal 0.34- 5.[address] (Thyroid mcIU/[place] [address] Stim Horm) [phone] Vitamin B12 353 pg/mL Normal 180-914 3 CBC Auto 10/25/2019 [facility] White Blood 5.8 10^3/uL Normal 3.5-10.[address] [place] [address] [phone] Red Blood Count 4.22 10^6/uL Normal 3.70-4.87 [...] Blood Cells % 0.0 Comp Metabolic 10/25/2019 [facility] Sodium 138 mmol/L Normal 135-[address] [place] [address] [phone] Potassium 4.1 mmol/L Normal 3.5-5.0 Chloride 104 [...] Egfr Non- 47.7 >60 Egfr 57.7 >60 4 Laboratory test 10/25/2019 [facility] C Reactive 9.44 mg/L High <8.[address] [place] [address] [phone] Laboratory test 09/04/2019 [facility] C Reactive 8.95 mg/L High <8.[address] [place] [address] [phone] CBC Auto Diff 09/04/2019 [facility] White Blood 8.8 Normal 3.5 -10.[address] Count 10^3/[place] [address] [phone] Red Blood Count 4.29 10^6/uL Normal 3.70-4.87 [...] Red Blood Cells % 0.0 Surgical 08/24/2019 [facility] Surgical SEE RESULT [address] Pathology BELOW [place] [id number] [phone] PDFReport SEE IMAGE 1 SEE RESULT BELOW Name: QUIANA SMITH : [address]: Cam Wolf MD Acct: [id number] Unit: [id number] AGE: 64 Location: ICU [id number] Re10/26/19 SEX: F Status: ADM IN SPEC: [id number] MICKIE: 10/26/[address] [facility] [address]: Rajat Casas MD REQ: [id number] RECD: 10/26/19 STATUS: COMP OT DR: Ilan Alvarez MD _ SOURCE: URINE SPDESC: ORDERED: Urine Culture Procedure Result Reported Site Urine Culture Final 10/28/19- 0945 ML No growth of clinically significant organisms * ML - Main Lab . END OF REPORT DEPARTMENT OF PATHOLOGY, [address] [place] [address] Nima Rivera M.D. Director [facility] # [id number] 2 Standard intensity warfarin therapeutic range: 2.0-3.0 High intensity warfarin therapeutic range: 2.5-3.5 3 Normal Range 180 to 914 Indeterminate Range 145 to 180 Deficient Range <145 4 Because ethnic data is not always readily [...] 15-29 5 Kidney failure <15 (or dialysis) 5 SEE RESULT BELOW Name: QUIANA SMITH : [address]: Arsenio Alcazar MD Acct: [id number] Unit: [id number] AGE: 64 Location: [place] [address] Re08/24/19 SEX: F Status: ADM IN SPEC: [id number] MICKIE: 08/24/[address] [facility] [address]: Arsenio Alcazar MD REQ: [id number] RECD: 08/24/19 STATUS: SOUT _ ORDERED: LEVEL [...] and the wall thickness averages 0.1 cm. Transcriptionist sections, one cassette. Signed by and Reported on: Leisa Goode MD 08/25/19 1558 END OF REPORT DEPARTMENT OF PATHOLOGY, [address] [place] [address] Nima Rivera M.D. Director [facility] # [id number] Procedures Date Code Description Status 10/27/2019 71003 Swanson/Facet/Foraminotomy;Ea Addl Segment; Cerv, Thora, Completed Or Lumbar 10/27/2019 74458 Swanson/Facet/Foraminotomy;Vertebral Segment; Lumbar Completed 10/27/2019 52196 Stereotactic Computer-Assisted, Spinal Completed 10/27/2019 09561 Insertion Interbody Biomechanical Device; Each Completed Interspace 10/27/2019 78976 Post Segmental Instrumentation 3-6 Segments Completed 10/27/2019 18497 Arthrodesis,Combined Posterior Or Posterolateral Tech Completed 10/27/201901763 Arthrodsis, Post, Addl Segment Completed 10/27/201989726 Autograft For Spine Surgery (Incls Harvesting The Completed Graft) 10/27/201972365 Allograft For Spine Surgery, Morselized Completed 10/26/2019 03625 EKG, Interpretation Only Completed 08/24/2019 59789 Laparoscopy, Surgical, Appendectomy Completed 08/23/2019 06957 EKG, Interpretation Only Completed 08/11/2019 26899 ECHO Transthorasic Realtime 2D W Doppler & Color Flow Completed Hosp 08/11/2019 12784 Treadmill Interp/Report Only Completed 08/11/2019 57610 Stress Test Supervsn W/Out I/R Completed 08/20/2018 25829552 Colonoscopy Completed 06/20/2009 75390492 Mammogram Completed 01/19/2008 326833734 Bone Mineral Density Test Completed Medical Devices Description No Information Available Encounters Type Date Location Provider Dx Diagnosis Office Visit 10/26/2019 [facility] V[facility]ilios G83.4 Cauda equina 7:00a [facility] MD Kim syndrome M48.061 Spinal stenosis, lumbar region without [...] degeneration, lumbar region Office Visit 08/28/2019 4:00p [facility] Internal Ilan Lowe MD R68.83 Chills ( without Medicine - Suite fever) R K35.32 Acute appendicitis with perf and loc peritonitis, w/o abscs R06.02 Shortness of breath G47.33 Obstructive sleep apnea (adult) (pediatric) I42.9 Cardiomyopathy, unspecified M54.5 Low back pain Office Visit 08/24/2019 11:11a [facility] Sally Mayer, R34 Anuria and Assoc,pc MANUEL oliguria Hospitalists I42.5 Other restrictive cardiomyopathy I10 Essential (primary) hypertension G47.33 Obstructive sleep apnea (adult) (pediatric) G89.29 Other chronic pain Office Visit 08/23/2019 Surgical Arsenio S. 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 unspecified Hospitalists R00.0 Tachycardia, unspecified Office Visit 06/22/2019 [facility] M48.062 Spinal stenosis, 3:00p [facility] [place] Alvarez MD lumbar region with neurogenic claudication M47.12 Other spondylosis with myelopathy, cervical region M47.896 Other spondylosis, lumbar region M47.26 Other spondylosis with radiculopathy, lumbar region M48.062 Spinal stenosis, lumbar region with neurogenic claudication Assessments Date Code Description Provider 11/20/2019 G83.4 Cauda equina syndrome Juan Jose Alvarez MD 11/20/2019 M48.061 Spinal stenosis, lumbar region Juan Jose Alvarez MD without neurogenic claudication 11/20/2019 M43.16 Spondylolisthesis, lumbar region Juan Jose Alvarez MD 11/20/2019 M48.061 Spinal stenosis, lumbar region Juan [...] abscess 08/28/2019 R06.02 Shortness of breath Ilan oLwe MD 08/28/2019 G47.33 Obstructive sleep apnea (adult) Ilan Lowe MD (pediatric) 08/28/2019 I42.9 Cardiomyopathy, unspecified Ilan Lowe MD 08/28/2019 M54.5 Low back pain Ilan oLwe MD 08/26/2019 K35.32 Acute appendicitis with perforation [...] electrocardiogram [ECG] Félix Obrien M.D., FACC, [EKG] FASFL 08/23/2019 R00.0 Tachycardia, unspecified Adelemarcela Yarbrough, PA-C 08/23/2019 K35.32 Acute appendicitis with perforation Arsenio Alcazar MD and localized peritonitis, without abscess 08/23/2019 I42.5 Other restrictive cardiomyopathy Adelemarcela Yarbrough PA-C 08/23/2019 I10 Essential (primary) hypertension Adelemarcela Yarbrough PA-C 08/23/2019 M54.9 Dorsalgia, unspecified Adele O'edis, PA-C 08/23/2019 G47.33 Obstructive sleep apnea (adult) Adele Yarbrough PA-C (pediatric) 08/23/2019 F32.9 Major depressive disorder, single Adele Yarbrough PA-C episode, unspecified 08/11/2019 I50.23 Acute on chronic systolic Isabelle Ceasar, FACILITIES SPECIALIST (congestive) heart failure 08/11/2019 R07.9 Chest pain, unspecified Nato Gonzalez MD, FAC, FSCAI 08/11/2019 I50.9 Heart failure, unspecified Yakov Simpson, DO FACC 08/10/2019 R06.00 Dyspnea, unspecified [...] MD neurogenic claudication Plan of Treatment Future Appointment(s):12/18/2019 12:30 pm - Juan [facility]/2019 - Juan Jose Alvarez MDG83.4 Cauda equina dqdouxhiT62.061 Spinal stenosis, lumbar region without neurogenic claudFollow up:RV in 3-4 edrwzL57.16 Spondylolisthesis, lumbar region Functional Status Description No Information Available Mental Status Description No Information Available Referrals Refer to Reason for Referral Status Appt Date Olivia Erwin MD HEENA on CPAP, PFTs (SOB with 40 pack years) Sent [address] [place] [address] [phone]
--- OUTSIDE RECORDS SUMMARY | 2020-01-09 17:15 | XMS REPORT | Continuity of Care Document ---
:1955 External Reference #:[id number] Author Name Juan Jose Alvarez MD (transmitted by agent of provider December) Address [address] [place] [address]., [place] [address] Care Team Providers Name Role Phone Ilan Lowe MD - Hospitalist Care Team Information Metal Bonding Helper [phone] Jaron Quiñones MD - Hematology Care Team Information Metal Bonding Helper [phone] Problems Active Problems Provider Date Electrocardiogram abnormal [...] , M48.062 Vassilios 08/07/2019 after surgery MD Kim Tlso Brace When out of bed , Vassilios [...] 1 MG Injection Technetium TC 99M Tetrofosmin, [facility] Nuclear Arrival 10/09/2016 Per Unit Dose [...] Result H/L Range Note Laboratory test 12/06/2019 [facility] Covid19, Undetected Undetected [address] [place] [address] [phone] Urinalysis 10/26/2019 [facility] Urine Yellow Profile [address] [place] [address] [phone] Urine Appearance Cloudy Urine Specific [place] 1.023 Normal 1.010-1.030 Urine pH 7.0 Normal [...] Present Abnormal Absent Urine Culture And 10/26/2019 [facility] Urine SEE RESULT [address] [place] [address] [phone] Inr/Protime 10/26/2019 [facility] Inr 0.95 Normal 0.[address] -1.0 [place] [address] 9 [phone] Type & Screen 10/26/2019 [facility] Patient O Positive [address] [place] [address] [phone] Antibody Screen NEGATIVE Laboratory test 10/26/2019 [facility] Partial 32.1 Normal 26.0 -38.[address] [address] Time PTT [phone] Laboratory test 10/26/2019 [facility] TSH 2.01 Normal 0.34- 5.[address] (Thyroid mcIU/[place] [address] Stim Horm) [phone] Vitamin B12 353 pg/mL Normal 180-914 4 Laboratory test 10/25/2019 [facility] C Reactive 9.44 mg/L High <8.[address] [place] [address] [phone] Comp Metabolic 10/25/2019 [facility] Sodium 138 Normal 135- [address] mmol/[place] [address] [phone] Potassium 4.1 mmol/L Normal 3.5-5.0 Chloride 104 [...] Egfr 57.7 >60 5 CBC Auto 10/25/2019 [facility] White Blood 5.8 10^3/uL Normal 3.5-10.[address] [place] [address] [phone] Red Blood Count 4.22 10^6/uL Normal 3.70-4.87 [...] Blood Cells % 0.0 CBC Auto 09/04/2019 [facility] White Blood 8.8 10^3/uL Normal 3.5-10.[address] [place] [address] [phone] Red Blood Count 4.29 10^6/uL Normal 3.70-4.87 [...] Blood Cells % 0.0 Laboratory test 09/04/2019 [facility] C Reactive 8.95 mg/L High <8.[address] [place] [address] [phone] Surgical 08/24/2019 [facility] Surgical SEE RESULT [address] [place] [address] [phone] PDFReport SEE IMAGE 1 SARS-CoV-2 RNA is not detected. ADDITIONAL INFORMATION Testing was performed using the cara SARS-CoV-2 assay ([employer] on the cara [employer] System. Fact sheets for this Emergency Use Authorization (EUA) assay can be found at the following links: For Healthcare Providers: https://www.fda.gov/media/461069/download For Patients: https://www.fda.gov/media/270012/download Test Performed by: [facility] [address] [place] [address] Icu Tech: Noel Mota M.D. Ph.D.; IA# [id number] 2 SEE RESULT BELOW Name: QUIANA SMITH : [address]: Cam Wolf MD Acct: [id number] Unit: [id number] AGE: 64 Location: ICU [id number] Re10/26/19 SEX: F Status: ADM IN SPEC: [id number] MICKIE: 10/26/[address] [facility] [address]: Rajat Casas MD REQ: [id number] RECD: 10/26/19 STATUS: HARJINDER MALONE DR: Ilan Alvarez MD _ SOURCE: URINE SPDESC: ORDERED: Urine Culture Procedure Result Reported Site Urine Culture Final 10/28/19- 0945 ML No growth of clinically significant organisms * ML - Main Lab . END OF REPORT DEPARTMENT OF PATHOLOGY, [address] [place] [address] Nima Rivera M.D. Director [facility] # [id number] 3 Standard intensity warfarin therapeutic range: 2.0-3.0 [...] [address]: Arsenio Alcazar MD Acct: [id number] Unit: [id number] AGE: 64 Location: [place] [address] Re08/24/19 SEX: F Status: ADM IN SPEC: [id number] MICKIE: 08/24/[address] [facility] [address]: Arsenio Alcazar MD REQ: [id number] RECD: 08/24/19 STATUS: SOUT _ ORDERED: LEVEL [...] and the wall thickness averages 0.1 cm. Vp Of [employer] sections, one cassette. Signed by and Reported on: Leisa Goode MD 08/25/19 1558 END OF REPORT DEPARTMENT OF PATHOLOGY, [address] [place] [address] Nima Rivera M.D. Director [facility] # [id number] Procedures Date Code Description Status 10/27/2019 01174 Swnason/Facet/Foraminotomy;Ea Addl Segment; Cerv, Thora, Completed Or Lumbar 10/27/2019 26207 Swanson/Facet/Foraminotomy;Vertebral Segment; Lumbar Completed 10/27/2019 49822 Stereotactic Computer-Assisted, Spinal Completed 10/27/2019 03724 Insertion Interbody Biomechanical Device; Each Completed Interspace 10/27/2019 32745 Post Segmental Instrumentation 3-6 Segments Completed 10/27/2019 15180 Arthrodesis,Combined Posterior Or Posterolateral Tech Completed 10/27/2019 32371 Arthrodsis, Post, Addl Segment Completed 10/27/201986970 Autograft For Spine Surgery (Incls Harvesting The Completed Graft) 10/27/2019 78191 Allograft For Spine Surgery, Morselized Completed 10/26/2019 32837 EKG, Interpretation Only Completed 08/24/2019 68856 Laparoscopy, Surgical, Appendectomy Completed 08/23/2019 54511 EKG, Interpretation Only Completed 08/11/2019 45847 ECHO Transthorasic Realtime 2D W Doppler & Color Flow Completed Hosp 08/11/2019 07105 Treadmill Interp/Report Only Completed 08/11/2019 22716 Stress Test Supervsn W/Out I/R Completed 08/20/2018 93846523 Colonoscopy Completed 06/20/2009 62234559 Mammogram Completed 01/19/2008 324259671 Bone Mineral Density Test Completed Medical Devices Description No Information Available Encounters Type Date Location Provider Dx Diagnosis Office Visit 10/26/2019 [facility] G83.4 Cauda equina 7:00a [facility] a[facility]rien Alvarez MD syndrome M48.061 Spinal stenosis, lumbar [...] degeneration, lumbar region Office Visit 08/28/2019 4:00p [facility] Internal Ilan Lowe MD R68.83 Chills ( without Medicine - Suite fever) R K35.32 Acute appendicitis with perf and loc peritonitis, w/o abscs R06.02 Shortness of breath G47.33 Obstructive sleep apnea (adult) (pediatric) I42.9 Cardiomyopathy, unspecified M54.5 Low back pain Office Visit 08/24/2019 11:11a [facility] Sally Mayer, R34 Anuria and Assoc,daylin JACKSON oliguria Hospitalists I42.5 Other restrictive cardiomyopathy I10 Essential (primary) hypertension G47.33 Obstructive sleep apnea (adult) (pediatric) G89.29 Other chronic pain Office Visit 08/23/2019 Surgical Arsenio S. K35.32 Acute 7:00a [facility] Alcazar MD appendicitis with perf and loc peritonitis, w/o abscs Office Visit 08/23/2019 [facility] Adele R00.0 Tachycardia, 11:11a Assoc,pc MANUEL Yarbrough-C unspecified Hospitalists I42.5 Other restrictive cardiomyopathy I10 Essential (primary) hypertension M54.9 Dorsalgia, unspecified G47.33 Obstructive sleep apnea (adult) (pediatric) F32.9 Major depressive disorder, single episode, unspecified Office Visit 08/11/2019 [facility] Isabelle Ceasar, I50.23 Acute on chronic 11:27a Assoc,pc OCEAN FORWARDER systolic Hospitalists (congestive) heart failure Office Visit 08/10/2019 [facility] Mery Green, R06.00 Dyspnea, 11:27a Assoc,pc M.DKenya unspecified Hospitalists R00.0 Tachycardia, unspecified Assessments Date Code Description Provider 12/18/2019 Z48.89 Encounter for other specified Juan Jose Alvarez MD surgical aftercare 12/18/2019 M48.061 Spinal stenosis, lumbar region Juan Jose Alvarez MD without neurogenic claudication 12/18/2019 G83.4 Cauda equina syndrome Sierrasiljoseph Alvarez, 12/18/2019 M43.16 Spondylolisthesis, lumbar region Juan Jose Alvarez, 12/18/2019 M48.061 Spinal stenosis, lumbar region Vassiljoseph Alvarez, without neurogenic claudication 11/20/2019 Z48.89 Encounter for other specified Juan Jose Alvarez MD surgical aftercare 11/20/2019 M48.061 Spinal stenosis, lumbar region Vassiljoseph Alvarez MD without neurogenic claudication 10/27/2019 G83.4 Cauda equina syndrome Vassiljoseph Alvarez MD 10/27/2019 M48.061 Spinal stenosis, lumbar region Sierrasiljoseph Alvarez MD without neurogenic claudication 10/27/2019 M43.16 Spondylolisthesis, lumbar region Juan Jose Alvarez MD 10/26/2019 G83.4 Cauda equina syndrome Juan Jose Alvarez MD 10/26/2019 R94.31 Abnormal electrocardiogram [ECG] Nato Gonzalez MD, FACC, [EKG] FSCAI 10/26/2019 M48.061 Spinal stenosis, lumbar region Sierrasiljoseph Alvarez MD without neurogenic claudication 10/26/2019 M43.16 Spondylolisthesis, lumbar region Juan Jose Alvarez MD 10/25/2019 G83.4 Cauda equina syndrome Sierrasiljoseph Alvarez MD 10/25/2019 M48.061 Spinal stenosis, lumbar region Sierrasiljoseph Alvarez MD without neurogenic claudication 10/25/2019 M43.16 Spondylolisthesis, lumbar region Sierrasiljoseph Alvarez MD 10/11/2019 M48.062 Spinal stenosis, lumbar [...] electrocardiogram [ECG] Félix Obrien M.D., FACC, [EKG] [facility] 08/23/2019 R00.0 Tachycardia, unspecified SIMONE QuijanoC 08/23/2019 K35.32 Acute appendicitis with perforation Arsenio Alcazar MD and localized peritonitis, without abscess 08/23/2019 I42.5 Other restrictive cardiomyopathy SIMONE QuijanoC 08/23/2019 I10 Essential (primary) hypertension SIMONE QuijanoC 08/23/2019 M54.9 Dorsalgia, unspecified MANUEL Quijano-C 08/23/2019 G47.33 Obstructive sleep apnea (adult) Adele Yarbrough PA-C (pediatric) 08/23/2019 F32.9 Major depressive disorder, single Adele Yarbrough PA-C episode, unspecified 08/11/2019 I50.23 Acute on chronic systolic Isabellekameron Mcdonough, OCEAN FORWARDER (congestive) heart failure 08/11/2019 R07.9 Chest pain, unspecified Nato Gonzalez MD, FAC, FSCAI 08/11/2019 I50.9 Heart failure, unspecified Yakov Simpson, DO FAC 08/10/2019 R06.00 Dyspnea, unspecified Mery Green M.D. 08/10/2019 R00.0 Tachycardia, unspecified Mery Green M.D. 08/04/2019 M48.062 Spinal stenosis, lumbar region with Juan Jose Alvarez MD neurogenic claudication Plan of Treatment Future Appointment(s):02/21/2020 2:00 pm - Juan Jose Alvarez MD at [facility]12/18/2019 - Juan Jose Alvarez MDZ48.89 Encounter for other specified surgical ffoocrissQ48.061 Spinal stenosis, lumbar region without neurogenic claudFollow up:RV in 2 xxvlhwM40.4 Cauda equina gyzxscvgO45.16 Spondylolisthesis, lumbar region Functional Status Description No Information Available Mental Status Description No Information Available Referrals Refer to Reason for Referral Status Appt Date Jaron Quiñones MD 2nd DVT. though both possibly provoked by Sent extensive back surgeries. [address] [place] [address] [phone] Olivia Erwin MD HEENA on CPAP, PFTs (SOB with 40 pack years) Sent [address] [place] [address] [phone]
--- OUTSIDE RECORDS SUMMARY | 2020-01-09 17:15 | XMS REPORT | Continuity of Care Document ---
:1955 External Reference #:[id number] Author Name Juan Jose Alvarez MD (transmitted by agent of provider Khadijah Cueto) Address [address] [place] [address]., [place] [address] Care Team Providers Name Role Phone Ilan Lowe MD - Hospitalist Care Team Information Radio Repair Teacher [phone] Problems Active Problems Provider Date Electrocardiogram abnormal [...] 1 MG Injection Technetium TC 99M Tetrofosmin, [facility] Nuclear Arrival 10/09/2016 Per Unit Dose Up [...] Result H/L Range Note Laboratory test 12/06/2019 [facility] Covid19, Undetected Undetected [address] [place] [address] [phone] Urinalysis 10/26/2019 [facility] Urine Yellow Profile [address] [place] [address] [phone] Urine Appearance Cloudy Urine Specific [place] 1.023 Normal 1.010-1.030 Urine pH 7.0 Normal [...] Present Abnormal Absent Urine Culture And 10/26/2019 [facility] Urine SEE RESULT [address] [place] [address] [phone] Inr/Protime 10/26/2019 [facility] Inr 0.95 Normal 0.[address] -1.0 [place] [address] 9 [phone] Type & Screen 10/26/2019 [facility] Patient O Positive [address] Blood Type [place], [place] [id number] [phone] Antibody Screen NEGATIVE Laboratory test 10/26/2019 [facility] Partial 32.1 Normal 26.0 -38.[address] [address] Time PTT [phone] Laboratory test 10/26/2019 [facility] TSH 2.01 Normal 0.34- 5.[address] (Thyroid mcIU/[place] [address] Stim Horm) [phone] Vitamin B12 353 pg/mL Normal 180-914 4 Laboratory test 10/25/2019 [facility] C Reactive 9.44 mg/L High <8.[address] [place] [address] [phone] Comp Metabolic 10/25/2019 [facility] Sodium 138 Normal 135- [address] mmol/L [place], [place] [address] [phone] Potassium 4.1 mmol/L Normal 3.5-5.0 Chloride 104 [...] Egfr 57.7 >60 5 CBC Auto 10/25/2019 [facility] White Blood 5.8 10^3/uL Normal 3.5-10.[address] [place] [address] [phone] Red Blood Count 4.22 10^6/uL Normal 3.70-4.87 [...] Blood Cells % 0.0 CBC Auto 09/04/2019 [facility] White Blood 8.8 10^3/uL Normal 3.5-10.[address] [place] [address] [phone] Red Blood Count 4.29 10^6/uL Normal 3.70-4.87 [...] Blood Cells % 0.0 Laboratory test 09/04/2019 [facility] C Reactive 8.95 mg/L High <8.[address] [place] [address] [phone] Surgical 08/24/2019 [facility] Surgical SEE RESULT [address] [place] [address] [phone] PDFReport SEE IMAGE 1 SARS-CoV-2 RNA is not detected. ADDITIONAL INFORMATION Testing was performed using the cara SARS-CoV-2 assay ([employer] on the cara 6800 System. Fact sheets for this Emergency Use Authorization (EUA) assay can be found at the following links: For Healthcare Providers: https://www.fda.gov/media/762909/download For Patients: https://www.fda.gov/media/285216/download Test Performed by: [facility] [address] [place] [address] Airport Control Operator: Noel Mota M.D. Ph.D.; CLIA# [id number] 2 SEE RESULT BELOW Name: QUIANA SMITH : [address]: Cam Wolf MD Acct: [id number] Unit: [id number] AGE: 64 Location: ICU [id number] Re10/26/19 SEX: F Status: ADM IN SPEC: [id number] MICKIE: 10/26/[address] [facility] [address]: Rajat Casas MD REQ: [id number] RECD: 10/26/19 STATUS: COMP OTHR DR: Ilan Alvarez MD _ SOURCE: URINE SPDESC: ORDERED: Urine Culture Procedure Result Reported Site Urine Culture Final 10/28/19- 0945 ML No growth of clinically significant organisms * ML - Main Lab . END OF REPORT DEPARTMENT OF PATHOLOGY, [address] [place] [address] Nima Rivera M.D. Director [facility] # [id number] 3 Standard intensity warfarin therapeutic range: 2.0-3.0 [...] [address]: Arsenio Alcazar MD Acct: [id number] Unit: [id number] AGE: 64 Location: [facility] [id number] Re08/24/19 SEX: F Status: ADM IN SPEC: [id number] MICKIE: 08/24/19-[address] [facility] [address]: Arsenio Alcazar MD REQ: [id number] RECD: 08/24/192671 STATUS: SOUT _ ORDERED: LEVEL 3 FINAL [...] and the wall thickness averages 0.1 cm. Tractor Distributor sections, one cassette. Signed by and Reported on: Leisa Goode MD 08/25/19 1558 END OF REPORT DEPARTMENT OF PATHOLOGY, [address] [place] [address] Nima Rivera M.D. Director [facility] # [id number] Procedures Date Code Description Status 10/27/2019 89825 Swanson/Facet/Foraminotomy;Ea Addl Segment; Cerv, Thora, Completed Or Lumbar 10/27/2019 32662 Swanson/Facet/Foraminotomy;Vertebral Segment; Lumbar Completed 10/27/2019 64041 Stereotactic Computer-Assisted, Spinal Completed 10/27/2019 33427 Insertion Interbody Biomechanical Device; Each Completed Interspace 10/27/2019 27197 Post Segmental Instrumentation 3-6 Segments Completed 10/27/2019 98504 Arthrodesis,Combined Posterior Or Posterolateral Tech Completed 10/27/2019 09260 Arthrodsis, Post, Addl Segment Completed 10/27/201995221 Autograft For Spine Surgery (Incls Harvesting The Completed Graft) 10/27/201972716 Allograft For Spine Surgery, Morselized Completed 10/26/2019 14497 EKG, Interpretation Only Completed 08/24/2019 44389 Laparoscopy, Surgical, Appendectomy Completed 08/23/2019 09967 EKG, Interpretation Only Completed 08/11/2019 89845 ECHO Transthorasic Realtime 2D W Doppler & Color Flow Completed Hosp 08/11/2019 58593 Treadmill Interp/Report Only Completed 08/11/2019 07193 Stress Test Supervsn W/Out I/R Completed 08/20/2018 94543499 Colonoscopy Completed 06/20/2009 50238652 Mammogram Completed 01/19/2008 780477422 Bone Mineral Density Test Completed Medical Devices [...] degeneration, lumbar region Office Visit 08/28/2019 4:00p Dairen oLwe MD R68.83 Chills ( without Medicine - Suite fever) R K35.32 Acute appendicitis with perf and loc peritonitis, w/o abscs R06.02 Shortness of breath G47.33 Obstructive sleep apnea (adult) (pediatric) I42.9 Cardiomyopathy, unspecified M54.5 Low back pain Office Visit 08/24/2019 11:11a [facility] Sally Mayer, R34 Anuria and Assoc,pc PA oliguria Hospitalists I42.5 Other restrictive cardiomyopathy I10 Essential (primary) hypertension G47.33 Obstructive sleep apnea (adult) (pediatric) G89.29 Other chronic pain Office Visit 08/23/2019 Surgical Arsenio S. K35.32 Acute 7:00a [facility] Alcazar MD appendicitis with perf and loc peritonitis, w/o abscs Office Visit 08/23/2019 [facility] Adele R00.0 Tachycardia, 11:11a Assoc,pc Linnea, PA-C unspecified Hospitalists I42.5 Other restrictive cardiomyopathy I10 Essential (primary) hypertension M54.9 Dorsalgia, unspecified G47.33 Obstructive sleep apnea (adult) (pediatric) F32.9 Major depressive disorder, single episode, unspecified Office Visit 08/11/2019 [facility] Isabelle Ceasar, I50.23 Acute on chronic 11:27a Assoc,pc MONONITROTOLUENE OPERATOR systolic Hospitalists (congestive) heart failure Office Visit 08/10/2019 [facility] Mery Norma, R06.00 Dyspnea, 11:27a Assoc,pc [...] neurogenic claudication Assessments Date Code Description Provider 12/18/2019 Z48.89 Encounter for other specified Juan Jose Alvarez MD surgical aftercare 12/18/2019 M48.061 Spinal stenosis, lumbar region Juan Jose Alvarez MD without neurogenic claudication 12/18/2019 G83.4 Cauda equina syndrome Juan Jose Alvarez MD 12/18/2019 M43.16 Spondylolisthesis, lumbar region Juan Jose Alvarez MD 11/20/2019 Z48.89 Encounter for other specified Juan [...] 10/11/2019 M51.36 Other intervertebral disc Juan Jose Avlarez MD degeneration, lumbar region 09/08/2019 K35.32 Acute [...] R94.31 Abnormal electrocardiogram [ECG] Félix Obrien M.D., [facility], [EKG] [facility] 08/23/2019 R00.0 Tachycardia, unspecified Adele Carmine'edis, PA-C 08/23/2019 K35.32 Acute appendicitis with perforation Arsenio Alcazar MD and localized peritonitis, without abscess 08/23/2019 I42.5 Other restrictive cardiomyopathy Adele Lou'edis PA-C 08/23/2019 I10 Essential (primary) hypertension Adele Lou'edis, PA-C 08/23/2019 M54.9 Dorsalgia, unspecified Adele O'edis, PA-C 08/23/2019 G47.33 Obstructive sleep apnea (adult) Adele Lou'edis PA-C (pediatric) 08/23/2019 F32.9 Major depressive disorder, single Adele O'edis, PA-C episode, unspecified 08/11/2019 I50.23 Acute on chronic systolic Isabelle Ceasar, MONONITROTOLUENE OPERATOR (congestive) heart failure 08/11/2019 R07.9 Chest pain, unspecified Marcis T. Sodums, MD, FAC, FSCAI 08/11/2019 I50.9 Heart failure, [...] Sent [address] [place] [address] [phone]
--- OUTSIDE RECORDS SUMMARY | 2020-01-09 17:16 | XMS REPORT | Continuity of Care Document ---
:1955 External Reference #:[id number] Author Name Juan Jose Alvarez MD (transmitted by agent of provider Bettie Reyes ) Address [address] [place] [address] Care Team Providers Name Role Phone Ilan Lowe MD - Hospitalist Care Team Information Crisis Nurse [phone] Problems Active Problems Provider Date Electrocardiogram abnormal [...] Carvedilol 1 pill by mouth 180tabs Ilan Lwoe MD 07/11/2012 12.5mg twice per day ( Tablets 10-12 hours apart) Calicum daily Unknown 1500mg Tablets Trazodone HCL 1 by mouth every 30tabs Ilan Lowe MD 150mg night at bedtime Tablets Acidophilus Probiotic daily Unknown 10mg Capsules Gabapentin 1 by mouth every 30caps Ilan Lowe MD 300mg night at bedtime Capsules Medications Administered in Office Medication SIG Qnty Indications Ordering Provider Date Depomedrol 40MG Campbell Patton MD 01/14/2017 Injection Dexamethasone Sodium Campbell Patton MD 10/26/2016 Phosphate, 1 MG Injection Technetium TC 99M Tetrofosmin, [facility] Nuclear Schedule 10/09/2016 Per Unit Dose Up [...] Result H/L Range Note Urinalysis Profile 10/26/2019 [facility] Urine Color Yellow [address] [place] [address] [phone] Urine Appearance Cloudy Urine Specific [place] 1.023 Normal 1.010-1.030 Urine pH 7.0 Normal [...] Present Abnormal Absent Urine Culture And 10/26/2019 [facility] Urine SEE RESULT [address] [place] [address] [phone] Inr/Protime 10/26/2019 [facility] Inr 0.95 Normal 0.[address] -1.0 [place] [address] 9 [phone] Type & Screen 10/26/2019 [facility] Patient O Positive [address] [address] [phone] Antibody Screen NEGATIVE Laboratory test 10/26/2019 [facility] Partial 32.1 Normal 26.0 -38.[address] [place] [address] Time PTT [phone] Laboratory test 10/26/2019 [facility] TSH 2.01 Normal 0.34- 5.[address] (Thyroid mcIU/[place] [address] Stim Horm) [phone] Vitamin B12 353 pg/mL Normal 180-914 3 CBC Auto 10/25/2019 [facility] White Blood 5.8 10^3/uL Normal 3.5-10.[address] [place] [address] [phone] Red Blood Count 4.22 10^6/uL Normal 3.70-4.87 [...] Blood Cells % 0.0 Comp Metabolic 10/25/2019 [facility] Sodium 138 mmol/L Normal 135-[address] [place] [address] [phone] Potassium 4.1 mmol/L Normal 3.5-5.0 Chloride 104 [...] Egfr 57.7 >60 4 Laboratory test 10/25/2019 [facility] C Reactive 9.44 mg/L High <8.[address] [place] [address] [phone] Laboratory test 09/04/2019 [facility] C Reactive 8.95 mg/L High <8.[address] [place] [address] [phone] CBC Auto Diff 09/04/2019 [facility] White Blood 8.8 Normal 3.5 -10.[address] Count 10^3/[place] [address] [phone] Red Blood Count 4.29 10^6/uL Normal 3.70-4.87 [...] Red Blood Cells % 0.0 Surgical 08/24/2019 [facility] Surgical SEE RESULT [address] Pathology BELOW [place] [address]498 [phone] PDFReport SEE IMAGE 1 SEE RESULT BELOW Name: QUIANA SMITH : [address]: Cam Wolf MD Acct: [id number] Unit: [id number] AGE: 64 Location: ICU [id number] Re10/26/19 SEX: F Status: ADM IN SPEC: [id number] MICKIE: 10/26/[address] [facility] [address]: Rajat Casas MD REQ: [id number] RECD: 10/26/19 STATUS: COMP OT DR: Ilan Alvarez MD _ SOURCE: URINE SPDESC: ORDERED: Urine Culture Procedure Result Reported Site Urine Culture Final 10/28/19- 0945 ML No growth of clinically significant organisms * ML - Main Lab . END OF REPORT DEPARTMENT OF PATHOLOGY, [address] [place] [address] Nima Rivera M.D. Director [facility] # [id number] 2 Standard intensity warfarin therapeutic range: 2.0-3.0 [...] [address]: Arsenio Alcazar MD Acct: [id number] Unit: [id number] AGE: 64 Location: [place] [address] Re08/24/19 SEX: F Status: ADM IN SPEC: [id number] MICKIE: 08/24/[address] [facility] [address]: Arsenio Alcazar MD REQ: [id number] RECD: 08/24/19 STATUS: SOUT _ ORDERED: LEVEL [...] and the wall thickness averages 0.1 cm. 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 Signed by and Reported on: Leisa Goode MD 08/25/19 1558 END OF REPORT DEPARTMENT OF PATHOLOGY, [address] [place] [address] Nima Rivera M.D. Director [facility] # [id number] Procedures Date Code Description Status 10/27/2019 18338 Swanson/Facet/Foraminotomy;Ea Addl Segment; Cerv, Thora, Completed Or Lumbar 10/27/2019 03645 Swanson/Facet/Foraminotomy;Vertebral Segment; Lumbar Completed 10/27/2019 47218 Stereotactic Computer-Assisted, Spinal Completed 10/27/2019 51746 Insertion Interbody Biomechanical Device; Each Completed Interspace 10/27/2019 72923 Post Segmental Instrumentation 3-6 Segments Completed 10/27/2019 04455 Arthrodesis,Combined Posterior Or Posterolateral Tech Completed 10/27/201918566 Arthrodsis, Post, Addl Segment Completed 10/27/201913457 Autograft For Spine Surgery (Incls Harvesting The Completed Graft) 10/27/201960289 Allograft For Spine Surgery, Morselized Completed 10/26/2019 56573 EKG, Interpretation Only Completed 08/24/2019 66609 Laparoscopy, Surgical, Appendectomy Completed 08/23/2019 61395 EKG, Interpretation Only Completed 08/11/2019 04925 ECHO Transthorasic Realtime 2D W Doppler & Color Flow Completed Hosp 08/11/2019 16438 Treadmill Interp/Report Only Completed 08/11/2019 71303 Stress Test Supervsn W/Out I/R Completed 08/20/2018 96309729 Colonoscopy Completed 06/20/2009 76878889 Mammogram Completed 01/19/2008 190687794 Bone Mineral Density Test Completed Medical Devices [...] intervertebral disc degeneration, lumbar region Office Visit 08/24/2019 11:11a [facility] Sally Mayer, R34 Anuria and Assoc,pc PA oliguria Hospitalists I42.5 Other restrictive cardiomyopathy I10 Essential (primary) hypertension G47.33 Obstructive sleep apnea (adult) (pediatric) G89.29 Other chronic pain Office Visit 08/23/2019 Surgical Arsenio SKenya K35.32 Acute 7:00a [facility] Alcazar MD appendicitis with perf and loc peritonitis, w/o abscs Office Visit 08/23/2019 [facility] Adele R00.0 Tachycardia, 11:11a Assoc,pc Linnea, PA-C unspecified Hospitalists I42.5 Other restrictive cardiomyopathy I10 Essential (primary) hypertension M54.9 Dorsalgia, unspecified G47.33 Obstructive sleep apnea (adult) (pediatric) F32.9 Major depressive disorder, single episode, unspecified Office Visit 08/11/2019 [facility] Isabelle Mcdonough, I50.23 Acute on chronic 11: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,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0 Tachycardia, unspecified Adele Yarbrough PA-C [...] I50.23 Acute on chronic systolic Isabelle Ceasar, VIBRATION ENGINEER (congestive) heart failure 08/11/2019 R07.9 Chest pain, unspecified Nato Gonzalez MD, [facility], FSCAI 08/11/2019 I50.9 Heart failure, unspecified Yakov Simpson, [facility] 08/10/2019 R06.00 Dyspnea, unspecified Mery Green M.D. [...] Juan Jose Alvarez MD at [facility]11/20/2019 - Juan Jose Alvarez MDG83.4 Cauda equina cumqhpibU63.061 Spinal stenosis, lumbar region without neurogenic claudFollow up:RV in 3-4 fifgdD55.16 Spondylolisthesis, lumbar region Functional Status Description No Information Available Mental Status Description No Information Available Referrals Refer to Reason for Referral Status Appt Date Olivia Erwin MD HEENA on CPAP, PFTs (SOB with 40 pack years) Sent [address] [place] [address] [phone]
--- NOTE | 2020-01-09 17:47 | ED ---
Lower Extremity - HPI Summary HPI Summary: 64 y/o F presenting to [facility] c/o 06/29 constant, sharp/shooting right buttock pain radiating down the back of her right lower extremity into her right ankle, weakness in right lower extremity, numbness in right foot starting 3 weeks ago. She denies incontinence, urinary or fecal dysfunction, perianal and perigenital numbness. She has taken Tylenol for her symptoms. Patient had L3 and L4 fusion done with Dr. Alvarez on 10/27. Hx DVT in R lower extremity from her ankle to groin on 12/11 for which she is taking Xarelto. Hx PE. Had x-ray done on 01/04. Medications reviewed. - History of Current Complaint Chief Complaint: EDExtremityLower Stated Complaint: NUMBNESS AND PAIN IN RT LEG PER PT Time Seen by Provider: 01/09/20 17:36 Hx Obtained From: Patient Onset/Duration: Still Present Severity Currently: Severe Pain Intensity: 10 Pain Scale Used: 0-10 Numeric Timing: Constant Character Of Pain: Sharp Associated Signs And Symptoms: Positive: Negative - incontinence, urinary or fecal dysfunction, perianal and perigenital numbness Aggravating Factor(s): Nothing Alleviating Factor(s): Nothing - Allergies/Home Medications Allergies/Adverse Reactions: Allergies Allergy/AdvReac Type Severity Reaction Status Date / Time No Known Allergies Allergy Verified 10/25/19 17:12 Home Medications: Home Medications Carvedilol TAB* [Coreg TAB*] 12.5 mg PO BID 11/16/14 [History Confirmed 01/09/20 ] Melatonin 10 mg PO BEDTIME PRN 08/10/19 [History Confirmed 01/09/20] Furosemide TAB* [Lasix TAB*] 20 mg PO DAILY #30 tab 08/11/19 [Rx Confirmed 01/08] Calcium Carbonate/Vitamin D3 [Calcium 500-Vit D3 400 Chew Tb] 1 each PO DAILY [History Confirmed 01/09/20] Digoxin TAB* [Lanoxin TAB*] 0.125 mg PO 1700 tab 11/10/19 [Rx Confirmed ] Gabapentin CAP(*) [Neurontin 100 mg CAP(*)] 200 mg PO BEDTIME cap 11/10/19 [Rx Confirmed 01/09/20] DULoxetine DR CAP* [Cymbalta CAP*] 60 mg PO DAILY 01/09/20 [History Confirmed ] Gabapentin CAP(*) [Neurontin 100 mg CAP(*)] 100 mg PO QAM 01/09/20 [History Confirmed 01/09/20] Potassium Chloride [Klor-Con M20] 20 meq PO DAILY 01/09/20 [History Confirmed ] Rivaroxaban TAB(*) [Xarelto 15 mg(*)] 15 mg PO BID 01/09/20 [History Confirmed 01/09/20] oxyCODONE/Acetamin 5/325 MG* [Percocet 5/325 TAB*] 1 tab PO Q6H PRN 3 Days #12 tab MDD 4 01/09/20 [Rx] traZODone TAB* [Desyrel TAB*] 150 mg PO BEDTIME 01/09/20 [History Confirmed ] PMH/Surg Hx/FS Hx/Imm Hx Endocrine/Hematology History: Reports: Hx Anticoagulant Therapy - FOR HX OF DVT Denies: Hx Diabetes, Hx Thyroid Disease Cardiovascular History: Reports: Hx Angina, Hx Deep Vein Thrombosis, Hx Hypertension, Other Cardiovascular Problems/Disorders - "WEAK"- SEES DR. 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 L4-L5 DECOMPRESSIVE LAMINCETOMY FOLLOWED BY PEDICLE SCREW FIXATION AND FUSION IN 2003; . ANTERIOR CERVICAL DISC FUSION C5-6 IN 2004; C4-C5 2006 :C3-C4 2008. C6 VERTEBRECTOMY W/ C5-C7 STRUT GRAFT FUSION IN 2004;. ALL SPINE SURGERIES AT [facility] WITH DR SANTIAGO. CRANIOTOMY (FOR AVM) IN JANUARY 2009 (THIS WAS CLEARED IN 2009 FOR MRI CSP - SEE PREVIOUS SCREENING IN PACS);. REMOVAL OF FLAP FEBRUARY 2009;. CRANIOPLASTY IN AUG 2009;. REMOVAL OF INFECTED FLAP NOVEMBER 2009 Hx Anesthesia Reactions: No Infectious Disease History: No Infectious Disease History: Denies: Hx Clostridium Difficile, Hx Hepatitis, Hx Human Immunodeficiency Virus (HIV), Hx of Known/Suspected MRSA, Hx Shingles, Hx Tuberculosis, Traveled Outside the [place] in Last 30 Days - Family History Known Family History: Positive: Cardiac Disease, Hypertension - Social History Alcohol Use: Rare Hx Substance Use: Yes Substance Use Comment - Amount & Last Used: fentanyl and oxycodone Hx Tobacco Use: Yes Smoking Status (MU): Former Smoker Type: Cigarettes Amount Used/How Often: 1 PPD X 25 YEARS Length of Time of Smoking/Using Tobacco: 29 years Have You Smoked in the Last Year: No Review of Systems Gastrointestinal: Negative - fecal dysfunction, perianal numbness Genitourinary: Negative - urinary dysfunction, perigenital numbness Negative: incontinence Positive: Other - right buttock pain radiating down the back of her right lower extremity into her right ankle, weakness in right lower extremity, numbness in right foot All Other Systems Reviewed And Are Negative: Yes Physical Exam - Summary Physical Exam Summary: Constitutional: Obese, Alert. (-) Distressed Skin: Warm, Dry HENT: Normocephalic; Atraumatic Eyes: Conjunctiva normal Neck: Musculoskeletal ROM normal neck. (-) JVD, (-) Stridor, (-) Nuchal rigidity Cardio: Rhythm regular, rate normal, Heart sounds normal; Intact distal pulses; Radial pulses are 2+ and symmetric. (-) Murmur Pulmonary/Chest wall: Effort normal. (-) Respiratory distress, (-) Wheezes, (-) Rales Abd: Soft, (-) tenderness, (-) Distension, (-) Guarding, (-) Rebound Musculoskeletal: (-) Edema; Positive straight leg raise on the right, pain with straight leg raise on the left; Full strength 5/5 with foot extension and flexion; Decreased sensation to the lateral and posterior aspect of right calf and ankle; 2+ DP pulses bilaterally Lymph: (-) Cervical adenopathy Neuro: Alert, Oriented x3 Psych: Mood and affect Normal Triage Information Reviewed: Yes Vital Signs On Initial Exam: Initial Vitals Temp Pulse Resp BP Pulse Ox 96.1 F 118 18 119/90 98 01/09/20 17:04 01/09/20 17:04 01/09/20 17:04 01/09/20 17:04 01/09/20 17:04 Vital Signs Reviewed: Yes Procedures - Sedation Patient Received Moderate/Deep Sedation with Procedure: No Diagnostics - Vital Signs Vital Signs Temp Pulse Resp BP Pulse Ox 01/09/20 17:04 96.1 F 118 18 119/90 98 - Laboratory Lab Statement: Any lab studies that have been ordered have been reviewed, and results considered in the medical decision making process. - CT Lumbar spine CT Interpretation Completed By: Radiologist - IMPRESSION: 1. As seen on the prior exam, there are postoperative changes laminectomy and posterior fusion and intervertebral fusion at L4-L5 but on the current exam there is additional postoperative change posterior fusion from L2 through L4 and intervertebral fusion at L2-L3 and additional laminectomy at L2 and L3. Fixation hardware is in normal anatomic alignment. 2. Resolution of previously seen L3-L4 and L2-L3 spinal canal stenosis because interval laminectomy since the prior exam. ED physician has reviewed this imaging report. - Ultrasound Venous doppler study Ultrasound Interpretation Completed By: Radiologist - IMPRESSION: No significant change in acute nonocclusive DVT of the mid and distal right femoral vein, right popliteal vein, right posterior tibial and right peroneal veins. ED physician has reviewed this imaging report. Re-Evaluation - Re-Evaluation First Eval Re-Evaluation Time: 19:45 Change: Improved - d/w patient CT findings, plan for PO pain control and MRI outpatient. Lower Extremity Course/Dx - Course Course Of Treatment: 64 y/o F w recent L3-[address] Nayak c/b RLE DVT p/w R sided back and leg pain. - exam c/w sciatica, no weakness or signs of cauda equina. Sensory deficit L5/S1. CT w hardware intact. DVT US unchanged. D/ w Dr. Nayak who agrees w pain control, outpatient MRI - Diagnoses Provider Diagnoses: Back pain, DVT (deep venous thrombosis) - Physician Notifications Discussed Care Of Patient With: Juan Jose Alvarez - Recommends CT L Spine and repeat US of LE. States patient can have outpatient MRI. Time Discussed With Above Provider: 17:51 - Critical Care Time Critical Care Statement: Critical care time is provided exclusive of any time spent performing procedures. Discharge ED - Sign-Out/Discharge Documenting (check all that apply): Patient Departure - Discharge Plan Condition: Stable Disposition: HOME Prescriptions: oxyCODONE/Acetamin 5/325 MG* [Percocet 5/325 TAB*] 1 tab PO Q6H PRN 3 Days #12 tab MDD 4 PRN Reason: Pain Patient Education Materials: Sciatica (ED), Lumbar Radiculopathy (ED) Referrals: Ilan Lowe MD [Primary Care Provider] - Additional Instructions: You were seen in the emergency department forback pain. Your CT scan did not show any acute abnormalities, please follow-up with Dr. Costa regarding an outpatient MRI. Your ultrasound showed your previous DVT. If any studies were not completed at the time of discharge you will be called with the relevant results. Please follow up with your primary care doctor in next 2-3 days and return to emergency department for worsening pain, new numbness or weakness, bowel or bladder incontinence or concerning symptoms. It was a pleasure taking care of you today. - Billing Disposition and Condition Condition: STABLE Disposition: Home - Attestation Statements Document Initiated by Maxibe: Yes Documenting Scribe: Anali Ybarra Provider For Whom Heriberto is Documenting (Include Credential): Betty Pearson MD Scribe Attestation: IAnali, scribed for Betty Pearson MD on 01/09/20 at 2002. Scribe Documentation Reviewed: Yes Provider Attestation: The documentation as recorded by the Anali borja accurately reflects the service I personally performed and the decisions made by me, Betty Pearson MD Status of Scribe Document: Viewed
[2020-01-09] MEDS ORDERED: oxyCODONE/Acetamin 5/325 MG* TAB PO ONE (17:54)
[2020-01-09 20:05] VITALS: BP 130/83
== END 2020-01-09 19:52 | disposition home or self-care (01) ==
LOC: ED 17:02
DX: I82.401 Acute embolism and thrombosis of unspecified deep veins of right lower extremity (principal); M54.5 Low back pain; M79.18 Myalgia, other site; J44.9 Chronic obstructive pulmonary disease, unspecified; F41.9 Anxiety disorder, unspecified; F32.9 Major depressive disorder, single episode, unspecified; I10 Essential (primary) hypertension; Z79.01 Long term (current) use of anticoagulants; Z86.718 Personal history of other venous thrombosis and embolism; Z79.899 Other long term (current) drug therapy; Z87.891 Personal history of nicotine dependence; Z86.79 Personal history of other diseases of the circulatory system
CPT/HCPCS: 72131; 99283; A9270-GY